=== PATIENT | male | born 1980 | race Caucasian/White ===

== ENCOUNTER → 2017-07-15 | Outpatient (CLI) | payer OTHER, SELFPAY | PROVIDERS: Visit Provider Urology | DX: E29.1 Testicular hypofunction (principal) | CPT/HCPCS: 36415; 84402 ==

== ENCOUNTER 2017-08-23 16:30 | Outpatient (RCR) | payer OTHER, SELFPAY ==
--- NOTE | 2017-08-04 13:41 | HMH.PTOPEV ---
Rehab Outpatient Evaluation Rehab OP Evaluation Start: 08/03/17 10:44 Freq: Status: Active Protocol: Document 08/03/17 10:44 CHIVO (Rec: 08/03/17 12:50 CHIVO [id number]) Electronically Signed By Dao Christopher, PT 08/03/17 10:44 Outpatient Therapy Subjective History Subjective History Mr. Avendaño is a 37 year old male who presents to outpatient Physical Therapy with a R gastroc strain. Pt. was playing basketball and felt a pop and like someone had kicked him in his leg. Signs and symptoms consistent with grade II gastroc strain. Pt went for MD visit where he was prescribed oral anti- inflammatories and referred to PT. Overall improvements noted since introduction of ice and anti-inflammatories. Chief Complaint Pain Symptom Type Sharp Stabbing Tingling Symptoms Relieved By Rest/Positioning Symptoms Aggravated By Standing Physical Activity Walking Prior Functional Limitations None Current Functional Limitations Driving Standing Recreation Activity Walking Stairs Symptom Description Constant and Continuous Level of pain today (0-10) 4 Pain scale - at its best (0-10) 2 Pain scale - at its worst (0-10) 5 Hip/Knee Eval Palpation Tenderness right Knee Palpation Overall Comment Proximal medial head of gastroc Ankle/Foot Eval Gait Observation General Gait Pattern Observation Antalgic Gait Decrease Weight Bear (R) Decrease Stride Lngth (L) Assistive Device Ambulation Assistive Device None Palpation Tenderness right Ankle/Foot Palpation Findings Tenderness Ankle/Foot Palpation Overall Comment +TTP R medial gastroc head ROM left Ankle/Foot ROM Reason Not Measured Within Functional Limits right Ankle/Foot ROM Limitations Soft Tissue Tightness Pain MMT Ankle Plantarflexion Strength Grade 5 Normal Outpatient Therapy Assessment Impairments Problems/Impairmments Palpation Tenderness Impaired Strength
== END 2017-08-23 16:31 | disposition home or self-care (01) ==
LOC: PT 16:30
PROVIDERS: Family Provider Family Medicine; PCP Family Medicine; Visit Provider Family Medicine
DX: S86.111A Strain of other muscle(s) and tendon(s) of posterior muscle group at lower leg level, right leg, initial encounter (principal)
CPT/HCPCS: 97010; 97014; 97035; 97110; 97140; G0283

== ENCOUNTER → 2017-12-13 16:09 | Outpatient (CLI) | payer OTHER, SELFPAY ==
--- NOTE | 2017-12-13 16:15 | XR_ITS ---
XR shoulder RT min 2V HISTORY: ITS.REASON: RT SHOULDER PAIN ORDERING PHYSICIAN: John Byrne MD PATIENT AGE: 37 years Comparison: None FINDINGS: No fracture or dislocation. No lytic or blastic change. There is normal mineralization. The joint spaces are well-preserved. No significant degenerative/arthritic changes. No erosive changes evident. IMPRESSION: Negative, no acute finding
== END ==
PROVIDERS: PCP Family Medicine; Visit Provider Family Medicine
DX: M25.511 Pain in right shoulder (principal)
CPT/HCPCS: 73030

== ENCOUNTER → 2017-12-29 10:59 | Outpatient (CLI) | payer OTHER, SELFPAY ==
--- NOTE | 2017-12-29 11:02 | MR_ITS ---
MR shoulder RT wo con HISTORY: Right shoulder pain. Prior SLAP repair, heard a pop in the right shoulder with pain and tingling weakness and limited range of motion ITS.REASON: ACUTE PAIN OF RIGHT SHOULDER ORDERING PHYSICIAN: John Byrne MD PATIENT AGE: 37 years Comparison: 12/13/2017, 11/27/2012 TECHNIQUE: Standard multiplanar multiecho sequences are performed without contrast. FINDINGS: There is mild downsloping of the acromion laterally and posteriorly with minimal hypertrophic change inferiorly causing subacromial stenosis as before. There is minimal thickening with increased T2 signal in the distal aspect of the supraspinatous tendon consistent with mild tendinopathy/tendinosis. Small focal area of increased T2 signal present within the distal aspect of the supraspinatus tendon posteriorly suggesting a small intrasubstance tear which is incomplete. There is also mild thickening of the subscapularis tendon with slight increased T2 signal. The infraspinatus and teres minor tendons are intact. Bicipital tendon is in place. No evidence of labral tear area no shoulder joint effusion fracture or other significant anomalies evident. IMPRESSION: 1. Mild subacromial stenosis which may result in impingement symptomatology. 2. Tendinopathy/tendinosis of the supraspinatus and subscapularis tendons. 3. Partial tear of the distal and posterior aspect of the supraspinatus tendon.
== END ==
PROVIDERS: Family Provider Family Medicine; PCP Family Medicine; Visit Provider Family Medicine
DX: M25.511 Pain in right shoulder (principal); R29.898 Other symptoms and signs involving the musculoskeletal system
CPT/HCPCS: 73221

== ENCOUNTER → 2018-01-16 15:17 | Outpatient (CLI) | payer OTHER, SELFPAY ==
[2018-01-20 15:34] LABS: Testosterone,Free 28.6 pg/mL (8.7-25.1)
[2018-01-20 15:37] LABS: Testosterone, Total, LC/MS 1102.7 ng/dL (264.0-916.0)
== END ==
PROVIDERS: Visit Provider Urology
DX: E29.1 Testicular hypofunction (principal)
CPT/HCPCS: 36415; 84402; 84403

== ENCOUNTER → 2018-03-28 15:09 | Outpatient (CLI) | payer OTHER, SELFPAY ==
[2018-04-04 08:26] LABS: Testosterone, Total, LC/MS 482.1 ng/dL (264.0-916.0)
== END ==
PROVIDERS: PCP Family Medicine; Visit Provider Urology
DX: E29.1 Testicular hypofunction (principal)
CPT/HCPCS: 36415; 84402; 84403

== ENCOUNTER 2018-04-08 21:09 | Observation (INO) ==
[2018-04-08 21:56] LABS: Anion Gap 10.9 mEq/L (5-15); Blood Urea Nitrogen 5 mg/dL (7-18); Carbon Dioxide 30 mmol/L (21.0-32.0); Chloride 105 mmol/L (98-107); Glucose 110 mg/dL (74-106); Potassium 3.9 mmoL/L (3.5-5.1); Sodium 142 mmol/L (136-145)
[2018-04-08 22:08] LABS: Basophils % 0.4 % (0.1-2.0); Eosinophils # 0.1 K/mm3 (0.0-0.4); Eosinophils % 1.9 % (0.1-12.0); Hematocrit 54.1 % (42.0-52.0); Lymphocytes # 2.7 K/mm3 (0.7-4.5); Mean Corpuscular HGB Conc 33.8 g/dL (31.8-35.4); Mean Corpuscular Hemoglobin 30.8 pg (27.0-31.2); Mean Corpuscular Volume 91.2 fl (80-94); Mean Platelet Volume 6.9 fl (7.4-10.4); Monocytes # 0.5 K/mm3 (0.1-1.0); Monocytes % 6.6 % (1.7-9.3); Neutrophils # 4.1 K/mm3 (1.8-7.8); Neutrophils % 55.2 % (37.0-80.0); Platelet Count 255 K/mm3 (142-424); Red Blood Count 5.93 M/mm3 (4.60-6.20); Red Cell Distribution Width 13.8 % (11.5-17.5); White Blood Count 7.4 K/mm3 (4.8-10.8)
--- NOTE | 2018-04-08 22:13 | Emergency Department Note ---
ED Disposition Clinical Impression: Chest pain Qualifiers: Chest pain type: unspecified Qualified Code(s): R07.9 - Chest pain, unspecified Disposition: Admitted as Observation Condition on Discharge: Good Referrals: John Byrne MD [Primary Care Provider] - - Critical Care Critical Care Time: No Attestation: On 04/08/18, the high probability of a clinically significant, sudden or life threatening deterioration of the following system(s) required my full and direct attention, intervention and personal management. The time I documented below is in addition to time spent performing reported procedures but includes the following listed in this critical care notation. Medical Decision Making - Medical Records Medical records reviewed: Yes: I reviewed the patient's medical records. - Chaim Inquiry Pt receiving controlled substance: No Vital Signs: 04/08/18 21:09 04/08/18 21:46 04/08/18 21:59 Temperature 98.0 F Temperature Source Oral Pulse Rate [Right Radial] 94 H 97 H 110 H Respiratory Rate 16 16 17 Blood Pressure [Right Arm] 145/100 126/85 134/80 Blood Pressure Mean [Right Arm] 115 98 98 Blood Pressure Source [Right Arm] Automatic Cuff Manual Cuff/ Palpation Automatic Cuff Blood Pressure Position [Right Arm] Sitting Sitting Sitting 02 Sat by Pulse Oximetry 97 96 96 Oxygen Delivery Method Room Air Room Air - Lab Data Lab results reviewed: Yes: I reviewed the patient's lab results. Lab Results 04/08/18 21:10: Sodium 142, Potassium 3.9, Chloride 105, Carbon Dioxide 30, Anion Gap 10.9, BUN 5 L, Creatinine 1.05, Estimated Creat Clear 142, Estimated GFR 79, Est GFR ( Amer) 96, Glucose 110 H, Calcium 9.0, Troponin I < 0.02 Result diagrams: 04/08/18 21:10 Orders (Tests/Meds): ED MEDICATIONS Discontinued Medications Generic Name Dose Route Start Last Admin Trade Name Freq PRN Reason Stop Dose Admin Acetaminophen 500 mg 04/08/18 22:01 04/08/18 22:02 Tylenol 500mg Tablet PO 04/08/18 22:02 500 mg ONCE ONE Administration Aspirin 324 mg 04/08/18 21:23 04/08/18 21:24 Aspirin 81mg Chewable Tablet PO 04/08/18 21:24 324 mg ONCE ONE Administration Nitroglycerin 0.4 mg 04/08/18 21:48 04/08/18 21:52 Nitrostat 0.4mg Sl Tablet SL 04/08/18 21:49 0.4 mg ONCE ONE Administration ORDERS Category Date Time Status Chest XR 2 view (NOT portable) [XR chest 2V] Stat Exams 04/08/18 21:14 Taken Complete Blood Count Auto Diff Stat Lab 04/08/18 21:10 Received 12-lead EKG Request [ECG Request by /Logan] Stat Y 04/08/18 21:15 Ordered - Radiology Data #1 Image(s): Chest Image Reviewed: Yes I reviewed the patient's radiology image Preliminary Findings: Normal/NAD - ECG Data Tracing #1 I reviewed this ECG and interpreted as documented below: Normal Sinus Rhythm: Yes Ischemic changes: non-specific ST-T wave changes - Physician Consults Physician Consulted: mo Reason -: Admission Additional Consult: mercedes Reason -: Pt condition Chest Pain HPI - General Chief Complaint: Chest Pain Stated Complaint: chest pain Time Seen by Provider: 04/08/18 21:15 Mode of Arrival: Ambulatory Source of Information: Patient, Spouse, Medical Record Limitations: No Limitations Description of Symptoms (Recalled from ER Triage Doc. by RN): Pt reports left sided chest pain that has been occuring on and off for 3 days. He reports left side chest pressure and difficulty breating. - History of Present Illness HPI narrative: wm with new onset of lt ant chest pain both with act and rest over the last few days - no trauma or cough and no gerd sx and rash and no sob - has hx of father with ht dis at 38 MD complaint: chest pain indicative of cardiac Onset (ago): day(s) Duration: intermittent Activity at onset: during rest Pain location: left chest Severity: moderate Risk Factors for CAD: Family Hx of CAD Treatments prior to or on arrival for Cardiac Chest Pain: none - KATERINA Score Non-Stemi Age of patient: Less than 65 yrs Number of risk factors for CAD: Presence of less than 3 Prior coronary artery stenosis(seen in coronary angiography): Less than 50% ST-Segment deviation on ECG (more than 1 min): Absent Prior aspirin intake: No ASA in the last 7 days Severe anginal chest pain: Two or more episodes in last 24 hours Elevated cardiac markers(CK-MB or troponin): Absent Non-Stemi Risk Score: 1 - Related Data Home Medications Medication Instructions Recorded Confirmed cholecalciferol (vitamin D3) 2,000 2,000 unit PO DAILY cap 02/07/18 04/08/18 unit capsule paroxetine 10 mg tablet 40 mg PO DAILY tab 02/07/18 04/08/18 Pantoprazole Sodium [Protonix 40mg 40 mg PO DAILY 04/08/18 04/08/18 tablet] Testosterone Cypionate 50 mg IM WEEKLY 04/08/18 04/08/18 Allergies Allergy/AdvReac Type Severity Reaction Status Date / Time From LEVAQUIN Allergy Unknown NAUSEA/VOMI Uncoded 02/07/18 09:03 TING From PERCOCET Allergy Unknown NIGHTMARES Uncoded 02/07/18 09:03 [facility] History I have reviewed the patient's past medical history: Yes Medical History: Reports:: Hyperlipidemia Other Surgeries: Yes: Cholecystectomy Comment: BMT, R Shoulder Surgery - Social History Smoking Status: Unknown if ever smoked Alcohol Intake: never Family Hx:: Anemia, Asthma, Cancer, Hyperlipidemia ROS Obtained: Yes All systems reviewed & no additional complaints - Constitutional Constitutional: Denies fever(s) - Eyes Eyes: Denies change in vision - ENT Ears, Nose, Mouth, and Throat: Denies headache(s), Denies sore throat - Cardiovascular Cardiovascular: Reports chest pain, Denies dyspnea - Respiratory Respiratory: No cough - Gastrointestinal Gastrointestingal: Denies: abdominal pain - Genitourinary Male Genitourinary: Denies flank pain, Denies hematuria - Musculoskeletal Musculoskeletal: Denies joint pain - Integumentary/Breasts Skin/Breast: Denies rash - Neurologic Neurologic: Denies seizure-like activity Physical Exam - General General appearance: alert, in no apparent distress - Head Head exam: normocephalic - Eye Eye exam: Present: PERRL, EOMI - ENT ENT exam: Present: mucous membranes moist - Neck Neck exam: Present: full ROM, trachea midline - Respiratory Respiratory exam: Present: normal lung sounds bilaterally. Absent: respiratory distress - Cardiovascular Cardiovascular exam: Present: regular rate, systolic murmur. Absent: rubs - Abdominal Exam Abdominal exam: Present: soft - Extremities Exam Extremities exam: Present: full ROM. Absent: calf tenderness - Neurological Exam Neurological exam: Present: alert, oriented X3, CN II-XII intact - Psychiatric Psychiatric exam: Present: normal affect - Skin Skin exam: Absent: rash
[2018-04-08 22:40] LABS: Hemoglobin 18.4 g/dL (14.1-18.0)
[2018-04-09 05:26] LABS: Anion Gap 12.9 mEq/L (5-15); Calcium 8.6 mg/dL (8.5-10.1); Potassium 3.9 mmoL/L (3.5-5.1)
[2018-04-09 05:31] LABS: Basophils % 0.6 % (0.1-2.0); Eosinophils # 0.2 K/mm3 (0.0-0.4); Eosinophils % 2.2 % (0.1-12.0); Hematocrit 49.7 % (42.0-52.0); Hemoglobin 16.6 g/dL (14.1-18.0); Lymphocytes # 2.8 K/mm3 (0.7-4.5); Lymphocytes % 41.3 K/mm3 (10-50); Mean Corpuscular HGB Conc 33.3 g/dL (31.8-35.4); Mean Corpuscular Hemoglobin 30.4 pg (27.0-31.2); Mean Corpuscular Volume 91.4 fl (80-94); Mean Platelet Volume 7.1 fl (7.4-10.4); Monocytes # 0.5 K/mm3 (0.1-1.0); Monocytes % 7.6 % (1.7-9.3); Neutrophils # 3.2 K/mm3 (1.8-7.8); Neutrophils % 48.2 % (37.0-80.0); Platelet Count 242 K/mm3 (142-424); Red Blood Count 5.44 M/mm3 (4.60-6.20); Red Cell Distribution Width 13.9 % (11.5-17.5); White Blood Count 6.6 K/mm3 (4.8-10.8)
--- NOTE | 2018-04-09 09:43 | Pharmacy Consult Notes ---
[facility] Pharmacy VTE Monitoring - Patient Demographics Admission date: 04/08/18 Report Date: 04/09/18 Time: 09:43 Allergies/Adverse Reactions: Patient Allergies From LEVAQUIN Allergy (Unknown, Uncoded 02/07/18 09:03) NAUSEA/VOMITING From PERCOCET Allergy (Unknown, Uncoded 02/07/18 09:03) NIGHTMARES Height: 1.73 m Weight: 106.311 kg Patient Problems: Current Active Problems Chest pain (Acute) - VTE Risk Labs: VTE Related Lab Results Hgb 16.6 g/dL (14.1-18.0) 04/09/18 04:36 Hct 49.7 % (42.0-52.0) 04/09/18 04:36 Plt Count 242 K/mm3 (142-424) 04/09/18 04:36 BUN 6 mg/dL (7-18) L 04/09/18 04:36 Creatinine 0.99 mg/dL (0.70-1.30) 04/09/18 04:36 Estimated Creat Clear 154 mL/min (0-300) 04/09/18 04:36 Was VTE Risk Assessment Performed: Yes VTE Score: 2 VTE Risk Level: Low Risk - Prophylaxis VTE Prophylaxis Ordered?: Yes Types of VTE Prophylaxis: TEDS Knee High Location of Applied Device: Bilateral Lower Extremeties - VTE Diagnosis Confirmed Treatment or plan recommended: Continue Current Treatment
--- NOTE | 2018-04-09 11:10 | History & Physical Report ---
*Admission Date: 04/08/18 *Chief complaint: Chest pain *History of present illness: THIS IS TO SERVE COMBO H&P AND DISCHARGE SUMMARY. This 38-year-old white male has a strong family history of coronary artery disease. He presented in the emergency room with complaints of chest pain. He had chest pains and Tuesday and presented in the emergency room Tuesday. In describing the pain it seems that the pain is usually nonexertional. The pain is on the left side of the chest. He is not short of breath. He is not diaphoretic. He has not noticed pain when he is at work though he is not usually all that active at work. His father at age 53 of pancreatic cancer but had coronary artery bypass 2, with his first heart attack at age 38. [facility] History Medical History: Reports:: Hyperlipidemia Denies:: Cancer, Diabetes Mellitus Type 1, Diabetes Mellitus Type 2, Lung Disease, MRSA Other Medical History: Denies: Anemia, Fibromyalgia, Liver Disease Comment: He has had GI symptoms in the past and takes [id number] PPI which has recently been switched to Protonix. Laterality Cases: Right: Other Other Surgeries: Yes: Cholecystectomy Amputation: No Fractures: No - *Social History Educational Level: Completed High School Smoking Status: Never smoker Alcohol Intake: never (Occasional social drink.) Occupational Status: employed - Psychiatric History Expresses thoughts of harming self/others: None Suicide Plan Description: No Plan *Family Hx:: Anemia, Asthma, Cancer, Coronary Artery Disease, Diabetes, Heart Attack, Hyperlipidemia Comment: His father at age 53 of pancreatic cancer. He had coronary artery disease and CABG 2. His mother 61 years old and in good health. Sister is 44 years old with diabetes. He is a 3-year-old daughter. Review of Systems - Constitutional Denies anorexia, Denies body ache(s), Denies chills - Eyes Denies blurry vision - ENT Denies abnormal hearing - *Cardiovascular Reports chest pain, Reports chest pain at rest, Denies chest pain with activity, Denies shortness of breath, Denies irregular heart rhythm, Denies leg swelling, Denies rapid, pounding, or irregular heartbeat - *Respiratory Denies chest congestion, Denies cough - *Gastrointestinal Reports abdominal pain, Denies change in bowel habits, Denies vomiting blood, Denies loose stools - *Genitourinary Denies difficulty urinating - *Musculoskeletal Denies abnormal walking, Denies joint swelling Comments: Right rotator cuff injury with discomfort. - *Neurologic Denies headache(s), Denies seizure-like activity - Hematologic/Lymphatic Denies easy bleeding, Denies easy bruising Meds Home Medications Medication Instructions Recorded Confirmed Type cholecalciferol (vitamin D3) 2,000 2,000 unit PO DAILY cap 02/07/18 04/08/18 History unit capsule paroxetine 10 mg tablet 40 mg PO DAILY tab 02/07/18 04/08/18 History Pantoprazole Sodium [Protonix 40mg 40 mg PO DAILY 04/08/18 04/08/18 History tablet] Testosterone Cypionate 50 mg IM WEEKLY 04/08/18 04/08/18 History Allergies Allergy/AdvReac Type Severity Reaction Status Date / Time From LEVAQUIN Allergy Unknown NAUSEA/VOMI Uncoded 02/07/18 09:03 TING From PERCOCET Allergy Unknown NIGHTMARES Uncoded 02/07/18 09:03 Exam Vital signs and Labs for Last 24 Hours: Temp Pulse Resp BP Pulse Ox 97.6 F 72 16 125/71 96 04/09/18 07:56 04/09/18 07:56 04/09/18 07:56 04/09/18 07:56 04/09/18 07:56 Laboratory Results - last 24 hr 04/08/18 21:10: WBC 7.4, RBC 5.93, Hgb 18.4 H*, Hct 54.1 H, MCV 91.2, MCH 30.8, MCHC 33.8, RDW 13.8, Plt Count 255, MPV 6.9 L, Neut % (Auto) 55.2, Lymph % (Auto) 36.0, [place] % (Auto) 6.6, Eos % (Auto) 1.9, Baso % (Auto) 0.4, Neut # (Auto) 4.1, Lymph # (Auto) 2.7, [place] # (Auto) 0.5, Eos # (Auto) 0.1, Baso # (Auto) 0.0 04/08/18 21:10: Sodium 142, Potassium 3.9, Chloride 105, Carbon Dioxide 30, Anion Gap 10.9, BUN 5 L, Creatinine 1.05, Estimated Creat Clear 142, Estimated GFR 79, Est GFR ( Amer) 96, Glucose 110 H, Calcium 9.0, Troponin I < 0.02 04/09/18 01:35: Troponin I < 0.02 04/09/18 04:36: Troponin I < 0.02 04/09/18 04:36: WBC 6.6, RBC 5.44, Hgb 16.6, Hct 49.7, MCV 91.4, MCH 30.4, MCHC 33.3, RDW 13.9, Plt Count 242, MPV 7.1 L, Neut % (Auto) 48.2, Lymph % (Auto) 41.3, [place] % (Auto) 7.6, Eos % (Auto) 2.2, Baso % (Auto) 0.6, Neut # (Auto) 3.2, Lymph # (Auto) 2.8, [place] # (Auto) 0.5, Eos # (Auto) 0.2, Baso # (Auto) 0.0 04/09/18 04:36: Sodium 143, Potassium 3.9, Chloride 106, Carbon Dioxide 28, Anion Gap 12.9, BUN 6 L, Creatinine 0.99, Estimated Creat Clear 154, Estimated GFR 85, Est GFR ( Amer) 103, Glucose 99, Calcium 8.6, Triglycerides 185, Cholesterol 165, LDL Cholesterol 95, VLDL Cholesterol 37, HDL Cholesterol 33, Cholesterol/HDL Ratio 5.0 H I & O for Last 24 hours: Intake & Output 04/06/18 04/07/18 04/08/18 04/09/18 11:59 11:59 11:59 11:59 Weight 234 lb 6 oz - Constitutional no acute distress - *Routine HEENT Exam Head: Present: normocephalic Eye: Present: PERRL ENT: Present: mucous membranes moist - *Routine Neck Exam Absent: thyromegaly - Routine Chest/Breast/Axilla Exam Chest wall: Absent: tenderness - *Routine Respiratory Exam Present: CTA bilaterally. Absent: rales, wheezes - *Routine Cardiovascular Exam Present: RRR Comments: No murmurs, no ectopics - *Routine Abdominal Exam Present: soft. Absent: tenderness, organomegaly - *Routine Extremities Exam Absent: edema - *Routine Skin Exam Present: intact - *Routine Neurological Exam Present: alert, oriented X3 Assessment and Plan (1) Dyspepsia and disorder of function of stomach Current visit: Yes Status: Acute Category: Medical Code(s): K31.9 - Disease of stomach and duodenum, unspecified; R10.13 - Epigastric pain - Assessment and plan all Dx Assessment and Plan for all problems:: He has been stable through the night. He has nonexertional chest pain. Troponins were negative. He has a past history of a GXT when he was about 31 years old. We will arrange outpatient cardiac GXT and cardiology follow-up. Discharge today.
== END 2018-04-09 11:57 | disposition home or self-care (01) ==
LOC: ER 21:09 → 2ND 21:09
PROVIDERS: ADMIT Family Medicine; ATTEND Family Medicine

== ENCOUNTER → 2018-04-17 06:22 | Outpatient (CLI) | payer OTHER, SELFPAY ==
--- NOTE | 2018-04-17 07:09 | NM_ITS ---
History and Indications: Chest pain, shortness of breath, fatigue and family history. Procedure: Patient exercised on Everette protocol 10 minutes and 30 seconds, resting heart rate was 85 beats prominent resting blood pressure 145/90, with exercise maximum heart rate achieved was 1 73 bpm which is greater than 85% of the maximum predicted heart rate and a blood pressure was 184/100. Test was started due to shortness of breath and fatigue. Patient denied any chest discomfort during exercise. Patient has good exercise capacity achieved 12.8mets of workload on treadmill, the blood pressure response to exercise was hypertensive. Electrocardiogram: Resting electrocardiogram showed sinus rhythm, with exercise there is less than 1.[address] segment depression noted from the baseline EKG. The EKG portion of the exercise Myoview is negative for ischemia. Cardiac stress and resting SPECT images: Cardiac stress and rest SPECT images were obtained using technetium 99 Myoview 32.8 mCi at rest and 10.3 mCi at rest. Gated SPECT further analysis of segmental wall motion and calculation of the ejection fraction also done. Cardiac stress and resting SPECT images show uniform myocardial activity without segmental perfusion abnormality, computer derived ejection fraction is 54% with no regional wall motion abnormality, right ventricle is normal size and contractility. Conclusion: 1. The EKG portion of the exercise Myoview is negative for ischemia, patient has good exercise capacity achieved 12.8mets of workload on treadmill, the blood pressure response to exercise was hypertensive, there was no exercise-induced chest discomfort, however patient complained of mild chest tightness post exercise with no EKG changes. 2. No scintigraphic evidence of reversible ischemia seen at this level of exercise, computer derived ejection fraction is 54% with no regional wall motion abnormality, right ventricle is normal size and contractility.
--- NOTE | 2018-04-17 07:20 | HMH.ITSHM ---
TESTOSTERONE PAROXETINE PANTOPRAZOLE
== END ==
PROVIDERS: Family Provider Family Medicine; PCP Family Medicine; Visit Provider Family Medicine
DX: R07.9 Chest pain, unspecified (principal)
CPT/HCPCS: 78452; 93017; A9502

== ENCOUNTER → 2018-05-08 08:57 | Outpatient (CLI) | payer OTHER, SELFPAY ==
--- NOTE | 2018-05-08 09:02 | CT_ITS ---
CT abdomen pelvis w con CLINICAL INDICATION: Left-sided abdominal pain, left upper abdominal pain with nausea ITS.REASON: LEFT SIDED ABD PAIN ORDERING PHYSICIAN: John Byrne MD PATIENT AGE: 38 years COMPARISON: 11/12/2015 TECHNIQUE: Axial images obtained with sagittal and coronal reformats. All CT scans at the facility use one or more dose reduction, viz: automated exposure control, ma/kV adjustment per patient size (including targeted exams where dose is matched to indication, i.e. head), or iterative reconstruction technique. PROCEDURE: Oral Contrast: Redicat IV Contrast: 75 mL's of Isovue-370. FINDINGS: No acute finding in the lung bases. There is a small hiatal hernia with contrast in the distal esophagus which may be seen with reflux. Prior cholecystectomy. The liver, spleen, adrenal glands, pancreas, and kidneys have an unremarkable appearance. No renal or ureteral calculi evident. No evidence of appendicitis, intestinal obstruction, free air, or diverticulitis. No pelvic mass abnormal fluid collection or focal inflammatory change evident within the pelvis. Urinary bladder wall slightly thickened but could be due to nondistention. No acute bony anomalies. No abdominal wall hernias IMPRESSION: 1. No acute abdominal or pelvic findings. 2. Mild thickening of the urinary bladder wall. This is nonspecific and could be seen with nondistention or mild cystitis
== END ==
PROVIDERS: Family Provider Family Medicine; PCP Family Medicine; Visit Provider Family Medicine
DX: R10.9 Unspecified abdominal pain (principal)
CPT/HCPCS: 74177; Q9967

== ENCOUNTER → 2018-05-30 15:48 | Outpatient (CLI) | payer OTHER, SELFPAY ==
[2018-06-02 09:27] LABS: H. pylori Breath Test Negative (Negative)
== END ==
PROVIDERS: Visit Provider Family Medicine
DX: R10.13 Epigastric pain (principal)
CPT/HCPCS: 83013

== ENCOUNTER → 2018-09-25 15:28 | Outpatient (POV) | payer OTHER, SELFPAY | PROVIDERS: Visit Provider Nurse Practitioner Acute Care | DX: Z00.00 Encounter for general adult medical examination without abnormal findings (principal) ==

== ENCOUNTER → 2018-09-27 17:15 | Outpatient (CLI) | payer OTHER, SELFPAY | PROVIDERS: PCP Family Medicine; Visit Provider Physician Assistant | DX: R00.2 Palpitations (principal) | CPT/HCPCS: 93225; 93226 ==

== ENCOUNTER → 2018-10-11 17:11 | Outpatient (CLI) | payer OTHER, SELFPAY ==
[2018-10-11 18:30] LABS: Basophils % 0.5 % (0.1-2.0); Eosinophils # 0.1 K/mm3 (0.0-0.4); Eosinophils % 1.4 % (0.1-12.0); Hematocrit 49.7 % (42.0-52.0); Hemoglobin 17.5 g/dL (14.1-18.0); Lymphocytes # 2.5 K/mm3 (0.7-4.5); Lymphocytes % 39.1 % (10-50); Mean Corpuscular HGB Conc 35.2 g/dL (31.8-35.4); Mean Corpuscular Volume 93.6 fl (80-94); Mean Platelet Volume 6.9 fl (7.4-10.4); Monocytes # 0.4 K/mm3 (0.1-1.0); Monocytes % 5.8 % (1.7-9.3); Neutrophils # 3.4 K/mm3 (1.8-7.8); Neutrophils % 53.2 % (37.0-80.0); Platelet Count 277 K/mm3 (142-424); Red Blood Count 5.31 M/mm3 (4.60-6.20); Red Cell Distribution Width 13.7 % (11.5-17.5); White Blood Count 6.4 K/mm3 (4.8-10.8)
[2018-10-11 18:53] LABS: Ferritin 25 ng/mL (8-388)
[2018-10-17 06:46] LABS: Testosterone, Total, LC/MS 1047.8 ng/dL (264.0-916.0)
== END ==
PROVIDERS: PCP Physician Assistant; Visit Provider Urology
DX: E29.1 Testicular hypofunction (principal); D58.2 Other hemoglobinopathies
CPT/HCPCS: 36415; 82728; 84403; 85025

== ENCOUNTER → 2018-10-20 12:43 | Outpatient (POV) | payer OTHER, SELFPAY ==
[2018-10-20 12:45] VITALS: BP 150/94; PULSE 88; RESP 18
--- NOTE | 2018-10-20 12:48 | HMH.PMCON ---
Assessment and Plan (1) Shingles (herpes zoster) polyneuropathy Current visit: Yes Status: Acute Category: Medical Code(s): B02.23 - Postherpetic polyneuropathy (2) Shingles rash Current visit: Yes Status: Acute Category: Medical Code(s): B02.9 - Zoster without complications - Assessment and plan all Dx Assessment and Plan for all problems:: We will start him on gabapentin 300 mg 3 times a day. We will seek approval for a peripheral nerve block to the scalp region to help with his pain symptoms and help with drying of the rash. HPI - Data of Consult Patient: new to practice Consult date: 10/20/18 Requesting Physician: Luiz Tipton MD Primary Care Provider: John Byrne MD - Consult Narrative Reason for consult: Shingles History of present illness: Mr. Avendaño is a 38 year old male who developed a shingles type rash in the C2 dermatomal level on the left side in the forehead and scalp region on the left side. This rash came about on Tuesday. He is on Valtrex currently. We will start him on gabapentin 300 mg 3 times a day and seek approval for peripheral nerve block to help with his pain symptoms. CC: Luiz Tipton MD [facility] History I have reviewed the patient's past medical history: Yes Medical History: Reports:: Hyperlipidemia Denies:: Cancer, Diabetes Mellitus Type 1, Diabetes Mellitus Type 2, Internal Pacemaker, Lung Disease, MRSA, Seizures *Have you ever received a pneumonia vaccine?: No *Have you received a flu vaccine this season?: No Other Medical History: Denies: Anemia, Blood Transfusion Reaction, Fibromyalgia, Liver Disease Laterality Cases: Right: Other Other Surgeries: Yes: Cholecystectomy. No: Pacemaker Amputation: No Fractures: No - *Social History Smoking Status: Never smoker Alcohol Intake: never (Occasional social drink.) *Occupational Status:: employed Family Hx:: Anemia, Asthma, Cancer, Coronary Artery Disease, Diabetes, Heart Attack, Hyperlipidemia Review of Systems - Review of Systems Review of systems:: pertinent systems reviewed and negative unless documented below Meds Home Medications Medication Instructions Recorded Confirmed Type cholecalciferol (vitamin D3) 2,000 2,000 unit PO DAILY cap 02/07/18 07/19/18 History unit capsule paroxetine 10 mg tablet 40 mg PO DAILY tab 02/07/18 07/19/18 History Testosterone Cypionate 50 mg IM WEEKLY 04/08/18 07/19/18 History Pantoprazole Sodium [Protonix 40mg 40 mg PO BID 07/11/18 07/19/18 History tablet] Allergies Allergy/AdvReac Type Severity Reaction Status Date / Time acetaminophen [From Percocet] Allergy Nightmare Verified 07/19/18 06:51 levofloxacin [From Levaquin] Allergy Vomiting Verified 07/19/18 06:51 oxycodone [From Percocet] Allergy Nightmare Verified 07/19/18 06:51 Objective - *Routine HEENT Exam Head: Present: scalp tenderness Opioid Risk Tool - Opioid Risk Tool-Male Family hx alcohol abuse: N Family hx illegal drugs: N Family hx rx drug abuse: N Personal hx alcohol abuse: N Personal hx illegal drugs: N Personal hx rx drug abuse: N Age: 16-45 Hx of sexual abuse: N Mental health issues-ADD,OCD,Bipolar, etc: N Hx of depression: N Male Risk Score: 1
== END ==
PROVIDERS: PCP Family Medicine; Visit Provider Anesthesiology
DX: B02.23 Postherpetic polyneuropathy (principal)
CPT/HCPCS: 99201

== ENCOUNTER → 2018-12-11 16:52 | Outpatient (CLI) | payer OTHER, SELFPAY | PROVIDERS: PCP Family Medicine; Visit Provider Internal Medicine Cardiovascular Disease | DX: G47.33 Obstructive sleep apnea (adult) (pediatric) (principal); R00.0 Tachycardia, unspecified; R06.02 Shortness of breath; I10 Essential (primary) hypertension; E29.1 Testicular hypofunction | CPT/HCPCS: 95806 ==

== ENCOUNTER 2020-03-10 13:21 | Emergency (ER) | payer OTHER, SELFPAY ==
[2020-03-10 13:34] VITALS: BP 123/87; PULSE 113; RESP 20; TEMP 36.8; O2SAT 96; BMI 34.9
--- NOTE | 2020-03-10 13:43 | HMH.EDUTC ---
[facility] [place] Disposition Clinical Impression: Sinusitis Qualifiers: Sinusitis location: unspecified location Chronicity: unspecified Qualified Code(s): J32.9 - Chronic sinusitis, unspecified Disposition: Home, Self-Care Condition on Discharge: Good Instructions: Sinusitis, Sinus Headache, Cough, DI for Sinusitis, Preventing the Spread of Coronavirus Discharge Instructions Additional Instructions: *Monitor Temp, Over the counter Motrin or Tylenol as directed/as needed Tylenol every 4 hours and Motrin every 6 hours (as long as your family doctor has told you that you can take it) for fever or pain. and straight to ER if unable to lower temp less than 101.0 after medication given *Warm salt water gargles may help to soothe the throat *Throat Lozenges *Warm fluids like tea with honey may help to soothe the throat *Sleep elevated *Humidifier/Vaporizer *Flonase 2 sprays in each nostril daily but be aware that it may take 2-3 days before you notice improvement You was tested for COVID 19 and was given handout with instructions for Self Quarantine and Self isolation Please follow instructions carefully while waiting for your test results No work until negative COVID test Your throat swab was sent for culture. Those results are typically sent to your primary care. Be sure to follow up in 2-3 days with your family doctor/primary care physician if no improvement so they can review those result and treat if necessary. If you don?t have a primary care doctor, I recommend you get one but in the mean time, you will have to return to a walk in clinic Follow up IMMEDIATELY for new or worsening symptoms or no Noticeable improvement over the next 48-72 hours. 911 for difficulty breathing or swallowing Prescriptions: Albuterol Sulfate [Proventil-HFA 90mcg/puff Inh] 1 - 2 puffs IH Q4HP PRN #1 inh PRN Reason: Shortness Of Breath Transmission Status: Pending to [facility] Fluticasone Propionate [Flonase 50mcg nasal spray 16gm] 1 - 2 spr NS DAILY #1 bottle Transmission Status: Pending to [facility] methylPREDNISolone [Medrol 4mg tab] 4 mg PO DIRECTED #21 tab Transmission Status: Pending to [facility] Azithromycin [Z-Christopher 250mg Tab] 250 mg PO DIRECTED #6 tab Transmission Status: Pending to [facility] Referrals: John Byrne MD [Primary Care Provider] - As needed Forms: Work/School Release Time of Disposition: 14:00 Medical Decision Making - Chaim Inquiry Pt receiving controlled substance: No Chaim was queried for this patient: No Vital Signs: 03/10/20 13:34 Temperature 98.3 F Temperature Source Oral Pulse Rate [Right Brachial] 113 H Respiratory Rate 20 Blood Pressure [Right Arm] 123/87 Blood Pressure Mean [Right Arm] 99 Blood Pressure Source [Right Arm] Automatic Cuff Blood Pressure Position [Right Arm] Sitting 02 Sat by Pulse Oximetry 96 Oxygen Delivery Method Room Air - Lab Data Lab results reviewed: Yes: I reviewed the patient's lab results. Lab Results 03/10/20 13:40: Strep Scn Rapid Clinic Negative Orders (Tests/Meds): ORDERS Category Date Time Status Coronavirus 19 Swab (OUTPT) Routine Lab 03/10/20 13:35 Ordered Strep Screen Confirmation Stat Micro 03/10/20 13:40 Received [facility] [place] HPI - General Stated complaint: cough fever weakness Time Seen by Provider: 03/10/20 13:45 Mode of Arrival: Ambulatory Source of Information: Patient Limitations: No Limitations Description of Symptoms (Recalled from Triage Doc. by RN): PATIENT C/O FEVER, COUGH, AND DIARRHEA SINCE TUESDAY HEENT Symptoms (Recalled from RN notes): No Resp Symptoms (Recalled from RN notes): Yes Skin Symptoms (Recalled from RN notes): No MS Symptoms (Recalled from RN notes): No Functional Status (Recalled from RN notes): WNL - History of Present Illness Provider Complaint: Patient states that he has been having fever, cough, sinus pain and pressure along with diarrhea since Tuesday States that t
[2020-03-10 13:54] LABS: UTC Strep Screen (Rapid) Negative (Negative)
[2020-03-10 14:07] VITALS: BP 123/87; PULSE 113; RESP 20; TEMP 36.8; O2SAT 96
== END 2020-03-10 14:10 | disposition home or self-care (01) ==
PROVIDERS: Emergency Provider Nurse Practitioner; PCP Family Medicine
DX: J01.90 Acute sinusitis, unspecified (principal); Z20.828 Contact with and (suspected) exposure to other viral communicable diseases; K21.9 Gastro-esophageal reflux disease without esophagitis; E78.5 Hyperlipidemia, unspecified; I10 Essential (primary) hypertension; Z95.1 Presence of aortocoronary bypass graft; M79.7 Fibromyalgia; Z88.5 Allergy status to narcotic agent; Z90.09 Acquired absence of other part of head and neck; Z79.899 Other long term (current) drug therapy
CPT/HCPCS: 87880; 99202; U0003

== ENCOUNTER → 2020-11-12 16:41 | Outpatient (CLI) | payer OTHER, SELFPAY ==
--- NOTE | 2020-11-12 16:48 | XR_ITS ---
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 There is a longitudinal lucency through the lateral aspect the left vestigial rib and could be due to nondisplaced fracture or ununited ossification center. There is normal alignment. There is partial sacralization of L5 on the right with degenerative changes at the facet joint on the right. IMPRESSION: 1. Possible nondisplaced fracture of the left vestigial ribs at T12 versus ununited ossification center. 2. Partial sacralization L5 on the right with degenerative changes of the atypical facet joint Dictated by: Art Bhakta MD 11/13/2020 05:54 Art Bhakta MD in [place] 11/13/2020 05:54
== END ==
PROVIDERS: PCP Family Medicine; Visit Provider Physician Assistant
DX: M54.16 Radiculopathy, lumbar region (principal)
CPT/HCPCS: 72110

== ENCOUNTER → 2020-11-20 12:40 | Outpatient (CLI) | payer OTHER, SELFPAY ==
--- NOTE | 2020-11-20 12:42 | MR_ITS ---
PROCEDURE: MR LUMBAR SPINE WO CON CLINICAL INDICATION: LUMBAR BACK PAIN WITH RADICULOPATHY bp with bilateral leg pain. No injury or trauma. Symptoms [id number]. Prior x-ray 11-12-2020. COMPARISON: CR XR LUMBAR SPINE MIN 4V from 11/12/2020 TECHNIQUE: Standard multiplanar multiecho sequences are performed without contrast. 3-D MIP and myelographic images are also rendered and reviewed FINDINGS: There is normal alignment. The spinal cord ends at the L1 level. The disc spaces are well preserved. No disc herniation or bony canal stenosis. There is mild facet hypertrophic change at L3-L4 and L4-5. IMPRESSION: Minimal facet hypertrophic change at L3-L4 and L4-5. Otherwise negative MRI of the lumbar spine. Dictated by: Art Bhakta MD 11/21/2020 06:21 Art Bhakta MD in [place] 11/21/2020 06:21
== END ==
PROVIDERS: PCP Family Medicine; Visit Provider Physician Assistant
DX: M54.16 Radiculopathy, lumbar region (principal)
CPT/HCPCS: 72148; 76376

== ENCOUNTER → 2021-01-05 10:09 | Outpatient (POV) | payer OTHER, SELFPAY ==
[2021-01-05 10:54] VITALS: BP 137/100; PULSE 84; RESP 18; O2SAT 96; BMI 34.0
--- NOTE | 2021-01-05 11:45 | HMH.PMCON ---
Assessment and Plan (1) Bilateral sacroiliitis Status: Acute Category: Medical Code(s): M46.1 - Sacroiliitis, not elsewhere classified (2) Low back pain Status: Acute Category: Medical Code(s): M54.5 - Low back pain - Assessment and plan all Dx Assessment and Plan for all problems:: We will schedule the patient for bilateral SI joint injections. We will also order him tizanidine 2 mg 1 tablet p.o. 3 times daily. We will see him back in the clinic after his injections to reevaluate his symptoms. Risks and benefits of the procedure have been explained to the patient. Patient would like to proceed with the procedure. Patient has been instructed to contact the clinic with any concerns before the next appointment. Dr. Blas has reviewed this note and agrees with this plan of care. This note was dictated using voice recognition software and make contain errors or omissions. HPI - Data of Consult Patient: new to practice Consult date: 01/05/21 Requesting Physician: Kat Alford APRN Primary Care Provider: TEGAN Roberts - Consult Narrative Reason for consult: Low back pain History of present illness: Mr. Avendaño is a 40 year old male who presents today for consultation for low back pain. Patient says the pain has been ongoing for approximately 2 months. He was referred to us by Cecy Weinstein. 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 He has pain in his low back area with radiation into his bilateral lower extremities with numbness and tingling. He says that the pain primarily stops at the knees as does the paresthesia. He has reported to have some left foot paresthesia on occasion which is very infrequent. He says that his pain is dull in nature and an aching sensation. He also says leaning forward gives him pain at times. He says standing, walking, and sitting too long also worsen his pain. He says the pain does radiate into his hips. The pain is at its worse at nighttime when he is trying to sleep. He has to stand to get relief. He says that he has taken baclofen which is not giving him relief as well as ibuprofen with no relief. He is tender to palpation to bilateral SI joints today. CC: Kat Alford APRN [facility] History I have reviewed the patient's past medical history: Yes Medical History: Reports:: Gastroesophageal Reflux Disease(GERD), Hyperlipidemia, Hypertension Denies:: Cancer, Diabetes Mellitus Type 1, Diabetes Mellitus Type 2, Internal Pacemaker, Lung Disease, MRSA, Seizures *Have you ever received a pneumonia vaccine?: No *Have you received a flu vaccine this season?: Yes Other Medical History: Denies: Anemia, Blood Transfusion Reaction, Fibromyalgia, Liver Disease Laterality Cases: Right: Other, Bilateral: Tonsillectomy Other Surgeries: Yes: Cholecystectomy. No: Pacemaker Amputation: No Fractures: No - *Social History Smoking Status: Never smoker Alcohol Intake: never Substance Use Type: denies use *Occupational Status:: employed Housing: house Household Members: spouse *Travel in the last 8 weeks: None Family Hx:: Anemia, Asthma, Cancer, Coronary Artery Disease, Diabetes, Heart Attack, Hyperlipidemia Review of Systems - Review of Systems Review of Systems General: No recent weight changes, no fever, no sleep disturbances Respiratory: No cough, no shortness of air, no recurring pulmonary infections Cardiovascular/peripheral vascular: No chest pain, no palpitations, no edema, no shortness of breath Gastrointestinal: No new onset incontinence, normal bowel movements reported Genitourinary: No new onset incontinence Musculoskeletal: [] Low back pain with radiation into bilateral legs stopping at knee, bilateral hip pain Psychiatric: Normal mood/affect Neurological: [Denies weakness in extremities], [denies balance issues] Meds Home Medications M
== END ==
PROVIDERS: PCP Physician Assistant; Visit Provider Clinical Nurse Specialist Family Health
DX: M46.1 Sacroiliitis, not elsewhere classified (principal); M54.5 Low back pain
CPT/HCPCS: 99202; G0463

== ENCOUNTER 2021-01-16 10:08 | Day surgery (SDC) | payer OTHER, SELFPAY ==
[2021-01-16 10:26] VITALS: BP 118/83; PULSE 87; RESP 18; TEMP 36.1; O2SAT 96; BMI 34.0
[2021-01-16 11:54] VITALS: BP 120/87; PULSE 74; RESP 18; O2SAT 95
[2021-01-16 11:56] VITALS: BP 121/90; PULSE 74; RESP 18; O2SAT 99
--- NOTE | 2021-01-16 11:58 | HMH.PMPROC ---
- Procedure Date: 01/16/21 Time: 11:58 Anesthesiologist:: Nataliia Blas MD Complications:: None Pre-procedure Diagnosis:: Bilateral sacroiliitis, chronic hip pain Post-procedure Diagnosis:: Same Indications for Procedure:: This patient is a very pleasant 40-year-old white male who presents today with chronic hip and chronic back pain related to the above diagnosis. He has trialed and failed conservative treatment including oral pain medications and home stretching program. He is currently on tizanidine 2 mg 1 tablet p.o. 3 times a day. The plan for today is for him to undergo bilateral SI joint injections #1. Procedure Details:: Informed consent was obtained and the risks and benefits of the procedure was explained to the patient. The patient was taken to the procedure room and placed prone on the procedure table. The patient was prepped using ChloraPrep. The skin and subcutaneous tissues overlying the SI joints were anesthetized using lidocaine. I placed a 22-gauge needle first in the left SI joint and second in the right SI joint. Needle placement was confirmed with dye. After this we injected 5 mL bupivacaine 0.25% and Depo-Medrol 40 mg into each SI joint. Patient tolerated the procedure well with no complication. Plan and Disposition:: We will follow-up with this patient in 2 weeks. Will reevaluate pain symptoms at that time.
[2021-01-16 12:10] VITALS: BP 112/85; PULSE 75; RESP 18; O2SAT 96
== END 2021-01-16 12:10 | disposition home or self-care (01) ==
PROVIDERS: PCP Physician Assistant; Visit Provider Anesthesiology Pain Medicine
DX: M46.1 Sacroiliitis, not elsewhere classified (principal); G89.29 Other chronic pain; I10 Essential (primary) hypertension; K21.9 Gastro-esophageal reflux disease without esophagitis; F41.9 Anxiety disorder, unspecified; F32.9 Major depressive disorder, single episode, unspecified; Z88.6 Allergy status to analgesic agent
CPT/HCPCS: 27096; G0260; J1030; Q9966

== ENCOUNTER → 2021-02-05 15:36 | Outpatient (POV) | payer OTHER, SELFPAY ==
[2021-02-05 16:02] VITALS: BP 149/92; PULSE 87; RESP 18; O2SAT 95; BMI 34.7
--- NOTE | 2021-02-05 16:48 | HMH.PAINSOAP ---
[facility] Pain Management SOAP Note Subjective:: Patient is a 41-year-old white male who presents today for follow-up after bilateral SI joint injections he has been treated for chronic bilateral hip pain and chronic low back pain. Patient says that he got up to 80% relief with the injections. He says his pain is a 3 out of 10 with sitting. His pain is starting to return, however. He rates his pain a 6 or 7 out of 10 with standing walking. He does have a positive Rocky's, compression, distraction test. He is tender to his bilateral SI joints. He is taking tizanidine at bedtime for relief. He would like to undergo repeat injections. We did discuss compounding cream to apply topically to his bilateral SI joints in between injections. He would like to try this. We also discussed the corner lock procedure in the event that he continues to get relief with the injections, but his pain continues to return. He is continue with home stretching and anti-inflammatories. He is also continue with ice and heat therapies. Review of Systems General: No recent weight changes, no fever, no sleep disturbances Respiratory: No cough, no shortness of air, no recurring pulmonary infections Cardiovascular/peripheral vascular: No chest pain, no palpitations, no edema, no shortness of breath Gastrointestinal: No new onset incontinence, normal bowel movements reported Genitourinary: No new onset incontinence Musculoskeletal: [] Bilateral low back pain, bilateral hip pain Psychiatric: Normal mood/affect Neurological: [Denies weakness in extremities], [denies balance issues] Objective:: Physical exam General: Alert and oriented x3, no acute distress, pleasant and cooperative, [on room air] Lungs: Respirations even and unlabored, symmetrical chest expansion Eyes: PERRL Musculoskeletal: Flexion and extension of [] lumbar spine somewhat guarded secondary to pain, deep tendon reflexes normal, strength in upper and lower extremities [5/5], slightly antalgic gait noted, positive Rocky's test, positive distraction test, positive compression test Neurological: Speech clear, finish opener equal, no gross sensory deficit Assessment:: Sacroiliitis, chronic hip pain, low back pain Plan:: We will schedule the patient for bilateral SI joint injections repeat, #2. He got excellent relief with the initial injections, up to 80% for greater than 2 weeks. His pain is starting to return. We will see him back in the clinic after his injections for reevaluation of symptoms. We will order the patient compounding cream to apply topically to his low back area. He will continue with home stretching and ice and heat therapies. Risks and benefits of the procedure have been explained to the patient. Patient would like to proceed with the procedure. Possible side effects of corticosteroids have been discussed with the patient. Patient has been instructed to contact the clinic with any concerns before the next appointment. Dr. Tipton has reviewed this note and agrees with this plan of care. This note was dictated using voice recognition software and make contain errors or omissions. [facility] History I have reviewed the patient's past medical history: Yes Medical History: Reports:: Gastroesophageal Reflux Disease(GERD), Hyperlipidemia, Hypertension Denies:: Cancer, Diabetes Mellitus Type 1, Diabetes Mellitus Type 2, Internal Pacemaker, Lung Disease, MRSA, Seizures *Have you ever received a pneumonia vaccine?: No *Have you received a flu vaccine this season?: Yes Other Medical History: Denies: Anemia, Blood Transfusion Reaction, Fibromyalgia, Liver Disease Laterality Cases: Right: Arthroscopy Shoulder, Other, Bilateral: Tonsillectomy Other Surgeries: Yes: Cholecystectomy. No: Pacemaker Amputation: No Fractures: No - *Social History Smoking Status: Never smoker Alcohol Intake: never Substance Use Type: denies use *Occupational Status:: employed Housing: house Household Members: spou
== END ==
PROVIDERS: PCP Physician Assistant; Visit Provider Clinical Nurse Specialist Family Health
DX: M46.1 Sacroiliitis, not elsewhere classified (principal); M25.559 Pain in unspecified hip; M54.5 Low back pain
CPT/HCPCS: 99212; G0463

== ENCOUNTER 2021-02-13 13:57 | Day surgery (SDC) | payer OTHER, SELFPAY ==
[2021-02-13 13:58] VITALS: BP 151/62; PULSE 93; RESP 18; TEMP 36.4; O2SAT 98; BMI 34.7
[2021-02-13 14:29] VITALS: BP 126/89; PULSE 93; RESP 18; O2SAT 95
[2021-02-13 14:31] VITALS: BP 127/93; PULSE 94; RESP 18; O2SAT 96
--- NOTE | 2021-02-13 14:47 | P.PCN_ITS ---
- Procedure Date: 02/13/21 Time: 14:47 Anesthesiologist:: Nataliia Blas MD Complications:: None Pre-procedure Diagnosis:: Bilateral sacroiliitis, chronic bilateral hip pain, chronic low back pain Post-procedure Diagnosis:: Same Indications for Procedure:: This patient is a very pleasant 41-year-old white male who presents today with chronic low back pain and chronic bilateral hip pain related to the above diagnosis. He has previously undergone bilateral SI joint injections in our clinic and notes about 80 to 90% pain relief but unfortunately only for 12 days. He states that the pain has since returned and is requesting repeat bilateral SI joint injections today. He has trialed and failed conservative treatment including oral pain medication and home stretching program for greater than 6 weeks. The plan for today is for the patient to undergo repeat bilateral SI joint injections under fluoroscopy #2 today. Procedure Details:: B/L SI joint injection under fluoroscopy Informed consent was obtained and the risks and benefits of the procedure was explained to the patient. The patient was taken to the procedure room and placed prone on the procedure table. The patient was prepped using ChloraPrep. The skin and subcutaneous tissues overlying the SI joints were anesthetized using lidocaine. I placed a 22-gauge needle first in the left SI joint and second in the right SI joint. Needle placement was confirmed with dye. After this we injected 5 mL bupivacaine 0.25% and Depo-Medrol 40 mg into each SI joint. Patient tolerated the procedure well with no complications. Plan and Disposition:: We will follow-up with this patient in 2 weeks. Will reevaluate pain symptoms at that time. Discussed with the patient should he continue to experience only short-term or minimal pain relief with these injections he may benefit from SI joint stabilization procedure in the future. I gave him a core neurologic bro chure today and we will discuss further at the next visit.
[2021-02-13 15:00] VITALS: BP 123/86; PULSE 90; RESP 18; O2SAT 98
== END 2021-02-13 15:01 | disposition home or self-care (01) ==
LOC: SC.PAINP 13:57
PROVIDERS: PCP Physician Assistant; Visit Provider Anesthesiology Pain Medicine
DX: M46.1 Sacroiliitis, not elsewhere classified (principal); M54.5 Low back pain; G89.29 Other chronic pain
CPT/HCPCS: 27096; 76000; G0260; J1030; Q9966

== ENCOUNTER → 2021-02-26 12:54 | Outpatient (POV) | payer OTHER, SELFPAY ==
[2021-02-26 13:12] VITALS: BP 143/97; PULSE 83; RESP 18; TEMP 36.9; O2SAT 95; BMI 34.0
--- NOTE | 2021-02-26 13:15 | HMH.PAINSOAP ---
[facility] Pain Management SOAP Note Subjective:: Patient white male who presents today for follow-up. He had bilateral sacroiliac joint injection on 02/13/2021. He states that he got little to no relief with that injection. He is rating his pain a 6 out of 10 today. He had a previous SI joint injection that did provide adequate relief in his symptoms. He felt the previous injection provided 80 to 90% relief, and lasted approximately 12 days. However, the patient had no improvement in pain with his second injection. At this time I would like to hold off on moving forward with the SI joint stabilization procedure. The patient is complaining of increasing pain in his low back. He describes as the small of his back. He describes the discomfort as fist punching his back. He describes it as a constant aching sensation with sharp pains with activity. The pain is made worse with twisting and bending. The patient did have MRI of his lumbar spine in October 2020. The patient is not currently prescribed any controlled substances from our office. He has tried and failed conservative therapies such as oral medications and at home stretches and exercises for greater than 6 weeks. Review of Systems General: No recent weight changes, no fever, no sleep disturbances Respiratory: No cough, no shortness of air, no recurring pulmonary infections Cardiovascular/peripheral vascular: No chest pain, no palpitations, no edema, no shortness of breath Gastrointestinal: No new onset incontinence, normal bowel movements reported Genitourinary: No new onset incontinence Musculoskeletal: [Low back pain] Psychiatric: [Normal mood/affect] Neurological: [Denies weakness in extremities], [denies balance issues] Objective:: Physical exam General: Alert and oriented x3 no acute distress, pleasant and cooperative, [on room air] Lungs: Respirations even and unlabored, symmetrical chest expansion Eyes: PERRL Musculoskeletal: Flexion and extension of the lumbar spine nonguarded, deep tendon reflexes normal, strength in upper and lower extremities 5 out of 5 normal gait noted, positive Kemps test Neurological: Speech clear, 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 Plan:: MRI of the lumbar spine from October 2020 reveals mild facet hypertrophic change at L3-L4 and L4-L5 otherwise negative per report. He did not receive any relief with his second bilateral SI joint injection. I am recommending medial branch blocks bilaterally at L3-L4 and L4-L5 to help with his discomfort. The procedure, risk and benefits were all discussed with the patient. He would like to proceed with the injection. We did also discuss possible RFA in the future assuming injective therapy is successful. At this time I have postponed SI joint stabilization procedure due to inadequate relief with SI joint injection. Dr. Tipton has reviewed this note and agrees with this plan of care. This note was dictated using voice recognition software and make contain errors or omissions. [facility] History Medical History: Reports:: Gastroesophageal Reflux Disease(GERD), Hyperlipidemia, Hypertension Denies:: Cancer, Diabetes Mellitus Type 1, Diabetes Mellitus Type 2, Internal Pacemaker, Lung Disease, MRSA, Seizures *Have you ever received a pneumonia vaccine?: No *Have you received a flu vaccine this season?: No Other Medical History: Denies: Anemia, Blood Transfusion Reaction, Fibromyalgia, Liver Disease Laterality Cases: Right: Arthroscopy Shoulder, Other, Bilateral: Tonsillectomy Other Surgeries: Yes: Cholecystectomy. No: Pacemaker Amputation: No Fractures: No - *Social History Smoking Status: Never smoker Alcohol Intake: never Substance Use Type: denies use *Occupational Status:: employed Housing: house Household Members: spouse *Travel in the last 8 weeks: None Family Hx:: Anemia, Asthma, Cancer, Cor
== END ==
PROVIDERS: PCP Physician Assistant; Visit Provider Family Medicine
DX: M46.1 Sacroiliitis, not elsewhere classified (principal); M46.06 Spinal enthesopathy, lumbar region; M47.816 Spondylosis without myelopathy or radiculopathy, lumbar region; G89.29 Other chronic pain
CPT/HCPCS: 99212; G0463

== ENCOUNTER 2021-03-13 13:07 | Day surgery (SDC) | payer OTHER, SELFPAY ==
[2021-03-13 13:15] VITALS: BP 135/84; PULSE 99; RESP 18; TEMP 36.7; O2SAT 97; BMI 34.0
[2021-03-13 13:24] VITALS: BP 133/91; PULSE 96; RESP 18; O2SAT 97
[2021-03-13 13:25] VITALS: BP 131/98; PULSE 99; RESP 18; O2SAT 97
[2021-03-13 13:40] VITALS: BP 137/93; PULSE 92; RESP 20; O2SAT 98
--- NOTE | 2021-03-13 13:52 | P.PCN_ITS ---
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 He has increasing pain over the lower lumbar spine. His pain is worse with extension and twisting. He is tender over the facet joints of L3-4 and L4-L5 bilaterally. We will do bilateral lumbar medial branch block/facet joint injections of L3-4 L4-L5 today. Procedure Details:: Lumbar medial branch block Informed consent was obtained and the risks and benefits of the procedure was explained to the patient. The back was prepped using ChloraPrep. The skin and subcutaneous tissues were anesthetized using lidocaine. I placed 22-gauge sp inal needles into the facet joint/medial branches of L3-L4, L4-L5 bilaterally. Needle placement was confirmed with dye. After this we injected 3 mL bupivacaine 0.25% and Depo-Medrol 13 mg into each facet joint/medial branch of L3-L4, L4-L5 bilaterally. We used a total of 80 mg Depo-Medrol for both levels bilaterally. The patient tolerated the procedure well with no complications. Plan and Disposition:: We will follow-up with this patient in 2 weeks. Will reevaluate symptoms at that time. If successful we will seek approval for RF ablation to the facet joint/medial branches of L3-L4 and L4-L5 bilaterally.
== END 2021-03-13 13:41 | disposition home or self-care (01) ==
LOC: SC.PAINP 13:08
PROVIDERS: PCP Physician Assistant; Visit Provider Anesthesiology
DX: M51.36 Other intervertebral disc degeneration, lumbar region (principal); M47.816 Spondylosis without myelopathy or radiculopathy, lumbar region; M54.06 Panniculitis affecting regions of neck and back, lumbar region; I10 Essential (primary) hypertension; K21.9 Gastro-esophageal reflux disease without esophagitis; Z90.49 Acquired absence of other specified parts of digestive tract
CPT/HCPCS: 64493; 64494; J1030; Q9966

== ENCOUNTER → 2021-03-25 16:55 | Outpatient (CLI) | payer OTHER, SELFPAY ==
[2021-03-25 17:19] LABS: Coronavirus 19, PCR Not Detected (NotDetected); Influenza A, PCR Not Detected (NotDetected); Influenza B, PCR Not Detected (NotDetected)
== END ==
PROVIDERS: PCP Physician Assistant; Visit Provider Family Medicine
DX: Z20.822 Contact with and (suspected) exposure to COVID-19 (principal); J06.9 Acute upper respiratory infection, unspecified
CPT/HCPCS: U0003

== ENCOUNTER → 2021-04-09 15:19 | Outpatient (POV) | payer OTHER, SELFPAY ==
[2021-04-09 15:27] VITALS: BP 118/88; PULSE 96; RESP 18; O2SAT 97; BMI 34.0
--- NOTE | 2021-04-09 15:37 | HMH.PAINSOAP ---
[facility] Pain Management SOAP Note Subjective:: Patient is a 41-year-old white male who presents today for follow-up after medial branch block/facet joint injections at L3-L4 L4-L5 bilaterally. He is being treated for degenerative disc disease lumbar spine with lumbar radiculopathy symptoms and with lumbar facet arthropathy and lumbar spondylosis. Patient says that he got 2 weeks of relief at 75%. His pain is slowly returning. Patient says his pain enabled him to have more activity and less pain. He says his pain has returned. His pain is present when he is bending forward and with turning and twisting at waist. He has tried and failed conservative therapies of physical therapy for more than 6 weeks and continued home stretching. He has also tried anti-inflammatories with no significant relief. He does use ice and heat therapies that do not help with his pain. Patient's pain today is a 5 out of 10. Review of Systems General: No recent weight changes, no fever, no sleep disturbances Respiratory: No cough, no shortness of air, no recurring pulmonary infections Cardiovascular/peripheral vascular: No chest pain, no palpitations, no edema, no shortness of breath Gastrointestinal: No new onset incontinence, normal bowel movements reported Genitourinary: No new onset incontinence Musculoskeletal: [] Low back pain worse with leaning and extension at waist Psychiatric: [Normal mood/affect] Neurological: [Denies weakness in extremities], [denies balance issues] Objective:: Physical exam General: Alert and oriented x3, no acute distress, pleasant and cooperative, [on room air] Lungs: Respirations even and unlabored, symmetrical chest expansion Eyes: PERRL Musculoskeletal: Flexion and extension of [] lumbar [spine] somewhat guarded secondary to pain, strength in upper and lower extremities [5/5], [antalgic gait noted], positive Kemps test Neurological: Speech clear, [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 The patient is not on any anticoagulation therapy. He will continue with home stretching and with anti-inflammatories. If the patient does get relief greater than 60% with his next injections, we will proceed with an RFA. If the patient is only approved for 1 level, he would like to proceed with the right side first. Possible side effects of corticosteroids have been discussed with the patient. Risks and benefits of the procedure have been explained to the patient. Patient would like to proceed with the procedure. Patient has been instructed to contact the clinic with any concerns before the next appointment. Dr. Tipton has reviewed this note and agrees with this plan of care. This note was dictated using voice recognition software and make contain errors or omissions. [facility] History I have reviewed the patient's past medical history: Yes Medical History: Reports:: Gastroesophageal Reflux Disease(GERD), Hyperlipidemia, Hypertension Denies:: Cancer, Diabetes Mellitus Type 1, Diabetes Mellitus Type 2, Internal Pacemaker, Lung Disease, MRSA, Seizures *Have you ever received a pneumonia vaccine?: No *Have you received a flu vaccine this season?: No Other Medical History: Denies: Anemia, Blood Transfusion Reaction, Fibromyalgia, Liver Disease Laterality Cases: Right: Arthroscopy Shoulder, Other, Bilateral: Tonsillectomy Other Surgeries: Yes: Cholecystectomy. No: Pacemaker Amputation: No Fractures: No - *Social History Smoking Status: Never smoker Alcohol Intake: never Substance Use Type: denies use *Occupational Status:: employed Housing: house Household Members: spouse *Travel in the last 8 weeks: None Family Hx:: Anemia, Asthma, Cancer, Coronary Artery Disease, Diabetes, Heart Attack, Hyperlipidemia
== END ==
PROVIDERS: Visit Provider Clinical Nurse Specialist Family Health
DX: M51.36 Other intervertebral disc degeneration, lumbar region (principal); M47.816 Spondylosis without myelopathy or radiculopathy, lumbar region; M54.06 Panniculitis affecting regions of neck and back, lumbar region
CPT/HCPCS: 99212; G0463

== ENCOUNTER 2021-04-24 08:59 | Day surgery (SDC) | payer OTHER, SELFPAY ==
[2021-04-24 09:01] VITALS: BP 131/83; PULSE 86; RESP 20; TEMP 36.3; O2SAT 97; BMI 34.0
[2021-04-24 09:55] VITALS: BP 117/77; PULSE 86; RESP 18; O2SAT 96
[2021-04-24 09:56] VITALS: BP 112/84; PULSE 87; RESP 18; O2SAT 97
[2021-04-24 10:08] VITALS: BP 112/80; PULSE 89; RESP 20; O2SAT 98
--- NOTE | 2021-04-24 10:23 | HMH.PMPROC ---
- Procedure Date: 04/24/21 Time: 10:23 Anesthesiologist:: Luiz Tipton MD Complications:: None Pre-procedure Diagnosis:: Degenerative disc disease of lumbar spine with lumbar facet arthropathy and lumbar spondylosis Post-procedure Diagnosis:: Same Indications for Procedure:: This patient is a pleasant 41-year-old white male who we are treating for low back pain with lumbar spondylosis and lumbar facet arthropathy. He got 2 weeks of relief with 75% relief in his pain symptoms after his last round of medial branch blocks of L3-L4 and L4-L5. He presents for repeat medial branch blocks of L3-L4 and L4-L5 today. Procedure Details:: Lumbar medial branch block Informed consent was obtained and the risks and benefits of the procedure was explained to the patient. The back was prepped using ChloraPrep. The skin and subcutaneous tissues were anesthetized using lidocaine. I placed 22-gauge spinal needles into the facet joint/medial branches of L3-L4, L4-L5 bilaterally. Needle placement was confirmed with dye. After this we injected 3 mL bupivacaine 0.25% and Depo-Medrol 20 mg into each facet joint/medial branch of L3-L4, L4-L5 bilaterally. We used a total of 80 mg Depo-Medrol for both levels bilaterally. The patient tolerated the procedure well with no complications. Plan and Disposition:: We will follow-up with him in 2 weeks. Will reevaluate symptoms at that time. If he continues to do well with these medial branch blocks we will plan on RF ablation to the same levels of L3-L4 and L4-L5 bilaterally.
== END 2021-04-24 10:09 | disposition home or self-care (01) ==
LOC: SC.PAINP 08:59
PROVIDERS: PCP Family Medicine; Visit Provider Anesthesiology
DX: M51.36 Other intervertebral disc degeneration, lumbar region (principal); M47.816 Spondylosis without myelopathy or radiculopathy, lumbar region; M54.06 Panniculitis affecting regions of neck and back, lumbar region
CPT/HCPCS: 64493; 64494; J1040; Q9966

== ENCOUNTER → 2021-05-14 11:16 | Outpatient (POV) | payer OTHER, SELFPAY ==
[2021-05-14 11:37] VITALS: BP 126/93; PULSE 100; RESP 18; O2SAT 96; BMI 34.0
--- NOTE | 2021-05-14 12:33 | HMH.PAINSOAP ---
[facility] Pain Management SOAP Note Subjective:: Patient is a 41-year-old male who presents today for follow-up after medial branch block/facet joint injection, #2 injection. The patient reports to have gotten 75 to 80% relief with his first round of facet/medial branch blocks. He does say this round of injections gave him 80% relief for approximately 1 week. He does report that he was sore the initial day of injection but did get relief on the second day. He was much more functional and able to stand and bend forward with less pain. Patient rates his pain a 4 out of 10 today. He does report his pain is gradually returning. He would like to proceed with an RFA. Patient has tried diclofenac orally and topically. He is continuing with the medication. He has tried Tylenol as well as tramadol. Tramadol did not give the patient any significant relief. Muscle relaxants cause the patient to be drowsy. The patient has stopped taking tramadol. He does continue with home stretching. He has also tried physical therapy for greater than 6 weeks. Review of Systems General: No recent weight changes, no fever, no sleep disturbances Respiratory: No cough, no shortness of air, no recurring pulmonary infections Cardiovascular/peripheral vascular: No chest pain, no palpitations, no edema, no shortness of breath Gastrointestinal: No new onset incontinence, normal bowel movements reported Genitourinary: No new onset incontinence Musculoskeletal: Low back pain worse with bending forward and extension and turning at waist Psychiatric: [Normal mood/affect] Neurological: [Denies weakness in extremities], [denies balance issues] Objective:: Physical exam General: Alert and oriented x3, no acute distress, pleasant and cooperative Lungs: Respirations even and unlabored, symmetrical chest expansion Eyes: PERRL Musculoskeletal: Flexion and extension of lumbar [spine] somewhat guarded secondary to pain, [antalgic gait noted], positive Kemps test Neurological: Speech clear, no gross sensory deficit Assessment:: Degenerative disc disease lumbar spine with lumbar facet arthropathy and lumbar spondylosis Plan:: Patient reports she has gotten up to 85% relief with both rounds of injections. He would like to proceed with an RFA. He has undergone physical therapy for greater than 6 weeks and continues with home stretching as well as anti-inflammatories. He does continue to use ice and heat therapies. Patient does have imaging does show notable facet arthropathy and lumbar spondylosis. We will follow-up with him after his RFA for reevaluation of symptoms. We will schedule him for RFA at L3-L4 L4-L5 bilaterally. He is not on anticoagulation therapy. Risks and benefits of the procedure have been explained to the patient. Patient would like to proceed with the procedure. Patient has been instructed to contact the clinic with any concerns before the next appointment. Dr. Tipton has reviewed this note and agrees with this plan of care. This note was dictated using voice recognition software and make contain errors or omissions. [facility] History I have reviewed the patient's past medical history: Yes Medical History: Reports:: Gastroesophageal Reflux Disease(GERD), Hyperlipidemia, Hypertension Denies:: Cancer, Diabetes Mellitus Type 1, Diabetes Mellitus Type 2, Internal Pacemaker, Lung Disease, MRSA, Seizures *Have you ever received a pneumonia vaccine?: No *Have you received a flu vaccine this season?: No Other Medical History: Reports: Arthritis. Denies: Anemia, Blood Transfusion Reaction, Fibromyalgia, Liver Disease Laterality Cases: Right: Arthroscopy Shoulder, Other, Bilateral: Tonsillectomy Other Surgeries: Yes: Cholecystectomy. No: Pacemaker Amputation: No Fractures: No - *Social History Smoking Status: Never smoker Alcohol Intake: never Substance Use Type: denies use *Occupational Status:: employed Housing: house Household Members: spouse, c
[2021-05-14 14:33] LABS: Creatine Kinase 40 U/L (55-170)
[2021-05-14 14:51] LABS: CKMB Relative Index 0.5 U/L (0-4.0); Creatine Kinase MB < 0.2 ng/ml (0.0-2.03); Troponin I < 0.01 ng/ml (0.00-0.034)
--- NOTE | 2021-05-14 14:58 | ECG_ITS ---
APPROVED REPORT Exam: Resting ECG HR:84 bpm ECG Measurements Heart Rate 84 AXES SC 172 P 47 QRSd 82 QRS 59 QT 348 T 52 QTc 411 Conclusion Normal sinus rhythm Normal ECG Electronically signed by : William Hernandez MD 05/14/2021 15:09:37
== END ==
PROVIDERS: Physician Assistant; Visit Provider Clinical Nurse Specialist Family Health
DX: M51.36 Other intervertebral disc degeneration, lumbar region (principal); M47.816 Spondylosis without myelopathy or radiculopathy, lumbar region; M54.06 Panniculitis affecting regions of neck and back, lumbar region; R07.9 Chest pain, unspecified
CPT/HCPCS: 82550; 82553; 84484; 93005; 99212; G0463

== ENCOUNTER 2021-05-22 10:07 | Day surgery (SDC) | payer OTHER, SELFPAY ==
[2021-05-22 10:22] VITALS: BP 132/91; PULSE 94; RESP 18; TEMP 37.1; O2SAT 97; BMI 32.5
[2021-05-22 11:10] VITALS: BP 121/84; BP 121/90; PULSE 80; PULSE 85; RESP 18; O2SAT 97
[2021-05-22 11:25] VITALS: BP 127/95; PULSE 85; RESP 20; O2SAT 95
--- NOTE | 2021-05-22 11:28 | P.PCN_ITS ---
- Procedure Date: 05/22/21 Time: 11:28 Anesthesiologist:: Luzi Tipton MD Complications:: None Pre-procedure Diagnosis:: Degenerative disc disease of lumbar spine with lumbar spondylosis and lumbar facet arthropathy Post-procedure Diagnosis:: Same Indications for Procedure:: This patient is a pleasant 41-year-old white male who we are treating for low back pain with lumbar spondylosis and lumbar facet arthropathy. He has increasing pain over the facet joint/medial branches L4-5 and L3-L4. Worst pain with extension and twisting. He got about a weeks worth of relief he was 80% better after medial branch blocks. His pain is now returned. He presents for bilateral lumbar RF ablation of bilateral medial branches of L3-4 and L4-L5. Procedure Details:: Lumbar RFA informed consent was obtained and the risk and benefits of the procedure was explained to the patient. Patient was placed prone on the procedure table. The patient was prepped and draped in sterile fashion. C-arm fluoroscopy was used to view the lumbar spine. The skin and subcutaneous tissues were anesthetized using lidocaine. I placed 20-gauge RF needles into the facet joints of L3-4 and L4-L5 bilaterally. We underwent sensory stimulation. There is good sensory stimulation at 0.8 V. We underwent motor stimulation. There is no motor stimulation at 2 V. We then anesthetized these levels with lidocaine and Depo- Medrol. I used a total of 40 mg Depo-Medrol for both levels. I then burned both levels of L3-L4 and L4-L5 facet joint/medial branches bilaterally for 4 minutes at 80 ?C. Patient tolerated the procedure well with no complication. Plan and Disposition:: We will follow-up with him in 2 weeks. Will reevaluate symptoms at that time.
== END 2021-05-22 11:26 | disposition home or self-care (01) ==
LOC: SC.PAINP 10:08
PROVIDERS: PCP Family Medicine; Visit Provider Anesthesiology
DX: M51.36 Other intervertebral disc degeneration, lumbar region (principal); M47.816 Spondylosis without myelopathy or radiculopathy, lumbar region; M54.06 Panniculitis affecting regions of neck and back, lumbar region; I10 Essential (primary) hypertension; K21.9 Gastro-esophageal reflux disease without esophagitis; M19.90 Unspecified osteoarthritis, unspecified site; Z88.1 Allergy status to other antibiotic agents; Z88.6 Allergy status to analgesic agent
CPT/HCPCS: 64635; 64636; J1040

== ENCOUNTER 2021-06-10 13:52 | Emergency (ER) | payer OTHER, SELFPAY ==
[2021-06-10 14:55] VITALS: BP 116/93; PULSE 95; RESP 18; TEMP 36.8; O2SAT 97; BMI 33.1
[2021-06-10 15:20] LABS: UTC Influenza A Antigen Negative (Negative); UTC Influenza B Antigen Negative (Negative)
--- NOTE | 2021-06-10 15:27 | HMH.EDUTC ---
[facility] Disposition Clinical Impression: Viral upper respiratory infection Disposition: Home, Self-Care Condition on Discharge: Good Instructions: DI for COVID-19 (Suspected or Confirmed ), Preventing the Spread of Coronavirus Discharge Instructions, DI for Viral Upper Respiratory Infection -- Adult Additional Instructions: *Monitor Temp, Over the counter Motrin or Tylenol as directed/as needed Tylenol every 4 hours and Motrin every 6 hours (as long as your family doctor has told you that you can take it) for fever or pain. and straight to ER if unable to lower temp less than 101.0 after medication given *Warm salt water gargles may help to soothe the throat *Throat Lozenges *Warm fluids like tea with honey may help to soothe the throat *Sleep elevated *Humidifier/Vaporizer *Flonase 2 sprays in each nostril daily but be aware that it may take 2-3 days before you notice improvement Follow up IMMEDIATELY for new or worsening symptoms or no Noticeable improvement over the next 48-72 hours. 911 for difficulty breathing or swallowing You were tested for today for COVID19 your test result should be back in the next 24-48 hours, you may check your results on the [facility] my health portal if you have trouble logging on or viewing your results you may call You was given a handout with instructions for Self Quarantine and Self isolation for while you wait on test results and what to do if they are positive If you are positive the Health Dept will be contacting you also Make sure to take your Vitamins Vit. C Vit D and Zinc if you can take them Prescriptions: Benzonatate [Benzonatate 100mg cap] 100 mg PO TID PRN #30 cap PRN Reason: Cough Transmission Status: Pending to [facility] Fluticasone Propionate [Flonase 50mcg nasal spray 16gm] 1 spr NS DAILY #1 each Transmission Status: Pending to [email or web address] methylPREDNISolone [Medrol 4mg tab] 4 mg PO DIRECTED #21 tab Transmission Status: Pending to [facility] Referrals: John Byrne MD [Primary Care Provider] - As needed Forms: Work/School Release Time of Disposition: 15:39 Medical Decision Making - Chaim Inquiry Pt receiving controlled substance: No Chaim was queried for this patient: No Vital Signs: 06/10/21 14:55 Temperature 98.3 F Temperature Source Oral Pulse Rate [Right Brachial] 95 H Respiratory Rate 18 Blood Pressure [Right Arm] 116/93 H Blood Pressure Mean [Right Arm] 100 Blood Pressure Source [Right Arm] Automatic Cuff Blood Pressure Position [Right Arm] Sitting 02 Sat by Pulse Oximetry 97 Oxygen Delivery Method Room Air - Lab Data Lab Results 06/10/21 15:10: Influenza Type A Ag Negative, Influenza Type B Ag Negative Orders (Tests/Meds): ORDERS Category Date Time Status Covid-19 Nasal PCR ([facility]) Routine Lab 06/10/21 15:11 Ordered [facility] HPI - General Stated complaint: covid symptoms Time Seen by Provider: 06/10/21 15:27 Mode of Arrival: Ambulatory Source of Information: Patient Limitations: No Limitations Description of Symptoms (Recalled from Triage Doc. by RN): PATIENT C/O CONGESTION, FEVER, CHILLS, AND LOSS OF TASTE SINCE LAST NIGHT HEENT Symptoms (Recalled from RN notes): Yes Resp Symptoms (Recalled from RN notes): No Skin Symptoms (Recalled from RN notes): No MS Symptoms (Recalled from RN notes): No Functional Status (Recalled from RN notes): WNL - History of Present Illness Provider Complaint: Patient states that he has been having sinus congestion, scratchy throat, drainage and cough State that he noticed this morning he could not taste or smell anything so he came in to get checked - Related Data Home Medications Medication Instructions Recorded Confirmed paroxetine HCl 10 mg tablet 40 mg PO DAILY tab 02/07/18 06/10/21 Pantoprazole Sodium [Protonix 40mg 40 mg PO BID 07/11/18 06/10/21 tablet] Tramadol HCl [Tramadol 50mg 50 mg PO BID 06/10/21 06/10/21 Tab] Previous
[2021-06-10 15:47] VITALS: BP 116/93; PULSE 95; RESP 18; TEMP 36.8; O2SAT 97
== END 2021-06-10 15:50 | disposition home or self-care (01) ==
PROVIDERS: Emergency Provider Nurse Practitioner; PCP Family Medicine
DX: U07.1 COVID-19 (principal); J06.9 Acute upper respiratory infection, unspecified; K21.9 Gastro-esophageal reflux disease without esophagitis; I10 Essential (primary) hypertension; E78.5 Hyperlipidemia, unspecified
CPT/HCPCS: 87804; 99202; C9803; G0463; U0003; U0005

== ENCOUNTER → 2021-06-30 10:37 | Outpatient (POV) | payer OTHER, SELFPAY ==
[2021-06-30 10:52] VITALS: BP 142/80; PULSE 84; RESP 18; O2SAT 97; BMI 33.2
--- NOTE | 2021-06-30 10:59 | HMH.PAINSOAP ---
[facility] Pain Management SOAP Note Subjective:: Patient is a 41-year-old white male who presents today for follow-up after an RFA L3-L4 L4-L5. He rates his pain a 2 out of 10 today. He says that he is much more functional and doing much better since having the RFA. He does report to have twinges of pain and if does increased activity, he does report soreness. Otherwise, he says he is doing well since the RFA. He is able to bend forward and extend at waist with less pain. He does take [id number] ibuprofen as needed for pain. Review of Systems General: No recent weight changes, no fever, no sleep disturbances Respiratory: No cough, no shortness of air, no recurring pulmonary infections Cardiovascular/peripheral vascular: No chest pain, no palpitations, no edema, no shortness of breath Gastrointestinal: No new onset incontinence, normal bowel movements reported Genitourinary: No new onset incontinence Musculoskeletal: Low back pain made worse when bending forward and extension at waist, improved Psychiatric: [Normal mood/affect] Neurological: [Denies weakness in extremities], [denies balance issues] Objective:: Physical exam General: Alert and oriented x3, no acute distress, pleasant and cooperative Lungs: Respirations even and unlabored, symmetrical chest expansion Eyes: PERRL Musculoskeletal: Flexion and extension of lumbar [spine] somewhat guarded secondary to pain, [antalgic gait noted] Neurological: Speech clear, no gross sensory deficit Assessment:: 2 days ago to and degenerative disc disease lumbar spine with lumbar facet arthropathy and lumbar spondylosis Plan:: We will order the patient diclofenac 75 mg 1 tablet p.o. twice daily. He has been advised to stop taking other anti-inflammatories with medication. We will also give the patient Pennsaid cream to try topically. If the oral diclofenac does not work, he will try Pennsaid cream. If he does get relief from Pennsaid cream he can contact the clinic and we will order the medication. We will follow-up with him in 3 months for further evaluation. Risks and benefits of the medication have been explained in detail to the patient. If side effects do present with the medication, patient has been advised to stop the medication immediately and call the clinic. The patient has been advised to consult with his/her primary care provider and pharmacist regarding drug-drug interaction of medications currently prescribed. Patient has been instructed to contact the clinic with any concerns before the next appointment. Dr. Tipton has reviewed this note and agrees with this plan of care. This note was dictated using voice recognition software and make contain errors or omissions. [facility] History I have reviewed the patient's past medical history: Yes Medical History: Reports:: Coronary Artery Disease, Gastroesophageal Reflux Disease(GERD), Hyperlipidemia, Hypertension Denies:: Cancer, Diabetes Mellitus Type 1, Diabetes Mellitus Type 2, Internal Pacemaker, Lung Disease, MRSA, Seizures *Have you ever received a pneumonia vaccine?: No *Have you received a flu vaccine this season?: Yes Other Medical History: Reports: Arthritis. Denies: Anemia, Blood Transfusion Reaction, Fibromyalgia, Liver Disease Laterality Cases: Right: Arthroscopy Shoulder, Other, Bilateral: Myringotomy (Ear Tubes), Tonsillectomy Other Surgeries: Yes: Cholecystectomy. No: Pacemaker Amputation: No Fractures: No - *Social History Smoking Status: Never smoker Tobacco Type: smokeless tobacco Alcohol Intake: never Substance Use Type: denies use *Occupational Status:: employed Housing: house Household Members: spouse *Travel in the last 8 weeks: None Family Hx:: Anemia, Asthma, Cancer, Coronary Artery Disease, Diabetes, Heart Attack, Hyperlipidemia
== END ==
PROVIDERS: Visit Provider Clinical Nurse Specialist Family Health
DX: M51.36 Other intervertebral disc degeneration, lumbar region (principal); M54.06 Panniculitis affecting regions of neck and back, lumbar region; M47.816 Spondylosis without myelopathy or radiculopathy, lumbar region
CPT/HCPCS: 99212; G0463

== ENCOUNTER → 2021-07-16 09:46 | Outpatient (POV) | payer OTHER, SELFPAY ==
[2021-07-16 10:24] VITALS: BP 151/84; PULSE 94; RESP 18; O2SAT 96; BMI 32.5
--- NOTE | 2021-07-16 10:46 | HMH.PAINSOAP ---
[facility] Pain Management SOAP Note Subjective:: Patient is a 41-year-old white male who presents today for follow-up. He did undergo RFA L3-L4 L4-L5 bilaterally in May 2021. Unfortunately, the patient's pain has returned. He does rate his pain 4 out of 10. He reports reports the pain to start mid back radiating into the low back area and above bilateral buttock. He says the pain is made worse with bending forward. He also feels he is having spasm-like sensation to the mid and low back area. He is continuing to work. He says when he is not working the pain is minimal, but any activity worsens the pain. The patient got significant relief at about 80 to 90% with the RFA initially. He does continue with home stretching. He also continues with diclofenac which is given him minimal relief. Review of Systems General: No recent weight changes, no fever, no sleep disturbances Respiratory: No cough, no shortness of air, no recurring pulmonary infections Cardiovascular/peripheral vascular: No chest pain, no palpitations, no edema, no shortness of breath Gastrointestinal: No new onset incontinence, normal bowel movements reported Genitourinary: No new onset incontinence Musculoskeletal: Low back pain made worse with bending forward, pain radiating to mid back Psychiatric: [Normal mood/affect] Neurological: [Denies weakness in extremities], [denies balance issues] Objective:: Physical exam General: Alert and oriented x3, no acute distress, pleasant and cooperative Lungs: Respirations even and unlabored, symmetrical chest expansion Eyes: PERRL Musculoskeletal: Flexion and extension of lumbar [spine] somewhat guarded secondary to pain, [antalgic gait noted], Neurological: Speech clear, no gross sensory deficit Assessment:: Degenerative disc disease lumbar spine with lumbar radiculopathy symptoms, lumbar facet arthropathy and lumbar spondylosis Plan:: Patient is having spasms in his low back area. We will order Robaxin 500 mg 1 tablet p.o. twice daily as needed muscle spasms. We will also schedule him for lumbar epidural steroid injection at L4-L5. The patient is having radicular pain to mid back area. He is also having pain radiating to bilateral buttock. The patient is not on any anticoagulation therapy. He is not diabetic. He did get significant relief with the RFA in the past. Pain has returned and is somewhat different than previous pain. Possible side effects of corticosteroids have been discussed with the patient. Risks and benefits of the procedure have been explained to the patient. Patient would like to proceed with the procedure. Patient has been instructed to contact the clinic with any concerns before the next appointment. Dr. Tipton has reviewed this note and agrees with this plan of care. This note was dictated using voice recognition software and make contain errors or omissions. [facility] History I have reviewed the patient's past medical history: Yes Medical History: Reports:: Coronary Artery Disease, Gastroesophageal Reflux Disease(GERD), Hyperlipidemia, Hypertension Denies:: Cancer, Diabetes Mellitus Type 1, Diabetes Mellitus Type 2, Internal Pacemaker, Lung Disease, MRSA, Seizures *Have you ever received a pneumonia vaccine?: No *Have you received a flu vaccine this season?: Yes Other Medical History: Reports: Arthritis. Denies: Anemia, Blood Transfusion Reaction, Fibromyalgia, Liver Disease Laterality Cases: Right: Arthroscopy Shoulder, Other, Bilateral: Myringotomy (Ear Tubes), Tonsillectomy Other Surgeries: Yes: Cholecystectomy. No: Pacemaker Amputation: No Fractures: No - *Social History Smoking Status: Never smoker Tobacco Type: smokeless tobacco Alcohol Intake: never Substance Use Type: denies use *Occupational Status:: employed Housing: house Household Members: spouse *Travel in the last 8 weeks: None Family Hx:: Anemia, Asthma, Cancer, Coronary Artery Disease, Diabetes, Heart Attack, Hyp
== END ==
PROVIDERS: Visit Provider Clinical Nurse Specialist Family Health
DX: M51.16 Intervertebral disc disorders with radiculopathy, lumbar region (principal); M47.896 Other spondylosis, lumbar region; M54.06 Panniculitis affecting regions of neck and back, lumbar region
CPT/HCPCS: 99212; G0463

== ENCOUNTER 2021-08-07 13:27 | Day surgery (SDC) | payer OTHER, SELFPAY ==
[2021-08-07 13:46] VITALS: BP 146/102; PULSE 75; RESP 18; TEMP 36.6; O2SAT 100; BMI 33.2
--- NOTE | 2021-08-07 14:20 | P.PCN_ITS ---
- Procedure Date: 08/07/21 Time: 14:20 Anesthesiologist:: Nataliia Blas MD Complications:: None Pre-procedure Diagnosis:: Degenerative disc disease of the lumbar spine with lumbar radiculopathy Post-procedure Diagnosis:: Same Indications for Procedure:: This patient is a very pleasant 41-year-old white male who presents today with chronic low back pain rating into his legs related to the above diagnosis. He has tried and failed conservative treatment getting oral pain medications and home stretching program for greater than 6 weeks. He has previously undergone RFA of L3-4 and L4-L5 bilaterally in May 2021 but unfortunately he states that the pain has since returned. The plan for today is for the patient to undergo a lumbar epidural steroid injection under fluoroscopy at L5-S1 #1. Procedure Details:: Informed consent was obtained and the risk and benefits of the procedure was explained to the patient. The patient was taken to the procedure room. The patient was placed prone on the procedure table. The patient was prepped and draped in sterile fashion. C-arm fluoroscopy was used to view the lumbar spine. Skin and subcutaneous tissues were anesthetized using lidocaine. I placed an 18-gauge epidural needle and advanced into the L5-S1 interspace using fluoroscopic guidance and [id number] to air and saline. After confirmat ion of needle placement in the epidural space with dye I injected 1 mL of lidocaine 1.0% with Depo-Medrol 80 mg. Patient tolerated the procedure well with no complications. Plan and Disposition:: We will follow-up with this patient in 2 weeks. Will reevaluate pain symptoms at that time.
[2021-08-07 14:25] VITALS: BP 130/86; PULSE 78; RESP 18; O2SAT 98
[2021-08-07 14:26] VITALS: PULSE 76; RESP 18; O2SAT 97
[2021-08-07 14:33] VITALS: BP 152/101; PULSE 75; RESP 20; O2SAT 99
== END 2021-08-07 14:34 | disposition home or self-care (01) ==
LOC: SC.PAINP 13:30
PROVIDERS: PCP Family Medicine; Visit Provider Anesthesiology Pain Medicine
DX: M51.16 Intervertebral disc disorders with radiculopathy, lumbar region (principal); I25.10 Atherosclerotic heart disease of native coronary artery without angina pectoris; I10 Essential (primary) hypertension; K21.9 Gastro-esophageal reflux disease without esophagitis; Z82.49 Family history of ischemic heart disease and other diseases of the circulatory system; Z88.1 Allergy status to other antibiotic agents; Z88.6 Allergy status to analgesic agent
CPT/HCPCS: 62323; J1040; Q9966

== ENCOUNTER → 2021-09-03 11:34 | Outpatient (POV) | payer OTHER, SELFPAY ==
[2021-09-03 11:42] VITALS: BP 148/90; PULSE 82; RESP 18; O2SAT 96; BMI 34.0
--- NOTE | 2021-09-03 12:25 | HMH.PAINSOAP ---
[facility] Pain Management SOAP Note Subjective:: Patient is a 41-year-old white male who presents today for follow-up. Patient is being seen in the clinic for progressively worsening low back pain. He does have pain in his low back that is going into bilateral lower extremities. He has tried multiple injections?SI injections, epidural steroid injections, and medial branch blocks. He has even had RFA's L3-L4 L4-L5 bilaterally. Patient gets short-term relief with injective therapy, but pain does return. He is continuing to work with progressively worsening pain. He does rate his pain a 6 out of 10 today. He is here today to discuss his options. Given the patient's MRI, he is not a neurosurgical candidate at this time. He has tried taking oral medications with minimal relief. He is currently on tramadol and has not gotten relief as well as oral anti-inflammatories in the past. He is not having any changes in bowel or bladder habit. He is not having saddle anesthesia Review of Systems General: No recent weight changes, no fever, no sleep disturbances Respiratory: No cough, no shortness of air, no recurring pulmonary infections Cardiovascular/peripheral vascular: No chest pain, no palpitations, no edema, no shortness of breath Gastrointestinal: No new onset incontinence, normal bowel movements reported Genitourinary: No new onset incontinence Musculoskeletal: Low back pain with radiation into bilateral lower extremities Psychiatric: [Normal mood/affect] Neurological: [Denies weakness in extremities], [denies balance issues] Objective:: Physical exam General: Alert and oriented x3, no acute distress, pleasant and cooperative Lungs: Respirations even and unlabored, symmetrical chest expansion Eyes: PERRL Musculoskeletal: Flexion and extension of lumbar [spine] somewhat guarded secondary to pain, [antalgic gait noted] Neurological: Speech clear, no gross sensory deficit Assessment:: Degenerative disc disease lumbar spine with lumbar facet arthropathy and lumbar spondylosis Plan:: The patient, along with his , and I had a long discussion today. We have discussed his options. Spinal cord stimulation is likely the next option for the patient. He would like to proceed with a psychological evaluation to determine if he is an appropriate candidate. He has tried conservative therapies and failed. We will see him back after psychological evaluation to discuss further plan of care. He was given educational information today. We will have the [employer] stimulator investment representative reach out to him with any questions he may have. Patient has been instructed to contact the clinic with any concerns before the next appointment. Dr. Tipton has reviewed this note and agrees with this plan of care. This note was dictated using voice recognition software and make contain errors or omissions. [facility] History I have reviewed the patient's past medical history: Yes Medical History: Reports:: Coronary Artery Disease, Gastroesophageal Reflux Disease(GERD), Hyperlipidemia, Hypertension Denies:: Cancer, Diabetes Mellitus Type 1, Diabetes Mellitus Type 2, Internal Pacemaker, Lung Disease, MRSA, Seizures *Have you ever received a pneumonia vaccine?: No *Have you received a flu vaccine this season?: No Other Medical History: Reports: Arthritis. Denies: Anemia, Blood Transfusion Reaction, Fibromyalgia, Liver Disease Laterality Cases: Right: Arthroscopy Shoulder, Other, Bilateral: Myringotomy (Ear Tubes), Tonsillectomy Other Surgeries: Yes: Cholecystectomy. No: Pacemaker Amputation: No Fractures: No - *Social History Smoking Status: Never smoker Tobacco Type: smokeless tobacco Alcohol Intake: never Substance Use Type: denies use *Occupational Status:: employed Housing: house Household Members: spouse *Travel in the last 8 weeks: None Family Hx:: Other
== END ==
PROVIDERS: Visit Provider Clinical Nurse Specialist Family Health
DX: M51.36 Other intervertebral disc degeneration, lumbar region (principal); M54.06 Panniculitis affecting regions of neck and back, lumbar region; M47.816 Spondylosis without myelopathy or radiculopathy, lumbar region
CPT/HCPCS: 99212; G0463

== ENCOUNTER → 2021-09-28 11:07 | Outpatient (POV) | payer OTHER, SELFPAY ==
[2021-09-28 11:17] VITALS: BP 134/95; PULSE 82; RESP 20; TEMP 36.8; O2SAT 97; BMI 32.5
--- NOTE | 2021-09-28 14:26 | HMH.PAINSOAP ---
[facility] Pain Management SOAP Note Subjective:: Patient is a pleasant 41-year-old male who comes in here today for follow-up. He is coming treated for degenerative disc disease of the lumbar spine with lumbar radiculopathy, facet arthropathy, and lumbar spondylosis. Patient has had multiple SI injections, epidural steroid injections, and medial branch blocks. He also had RFA's at L3-L4, L4-L5 bilaterally. Patient has tried and failed conservative therapies such as oral medications, injective therapy, physical therapy, and at home exercise for greater than 6 weeks. We have discussed with the patient that he is a good candidate for a spinal cord stimulator. We have referred the patient for a psych evaluation. He had a psych eval on September 26, 2019. Per psych eval, patient is competent to get a spinal cord stimulator. Additionally, patient is being managed with Vesper 5 mg twice a day that is helping some of his pain at the moment in the interim. Denies any side effects from these medications. He denies any change in location by the pain. Review of Systems General: No recent weight changes, no fever, no sleep disturbances Respiratory: No cough, no shortness of air, no recurring pulmonary infections Cardiovascular/peripheral vascular: No chest pain, no palpitations, no edema, no shortness of breath Gastrointestinal: No new onset incontinence, normal bowel movements reported Genitourinary: No new onset incontinence Musculoskeletal: Low back pain Psychiatric: [Normal mood/affect] Neurological: [Denies weakness in extremities], [denies balance issues] Objective:: Physical exam General: Alert and oriented x3, no acute distress, pleasant and cooperative Lungs: Respirations even and unlabored, symmetrical chest expansion Eyes: PERRL Musculoskeletal: Flexion and extension of lumbar [spine] somewhat guarded secondary to pain, [antalgic gait noted] Neurological: Speech clear, no gross sensory deficit Assessment:: Degenerative disc disease of the lumbar spine with lumbar radiculopathy symptoms, facet arthropathy, lumbar spondylosis Plan:: Patient has tried and failed conservative therapy such as oral medication, injective therapy, RFA's, physical therapy, and at home exercise for greater than 6 weeks. Per his psych eval, patient is appropriate and competent to get a spinal cord stimulator trial. We will schedule the patient for a spinal cord stimulator trial with a [employer] system. Risk and benefits of this procedure has been discussed with the patient. Patient would like to proceed with this procedure. Patient has been instructed to contact the clinic with any concerns before the next appointment. This note was dictated using voice recognition software and may contain errors or omissions. [facility] History Medical History: Reports:: Coronary Artery Disease, Gastroesophageal Reflux Disease(GERD), Hyperlipidemia, Hypertension Denies:: Cancer, Diabetes Mellitus Type 1, Diabetes Mellitus Type 2, Internal Pacemaker, Lung Disease, MRSA, Seizures *Have you ever received a pneumonia vaccine?: No *Have you received a flu vaccine this season?: Yes Other Medical History: Reports: Arthritis. Denies: Anemia, Blood Transfusion Reaction, Fibromyalgia, Liver Disease Laterality Cases: Right: Arthroscopy Shoulder, Other, Bilateral: Myringotomy (Ear Tubes), Tonsillectomy Other Surgeries: Yes: Cholecystectomy. No: Pacemaker Amputation: No Fractures: No - *Social History Smoking Status: Never smoker Tobacco Type: smokeless tobacco Alcohol Intake: never Substance Use Type: denies use *Occupational Status:: employed Housing: house Household Members: spouse *Travel in the last 8 weeks: None Family Hx:: Other
== END ==
PROVIDERS: Visit Provider Student in an Organized Health Care Education/Training Program
DX: M51.16 Intervertebral disc disorders with radiculopathy, lumbar region (principal); M54.06 Panniculitis affecting regions of neck and back, lumbar region; M47.896 Other spondylosis, lumbar region
CPT/HCPCS: 99212; G0463

== ENCOUNTER → 2021-11-02 15:54 | Outpatient (CLI) | payer OTHER, SELFPAY ==
--- NOTE | 2021-11-02 15:56 | MR_ITS ---
FINAL REPORT CLINICAL HISTORY: BACK PAIN. LBP X1YR. DDD. INTERMITTENT BILATERAL LEG PAIN AND NUMBNESS. NO RECENT INJURY OR TRAUMA. COMPARISON: 11/20/2020 FINDINGS: Multiplanar MR imaging of the lumbar spine was performed without contrast. On the sagittal T2-weighted images, multilevel disc degeneration is seen. The vertebral alignment is normal. There is no evidence of fracture. No bony mass is identified. The conus is seen at approximately the L1 level and has an unremarkable appearance. L1-2: There is no significant canal stenosis or neural foraminal narrowing. L2-3: There is no significant canal stenosis or neural foraminal narrowing. L3-4: There is no significant canal stenosis or neural foraminal narrowing. L4-5: Mild diffuse disc bulge with mild bilateral neural foraminal narrowing. L5-S1: There is no significant canal stenosis or neural foraminal narrowing. IMPRESSION: Mild diffuse disc bulge with mild bilateral neural foraminal narrowing at L4-5. Reviewed, Interpreted and Dictated by Altaf Tineo MD Transcribed by iA Thakkar Authenticated by Altaf Tineo MD on 11/03/2021 08:30:13 AM [facility]
== END ==
PROVIDERS: PCP Family Medicine; Visit Provider Anesthesiology
DX: M54.50 Low back pain, unspecified (principal)
CPT/HCPCS: 72148; 76376

== ENCOUNTER → 2021-11-12 13:58 | Outpatient (POV) | payer OTHER, SELFPAY ==
--- NOTE | 2021-11-12 16:05 | HMH.PAINSOAP ---
[facility] Pain Management SOAP Note Subjective:: Patient is a pleasant 41-year-old male who presents today as a telehealth for follow-up. He is currently being treated for degenerative disc disease of lumbar spine with lumbar degloved the symptoms, facet arthropathy, and lumbar spondylosis. We have been managing this patient with injective therapy. Patient has had multiple SI injections, epidural steroid injections, and medial branch blocks. He also had RFA's at L3-L4 and L4-L5 bilaterally. Patient has tried and failed conservative therapy such as oral medication, injective therapy, physical therapy, and at home exercises for greater than 6 weeks. When we last saw this patient, we were waiting for him to get approved for spinal cord stimulator trial. He is like evaluation on September 25, 2021 states that he is competent and appropriate to have a spinal cord stimulator. Of note, patient has been denied by insurance and wants us to refer the patient for a neurosurgery consult. Today, patient is seen through telehealth because he is having worsening bilateral lower extremity pain that originates from his low back worse to his left leg. He has also been having spasms across his low back that has woken him up at night. He rates his pain today a 6 out of 10. Review of Systems: General: No recent weight changes, no fever, no sleep disturbances Respiratory: No cough, no shortness of air, no recurring pulmonary infections Cardiovascular/peripheral vascular: No chest pain, no palpitations, no edema, no shortness of breath Gastrointestinal: No new onset incontinence, normal bowel movements reported Genitourinary: No new onset incontinence Musculoskeletal: Low back pain Psychiatric: [Normal mood/affect] Neurological: [Denies weakness in extremities], [denies balance issues] Objective:: Physical Exam: General: Alert and oriented x3, no acute distress, pleasant and cooperative, [on room air] Lungs: Respirations even and unlabored, symmetrical chest expansion Eyes: PERRL Musculoskeletal: Flexion and extension of lumbar [spine] somewhat guarded secondary to pain, [antalgic gait noted] Neurological: Speech clear, no gross sensory deficit Assessment:: Degenerative disc disease of lumbar spine with lumbar radiculopathy symptoms Plan:: Patient continues to have worsening low back pain that radiates to bilateral lower extremities, worse on the left. He has also been having spasms at night that has woken him up. I will try the patient on gabapentin 300 mg 3 times a day and tizanidine 2 mg 3 times a day. We will follow-up with this patient in 2 weeks. We will also wait to move forward with any other interventions until he sees neurosurgery. Patient has been instructed to contact the clinic with any concerns before the next appointment. Dr. Tipton has reviewed this note and agrees with this plan of care. This note was dictated using voice recognition software and make contain errors or omissions. [facility] History Medical History: Reports:: Coronary Artery Disease, Gastroesophageal Reflux Disease(GERD), Hyperlipidemia, Hypertension Denies:: Cancer, Diabetes Mellitus Type 1, Diabetes Mellitus Type 2, Internal Pacemaker, Lung Disease, MRSA, Seizures *Have you ever received a pneumonia vaccine?: No *Have you received a flu vaccine this season?: Yes Other Medical History: Reports: Arthritis. Denies: Anemia, Blood Transfusion Reaction, Fibromyalgia, Liver Disease Laterality Cases: Right: Arthroscopy Shoulder, Other, Bilateral: Myringotomy (Ear Tubes), Tonsillectomy Other Surgeries: Yes: Cholecystectomy. No: Pacemaker Amputation: No Fractures: No - *Social History Smoking Status: Never smoker Tobacco Type: smokeless tobacco Alcohol Intake: never Substance Use Type: denies use *Occupational Status:: employed Housing: house Household Members: spouse *Travel in the last 8 weeks: [place] Family Hx:: Other
== END ==
PROVIDERS: Visit Provider Student in an Organized Health Care Education/Training Program
DX: M51.16 Intervertebral disc disorders with radiculopathy, lumbar region (principal)

== ENCOUNTER → 2021-11-30 08:31 | Outpatient (POV) | payer OTHER, SELFPAY ==
[2021-11-30 08:43] VITALS: BP 148/103; PULSE 101; RESP 18; TEMP 35.9; O2SAT 97; BMI 34.4
--- NOTE | 2021-11-30 09:42 | HMH.PAINSOAP ---
[facility] Pain Management SOAP Note Subjective:: Patient is a pleasant 41-year-old male who presents today for follow-up. Patient is currently being treated for degenerative disc disease of lumbar spine with lumbar radiculopathy symptoms, facet arthropathy, and lumbar spondylosis. Patient has had 2 rounds of bilateral SI injections, medial branch blocks, lumbar RFA's, and lumbar epidural steroid injections. All of these injections have provided temporary relief. When I last saw this patient, patient was complaining of worsening low back pain that radiates to the left leg. He was also having muscle spasms at night that has woken him up. I started him on gabapentin 300 mg 3 times a day and tizanidine 2 mg 3 times a day. He says that the gabapentin is not helping his pain. The tizanidine does help him sleep at night. We also have referred the patient for neurosurgery. He was told that he is not a surgical candidate. Patient has done physical therapy in the last 6 months. He was not able to continue the physical therapy because it aggravated his symptoms. When he saw a chiropractor last year, he was told that the adjustments won't help him and he is not a good candidate for chiropractic adjustments. He takes [place]coe 5 mg twice a day and OTC medications as needed. He rates his pain as 4 out of 10. Chaim [phone] with an active morphine equivalent of 10. Injection history: 01/16/21: Bilateral SI, 60-70% relief, lasted 4-5 days 02/13/21: Bilateral SI 60-70% relief, lasted 4-5 days 03/13/21, 04/24/21: MBB L3-L4, L4-L5 bilaterally, 70-80% relief, lasted for 3-4 days 05/22/21: Lumbar RFA L3-L4, L4-L5 bilaterally, 70-80% relief, lasted for a month 08/07/21: LESI, 70-80% relief, lasted 1 week Review of Systems: General: No recent weight changes, no fever, no sleep disturbances Respiratory: No cough, no shortness of air, no recurring pulmonary infections Cardiovascular/peripheral vascular: No chest pain, no palpitations, no edema, no shortness of breath Gastrointestinal: No new onset incontinence, normal bowel movements reported Genitourinary: No new onset incontinence Musculoskeletal: Low back pain Psychiatric: [Normal mood/affect] Neurological: [Denies weakness in extremities], [denies balance issues] Objective:: Physical Exam: General: Alert and oriented x3, no acute distress, pleasant and cooperative Lungs: Respirations even and unlabored, symmetrical chest expansion Eyes: PERRL Musculoskeletal: Flexion and extension of lumbar [spine] somewhat guarded secondary to pain, [antalgic gait noted] Neurological: Speech clear, no gross sensory deficit Assessment:: Degenerative disc disease of the lumbar spine with lumbar radiculopathy symptoms Lumbar facet arthropathy Lumbar spondylosis Sacroiliitis Plan:: IMAGING: Lumbar MRI Ordering Physician: Luiz Tipton MD Date of Service: 11/02/21 Procedure(s): MR lumbar spine wo con Accession Number(s): [id number] cc: Altaf Tineo MD; John Byrne MD~ FINAL REPORT CLINICAL HISTORY: BACK PAIN. LBP X1YR. DDD. INTERMITTENT BILATERAL LEG PAIN AND NUMBNESS. NO RECENT INJURY OR TRAUMA. COMPARISON: 11/20/2020 FINDINGS: Multiplanar MR imaging of the lumbar spine was performed without contrast. On the sagittal T2-weighted images, multilevel disc degeneration is seen. The vertebral alignment is normal. There is no evidence of fracture. No bony mass is identified. The conus is seen at approximately the L1 level and has an unremarkable appearance. L1-2: There is no significant canal stenosis or neural foraminal narrowing. L2-3: There is no significant canal stenosis or neural foraminal narrowing. L3-4: There is no significant canal stenosis or neural foraminal narrowing. L4-5: Mild diffuse disc bulge with mild bilateral neural foraminal narrowing. L5-S1: There is no significant canal stenosis or neural foraminal narrowing. IMPRESSION: Mild diffuse disc bulge with mild bilateral
== END ==
PROVIDERS: Visit Provider Student in an Organized Health Care Education/Training Program
DX: M51.16 Intervertebral disc disorders with radiculopathy, lumbar region (principal); M47.896 Other spondylosis, lumbar region; M54.06 Panniculitis affecting regions of neck and back, lumbar region; M46.1 Sacroiliitis, not elsewhere classified
CPT/HCPCS: 99212; G0463

== ENCOUNTER 2021-12-11 08:53 | Day surgery (SDC) | payer OTHER, SELFPAY ==
[2021-12-11 09:10] VITALS: BP 128/94; PULSE 91; RESP 20; TEMP 36.9; O2SAT 97; BMI 33.0
[2021-12-11 09:45] VITALS: BP 122/86; BP 131/81; PULSE 82; PULSE 90; RESP 18; O2SAT 95
--- NOTE | 2021-12-11 09:49 | HMH.PMPROC ---
- Procedure Date: 12/11/21 Time: 09:49 Anesthesiologist:: Irineo Samano CRNA Complications:: None Pre-procedure Diagnosis:: denerative disc disease lumbar spine. Post-procedure Diagnosis:: Same Indications for Procedure:: Very pleasant 41-year-old white male that comes our clinic today for lumbar epidural steroid injection at L5-S1 level. He has had these in the past with significant improvement. Procedure Details:: Procedure: Lumbar epidural steroid injection under fluoroscopy Informed consent was obtained and the risks and benefits of the procedure were explained to the patient. The patient was taken to the procedure room and noninvasive monitors placed, including noninvasive blood pressure cuff and pulse oximeter. The back was viewed using C-arm Fluoroscopy and prepped using Betadine as a cleansing solution and the L4-L5 interspace was palpated. Skin and subcutaneous tissues were anesthetized using lidocaine 1.5% and a 25-gauge needle. After this, an 18-gauge Touhy epidural needle was placed into the L4-L5 interspace and advanced using fluoroscopic guidance and loss of resistance to air until the epidural space was encountered. After confirmation of needle placement in the epidural space, with dye, a solution containing lidocaine 1.5%, 4 mL and Depo-Medrol 80 mg were incrementally injected into the lumbar epidural space. The patient tolerated the procedure well with no complications. The patient was observed in the Pain Clinic and then discharged home neurologically intact. Plan and Disposition:: Patient was discharged without incident.
[2021-12-11 10:02] VITALS: BP 130/87; PULSE 84; RESP 20; O2SAT 99
== END 2021-12-11 10:02 | disposition home or self-care (01) ==
LOC: SC.PAINP 08:55
PROVIDERS: PCP Family Medicine; Visit Provider Nurse Anesthetist, Certified Registered
DX: M51.36 Other intervertebral disc degeneration, lumbar region (principal); E78.5 Hyperlipidemia, unspecified; I10 Essential (primary) hypertension; M19.90 Unspecified osteoarthritis, unspecified site; F32.A Depression, unspecified; Z82.49 Family history of ischemic heart disease and other diseases of the circulatory system; Z88.6 Allergy status to analgesic agent
CPT/HCPCS: 62323; J1040

== ENCOUNTER → 2021-12-17 09:11 | Outpatient (POV) | payer OTHER, SELFPAY ==
[2021-12-17 09:20] VITALS: BP 134/93; PULSE 90; RESP 18; TEMP 36.3; O2SAT 95; BMI 33.2
--- NOTE | 2021-12-17 10:28 | HMH.PAINSOAP ---
[facility] Pain Management SOAP Note Subjective:: Patient is a pleasant 41-year-old male who presents today for follow-up. Patient is currently being treated for degenerative disc disease of lumbar spine with lumbar radiculopathy symptoms, facet arthropathy, and lumbar spondylosis. Patient has had 2 rounds of bilateral SI injections, medial branch blocks, lumbar RFA's, and lumbar epidural steroid injections. All of these injections have provided temporary relief. He is currently on Tizanidine 2mg TID, Tramadol 50mg TID, and [place] 5mg BID. Denies any side effects from these medications. They do somewhat help. He is a non-surgical candidate per neurosurgery. He has done PT in the last 6months that aggravated his symptoms. He saw a chiropractor who did not want to do any adjustments. We have discussed with the patient that he is a good SCS candidate. He agrees. His psychiatric evaluation is appropriate. We will send him for a PA. Rates pain today as 10/01. Chaim [id number], MEQ 25. Will obtain drug testing at his next appt. Injection history: 01/16/21: Bilateral SI, 60-70% relief, lasted 4-5 days 02/13/21: Bilateral SI 60-70% relief, lasted 4-5 days 03/13/21, 04/24/21: MBB L3-L4, L4-L5 bilaterally, 70-80% relief, lasted for 3-4 days 05/22/21: Lumbar RFA L3-L4, L4-L5 bilaterally, 70-80% relief, lasted for a month 08/07/21: LESI, 70-80% relief, lasted 1 week 12/11/21: LESI, 60-70% relief Review of Systems: General: No recent weight changes, no fever, no sleep disturbances Respiratory: No cough, no shortness of air, no recurring pulmonary infections Cardiovascular/peripheral vascular: No chest pain, no palpitations, no edema, no shortness of breath Gastrointestinal: No new onset incontinence, normal bowel movements reported Genitourinary: No new onset incontinence Musculoskeletal: Low back pain Psychiatric: [Normal mood/affect] Neurological: [Denies weakness in extremities], [denies balance issues] Objective:: Physical Exam: General: Alert and oriented x3, no acute distress, pleasant and cooperative Lungs: Respirations even and unlabored, symmetrical chest expansion Eyes: PERRL Musculoskeletal: Flexion and extension of lumbar [spine] somewhat guarded secondary to pain, [antalgic gait noted]; patient is tender to palpation around the left lumbar paraspinous Neurological: Speech clear, no gross sensory deficit Assessment:: Degenerative disc disease of the lumbar spine with lumbar radiculopathy symptoms Myofascial pain Plan:: We have tried several interventions for this patient including bilateral SI injections, medial branch blocks, lumbar RFA, lumbar epidural steroid injection that all provided minimal relief. We will try to get this patient approve for SCS trial again. Will order bilateral hip x-ray. In the meantime, we will schedule the patient for TPI Left lumbar paraspinous. Will continue Tramadol 50mg TID and [place] 5mg BID. We will not refill his gabapentin since it was not helping. Patient has been instructed to contact the clinic with any concerns before the next appointment. Dr. Tipton has reviewed this note and agrees with this plan of care. This note was dictated using voice recognition software and make contain errors or omissions. [facility] History Medical History: Reports:: Coronary Artery Disease, Gastroesophageal Reflux Disease(GERD), Hyperlipidemia, Hypertension Denies:: Cancer, Diabetes Mellitus Type 1, Diabetes Mellitus Type 2, Internal Pacemaker, Lung Disease, MRSA, Seizures *Have you ever received a pneumonia vaccine?: No *Have you received a flu vaccine this season?: Yes Other Medical History: Reports: Arthritis. Denies: Anemia, Blood Transfusion Reaction, Fibromyalgia, Liver Disease Laterality Cases: Right: Arthroscopy Shoulder, Other, Bilateral: Myringotomy (Ear Tubes), Tonsillectomy Other Surgeries: Yes: Cholecystectomy. No: Pacemaker Amputation: No Fractures: No - *Social History Smoking Status: Never smoker Tobacco Type: smo
--- NOTE | 2022-02-18 13:37 | HMH.PAINSOAP ---
[facility] Pain Management SOAP Note Subjective:: Patient is a pleasant 42-year-old male who presents today for follow-up. Patient is currently being treated for degenerative disc disease of lumbar spine with lumbar radiculopathy symptoms, facet arthropathy, and lumbar spondylosis. Patient has had 2 rounds of bilateral SI injections, medial branch blocks, lumbar RFA's, and lumbar epidural steroid injections. All of these injections have provided temporary relief. He is currently on Tizanidine 2mg TID, Tramadol 50mg TID, and [place] 5mg BID. Denies any side effects from these medications. They do somewhat help. We have had to increase his [place] dose because it was only providing 40-50% relief. He is a non-surgical candidate per neurosurgery. He has done PT in the last 6months that aggravated his symptoms. He saw a chiropractor who did not want to do any adjustments. He has been denied by insurance for SCS therapy. We had discussed with this patient that he is a good candidate for intrathecal pain pump. He agrees. His psychiatric evaluation is appropriate. Patient presents today after his intrathecal pain pump trial. He says that he had 100% relief during his trial. This is considered a successful trial. When we tried to seek approval for permanent placement, his insurance wants a psych re-evaluation with a psychiatrist/psychologist. He was evaluated by an L[employer]ER. Rates pain today as 10/01. Chaim [id number], MEQ 25. Injection history: 01/16/21: Bilateral SI, 60-70% relief, lasted 4-5 days 02/13/21: Bilateral SI 60-70% relief, lasted 4-5 days 03/13/21, 04/24/21: MBB L3-L4, L4-L5 bilaterally, 70-80% relief, lasted for 3-4 days 05/22/21: Lumbar RFA L3-L4, L4-L5 bilaterally, 70-80% relief, lasted for a month 08/07/21: LESI, 70-80% relief, lasted 1 week 12/11/21: LESI, 60-70% relief Review of Systems: General: No recent weight changes, no fever, no sleep disturbances Respiratory: No cough, no shortness of air, no recurring pulmonary infections Cardiovascular/peripheral vascular: No chest pain, no palpitations, no edema, no shortness of breath Gastrointestinal: No new onset incontinence, normal bowel movements reported Genitourinary: No new onset incontinence Musculoskeletal: Low back pain Psychiatric: [Normal mood/affect] Neurological: [Denies weakness in extremities], [denies balance issues] Objective:: Physical Exam: General: Alert and oriented x3, no acute distress, pleasant and cooperative Lungs: Respirations even and unlabored, symmetrical chest expansion Eyes: PERRL Musculoskeletal: Flexion and extension of lumbar [spine] somewhat guarded secondary to pain, [antalgic gait noted] Neurological: Speech clear, no gross sensory deficit Assessment:: Degenerative disc disease of the lumbar spine with lumbar radiculopathy symptoms, lumbar facet arthropathy, lumbar spondylosis, myofascial pain Plan:: We will refer the patient for a repeat psychiatric evaluation with a psychologist/psychiatrist. Will follow up with this pt once he is done with his psych eval. Again, pt had 100% relief after pain pump trial. During his permanent placement, we will place the catheter tip at L1 vertebral body and start the pt on Morphine 5mg/mL, rate 0.25mg/day. Patient has been instructed to contact the clinic with any concerns before the next appointment. Dr. Tipton has reviewed this note and agrees with this plan of care. This note was dictated using voice recognition software and make contain errors or omissions. [facility] History Medical History: Reports:: Coronary Artery Disease, Gastroesophageal Reflux Disease(GERD), Hyperlipidemia, Hypertension Denies:: Cancer, Diabetes Mellitus Type 1, Diabetes Mellitus Type 2, Internal Pacemaker, Lung Disease, MRSA, Seizures *Have you ever received a pneumonia vaccine?: No *Have you received a flu vaccine this season?: Yes Other Medical History: Reports: Arthritis. Denies: Anemia, Blood Transfusion Reaction, Fibromyalgia, Liver Disease Laterality
== END ==
PROVIDERS: Visit Provider Student in an Organized Health Care Education/Training Program
DX: M51.16 Intervertebral disc disorders with radiculopathy, lumbar region (principal); M79.18 Myalgia, other site
CPT/HCPCS: 99212; G0463

== ENCOUNTER → 2021-12-22 16:56 | Outpatient (CLI) | payer OTHER, SELFPAY ==
--- NOTE | 2021-12-22 17:07 | XR_ITS ---
PROCEDURE INFORMATION: Exam: XR Left Hip Exam date and time: 12/22/2021 5:09 PM Age: 41 years old Clinical indication: Hip pain; Bilateral TECHNIQUE: Imaging protocol: XR Left hip. Views: 2 or 3 views hip with pelvis when performed. 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 Findings unchanged. No evidence of acute osseous injury. Soft tissues: Unremarkable. IMPRESSION: No evidence of acute osseous injury.
--- NOTE | 2021-12-22 17:07 | XR_ITS ---
PROCEDURE INFORMATION: Exam: XR Right Hip Exam date and time: 12/22/2021 5:09 PM Age: 41 years old Clinical indication: Pelvic pain TECHNIQUE: Imaging protocol: XR Right hip. Views: 2 or 3 views hip with pelvis when performed. COMPARISON: ABDPELW CT abdomen pelvis w con 05/08/2018 9:13 AM FINDINGS: Bones/joints: Unremarkable. No acute fracture. Soft tissues: Unremarkable. IMPRESSION: No acute findings.
== END ==
PROVIDERS: PCP Family Medicine; Visit Provider Anesthesiology
DX: M25.552 Pain in left hip (principal); M25.551 Pain in right hip
CPT/HCPCS: 73502

== ENCOUNTER 2021-12-25 14:27 | Day surgery (SDC) | payer OTHER, SELFPAY ==
[2021-12-25 14:34] VITALS: BP 149/98; PULSE 79; RESP 18; TEMP 36.1; O2SAT 98; BMI 33.2
[2021-12-25 14:50] VITALS: BP 145/100; PULSE 80; RESP 18; O2SAT 96
[2021-12-25 14:51] VITALS: BP 143/101; PULSE 92; RESP 18; O2SAT 95
[2021-12-25 15:01] VITALS: BP 152/99; PULSE 82; RESP 20; O2SAT 98
--- NOTE | 2021-12-25 15:25 | HMH.PMPROC ---
- Procedure Date: 12/25/21 Time: 15:25 Anesthesiologist:: Luiz Tipton MD Complications:: None Pre-procedure Diagnosis:: Low back pain myofascial in origin over the lumbar paraspinous muscles on the left side Post-procedure Diagnosis:: Same Indications for Procedure:: Patient is a pleasant 41-year-old white male who we have been treating for low back pain with lumbar radiculopathy symptoms with degenerative disc disease of lumbar spine and lumbago with increasing myofascial pain over the lower lumbar spine and the paraspinous muscles on the left side. He has trigger points on his left lower lumbar paraspinous area. We will do trigger point injections today to help with some of his low back pain which is myofascial in origin. Procedure Details:: Trigger point injections x4 to left lumbar paraspinous muscle Informed consent was obtained risk and benefits of the procedure were explained to the patient. Patient was taken the procedure room. The back was prepped using ChloraPrep. Trigger points were palpated and marked. Each of these trigger points were injected with bupivacaine 0.25% 3 mL and Depo-Medrol 10 mg. A total of 4 trigger points were injected in the left lumbar paraspinous area with a total of 40 mg Depo-Medrol. Patient tolerated the procedure well with no complications. Plan and Disposition:: We will follow-up with him in 2 weeks. Will reevaluate symptoms at that time. Patient spinal cord stimulator was denied to help with radicular symptoms. We will seek approval for intrathecal pump trial to see if this may help with his back pain and leg pain.
== END 2021-12-25 15:02 | disposition home or self-care (01) ==
LOC: SC.PAINP 14:28
PROVIDERS: PCP Family Medicine; Visit Provider Anesthesiology
DX: M79.18 Myalgia, other site (principal); M54.59 Other low back pain
CPT/HCPCS: 20552; J1040

== ENCOUNTER 2022-01-15 07:46 | Day surgery (SDC) | payer OTHER, SELFPAY ==
[2022-01-15 08:10] VITALS: BP 122/75; PULSE 85; RESP 20; TEMP 36.4; O2SAT 98; BMI 32.5
[2022-01-15 08:56] VITALS: BP 124/84; PULSE 75; RESP 20; O2SAT 96; O2SAT 97
[2022-01-15 09:10] VITALS: BP 131/97; PULSE 83; RESP 18; O2SAT 95
--- NOTE | 2022-01-15 09:12 | HMH.PMPROC ---
- Procedure Date: 01/15/22 Time: 09:12 Anesthesiologist:: Luiz Tipton MD Complications:: None Pre-procedure Diagnosis:: Degenerative disc disease of lumbar spine with lumbar radiculopathy symptoms Post-procedure Diagnosis:: Same Indications for Procedure:: Patient is a pleasant 41-year-old white male who we are treating for low back pain with lumbar radiculopathy symptoms. He has failed all previous conservative treatments including injections, oral medications, physical therapy and is not a surgical candidate. He had a successful psychological evaluation. Most of his pain is in the low back with some down his legs. He presents for intrathecal pump trial today. Procedure Details:: Pain pump trial Informed consent was obtained and the risk and benefits of the procedure was explained to the patient. The patient was taken to the procedure room and placed prone on the procedure table. Patient was prepped and draped in sterile fashion. C-arm fluoroscopy was used to view the lumbar spine. The skin and subcutaneous tissues were anesthetized using lidocaine. I placed a 18-gauge spinal needle into the L4-5 interspace and advanced until clear CSF was obtained. After this intrathecal catheter was inserted and advanced very easily to the L1 vertebral body. The needle was withdrawn. We were able to freely withdraw clear CSF through the catheter. We then injected intrathecal fentanyl single shot bolus of 25 mcg followed by saline and followed by the previous CSF that was withdrawn. The needle and catheter were then removed and a Band-Aid was placed. Patient tolerated the procedure well with no complications. We reevaluated the patient after 30 minutes to 1 hour. He was also reassessed by physical therapy. Patient is 67% better pain kwon he is much more functional. He has minimal pain at this time. He is doing very well. He did have some itching which was relieved by Benadryl. This was a successful intrathecal pump trial. We will plan on permanent placement with intrathecal pain pump with intrathecal morphine 5 mg/mL to start at 0.25 mg/day. Catheter tip will be at the L1 vertebral body. Plan and Disposition:: This was a successful intrathecal pump trial. We will plan on permanent placement of intrathecal morphine pain pump. This will be with intrathecal morphine 5 mg/mL to start at 0.25 mg/day. Catheter tip will be at the L1 vertebral body. Patient is doing very well. We will follow-up with him in clinic in 1 week to answer any questions and confirm treatment plan for pursuing permanent placement of intrathecal morphine pain pump.
[2022-01-15 09:25] VITALS: BP 124/87; PULSE 92; RESP 18; O2SAT 96
--- NOTE | 2022-01-15 09:28 | PC.NURSE ---
pt c/o itching at this time; administered benadryl per mar. Pt. has not c/o n/v. MD at bedside.
[2022-01-15 09:40] VITALS: BP 130/92; PULSE 77; RESP 20; O2SAT 95
--- NOTE | 2022-01-15 09:43 | PC.NURSE ---
pt. has no c/o at this time; itching has decreased.
[2022-01-15 09:55] VITALS: BP 131/88; PULSE 64; RESP 20; O2SAT 95
== END 2022-01-15 10:15 | disposition home or self-care (01) ==
LOC: SC.PAINP 07:47
PROVIDERS: PCP Family Medicine; Visit Provider Anesthesiology
DX: M51.16 Intervertebral disc disorders with radiculopathy, lumbar region (principal); I10 Essential (primary) hypertension; K21.9 Gastro-esophageal reflux disease without esophagitis
CPT/HCPCS: 62327

== ENCOUNTER → 2022-02-18 11:23 | Outpatient (POV) | payer OTHER, SELFPAY ==
[2022-02-18 11:58] VITALS: BP 139/91; PULSE 79; RESP 20; TEMP 36.5; O2SAT 95; BMI 32.5
--- NOTE | 2022-02-18 14:47 | HMH.PAINSOAP ---
[facility] Pain Management SOAP Note Subjective:: Patient is a pleasant 42-year-old male who presents today for follow-up. Patient is currently being treated for degenerative disc disease of lumbar spine with lumbar radiculopathy symptoms, facet arthropathy, and lumbar spondylosis. Patient has had 2 rounds of bilateral SI injections, medial branch blocks, lumbar RFA's, and lumbar epidural steroid injections. All of these injections have provided temporary relief. He is currently on Tizanidine 2mg TID, Tramadol 50mg TID, and [place] 5mg BID. Denies any side effects from these medications. They do somewhat help. We have had to increase his [place] dose because it was only providing 40-50% relief. He is a non-surgical candidate per neurosurgery. He has done PT in the last 6months that aggravated his symptoms. He saw a chiropractor who did not want to do any adjustments. He has been denied by insurance for SCS therapy. We had discussed with this patient that he is a good candidate for intrathecal pain pump. He agrees. His psychiatric evaluation is appropriate. Patient presents today after his intrathecal pain pump trial. He says that he had 100% relief during his trial. This is considered a successful trial. When we tried to seek approval for permanent placement, his insurance wants a psych re-evaluation with a psychiatrist/psychologist. He was evaluated by an GENERAL WAREHOUSE ASSOCIATE. Rates pain today as 10/01. Chaim [id number], MEQ 25. Injection history: 01/16/21: Bilateral SI, 60-70% relief, lasted 4-5 days 02/13/21: Bilateral SI 60-70% relief, lasted 4-5 days 03/13/21, 04/24/21: MBB L3-L4, L4-L5 bilaterally, 70-80% relief, lasted for 3-4 days 05/22/21: Lumbar RFA L3-L4, L4-L5 bilaterally, 70-80% relief, lasted for a month 08/07/21: LESI, 70-80% relief, lasted 1 week 12/11/21: LESI, 60-70% relief Review of Systems: General: No recent weight changes, no fever, no sleep disturbances Respiratory: No cough, no shortness of air, no recurring pulmonary infections Cardiovascular/peripheral vascular: No chest pain, no palpitations, no edema, no shortness of breath Gastrointestinal: No new onset incontinence, normal bowel movements reported Genitourinary: No new onset incontinence Musculoskeletal: Low back pain Psychiatric: [Normal mood/affect] Neurological: [Denies weakness in extremities], [denies balance issues] Objective:: Physical Exam: General: Alert and oriented x3, no acute distress, pleasant and cooperative Lungs: Respirations even and unlabored, symmetrical chest expansion Eyes: PERRL Musculoskeletal: Flexion and extension of lumbar [spine] somewhat guarded secondary to pain, [antalgic gait noted] Neurological: Speech clear, no gross sensory deficit Assessment:: Degenerative disc disease of the lumbar spine with lumbar radiculopathy symptoms, lumbar facet arthropathy, lumbar spondylosis, myofascial pain Plan:: We will refer the patient for a repeat psychiatric evaluation with a psychologist/psychiatrist. Will follow up with this pt once he is done with his psych eval. Again, pt had 100% relief after pain pump trial. During his permanent placement, we will place the catheter tip at L1 vertebral body and start the pt on Morphine 5mg/mL, rate 0.25mg/day. Patient has been instructed to contact the clinic with any concerns before the next appointment. Dr. Tipton has reviewed this note and agrees with this plan of care. This note was dictated using voice recognition software and make contain errors or omissions. [facility] History Medical History: Reports:: Coronary Artery Disease, Gastroesophageal Reflux Disease(GERD), Hyperlipidemia, Hypertension Denies:: Cancer, Diabetes Mellitus Type 1, Diabetes Mellitus Type 2, Internal Pacemaker, Lung Disease, MRSA, Seizures *Have you ever received a pneumonia vaccine?: No *Have you received a flu vaccine this season?: Yes Other Medical History: Reports: Arthritis. Denies: Anemia, Blood Transfusion Reaction, Fibromyalgia, Liver Disease Lateral
== END ==
PROVIDERS: Visit Provider Student in an Organized Health Care Education/Training Program
DX: M51.16 Intervertebral disc disorders with radiculopathy, lumbar region (principal); M47.26 Other spondylosis with radiculopathy, lumbar region; M79.18 Myalgia, other site
CPT/HCPCS: 99212; G0463

== ENCOUNTER → 2022-02-18 12:08 | Outpatient (CLI) | payer OTHER, SELFPAY ==
[2022-02-18 13:08] LABS: Barbiturates Screen,Urine Negative ng/ml (<200)
[2022-02-18 13:09] LABS: Benzodiazepines Screen,Urine Negative ng/ml (<200)
[2022-02-18 13:10] LABS: Amphetamine/Metha Screen,Urine Negative ng/ml (<1000); Cannabinoid Screen,Urine Negative ng/ml (<50)
[2022-02-18 13:11] LABS: Cocaine Screen,Urine Negative ng/ml (<300)
[2022-02-18 13:12] LABS: Methadone Screen,Urine Negative ng/ml (<300); Opiate Screen,Urine Positive ng/ml (<300)
[2022-02-18 13:13] LABS: Phencyclidine Screen,Urine Negative ng/ml (<25)
[2022-02-25 14:11] LABS: Codeine Negative (Cutoff=100); Hydrocodone Positive (.); Hydromorphone Positive (.); Morphine Negative (Cutoff=100); Opiates Positive (.)
== END ==
PROVIDERS: PCP Family Medicine; Visit Provider Student in an Organized Health Care Education/Training Program
DX: Z79.891 Long term (current) use of opiate analgesic (principal)
CPT/HCPCS: 80305; 80361; 80365; G0480

== ENCOUNTER → 2022-04-29 10:45 | Outpatient (POV) | payer OTHER, SELFPAY ==
[2022-04-29 11:05] VITALS: BP 137/97; PULSE 77; RESP 18; TEMP 35.9; O2SAT 98; BMI 33.6
--- NOTE | 2022-04-29 11:05 | EXP.PAIN.SOA ---
[facility] Pain Management SOAP Note Subjective:: Patient is a pleasant 42-year-old male who presents today for follow-up. We are currently treating the patient for degenerative disc disease of lumbar spine with lumbar radiculopathy symptoms, facet arthropathy, lumbar spondylosis. Today the patient rates his pain a 6 out of 10. He states the pain is primarily in his low back that radiates into his bilateral lower extremities. We have done injections in the past that have provided temporary relief including medial branch blocks, SI injections, lumbar RFA and lumbar epidurals. Patient did do a intrathecal pain pump trial that provided 100% relief of his symptoms. We did seek approval for a permanent placement however this was denied by his insurance. Today he states he has talked to them and they stated that he should hear something back in 7-10 business days. He is currently managed with tizanidine 2 mg 3 times daily, tramadol 50 mg 3 times daily and [place] 5 mg twice daily. Patient denies any side effects from this medication. He states these medications do adequately manage his pain. Patient does not need refills at today's appointment. Patient is also tried compounding cream however he states he did not notice significant improvement of his symptoms. Patient has had a psychiatric evaluation that was appropriate. His Chaim is [id number]. It is been reviewed and appropriate. Injection history: 01/16/21: Bilateral SI, 60-70% relief, lasted 4-5 days 02/13/21: Bilateral SI 60-70% relief, lasted 4-5 days 03/13/21, 04/24/21: MBB L3-L4, L4-L5 bilaterally, 70-80% relief, lasted for 3-4 days 05/22/21: Lumbar RFA L3-L4, L4-L5 bilaterally, 70-80% relief, lasted for a month 08/07/21: LESI, 70-80% relief, lasted 1 week 12/11/21: LESI, 60-70% relief Review of Systems: General: No recent weight changes, no fever, no sleep disturbances Respiratory: No cough, no shortness of air, no recurring pulmonary infections Cardiovascular/peripheral vascular: No chest pain, no palpitations, no edema, no shortness of breath Gastrointestinal: No new onset incontinence, normal bowel movements reported Genitourinary: No new onset incontinence Musculoskeletal: Low back pain, leg pain Psychiatric: [Normal mood/affect] Neurological: [Denies weakness in extremities], [denies balance issues] Objective:: Physical Exam: General: Alert and oriented x3, no acute distress, pleasant and cooperative Lungs: Respirations even and unlabored, symmetrical chest expansion Eyes: PERRL Musculoskeletal: Flexion and extension of lumbar [spine] somewhat guarded secondary to pain, [antalgic gait noted] Neurological: Speech clear, no gross sensory deficit Assessment:: Degenerative disc disease of lumbar spine with lumbar radiculopathy symptoms, facet arthropathy, lumbar spondylosis Plan:: Patient continues to have significant pain in his low back that radiates into his bilateral lower extremities. We are currently waiting to hear about insurance approval for the permanent placement of a intrathecal pain pump. Patient has tried and failed oral medications, injective therapy, heat and ice, physical therapy, at home exercising and stretching for longer than 6 weeks. We will follow-up with the patient in 1 month for reevaluation of symptoms, and medication refill. Patient has been advised of risks of oversedation with the prescribed medication. Narcan has been offered to the patient in the event of oversedation. Patient has been advised that a family member should also be educated regarding administration of Narcan. Patient has been instructed to contact the clinic with any concerns before the next appointment. Dr. Tipton has reviewed this note and agrees with this plan of care. This note was dictated using voice recognition software and make contain errors or omissions. [facility] Medical History (Updated 06/10/21 @ 15:39 by Jessica Murcia APRN) Family history of coronary artery disease HTN (hypertension)
== END ==
PROVIDERS: PCP Family Medicine; Visit Provider Nurse Practitioner Family
DX: M51.16 Intervertebral disc disorders with radiculopathy, lumbar region (principal); M47.26 Other spondylosis with radiculopathy, lumbar region
CPT/HCPCS: 99212; G0463

== ENCOUNTER → 2022-05-20 08:10 | Outpatient (POV) | payer OTHER, SELFPAY ==
[2022-05-20 08:17] VITALS: BP 132/96; PULSE 87; RESP 18; TEMP 37; O2SAT 98; BMI 34.2
--- NOTE | 2022-05-20 12:10 | EXP.PAIN.SOA ---
[facility] Pain Management SOAP Note Subjective:: Patient is a pleasant 42-year-old male who presents today for follow-up and medication refill.? We are currently treating the patient for degenerative disc disease of lumbar spine with lumbar radiculopathy symptoms, facet arthropathy, lumbar spondylosis.? Today the patient rates his pain a 5 out of 10.? He states the pain is in his low back that radiates into his bilateral lower extremities.? Patient denies any new trauma or injury. He denies any change in location or type of pain he experiences. 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 We have done injections in the past that have provided temporary relief including medial branch blocks, SI injections, lumbar RFA and lumbar epidurals.? Patient did do a intrathecal pain pump trial that provided 100% relief of his symptoms with significant improvement in his function and increased activity and range of motion.? Patient has been denied by insurance multiple times for the permanent placement of a intrathecal pain pump.? Patient describes his pain as a aching, throbbing with spasms that are daily. Patient states he is unable to do activities of daily living due to his pain. He is currently managed with tizanidine 2 mg 3 times daily, tramadol 50 mg 3 times daily and [place] 5 mg twice daily.? Patient denies any side effects from this medication.? He states these medications do adequately manage his pain.? Patient is requesting a refill of his [place] at today's visit. Patient has tried compounding cream however he states it did not make any difference. Patient has tried physical therapy in the last 12 months however he was unable to continue his therapy due to the worsening pain symptoms. Patient does try to do at home stretching and exercise techniques however these are limited due to his pain. Patient has had a psychiatric evaluation t that was deemed appropriate with no contraindications.? His Chaim is [id number].? It is been reviewed and appropriate. Injection history: 01/16/21: Bilateral SI, 60-70% relief, lasted 4-5 days 02/13/21: Bilateral SI 60-70% relief, lasted 4-5 days 03/13/21, 04/24/21: MBB L3-L4, L4-L5 bilaterally, 70-80% relief, lasted for 3-4 days 05/22/21: Lumbar RFA L3-L4, L4-L5 bilaterally, 70-80% relief, lasted for a month 08/07/21: LESI, 70-80% relief, lasted 1 week 12/11/21: LESI, 60-70% relief Review of Systems: General: No recent weight changes, no fever, no sleep disturbances Respiratory: No cough, no shortness of air, no recurring pulmonary infections Cardiovascular/peripheral vascular: No chest pain, no palpitations,? no edema, no shortness of breath Gastrointestinal: No new onset incontinence, normal bowel movements reported Genitourinary: No new onset incontinence Musculoskeletal: Low back pain, leg pain Psychiatric: [Normal mood/affect] Neurological: [Denies weakness in extremities], [denies balance issues] Objective:: Physical Exam: General: Alert and oriented x3, no acute distress, pleasant and cooperative Lungs: Respirations even and unlabored, symmetrical chest expansion Eyes: PERRL Musculoskeletal: Flexion and extension of lumbar [spine] somewhat guarded secondary to pain, [antalgic gait noted] Neurological: Speech clear,? 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 Patient has no contraindications for the pain pump and was seen by a psychiatrist to confirm this. Patient had 100% relief following his pain pump trial and had significant functional improvement with this intrathecal medication. We will plan on using morphine 5 mg/mL with a starting dose of 0.25 mg/day and the catheter tip at vertebral L1 body. This device and medication h
== END | disposition home or self-care (01) ==
PROVIDERS: PCP Family Medicine; Visit Provider Nurse Practitioner Family
DX: M51.16 Intervertebral disc disorders with radiculopathy, lumbar region (principal); M47.26 Other spondylosis with radiculopathy, lumbar region; Z79.899 Other long term (current) drug therapy
CPT/HCPCS: 99212; G0463

== ENCOUNTER → 2022-06-04 16:18 | Outpatient (CLI) | payer OTHER, SELFPAY ==
[2022-06-07 14:21] LABS: H. pylori Breath Test Negative (Negative)
== END ==
PROVIDERS: PCP Family Medicine; Visit Provider Physician Assistant
DX: K21.9 Gastro-esophageal reflux disease without esophagitis (principal)
CPT/HCPCS: 83013

== ENCOUNTER → 2022-06-09 16:04 | Outpatient (CLI) | payer OTHER, SELFPAY ==
[2022-06-09 16:23] LABS: Coronavirus 19, PCR Not Detected (NotDetected); Influenza A, PCR Not Detected (NotDetected); Influenza B, PCR Not Detected (NotDetected)
== END ==
PROVIDERS: PCP Family Medicine; Visit Provider Physician Assistant
DX: Z20.822 Contact with and (suspected) exposure to COVID-19 (principal)
CPT/HCPCS: C9803; U0003; U0005

== ENCOUNTER → 2022-07-06 15:25 | Outpatient (POV) | payer OTHER, SELFPAY ==
[2022-07-06 15:30] VITALS: BP 152/100; PULSE 76; RESP 20; BMI 34.0
--- NOTE | 2022-07-06 15:43 | EXP.PAIN.SOA ---
[facility] Pain Management SOAP Note Subjective:: Patient is a pleasant 42-year-old male who presents today for follow-up. We are currently treating the patient for degenerative disc disease of lumbar spine with lumbar radiculopathy symptoms, facet arthropathy, lumbar spondylosis. Today he rates his pain a 4 out of 10. Patient denies any new trauma or injury. Patient denies any change location or type of pain he experiences. Patient does state that his back pain has progressively worsened and he is starting to experience more significant pain. In the past we have done multiple injections that provided significant relief including SI injections, medial branch blocks, lumbar RFA, lumbar epidurals. Patient did have a pain pump trial that was successful with 100% relief of his symptoms however we are still currently waiting for insurance approval. Patient does describe his pain as a aching, throbbing sensation that is worse with increased activity. Patient does experience significant back spasms and has been given muscle relaxers in the past to help with this. Patient is currently managed with [place] 5 mg 3 times a day and gabapentin 300 mg once a day. Patient denies any side effects from these medications. He states these medications do help manage his pain symptoms. He is not needing any medication refills at this time. His Chaim is [id number]. It has been reviewed and appropriate. Review of Systems: General: No recent weight changes, no fever, no sleep disturbances Respiratory: No cough, no shortness of air, no recurring pulmonary infections Cardiovascular/peripheral vascular: No chest pain, no palpitations, no edema, no shortness of breath Gastrointestinal: No new onset incontinence, normal bowel movements reported Genitourinary: No new onset incontinence Musculoskeletal: Low back pain Psychiatric: [Normal mood/affect] Neurological: [Denies weakness in extremities], [denies balance issues] Objective:: Physical Exam: General: Alert and oriented x3, no acute distress, pleasant and cooperative Lungs: Respirations even and unlabored, symmetrical chest expansion Eyes: PERRL Musculoskeletal: Flexion and extension of lumbar [spine] somewhat guarded secondary to pain, [antalgic gait noted] positive Kemps test Neurological: Speech clear, no gross sensory deficit Assessment:: Degenerative disc disease of lumbar spine with lumbar radiculopathy symptoms, facet arthropathy, lumbar spondylosis, sacroiliitis Plan:: Patient is experiencing significant pain in his back with limited range of motion. Patient has tried and failed conservative therapy such as oral medications, heat and ice, topicals, physical therapy, at home stretching and exercise for longer than 6 weeks. Patient previously had a lumbar RFA that provided significant improvement of upwards of 70 to 80% relief. I have discussed with the patient regarding repeating this procedure. Risk and benefits were discussed with the patient. He would like to proceed forward with this plan of care we will schedule him for a lumbar RFA bilaterally at L3-L4 and L4-L5. We will continue to wait to hear from insurance for approval on his pain pump implant. Patient has been instructed to contact the clinic with any concerns before the next appointment. Dr. Tipton has reviewed this note and agrees with this plan of care. This note was dictated using voice recognition software and make contain errors or omissions. [facility] Disclaimer: The information contained in this section may have been updated after the patient was seen, as this information can be updated by other users. Medical History (Updated 06/10/21 @ 15:39 by Jessica Murcia APRN) Family history of coronary artery disease HTN (hypertension) Hypotestosteronemia in male SOB (shortness of breath) Tachycardia Social History Smoking Status: Never smoker alcohol intake: never substance use type: denies use current occupational status: employed [employer]
== END ==
PROVIDERS: PCP Family Medicine; Visit Provider Nurse Practitioner Family
DX: M51.16 Intervertebral disc disorders with radiculopathy, lumbar region (principal); M47.26 Other spondylosis with radiculopathy, lumbar region; M46.1 Sacroiliitis, not elsewhere classified
CPT/HCPCS: 99212; G0463

== ENCOUNTER 2022-07-23 07:48 | Day surgery (SDC) | payer OTHER, SELFPAY ==
[2022-07-23 08:07] VITALS: BP 143/97; PULSE 83; RESP 18; TEMP 36.4; O2SAT 97; BMI 34.0
[2022-07-23 08:14] VITALS: BP 141/88; PULSE 78; RESP 18; O2SAT 97
[2022-07-23 08:15] VITALS: BP 141/88; PULSE 78; RESP 18; O2SAT 97
--- NOTE | 2022-07-23 08:23 | P.PCN_ITS ---
Procedure Date: 07/23/22 Time: 08:00 Anesthesiologist:: Irineo Samano CRNA Complications:: None Pre-procedure Diagnosis:: Degenerative disc disease lumbar spine multilevels. Lumbar radiculopathy. Lumbar spondylosis. Multilevel lumbar facet arthropathy. Post-procedure Diagnosis:: Same. Indications for Procedure:: Patient is a very pleasant 42-year-old male that comes our clinic today for L3- 4, L4-5 bilateral radiofrequency ablation. Patient describes his low back pain as constant, dull, achy. Patient states pain increases significantly when standing or sitting for any length of time. Lumbar extension increases pain significantly. Patient rates his pain 8/10. Procedure Details:: Procedure Details: Lumbar RFA Informed consent was obtained and the risk and benefits of the procedure was explained to the patient. Patient was placed prone on the procedure table. The patient was prepped and draped in sterile fashion. C-arm fluoroscopy was used to view the lumbar spine. The skin and subcutaneous tissues were anesthetized using lidocaine. I placed 20-gauge RF needles into the bilateral facet joints of L3-4, L4-5 on the left side. We underwent sensory stimulation. There is good sensory stimulation at 0.8 V. We underwent motor stimulation. There is no motor stimulation at 2 V. We then anesthetized these levels with lidocaine and Depo- Medrol. I used a total of 40 mg Depo-Medrol for all 3 levels. I then burned the bilateral L3-L4, L4-5 for 4 minutes at 80 ?C. Patient tolerated the procedure well with no complication. Plan and Disposition:: We will follow-up with this patient in 2 weeks. We will reevaluate her symptoms at that time.
[2022-07-23 08:24] VITALS: BP 145/91; PULSE 86; RESP 18; O2SAT 95
== END 2022-07-23 08:24 | disposition home or self-care (01) ==
PROVIDERS: PCP Family Medicine; Visit Provider Nurse Anesthetist, Certified Registered
DX: M51.16 Intervertebral disc disorders with radiculopathy, lumbar region (principal); M47.26 Other spondylosis with radiculopathy, lumbar region
CPT/HCPCS: 64635; 64636; J1040

== ENCOUNTER → 2022-08-19 15:16 | Outpatient (POV) | payer OTHER, SELFPAY ==
[2022-08-19 15:25] VITALS: BP 132/93; PULSE 99; RESP 18; O2SAT 97; BMI 35.1
--- NOTE | 2022-08-19 15:32 | EXP.PAIN.SOA ---
[facility] Pain Management SOAP Note Subjective:: Patient is a pleasant 42-year-old male who presents today for medication refill and follow-up. We are currently treating the patient for degenerative disc disease of lumbar spine multilevels with lumbar radiculopathy symptoms, lumbar spondylosis, multilevel lumbar facet arthropathy. Today the patient rates his pain a 5 out of 10. Patient denies any new trauma or injury. Patient denies any change location or type of pain he experiences. Patient did recently have a lumbar RFA of L3-4 and L4-5 on the left side on 07/23/2022. Patient denies any problems following this procedure and states it has provided significant improvement. Patient is currently managed with [place] 5 mg 3 times a day and gabapentin 300 mg once a day. Patient denies any side effects from these medications. He states these medications do adequately manage his pain. He is requesting a refill at today's visit. Patient did in the past have a pain pump trial that provided 100% relief however has been denied by insurance multiple times for a pain pump implant. His Chaim is [id number]. Its been reviewed and appropriate. Review of Systems: General: No recent weight changes, no fever, no sleep disturbances Respiratory: No cough, no shortness of air, no recurring pulmonary infections Cardiovascular/peripheral vascular: No chest pain, no palpitations, no edema, no shortness of breath Gastrointestinal: No new onset incontinence, normal bowel movements reported Genitourinary: No new onset incontinence Musculoskeletal: Low back pain Psychiatric: [Normal mood/affect] Neurological: [Denies weakness in extremities], [denies balance issues] Objective:: Physical Exam: General: Alert and oriented x3, no acute distress, pleasant and cooperative Lungs: Respirations even and unlabored, symmetrical chest expansion Eyes: PERRL Musculoskeletal: Flexion and extension of lumbar [spine] somewhat guarded secondary to pain, [antalgic gait noted] Neurological: Speech clear, no gross sensory deficit ORT score updated with low risk Assessment:: Degenerative disc disease of lumbar spine multilevels with lumbar radiculopathy symptoms, lumbar spondylosis, multilevel lumbar facet arthropathy Plan:: Patient continues to experience significant pain in his low back with radiating symptoms into his leg however he is doing well with his current medication regimen. I will refill his gabapentin 300 mg daily and [place] 5 mg 3 times a day and provide a 1 month supply of this medication. Patient will return to clinic in 1 month for reevaluation of symptoms, medication refill and follow-up. Patient has been advised of risks of oversedation with the prescribed medication. Narcan has been offered to the patient in the event of oversedation. Patient has been advised that a family member should also be educated regarding administration of Narcan. Patient has been instructed to contact the clinic with any concerns before the next appointment. Dr. Tipton has reviewed this note and agrees with this plan of care. This note was dictated using voice recognition software and make contain errors or omissions. [facility] Disclaimer: The information contained in this section may have been updated after the patient was seen, as this information can be updated by other users. Medical History Family history of coronary artery disease HTN (hypertension) Hypotestosteronemia in male SOB (shortness of breath) Tachycardia Family History (Updated 07/23/22 @ 08:07 by Betsy Lou RN) Other No significant family history Social History Smoking Status: Never smoker alcohol intake: never substance use type: denies use current occupational status: employed Travel in the last 8 weeks: None household members: spouse housing: house current occupational ex
== END | disposition home or self-care (01) ==
PROVIDERS: PCP Family Medicine; Visit Provider Nurse Practitioner Family
DX: M51.16 Intervertebral disc disorders with radiculopathy, lumbar region (principal); M47.26 Other spondylosis with radiculopathy, lumbar region
CPT/HCPCS: 99212; G0463

== ENCOUNTER → 2022-08-19 15:32 | Outpatient (CLI) | payer OTHER, SELFPAY ==
[2022-08-19 16:56] LABS: Amphetamine/Metha Screen,Urine Negative ng/ml (<1000); Barbiturates Screen,Urine Negative ng/ml (<200)
[2022-08-19 16:57] LABS: Benzodiazepines Screen,Urine Negative ng/ml (<200)
[2022-08-19 16:58] LABS: Cannabinoid Screen,Urine Negative ng/ml (<50); Cocaine Screen,Urine Negative ng/ml (<300)
[2022-08-19 16:59] LABS: Methadone Screen,Urine Negative ng/ml (<300)
[2022-08-19 17:00] LABS: Opiate Screen,Urine Positive ng/ml (<300); Phencyclidine Screen,Urine Negative ng/ml (<25)
[2022-08-28 17:18] LABS: Codeine Negative (Cutoff=100); Hydrocodone Positive (.); Hydromorphone Positive (.); Morphine Negative (Cutoff=100); Opiates Positive (.)
== END ==
PROVIDERS: Nurse Practitioner Family; PCP Family Medicine; Visit Provider Anesthesiology
DX: Z79.891 Long term (current) use of opiate analgesic (principal)
CPT/HCPCS: 80305; 80361; 80365; G0480

== ENCOUNTER → 2022-09-23 15:24 | Outpatient (POV) | payer OTHER, SELFPAY ==
[2022-09-23 15:36] VITALS: BP 125/92; PULSE 89; RESP 18; O2SAT 97; BMI 34.0
--- NOTE | 2022-09-23 15:42 | EXP.PAIN.SOA ---
[facility] Pain Management SOAP Note Subjective:: Patient is a pleasant 42-year-old male who presents today for medication refill and follow-up. We are currently treating the patient for degenerative disc disease of lumbar spine multilevels with lumbar radiculopathy symptoms, lumbar spondylosis, multilevel lumbar facet arthropathy. Today he rates his pain a 3 out of 10. Patient denies any new trauma or injury. Patient denies any change location or type of pain he experiences. Patient does state his pain is all in his low back and describes it as an aching, throbbing sensation. Patient does state that this is worse with increased activity. He has had multiple injections in the past including a lumbar RFA of L3-4 and 4 through 5 on 07/23/2022. Patient is currently managed with [place] 5 mg 3 times a day and gabapentin 300 mg once a day. He is stating that he is starting to feel more grogginess with the gabapentin. He does state that he has stopped taking this medication due to that side effect. He is requesting a refill of the [place] at today's visit. Patient has had a pain pump trial in the past that did provide 100% relief however this was denied by his insurance. His Chaim is [id number]. Its been reviewed and appropriate. Review of Systems: General: No recent weight changes, no fever, no sleep disturbances Respiratory: No cough, no shortness of air, no recurring pulmonary infections Cardiovascular/peripheral vascular: No chest pain, no palpitations, no edema, no shortness of breath Gastrointestinal: No new onset incontinence, normal bowel movements reported Genitourinary: No new onset incontinence Musculoskeletal: Low back pain Psychiatric: [Normal mood/affect] Neurological: [Denies weakness in extremities], [denies balance issues] Objective:: Physical Exam: General: Alert and oriented x3, no acute distress, pleasant and cooperative Lungs: Respirations even and unlabored, symmetrical chest expansion Eyes: PERRL Musculoskeletal: Flexion and extension of lumbar [spine] somewhat guarded secondary to pain, [antalgic gait noted] Neurological: Speech clear, no gross sensory deficit Assessment:: Degenerative disc disease lumbar spine multilevels with lumbar radiculopathy symptoms, lumbar spondylosis, multilevel lumbar facet arthropathy Plan:: Patient continues to experience significant pain in his low back however he is doing well with his current medication regimen. I will refill his [place] 5 mg 3 times a day and provide a 1 month supply of this medication. I will discontinue his gabapentin and change it to pregabalin 75 mg twice a day. Patient will return to clinic in 1 month for reevaluation of symptoms, medication refill and follow-up. Patient has been advised of risks of oversedation with the prescribed medication. Narcan has been offered to the patient in the event of oversedation. Patient has been advised that a family member should also be educated regarding administration of Narcan. Patient has been instructed to contact the clinic with any concerns before the next appointment. Dr. Tipton has reviewed this note and agrees with this plan of care. This note was dictated using voice recognition software and make contain errors or omissions. [facility] Disclaimer: The information contained in this section may have been updated after the patient was seen, as this information can be updated by other users. Medical History Family history of coronary artery disease HTN (hypertension) Hypotestosteronemia in male SOB (shortness of breath) Tachycardia Family History (Updated 07/23/22 @ 08:07 by Betsy Lou RN) Other No significant family history Social History Smoking Status: Never smoker alcohol intake: never substance use type: denies use current occupational status: employed Travel in the last 8 weeks: Non
== END | disposition home or self-care (01) ==
PROVIDERS: PCP Family Medicine; Visit Provider Nurse Practitioner Family
DX: M51.16 Intervertebral disc disorders with radiculopathy, lumbar region (principal); M47.26 Other spondylosis with radiculopathy, lumbar region
CPT/HCPCS: 99212; G0463

== ENCOUNTER → 2022-10-06 15:27 | Outpatient (POV) | payer OTHER, SELFPAY ==
--- NOTE | 2022-10-06 16:01 | EXP.PAIN.SOA ---
[facility] Pain Management SOAP Note Subjective:: Patient is a pleasant 42-year-old male who presents today for medication refill and follow-up. We are currently treating the patient for degenerative disc disease of lumbar spine multilevels with lumbar radiculopathy symptoms, lumbar spondylosis, lumbar facet arthropathy. Today he rates his pain a 6 out of 10. Patient denies any new trauma or injury. He states he has noticed over the last 4 to 5 days a change in his pain symptoms. He states he is experiencing low back pain with bilateral hip pain that does radiate into his upper thighs. He does describe this as a more pressure like sensation with throbbing that is worse with increased activity. Patient does state he cannot tolerate prolonged sitting, standing, walking due to the pain. It does interfere with his ability to perform activities of daily living such as light cooking and cleaning or simple activities around the house. Patient is currently managed with [place] 5 mg 3 times a day and pregabalin 75 mg twice a day. Patient states that he did notice much better improvement with the pregabalin compared to his prior gabapentin however he was unable to tolerate the morning dosage. He states that he was experiencing significant fatigue. He states he has just been taking this medication at night. Patient has previously done a pain pump trial and had 100% relief however this was denied by insurance. His Chaim is [phone]. Its been reviewed and appropriate Review of Systems: General: No recent weight changes, no fever, no sleep disturbances Respiratory: No cough, no shortness of air, no recurring pulmonary infections Cardiovascular/peripheral vascular: No chest pain, no palpitations, no edema, no shortness of breath Gastrointestinal: No new onset incontinence, normal bowel movements reported Genitourinary: No new onset incontinence Musculoskeletal: Low back pain, bilateral hip pain, bilateral leg pain Psychiatric: [Normal mood/affect] Neurological: [Denies weakness in extremities], [denies balance issues] Objective:: Physical Exam: General: Alert and oriented x3, no acute distress, pleasant and cooperative Lungs: Respirations even and unlabored, symmetrical chest expansion Eyes: PERRL Musculoskeletal: Flexion and extension of lumbar [spine] somewhat guarded secondary to pain, [antalgic gait noted] extreme point tenderness along bilateral SIs with positive bilateral Rocky's, Janina's, Gaenslen's, compression and distraction exam Neurological: Speech clear, no gross sensory deficit Assessment:: Degenerative disc disease of lumbar spine multilevels with lumbar radiculopathy symptoms, lumbar spondylosis, lumbar facet arthropathy Plan:: Patient is experiencing increasing pain in his low back and bilateral hips with radiating symptoms into his upper thighs. Patient did have limited range of motion of his lumbar spine along with extreme point tenderness along his bilateral SI's and positive bilateral Rocky's, Janina's, Gaenslen's, compression and distraction exam. I have discussed with the patient that he may benefit from bilateral SI injections. Risk and benefits were discussed with the patient and he would like to proceed forward with this plan of care. I will also refill his [place] 5 mg 3 times a day and pregabalin 75 mg at bedtime and provide a 1 month supply of this medication. Patient will be scheduled for bilateral SI injections. Patient has been advised of risks of oversedation with the prescribed medication. Narcan has been offered to the patient in the event of oversedation. Patient has been advised that a family member should also be educated regarding administration of Narcan. Patient has been instructed to contact the clinic with any concerns before the next appointment. Dr. Tipton has reviewed this note and agrees with this plan of care. This note was dictated using voice recognition software and make contain errors or omissions. [facility] Discla
[2022-10-06 16:03] VITALS: BP 124/79; PULSE 85; RESP 18; O2SAT 98; BMI 34.0
== END | disposition home or self-care (01) ==
PROVIDERS: PCP Family Medicine; Visit Provider Nurse Practitioner Family
DX: M51.16 Intervertebral disc disorders with radiculopathy, lumbar region (principal); M47.26 Other spondylosis with radiculopathy, lumbar region
CPT/HCPCS: 99212; G0463

== ENCOUNTER → 2022-11-04 15:29 | Outpatient (POV) | payer OTHER, SELFPAY ==
[2022-11-04 15:58] VITALS: BP 124/88; PULSE 84; RESP 18; O2SAT 99; BMI 34.0
--- NOTE | 2022-11-04 16:18 | EXP.PAIN.SOA ---
[facility] Pain Management SOAP Note Subjective:: Patient is a pleasant 42-year-old male who presents today for medication refill and follow-up as well as bilateral SI denial by insurance. We are currently treating the patient for degenerative disc disease of lumbar spine with lumbar radiculopathy symptoms, lumbar facet arthropathy, lumbar spondylosis. Today he rates his pain a 4 out of 10. Patient denies any new trauma or injury. Patient denies any change to location or type of pain he experiences. He does state his pain is still in his low back with radiating symptoms into his bilateral hips and upper thighs. Patient is currently managed with [place] 5 mg 3 times a day and pregabalin 75 mg twice a day. Patient denies any side effects from this medication. He is requesting refills at today's visit. He does state that he has been recently to his primary care doctor who did lab work and did determine that his testosterone level was tanked as well as he had elevated uric acid levels. He states he has had some flareups in pain including in his great toe in the past however he did not realize that this was gout at that time. He states he is scheduled to go back for follow-up blood work coming up in order to determine if he needs to be put on medication. His Chaim is [id number]. Its been reviewed and appropriate. Review of Systems: General: No recent weight changes, no fever, no sleep disturbances Respiratory: No cough, no shortness of air, no recurring pulmonary infections Cardiovascular/peripheral vascular: No chest pain, no palpitations, no edema, no shortness of breath Gastrointestinal: No new onset incontinence, normal bowel movements reported Genitourinary: No new onset incontinence Musculoskeletal: Low back pain Psychiatric: [Normal mood/affect] Neurological: [Denies weakness in extremities], [denies balance issues] Objective:: Physical Exam: General: Alert and oriented x3, no acute distress, pleasant and cooperative Lungs: Respirations even and unlabored, symmetrical chest expansion Eyes: PERRL Musculoskeletal: Flexion and extension of lumbar [spine] somewhat guarded secondary to pain, [antalgic gait noted] Neurological: Speech clear, no gross sensory deficit Assessment:: Degenerative disc disease of lumbar spine with lumbar radiculopathy symptoms, lumbar spondylosis, lumbar facet arthropathy, sacroiliitis Plan:: Patient continues to experience significant pain in his low back with radiating symptoms. Patient had limited range of motion of his lumbar spine during today's visit. I will refill his pregabalin 75 mg twice a day and [place] 5 mg 3 times a day and provide a 1 month supply of this medication. I will also order the patient prednisone 20 mg twice daily for 5 days. Patient will return to clinic in 1 month for reevaluation of symptoms, medication refill and plan of care. Patient has been advised of risks of oversedation with the prescribed medication. Narcan has been offered to the patient in the event of oversedation. Patient has been advised that a family member should also be educated regarding administration of Narcan. Patient has been instructed to contact the clinic with any concerns before the next appointment. Dr. Tipton has reviewed this note and agrees with this plan of care. This note was dictated using voice recognition software and make contain errors or omissions. [facility] Disclaimer: The information contained in this section may have been updated after the patient was seen, as this information can be updated by other users. Medical History Family history of coronary artery disease HTN (hypertension) Hypotestosteronemia in male SOB (shortness of breath) Tachycardia Family History (Updated 07/23/22 @ 08:07 by Betsy Lou RN) Other No significant family history Social History Smoking Status:
== END | disposition home or self-care (01) ==
PROVIDERS: PCP Family Medicine; Visit Provider Nurse Practitioner Family
DX: M51.16 Intervertebral disc disorders with radiculopathy, lumbar region (principal); M47.26 Other spondylosis with radiculopathy, lumbar region; M46.1 Sacroiliitis, not elsewhere classified
CPT/HCPCS: 99212; G0463

== ENCOUNTER → 2022-11-25 07:51 | Outpatient (POV) | payer OTHER, SELFPAY ==
--- NOTE | 2022-11-25 08:05 | EXP.PAIN.SOA ---
[facility] Pain Management SOAP Note Subjective:: Patient is a pleasant 42-year-old male who presents today for medication refill and follow-up. We are currently treating the patient for degenerative disc disease of lumbar spine with lumbar radiculopathy symptoms, lumbar facet arthropathy, lumbar spondylosis. Today he rates his pain a 7 out of 10. Patient states he continues to have significant pain in his hands and feet that he believes is related to elevated uric acid levels. From our last visit he did go to his primary care doctor and they did recommend him to alter his diet to minimize purine intake however they did not prescribe any medication. Patient is requesting if we are able to prescribe anything to help give improvement. Patient is currently managed with [place] 5 mg 3 times a day and pregabalin 75 mg twice a day. Patient denies any side effects from this medication. His Chaim is [id number]. Its been reviewed and appropriate. Review of Systems: General: No recent weight changes, no fever, no sleep disturbances Respiratory: No cough, no shortness of air, no recurring pulmonary infections Cardiovascular/peripheral vascular: No chest pain, no palpitations, no edema, no shortness of breath Gastrointestinal: No new onset incontinence, normal bowel movements reported Genitourinary: No new onset incontinence Musculoskeletal: Hand pain, feet pain Psychiatric: [Normal mood/affect] Neurological: [Denies weakness in extremities], [denies balance issues] Objective:: Physical Exam: General: Alert and oriented x3, no acute distress, pleasant and cooperative Lungs: Respirations even and unlabored, symmetrical chest expansion Eyes: PERRL Musculoskeletal: Flexion and extension of lumbar [spine] somewhat guarded secondary to pain, [antalgic gait noted] Neurological: Speech clear, no gross sensory deficit Assessment:: Degenerative disc disease of lumbar spine with lumbar radiculopathy symptoms, lumbar facet arthropathy, lumbar spondylosis Plan:: Patient is currently having a gout flareup. I will send in a prescription of prednisone 20 mg twice daily with a 5-day supply of this as well as colchicine 0.6 mg with 14 tablets. I have counseled the patient to take 2 tabs with his initial dose and 1 hour later take an additional tablets. After the first 24 hours he can take 1-2 tabs daily as needed. I will also refill his pregabalin 75 mg twice a day and [place] 5 mg 3 times a day and provide a month of these medications. Patient will return to clinic in 1 month for reevaluation of symptoms, medication refill and plan of care. Patient has been advised of risks of oversedation with the prescribed medication. Narcan has been offered to the patient in the event of oversedation. Patient has been advised that a family member should also be educated regarding administration of Narcan. Patient has been instructed to contact the clinic with any concerns before the next appointment. Dr. Tipton has reviewed this note and agrees with this plan of care. This note was dictated using voice recognition software and make contain errors or omissions. [facility] Disclaimer: The information contained in this section may have been updated after the patient was seen, as this information can be updated by other users. Medical History Family history of coronary artery disease HTN (hypertension) Hypotestosteronemia in male SOB (shortness of breath) Tachycardia Family History (Updated 07/23/22 @ 08:07 by Betsy Lou RN) Other No significant family history Social History Smoking Status: Never smoker alcohol intake: never substance use type: denies use current occupational status: employed Travel in the last 8 weeks: None household members: spouse housing: house current occupational exposures/hazards: No caffeine: No
[2022-11-25 08:16] VITALS: BP 120/91; PULSE 92; RESP 18; O2SAT 98; BMI 35.9
[2022-11-25 09:10] LABS: Benzodiazepines Screen,Urine Negative ng/ml (<200)
[2022-11-25 09:11] LABS: Amphetamine/Metha Screen,Urine Negative ng/ml (<1000)
[2022-11-25 09:12] LABS: Barbiturates Screen,Urine Negative ng/ml (<200); Cannabinoid Screen,Urine Negative ng/ml (<50)
[2022-11-25 09:13] LABS: Cocaine Screen,Urine Negative ng/ml (<300); Methadone Screen,Urine Negative ng/ml (<300)
[2022-11-25 09:14] LABS: Opiate Screen,Urine Positive ng/ml (<300)
[2022-11-25 09:15] LABS: Phencyclidine Screen,Urine Negative ng/ml (<25)
[2022-12-04 06:04] LABS: Codeine Negative (Cutoff=100); Hydrocodone Positive (.); Hydromorphone Positive (.); Morphine Negative (Cutoff=100); Opiates Positive (.)
== END | disposition home or self-care (01) ==
PROVIDERS: PCP Family Medicine; Visit Provider Nurse Practitioner Family
DX: M51.16 Intervertebral disc disorders with radiculopathy, lumbar region (principal); M47.26 Other spondylosis with radiculopathy, lumbar region
CPT/HCPCS: 80305; 80361; 80365; 99212; G0463; G0480

== ENCOUNTER → 2022-12-27 15:18 | Outpatient (POV) | payer OTHER, SELFPAY ==
[2022-12-27 15:29] VITALS: BP 122/88; PULSE 72; RESP 18; O2SAT 98; BMI 35.9
--- NOTE | 2022-12-27 15:29 | A.OFFVIS_ITS ---
[facility] Pain Management SOAP Note Subjective:: Patient is a pleasant 42-year-old male who presents today for medication refill and follow-up. We are currently treating the patient for degenerative disc disease of lumbar spine with lumbar radiculopathy symptoms, lumbar facet arthropathy, lumbar spondylosis. Today he rates his pain a 3 out of 10. Patient denies any new trauma or injury. Patient denies any change in location or type of pain he experiences. Patient is currently managed with [place] 5 mg 3 times a day and pregabalin 75 mg twice a day. Patient denies any side effects from these medications. His Chaim is [id number]. Its been reviewed and appropriate. Review of Systems: General: No recent weight changes, no fever, no sleep disturbances Respiratory: No cough, no shortness of air, no recurring pulmonary infections Cardiovascular/peripheral vascular: No chest pain, no palpitations, no edema, no shortness of breath Gastrointestinal: No new onset incontinence, normal bowel movements reported Genitourinary: No new onset incontinence Musculoskeletal: Low back pain Psychiatric: [Normal mood/affect] Neurological: [Denies weakness in extremities], [denies balance issues] Objective:: Physical Exam: General: Alert and oriented x3, no acute distress, pleasant and cooperative Lungs: Respirations even and unlabored, symmetrical chest expansion Eyes: PERRL Musculoskeletal: Flexion and extension of lumbar [spine] somewhat guarded secondary to pain, [antalgic gait noted] Neurological: Speech clear, no gross sensory deficit Assessment:: Degenerative disc disease of lumbar spine with lumbar radiculopathy symptoms, lumbar facet arthropathy, lumbar spondylosis Plan:: I will refill the patient's pregabalin 75 mg twice a day and [place] 5 mg 3 times a day and provided 1 month supply of this medication. Patient will follow-up in clinic in 1 month for medication refill and follow-up. Patient has been advised of risks of oversedation with the prescribed medication. Narcan has been offered to the patient in the event of oversedation. Patient has been advised that a family member should also be educated regarding administration of Narcan. Patient has been instructed to contact the clinic with any concerns before the next appointment. Dr. Tipton has reviewed this note and agrees with this plan of care. This note was dictated using voice recognition software and make contain errors or omissions. PFSH PFSH Disclaimer: The information contained in this section may have been updated after the patient was seen, as this information can be updated by other users. Medical History Family history of coronary artery disease HTN (hypertension) Hypotestosteronemia in male SOB (shortness of breath) Tachycardia Family History (Updated 07/23/22 @ 08:07 by Betsy Lou RN) Other No significant family history Social History Smoking Status: Never smoker alcohol intake: never substance use type: denies use current occupational status: employed Travel in the last 8 weeks: None household members: spouse housing: house current occupational exposures/hazards: No caffeine: No
== END | disposition home or self-care (01) ==
PROVIDERS: PCP Family Medicine; Visit Provider Nurse Practitioner Family
DX: M51.16 Intervertebral disc disorders with radiculopathy, lumbar region (principal); M47.26 Other spondylosis with radiculopathy, lumbar region
CPT/HCPCS: 99212; G0463

== ENCOUNTER → 2023-01-26 15:27 | Outpatient (POV) | payer OTHER, SELFPAY ==
[2023-01-26 15:32] VITALS: BP 133/89; PULSE 90; RESP 18; O2SAT 98; BMI 35.9
--- NOTE | 2023-01-26 15:32 | EXP.PAIN.SOA ---
[facility] Pain Management SOAP Note Subjective:: Patient is a pleasant 42-year-old male who presents today for medication refill and 1 month follow-up. We are currently treating the patient for degenerative disc disease of lumbar spine with lumbar radiculopathy symptoms, lumbar facet arthropathy, lumbar spondylosis. Today he rates his pain a 6 out of 10. Patient denies any new trauma or injury. He does state he has been experiencing more low back pain with muscle spasms since our last visit. He does describe this pain as an aching, throbbing sensation that is worse with increased activity. Patient cannot tolerate certain activities such as bending, twisting or lifting due to the pain. He does state that the last couple of weeks have been very painful and it has affected his ability to perform activities of daily living such as cooking and cleaning. Patient has previously had lumbar medial branch blocks that did provide significant improvement. Patient is currently managed with [place] 5 mg 3 times a day and pregabalin 75 mg twice a day. Patient denies any side effects from these medications. His Chaim is [id number]. Its been reviewed and appropriate. Review of Systems: General: No recent weight changes, no fever, no sleep disturbances Respiratory: No cough, no shortness of air, no recurring pulmonary infections Cardiovascular/peripheral vascular: No chest pain, no palpitations, no edema, no shortness of breath Gastrointestinal: No new onset incontinence, normal bowel movements reported Genitourinary: No new onset incontinence Musculoskeletal: Low back pain Psychiatric: [Normal mood/affect] Neurological: [Denies weakness in extremities], [denies balance issues] Objective:: Physical Exam: General: Alert and oriented x3, no acute distress, pleasant and cooperative Lungs: Respirations even and unlabored, symmetrical chest expansion Eyes: PERRL Musculoskeletal: Flexion and extension of lumbar [spine] somewhat guarded secondary to pain, [antalgic gait noted] positive Kemps test Neurological: Speech clear, no gross sensory deficit Assessment:: Degenerative disc disease of lumbar spine with lumbar radiculopathy symptoms, lumbar facet arthropathy, lumbar spondylosis Plan:: Patient is experiencing significant pain in his low back that is made worse with bending, twisting or lifting. Patient had limited range of motion of his lumbar spine along with a positive Kemps test during today's visit. I have discussed with the patient that he may benefit from a lumbar medial branch block bilaterally. Risk and benefits were discussed with the patient and he would like to proceed forward with this plan of care. Patient is not on any blood thinners. I will refill the patient's [place] 5 mg 3 times a day and pregabalin 75 mg twice a day and send in a new prescription of methocarbamol 500 mg twice daily and provide a 1 month supply of these medications. Patient will be scheduled for a lumbar medial branch block bilaterally L4-L5 and L5-S1. Patient has been advised of risks of oversedation with the prescribed medication. Narcan has been offered to the patient in the event of oversedation. Patient has been advised that a family member should also be educated regarding administration of Narcan. Patient has been instructed to contact the clinic with any concerns before the next appointment. Dr. Tipton has reviewed this note and agrees with this plan of care. This note was dictated using voice recognition software and make contain errors or omissions. [facility] Disclaimer: The information contained in this section may have been updated after the patient was seen, as this information can be updated by other users. Medical History Family history of coronary artery disease HTN (hypertension) Hypotestosteronemia in male SOB (shortness of breath) Tachycardia Family History (Updated 07/23/22 @ 08:07 by Betsy Negrete Lawr
== END | disposition home or self-care (01) ==
PROVIDERS: PCP Family Medicine; Visit Provider Nurse Practitioner Family
DX: M51.16 Intervertebral disc disorders with radiculopathy, lumbar region (principal); M47.26 Other spondylosis with radiculopathy, lumbar region
CPT/HCPCS: 99212; G0463

== ENCOUNTER 2023-02-08 11:28 | Day surgery (SDC) | payer OTHER, SELFPAY ==
[2023-02-08 11:47] VITALS: BP 113/79; PULSE 91; RESP 18; TEMP 36.9; O2SAT 97; BMI 33.4
[2023-02-08 12:03] VITALS: BP 125/77; PULSE 84; RESP 18; O2SAT 94
[2023-02-08 12:04] VITALS: BP 125/77; PULSE 79; RESP 18; O2SAT 96
[2023-02-08 12:06] VITALS: BP 115/85; PULSE 78; RESP 18; O2SAT 97
--- NOTE | 2023-02-08 12:08 | P.PCN_ITS ---
Procedure Date: 02/08/23 Time: 11:55 Anesthesiologist:: Irineo Samano CRNA Complications:: None Pre-procedure Diagnosis:: Degenerative disc lumbar spine multilevels. Lumbar radiculopathy. Lumbar spondylosis. Multilevel lumbar facet arthropathy. Post-procedure Diagnosis:: Same. Indications for Procedure:: Patient is a very pleasant 42-year-old male comes our clinic today for medial branch blocks/facet injections bilateral lumbar L4-5, L5-S1. Patient reports having difficulty with flexion, extension, left and right rotation in the lumbar spine. He rates his pain today 7/10. Procedure Details:: Informed consent was obtained and the risk and benefits of the procedure was explained to the patient. Patient was taken to the procedure room where noninvasive monitors were placed, including noninvasive blood pressure cuff as well as pulse oximeter. The area over the lumbar spine was cleansed using chlorhexidine as a cleansing solution. I anesthetized the skin and subcutaneous tissues with 1% Lidocaine. I placed 22-gauge spinal needles into the facet joint/ medial branches of L4-L5, and L5-S1 bilaterally. Needle placement was confirmed with fluoroscopy. After confirmation of needle placement, each site was injected with 1 mL of 1% lidocaine and 0.25 % Marcaine and 10 mg of Depo- Medrol. A total of 80 mg of depo medrol was used for bilateral medial branch blocks of L4-L5, and L5-S1 bilaterally. Patient tolerated the procedure without difficulty. There were no complications. Plan and Disposition:: Patient was discharged without incident.
== END 2023-02-08 12:06 | disposition home or self-care (01) ==
PROVIDERS: PCP Family Medicine; Visit Provider Nurse Anesthetist, Certified Registered
DX: M47.896 Other spondylosis, lumbar region (principal); M51.16 Intervertebral disc disorders with radiculopathy, lumbar region
CPT/HCPCS: 64493; 64494; J1040

== ENCOUNTER → 2023-02-24 14:06 | Outpatient (POV) | payer OTHER, SELFPAY ==
--- NOTE | 2023-02-24 14:44 | EXP.PAIN.SOA ---
[facility] Pain Management SOAP Note Subjective:: Patient is a pleasant 43-year-old male who presents today for follow-up of lumbar medial branch block bilaterally L4-L5 and L5-S1 on 02/08/2023. We are currently treating the patient for degenerative disc disease of lumbar spine with lumbar radiculopathy symptoms, lumbar facet arthropathy, lumbar spondylosis. Patient does rate his pain today a 5 out of 10. Patient denies any new trauma or injury or any change location or type of pain he experiences. Patient does state that he has had at least 65% improvement following this injection however it only lasted 2 weeks. During those 2 weeks he was able to increase his activity with decreased pain symptoms and felt more functional. Today he does state he is back to his baseline and states his pain continues to be at his low back that is worse with increased activity such as bending, twisting or lifting. Patient is currently managed with [place] 5 mg 3 times a day and pregabalin 75 mg twice a day. Patient's Chaim is [id number]. Its been reviewed and appropriate. Review of Systems: General: No recent weight changes, no fever, no sleep disturbances Respiratory: No cough, no shortness of air, no recurring pulmonary infections Cardiovascular/peripheral vascular: No chest pain, no palpitations, no edema, no shortness of breath Gastrointestinal: No new onset incontinence, normal bowel movements reported Genitourinary: No new onset incontinence Musculoskeletal: Low back pain Psychiatric: [Normal mood/affect] Neurological: [Denies weakness in extremities], [denies balance issues] Objective:: Physical Exam: General: Alert and oriented x3, no acute distress, pleasant and cooperative Lungs: Respirations even and unlabored, symmetrical chest expansion Eyes: PERRL Musculoskeletal: Flexion and extension of lumbar [spine] somewhat guarded secondary to pain, [antalgic gait noted] positive Kemps test Neurological: Speech clear, no gross sensory deficit Assessment:: Degenerative disc disease of lumbar spine with lumbar radiculopathy symptoms, lumbar spondylosis, lumbar facet arthropathy Plan:: Patient is experiencing worsening pain in his low back with limited range of motion. I have discussed with the patient that he may benefit from a lumbar RFA. Patient has had 2 successful lumbar medial branch blocks with at least 65% improvement. Risk and benefits of the lumbar RFA were explained to the patient and he would like to proceed forward with this plan of care. Patient did previously have a lumbar RFA back in June 2022 that provided upwards of 70% relief. Patient is not on any blood thinners. I will also refill the patient's [place] 5 mg 3 times a day and pregabalin 75 mg twice a day and provide a 1 month supply of this medication. Patient will be scheduled for a lumbar RFA bilaterally L4-L5 and L5-S1. Patient has been advised of risks of oversedation with the prescribed medication. Narcan has been offered to the patient in the event of oversedation. Patient has been advised that a family member should also be educated regarding administration of Narcan. Patient has been instructed to contact the clinic with any concerns before the next appointment. Dr. Tipton has reviewed this note and agrees with this plan of care. This note was dictated using voice recognition software and make contain errors or omissions. [facility] Disclaimer: The information contained in this section may have been updated after the patient was seen, as this information can be updated by other users. Medical History Family history of coronary artery disease HTN (hypertension) Hypotestosteronemia in male SOB (shortness of breath) Tachycardia Family History Other No significant family history Social History Smoking Status:
[2023-02-24 15:19] VITALS: BP 127/95; PULSE 91; RESP 18; O2SAT 93; BMI 35.9
== END | disposition home or self-care (01) ==
PROVIDERS: Visit Provider Nurse Practitioner Family
DX: M51.16 Intervertebral disc disorders with radiculopathy, lumbar region (principal); M47.26 Other spondylosis with radiculopathy, lumbar region
CPT/HCPCS: 99212; G0463

== ENCOUNTER → 2023-04-01 11:27 | Outpatient (CLI) | payer OTHER, SELFPAY ==
[2023-04-01 11:33] LABS: Adenovirus,PCR Not Detected (NotDetected); Bordetella Pertussis Not Detected (NotDetected); Chlamydophila Pneumoniae, PCR Not Detected (NotDetected); Coronavirus 19, PCR Not Detected (NotDetected); Coronavirus 229E Not Detected (NotDetected); Coronavirus NL63 Not Detected (NotDetected); Coronavirus OC43 Not Detected (NotDetected); Coronovirus HKU1,PCR Not Detected (NotDetected); Human Metapneumovirus Not Detected (NotDetected); Influenza A, PCR Not Detected (NotDetected); Influenza AH1, 2009 Not Detected (NotDetected); Influenza AH1, PCR Not Detected (NotDetected); Influenza AH3,PCR Not Detected (NotDetected); Influenza B, PCR Not Detected (NotDetected); Mycoplasma Pneumoniae, PCR Not Detected (NotDetected); Parainfluenza 1, PCR Not Detected (NotDetected); Parainfluenza 2, PCR Not Detected (NotDetected); Parainfluenza 3, PCR Not Detected (NotDetected); Parainfluenza 4, PCR Not Detected (NotDetected); Respiratory Syncytial Virus Not Detected (NotDetected); Rhinovirus/Enterovirus Not Detected (NotDetected)
== END ==
LOC: LAB 11:28
PROVIDERS: PCP Physician Assistant; Visit Provider Physician Assistant
DX: J06.9 Acute upper respiratory infection, unspecified (principal); R52 Pain, unspecified
CPT/HCPCS: 36415; 87581; 87632; 87798

== ENCOUNTER → 2023-04-05 11:25 | Outpatient (CLI) | payer OTHER, SELFPAY ==
--- NOTE | 2023-04-05 11:36 | ECG_ITS ---
APPROVED REPORT Exam: Resting ECG HR:75 bpm ECG Measurements Heart Rate 75 AXES OH 187 P 51 QRSd 103 QRS 75 QT 353 T 62 QTc 381 Conclusion SINUS RHYTHM NORMAL ECG UNCONFIRMED REPORT Electronically signed by : William Hernandez MD 04/05/2023 17:11:05
[2023-04-05 12:39] LABS: C-Reactive Protein 1.3 mg/L (0-4)
[2023-04-07 16:06] LABS: Fungitell(Beta D-Glucan) Serum <31 pg/mL (<80)
[2023-04-17 19:40] LABS: Histoplasma Gal'mannan Ag Ur <0.5 (<0.5 ng/mL)
== END ==
LOC: RT 11:27
PROVIDERS: PCP Physician Assistant; Visit Provider Internal Medicine Pulmonary Disease
DX: R06.09 Other forms of dyspnea (principal); R59.0 Localized enlarged lymph nodes; B44.9 Aspergillosis, unspecified
CPT/HCPCS: 36415; 86140; 87385; 87449; 93005

== ENCOUNTER 2023-04-11 09:54 | Day surgery (SDC) | payer OTHER, SELFPAY ==
[2023-04-06 17:17] VITALS: BMI 36.1
[2023-04-11] VITALS (9 sets, daily range): BP systolic 112–148; BP diastolic 72–91; PULSE 72–94; RESP 12–18; TEMP 36.4–36.6; O2SAT 92–99
--- NOTE | 2023-04-11 10:51 | EXP.ANES.CKL ---
[facility] Disclaimer: The information contained in this section may have been updated after the patient was seen, as this information can be updated by other users. Medical History Family history of coronary artery disease History of gout HTN (hypertension) Hypotestosteronemia in male Mediastinal lymphadenopathy SOB (shortness of breath) Tachycardia Surgical History History of cholecystectomy History of surgery on upper extremity History of tonsillectomy Family History Other No significant family history Social History Smoking Status: Never smoker alcohol intake: never substance use type: denies use current occupational status: employed Travel in the last 8 weeks: None household members: spouse housing: house current occupational exposures/hazards: No caffeine: No [facility] Anesthesia Checklist Patient Identification Patient Identification: Arm Band and Verbal (Name & ) Structural Data Admitted From: Home Planned Operative Procedure/s: Bronchoscopy Consent for Planned Operative Procedure(s) Verified: Yes NPO Status Verified Time NPO: 08:00 Additional verifications Anesthesia Reactions: No Hx Blood Transfusions: No Blood Transfusion Reaction: No Airway Assessment Mallampati Score:: Class I C-Spine Mobility Assessed: Yes TMJ Mobility Assessed: Yes Dentition: Partials Neurological Assessment Level of Consciousness: Awake Hx Seizures: No Numbness or tingling in extremities: No Anesthesia Plan Anesthesia Risk discussed: Yes Anesthesia Plan: Verified ASA Class: II Anesthesia Type: General
[2023-04-11 11:15] LABS: Chloride 101 mmol/L (98-107); Sodium 139 mmol/L (136-145)
[2023-04-11 11:16] LABS: Basophils % 0.4 % (0.1-2.0); Eosinophils # 0.3 K/mm3 (0.0-0.4); Eosinophils % 2.8 % (0.1-12.0); Hematocrit 53.2 % (42.0-52.0); Hemoglobin 17.6 g/dL (14.1-18.0); Lymphocytes # 1.4 K/mm3 (0.7-4.5); Lymphocytes % 14.5 % (10-50); Mean Corpuscular HGB Conc 33.1 g/dL (31.8-35.4); Mean Corpuscular Hemoglobin 32.3 pg (27.0-31.2); Mean Corpuscular Volume 97.5 fl (80-94); Mean Platelet Volume 7.6 fl (7.4-10.4); Monocytes # 0.5 K/mm3 (0.1-1.0); Monocytes % 5.2 % (1.7-9.3); Neutrophils # 7.4 K/mm3 (1.8-7.8); Platelet Count 287 K/mm3 (142-424); Potassium 4.3 mmoL/L (3.5-5.1); Red Blood Count 5.46 M/mm3 (4.60-6.20); Red Cell Distribution Width 13.5 % (11.5-17.5); White Blood Count 9.6 K/mm3 (4.8-10.8)
[2023-04-11 11:18] LABS: Blood Urea Nitrogen 7 mg/dl (9-20); Creatinine Clearance Estimated 138 mL/min (50-200); Estimated Glomerular Filt Rate 82 ml/min (>60); GFR (African American) 99 ML/MIN (>60)
[2023-04-11 11:19] LABS: Anion Gap 10.3 mEq/L (5-15); Calcium 9.7 mg/dl (8.4-10.2); Carbon Dioxide 32 mmol/L (22.0-30.0); Glucose 100 mg/dl (74-100)
--- NOTE | 2023-04-11 14:03 | P.PCN_ITS ---
Procedure: Date: 04/11/23 Patient Date of :: 1980 Procedure Performed:: Bronchoscopy with airway examination, endobronchial ultrasound-guided fine- needle aspiration: Indications:: Lymphadenopathy Performing Provider:: Xiomy Hayes MD Referring Provider:: Dr: Cecy Weinstein Sedation:: General anesthesia Procedure:: Bronchoscopy with airway examination, endobronchial ultrasound-guided fine- needle aspiration: A clean EBUS bronchoscopy was advanced the ET tube and lymph node surveillance was performed. Patient noted to have lymphadenopathy at stations 4R, 7, 10 R and 10 L. Endobronchial ultrasound-guided fine-needle aspirate performed at each of these lymph node stations. Total of 5 passes were performed at each station and samples were collected in CytoLyt for cytopathologic examination. Additional passes were also performed at each lymph node station to collect samples for flow cytometry evaluation along with bacterial fungal AFB stain and cultures. EBUS bronchoscopy retracted and a clean DIAGNOSTIC bronchoscopy was advanced through the ET tube and airways were examined up to subsegmental bronchi. Airways appeared grossly normal, no evidence of mucoid secretions, mucous plugging active bleeding/old blood clots noted. Patient tolerated the procedure with no immediate acute complications. We will follow the patient in pulmonary clinic in 7 to 10 days. Findings:: Please see the procedure note Recommendations:: Postoperative bronchoscopy instructions. Follow the patient in pulmonary clinic in 5 to 7 days. Complications:: No acute immediate complication Estimated blood obtained (mL): 10
--- NOTE | 2023-04-11 14:05 | P.PNANES_ITS ---
[facility] Anesthesia Record Part I Anesthesia Record I Intake, IV Amount: 1,800 Hydration: Adequate Estimated blood loss (mL): 25 Urine output (mL): 0 Blood Pressure: 148/74 SaO2: 98 Pulse Rate: 94 Airway Patency: Patent Respiratory Rate: 12 Temperature: 98 F Patient is:: Awake and Stable Stable to PACU at:: 14:00
--- NOTE | 2023-04-11 14:07 | XR_ITS ---
FINAL REPORT CLINICAL HISTORY: post bronch COMPARISON: None FINDINGS: The heart size is normal. The mediastinum is normal. There is no focal infiltrate or edema. There are no pleural effusions. There is no pneumothorax. There is no osseous abnormality. There is minimal atelectasis in the left infrahilar region. IMPRESSION: Minimal atelectasis in the left infrahilar region, otherwise unremarkable single view chest. Reviewed, Interpreted and Dictated by Altaf Tineo MD Transcribed by Anita Lopez Authenticated and [facility]
--- NOTE | 2023-04-12 07:18 | P.PNANES_ITS ---
[facility] Anesthesia Record Part II Anesthesia Record Part II Discharge Time: 14:30 Destination: Surgical Day Care (OP Surgery) PACU nurse assessment reviewed?: Yes Patient Condition:: Good Anesthesia Complications:: None Swallowing reflex intact?: Yes Airway Patency: Patent Cyanosis?: No Blood Pressure: 116/81 SaO2: 99 Respiratory Rate: 17 Pulse Rate: 75 Temperature: 97.5 F Mental Status: Alert & Oriented Pain level:: 0 Nausea and/or vomitting:: None Intake, IV Amount: 0 Hydration: Adequate
[2023-04-12 07:19] VITALS: BP 116/81; PULSE 75; RESP 17; TEMP 36.4; O2SAT 99
== END 2023-04-11 15:02 | disposition home or self-care (01) ==
PROVIDERS: PCP Physician Assistant; Visit Provider Internal Medicine Pulmonary Disease
PROC: (CPT 31653; principal; 2023-04-11 11:30)
DX: R59.1 Generalized enlarged lymph nodes (principal)
CPT/HCPCS: 31653; 71045; 80048; 85025; 87070; 87077; 87102; 87116; 87186; 87205; 87206; J2405; J2710

== ENCOUNTER → 2023-04-18 13:49 | Outpatient (CLI) | payer OTHER, SELFPAY ==
[2023-04-18 15:34] LABS: Alanine Aminotransferase 33 U/L (12-78); Albumin Level 4.3 g/dl (3.5-5.0); Albumin/Globulin Ratio 1.4 (1.1-1.8); Alkaline Phosphatase 64 U/L (38-126); Anion Gap 12.5 mEq/L (5-15); Aspartate Amino Transferase 32 U/L (17-59); Bilirubin,Total 0.5 mg/dl (0.2-1.3); Blood Urea Nitrogen 5 mg/dl (9-20); Calcium 10.1 mg/dl (8.4-10.2); Carbon Dioxide 26 mmol/L (22.0-30.0); Chloride 103 mmol/L (98-107); Estimated Glomerular Filt Rate 93 ml/min (>60); GFR (African American) 112 ML/MIN (>60); Glucose 91 mg/dl (74-100); Potassium 4.5 mmoL/L (3.5-5.1); Sodium 137 mmol/L (136-145); Total Protein,Serum 7.3 g/dl (6.3-8.2)
[2023-04-20 08:47] LABS: C-Reactive Protein 7.6 mg/L (0-4)
[2023-04-20 20:32] LABS: Angiotensin Converting Enzyme 34 U/L (14-82)
[2023-04-22 00:08] LABS: QuantiFERON-TB Gold Plus Negative (Negative)
[2023-04-23 17:53] LABS: Aspergillus flavus Negative (Neg:<1:1); Aspergillus fumigatus Negative (Neg:<1:1); Aspergillus niger Negative (Neg:<1:1); Blastomyces Antibody Negative (Neg:<1:1); Histoplasma Antibody Quant Negative (Neg:<1:1)
== END ==
PROVIDERS: PCP Physician Assistant; Visit Provider Internal Medicine Pulmonary Disease
DX: R06.09 Other forms of dyspnea (principal); R59.0 Localized enlarged lymph nodes; J84.9 Interstitial pulmonary disease, unspecified; J84.10 Pulmonary fibrosis, unspecified
CPT/HCPCS: 36415; 80053; 82164; 86140; 86480; 86606; 86612; 86698

== ENCOUNTER → 2023-04-18 14:00 | Outpatient (POV) | payer OTHER, SELFPAY ==
--- NOTE | 2023-04-18 14:28 | EXP.PAIN.SOA ---
[facility] Pain Management SOAP Note Subjective:: Patient is a pleasant 43-year-old male who presents today for medication refill. We are currently treating the patient for degenerative disc disease of lumbar spine with lumbar radiculopathy symptoms, lumbar facet arthropathy, lumbar spondylosis. Today he rates his pain a 4 out of 10. Patient denies any new trauma or injury. Patient denies any change location or type of pain he experiences. Patient is currently managed with [place] 5 mg 3 times a day and pregabalin 75 mg twice a day. Patient denies any side effects from this medication. Patient did previously have a lumbar medial branch block bilaterally L4-L5 and L5-S1 back in January that did provide 65% improvement or more. At this time he states it is doing okay that we may talk about proceeding forward with the lumbar ablation at his next visit. His Chaim is [id number]. Its been reviewed and appropriate. Review of Systems: General: No recent weight changes, no fever, no sleep disturbances Respiratory: No cough, no shortness of air, no recurring pulmonary infections Cardiovascular/peripheral vascular: No chest pain, no palpitations, no edema, no shortness of breath Gastrointestinal: No new onset incontinence, normal bowel movements reported Genitourinary: No new onset incontinence Musculoskeletal: Low back pain Psychiatric: [Normal mood/affect] Neurological: [Denies weakness in extremities], [denies balance issues] Objective:: Physical Exam: General: Alert and oriented x3, no acute distress, pleasant and cooperative Lungs: Respirations even and unlabored, symmetrical chest expansion Eyes: PERRL Musculoskeletal: Flexion and extension of lumbar [spine] somewhat guarded secondary to pain, [antalgic gait noted] Neurological: Speech clear, no gross sensory deficit Assessment:: Degenerative disc disease of lumbar spine with lumbar radiculopathy symptoms, lumbar facet arthropathy, lumbar spondylosis Plan:: I will refill the patient's [place] 5 mg 3 times a day and pregabalin 75 mg twice a day and provide a 1 month supply of this medication. Patient will return to clinic in 1 month for reevaluation of symptoms and plan of care. Patient has been advised of risks of oversedation with the prescribed medication. Narcan has been offered to the patient in the event of oversedation. Patient has been advised that a family member should also be educated regarding administration of Narcan. Patient has been instructed to contact the clinic with any concerns before the next appointment. Dr. Tipton has reviewed this note and agrees with this plan of care. This note was dictated using voice recognition software and make contain errors or omissions. [facility] Disclaimer: The information contained in this section may have been updated after the patient was seen, as this information can be updated by other users. Medical History Family history of coronary artery disease History of gout HTN (hypertension) Hypotestosteronemia in male Mediastinal lymphadenopathy SOB (shortness of breath) Tachycardia Surgical History History of cholecystectomy History of surgery on upper extremity History of tonsillectomy Family History Other No significant family history Social History Smoking Status: Never smoker alcohol intake: never substance use type: denies use current occupational status: employed Travel in the last 8 weeks: None household members: spouse housing: house current occupational exposures/hazards: No caffeine: No
[2023-04-18 15:29] VITALS: BP 128/90; PULSE 95; RESP 18; O2SAT 96; BMI 35.9
== END | disposition home or self-care (01) ==
PROVIDERS: Visit Provider Nurse Practitioner Family
DX: M51.16 Intervertebral disc disorders with radiculopathy, lumbar region (principal); M47.26 Other spondylosis with radiculopathy, lumbar region
CPT/HCPCS: 99212; G0463

== ENCOUNTER → 2023-06-08 15:28 | Outpatient (POV) | payer OTHER, SELFPAY ==
[2023-06-08 15:38] VITALS: BP 135/101; PULSE 70; RESP 19; O2SAT 96; BMI 33.2
--- NOTE | 2023-06-08 15:53 | EXP.PAIN.SOA ---
[facility] Pain Management SOAP Note Subjective:: Patient is a pleasant 43-year-old male who presents today for follow-up and medication refill. We are currently treating the patient for degenerative disc disease of lumbar spine with lumbar radiculopathy symptoms, lumbar facet arthropathy, lumbar spondylosis. Today he rates his pain a 6 out of 10. Patient states from our last visit he has had an abnormal chest x-ray that ended up proceeding forward with seeing a wood grinder operator and had biopsies. He states the biopsies did not have any cancer findings however they do think that he has sarcoidosis. Patient is scheduled to have a pulmonary function test coming up. Patient does state he continues to have his normal aches and pains in his low back as well as knees and feet. He is currently managed with [place] 5 mg 3 times a day and pregabalin 75 mg twice a day. Patient denies any side effects from these medications. His Chaim has been reviewed and is appropriate. Review of Systems: General: No recent weight changes, no fever, no sleep disturbances Respiratory: No cough, no shortness of air, no recurring pulmonary infections Cardiovascular/peripheral vascular: No chest pain, no palpitations, no edema, no shortness of breath Gastrointestinal: No new onset incontinence, normal bowel movements reported Genitourinary: No new onset incontinence Musculoskeletal: Low back pain Psychiatric: [Normal mood/affect] Neurological: [Denies weakness in extremities], [denies balance issues] Objective:: Physical Exam: General: Alert and oriented x3, no acute distress, pleasant and cooperative Lungs: Respirations even and unlabored, symmetrical chest expansion Eyes: PERRL Musculoskeletal: Flexion and extension of lumbar [spine] somewhat guarded secondary to pain, [antalgic gait noted] Neurological: Speech clear, no gross sensory deficit Assessment:: Degenerative disc disease of lumbar spine with lumbar radiculopathy symptoms, lumbar spondylosis, lumbar facet arthropathy Plan:: Patient continues to do well on his current medication regimen. Patient did already have his medications called in. Patient will return to clinic in 1 month for reevaluation of symptoms and plan of care. I have discussed with the patient to reach out if he has any updates regarding his sarcoidosis diagnosis. We will follow-up with this at his next visit. Patient has been advised of risks of oversedation with the prescribed medication. Narcan has been offered to the patient in the event of oversedation. Patient has been advised that a family member should also be educated regarding administration of Narcan. Patient has been instructed to contact the clinic with any concerns before the next appointment. Dr. Tipton has reviewed this note and agrees with this plan of care. This note was dictated using voice recognition software and make contain errors or omissions. [facility] Disclaimer: The information contained in this section may have been updated after the patient was seen, as this information can be updated by other users. Medical History Family history of coronary artery disease History of gout HTN (hypertension) Hypotestosteronemia in male Mediastinal lymphadenopathy SOB (shortness of breath) Tachycardia Surgical History History of cholecystectomy History of surgery on upper extremity History of tonsillectomy Family History Other No significant family history Social History Smoking Status: Never smoker alcohol intake: never substance use type: denies use current occupational status: employed Travel in the last 8 weeks: None household members: spouse housing: house current occupational exposures/hazards: No caffeine: No
== END ==
PROVIDERS: Visit Provider Nurse Practitioner Family
DX: M51.16 Intervertebral disc disorders with radiculopathy, lumbar region (principal); M47.26 Other spondylosis with radiculopathy, lumbar region
CPT/HCPCS: 99212; G0463

== ENCOUNTER → 2023-07-14 15:23 | Outpatient (POV) | payer OTHER, SELFPAY ==
[2023-07-14 15:40] VITALS: BP 143/108; PULSE 96; RESP 18; O2SAT 95; BMI 32.5
--- NOTE | 2023-07-14 15:58 | A.OFFVIS_ITS ---
[facility] Pain Management SOAP Note Subjective:: Patient is a pleasant 43-year-old male who presents today for medication refill. We are currently treating the patient for degenerative disc disease of lumbar spine with lumbar radiculopathy symptoms, lumbar facet arthropathy, lumbar spondylosis. Today he rates his pain a 4 out of 10. Patient denies any new trauma or injury. Patient is currently managed with [place] 5 mg 3 times a day and pregabalin 75 mg twice a day. He denies any side effects from these medications. His Chaim has been reviewed and is appropriate. Review of Systems: General: No recent weight changes, no fever, no sleep disturbances Respiratory: No cough, no shortness of air, no recurring pulmonary infections Cardiovascular/peripheral vascular: No chest pain, no palpitations, no edema, no shortness of breath Gastrointestinal: No new onset incontinence, normal bowel movements reported Genitourinary: No new onset incontinence Musculoskeletal: Low back pain Psychiatric: [Normal mood/affect] Neurological: [Denies weakness in extremities], [denies balance issues] Objective:: Physical Exam: General: Alert and oriented x3, no acute distress, pleasant and cooperative Lungs: Respirations even and unlabored, symmetrical chest expansion Eyes: PERRL Musculoskeletal: Flexion and extension of lumbar [spine] somewhat guarded secondary to pain, [antalgic gait noted] Neurological: Speech clear, no gross sensory deficit Assessment:: Degenerative disc disease of lumbar spine with lumbar radiculopathy symptoms, lumbar facet arthropathy, lumbar spondylosis Plan:: I will refill the patient's [place] 5 mg 3 times a day and pregabalin 75 mg twice a day and provide a 1 month supply of this medication. Patient will return to clinic in 1 month for reevaluation of symptoms and medication refill. Patient has been advised of risks of oversedation with the prescribed medication. Narcan has been offered to the patient in the event of oversedation. Patient has been advised that a family member should also be educated regarding administration of Narcan. Patient has been instructed to contact the clinic with any concerns before the next appointment. Dr. Tipton has reviewed this note and agrees with this plan of care. This note was dictated using voice recognition software and make contain errors or omissions. [facility] Disclaimer: The information contained in this section may have been updated after the patient was seen, as this information can be updated by other users. Medical History Family history of coronary artery disease History of gout HTN (hypertension) Hypotestosteronemia in male Mediastinal lymphadenopathy SOB (shortness of breath) Tachycardia Surgical History History of cholecystectomy History of surgery on upper extremity History of tonsillectomy Family History Other No significant family history Social History Smoking Status: Never smoker alcohol intake: never substance use type: denies use current occupational status: employed Travel in the last 8 weeks: None household members: spouse housing: house current occupational exposures/hazards: No caffeine: No
== END | disposition home or self-care (01) ==
PROVIDERS: Visit Provider Nurse Practitioner Family
DX: M51.16 Intervertebral disc disorders with radiculopathy, lumbar region (principal); M47.26 Other spondylosis with radiculopathy, lumbar region
CPT/HCPCS: 99212; G0463

== ENCOUNTER → 2023-07-20 12:49 | Outpatient (CLI) | payer OTHER, SELFPAY ==
[2023-07-20 13:40] VITALS: PULSE 89; PULSE 97
[2023-07-20] MEDS: ALBUTEROL 0.083% 2.5 MG/3 ML NEB IH (13:40)
== END ==
LOC: RT 12:50
PROVIDERS: PCP Physician Assistant; Visit Provider Internal Medicine Pulmonary Disease
DX: R06.02 Shortness of breath (principal)
CPT/HCPCS: 94060; 94618; 94640; 94726; 94729

== ENCOUNTER 2023-08-05 16:56 | Outpatient (CLI) | payer BC, SELFPAY ==
[2023-08-05 17:20] LABS: Basophils # 0.1 K/mm3 (0-0.2); Basophils % 0.8 % (0.1-2.0); Eosinophils # 0.3 K/mm3 (0.0-0.4); Eosinophils % 3.9 % (0.1-12.0); Hematocrit 51.9 % (42.0-52.0); Hemoglobin 17.5 g/dL (14.1-18.0); Lymphocytes # 1.9 K/mm3 (0.7-4.5); Lymphocytes % 30.2 % (10-50); Mean Corpuscular HGB Conc 33.7 g/dL (31.8-35.4); Mean Corpuscular Hemoglobin 32.4 pg (27.0-31.2); Mean Corpuscular Volume 96.2 fl (80-94); Mean Platelet Volume 7.7 fl (7.4-10.4); Monocytes # 0.5 K/mm3 (0.1-1.0); Monocytes % 7.9 % (1.7-9.3); Neutrophils # 3.7 K/mm3 (1.8-7.8); Neutrophils % 57.2 % (37.0-80.0); Platelet Count 320 K/mm3 (142-424); Red Blood Count 5.39 M/mm3 (4.60-6.20); White Blood Count 6.4 K/mm3 (4.8-10.8)
[2023-08-05 17:51] LABS: Magnesium 1.9 mg/dl (1.6-2.3)
[2023-08-05 18:10] LABS: Free T4 (Free Thyroxine) 0.85 ng/dl (0.78-2.19)
[2023-08-05 18:23] LABS: Thyroid Stimulating Hormone 0.65 uIU/mL (0.465-4.68)
[2023-08-05 20:38] LABS: 25-OH Vitamin D, Total 32.6 ng/mL (30-100)
[2023-08-05 22:34] LABS: Vitamin B12 310 pg/mL (239-931)
[2023-08-12 20:23] LABS: Testosterone, Total, LC/MS 680 ng/dL (.)
== END 2023-08-05 23:59 ==
LOC: LAB 16:57
PROVIDERS: PCP Physician Assistant; Visit Provider Physician Assistant
DX: R25.2 Cramp and spasm (principal); E53.8 Deficiency of other specified B group vitamins; E55.9 Vitamin D deficiency, unspecified; E34.9 Endocrine disorder, unspecified
CPT/HCPCS: 36415; 82306; 82607; 83735; 84403; 84439; 84443; 85025

== ENCOUNTER → 2023-08-10 15:28 | Outpatient (POV) | payer BC, SELFPAY ==
[2023-08-10 15:30] VITALS: BP 134/96; PULSE 81; RESP 18; O2SAT 95; BMI 73.2
--- NOTE | 2023-08-10 15:50 | EXP.PAIN.SOA ---
[facility] Pain Management SOAP Note Subjective:: Patient is a pleasant 43-year-old male who presents today for medication refill and follow-up. We are currently treating the patient for degenerative disc disease of lumbar spine with lumbar radiculopathy symptoms, lumbar facet arthropathy, lumbar spondylosis. Today he rates his pain a 4 out of 10. Patient denies any new trauma or injury. He denies any change to location or type of pain he experiences. Patient is currently managed with [place] 5 mg 3 times a day and pregabalin 75 mg twice a day. Patient denies any side effects from these medications. His Chaim has been reviewed and is appropriate. Review of Systems: General: No recent weight changes, no fever, no sleep disturbances Respiratory: No cough, no shortness of air, no recurring pulmonary infections Cardiovascular/peripheral vascular: No chest pain, no palpitations, no edema, no shortness of breath Gastrointestinal: No new onset incontinence, normal bowel movements reported Genitourinary: No new onset incontinence Musculoskeletal: Low back pain Psychiatric: [Normal mood/affect] Neurological: [Denies weakness in extremities], [denies balance issues] Objective:: Physical Exam: General: Alert and oriented x3, no acute distress, pleasant and cooperative Lungs: Respirations even and unlabored, symmetrical chest expansion Eyes: PERRL Musculoskeletal: Flexion and extension of lumbar [spine] somewhat guarded secondary to pain, [antalgic gait noted] Neurological: Speech clear, no gross sensory deficit Assessment:: Degenerative disc disease of lumbar spine with lumbar radiculopathy symptoms Plan:: Patient continues to do well with his current medication regimen. I will refill his [place] 5 mg 3 times a day and pregabalin 75 mg twice a day and provide a 1 month supply of these medications. Patient will return to clinic in 1 month for reevaluation of symptoms and plan of care. Patient has been advised of risks of oversedation with the prescribed medication. Narcan has been offered to the patient in the event of oversedation. Patient has been advised that a family member should also be educated regarding administration of Narcan. Patient has been instructed to contact the clinic with any concerns before the next appointment. Dr. Tipton has reviewed this note and agrees with this plan of care. This note was dictated using voice recognition software and make contain errors or omissions. [facility] Disclaimer: The information contained in this section may have been updated after the patient was seen, as this information can be updated by other users. Medical History Family history of coronary artery disease History of gout HTN (hypertension) Hypotestosteronemia in male Mediastinal lymphadenopathy SOB (shortness of breath) Tachycardia Surgical History History of cholecystectomy History of surgery on upper extremity History of tonsillectomy Family History Other No significant family history Social History Smoking Status: Never smoker alcohol intake: never substance use type: denies use current occupational status: employed Travel in the last 8 weeks: None household members: spouse housing: house current occupational exposures/hazards: No caffeine: No
== END | disposition home or self-care (01) ==
PROVIDERS: PCP Physician Assistant; Visit Provider Nurse Practitioner Family
DX: M51.16 Intervertebral disc disorders with radiculopathy, lumbar region (principal); M47.26 Other spondylosis with radiculopathy, lumbar region
CPT/HCPCS: 99212; G0463

== ENCOUNTER → 2023-08-30 10:44 | Outpatient (POV) | payer BC, SELFPAY ==
[2023-08-30 11:00] VITALS: BP 128/80; PULSE 105; RESP 16; TEMP 36.4; O2SAT 96; BMI 33.4
--- NOTE | 2023-08-30 11:14 | EXP.PAIN.SOA ---
[facility] Pain Management SOAP Note Subjective:: This patient is a very pleasant 43-year-old male comes our clinic today for follow-up visit regarding medication refills and increased low back pain. We currently manage the patient with [place] 5 mg 1 p.o. 3 times daily. Also, Lyrica 75 mg 1 p.o. twice daily. Patient reports both medications are decreasing his pain significantly. He does not report any side effects or complications regarding the pain medication. Regarding his low back pain he describes as constant, dull, aching increasing in the low back. Patient also reports some bilateral hip and leg radicular symptoms at times. He has benefited in the past from lumbar epidural steroid injection at the L4-5 level. He is requesting a repeat lumbar epidural steroid injection. I think this is reasonable given the fact he has had improvement in the past with the injection. Also, he is continue with home exercise program. He continues with acetaminophen 2-3 times daily. He rates his pain 7/10. Objective:: Patient is awake alert [place] x 3. No acute distress. Flexion-extension lumbar spine somewhat guarded secondary to pain. Deep tendon reflexes upper lower extremities normal. Motor strength upper lower extremities normal. There is no gross sensory deficit. Gait is normal. Assessment:: Degenerative disc lumbar spine. Lumbar radiculopathy Plan:: We will plan lumbar epidural steroid injection at the L4-5 level. I will refill his pain medications as above. His Chaim has been reviewed and appropriate. His UDS has been appropriate in the past. [facility] Disclaimer: The information contained in this section may have been updated after the patient was seen, as this information can be updated by other users. Medical History Family history of coronary artery disease History of gout HTN (hypertension) Hypotestosteronemia in male Mediastinal lymphadenopathy SOB (shortness of breath) Tachycardia Surgical History History of cholecystectomy History of surgery on upper extremity History of tonsillectomy Family History Other No significant family history Social History Smoking Status: Never smoker alcohol intake: never substance use type: denies use current occupational status: employed Travel in the last 8 weeks: None household members: spouse housing: house current occupational exposures/hazards: No caffeine: No
== END ==
LOC: SC.PAIN 10:44
PROVIDERS: PCP Physician Assistant; Visit Provider Nurse Anesthetist, Certified Registered
DX: M51.16 Intervertebral disc disorders with radiculopathy, lumbar region (principal)
CPT/HCPCS: 99212; G0463

== ENCOUNTER 2023-10-18 09:34 | Day surgery (SDC) | payer BC, SELFPAY ==
[2023-10-18 09:58] VITALS: BP 141/81; PULSE 115; RESP 16; O2SAT 95; BMI 34.0
[2023-10-18] MEDS: methylPREDNISolone ACETATE 80MG/ML VIAL 80 MG (10:08)
--- NOTE | 2023-10-18 10:09 | P.PCN_ITS ---
Procedure Date: 10/18/23 Time: 10:00 Anesthesiologist:: Irineo Samano CRNA Complications:: None Pre-procedure Diagnosis:: Degenerative disc lumbar spine multilevels. Lumbar radiculopathy. Lumbar spondylosis Post-procedure Diagnosis:: Same. Indications for Procedure:: Patient is a very pleasant 43-year-old male comes our clinic today for repeat lumbar epidural steroid injection L4-5 level. Patient describes low back pain as constant, dull, aching. Patient also reports bilateral hip and leg radicular symptoms at times. He rates his pain 7/10. Procedure Details:: Procedure: Lumbar epidural steroid injection under fluoroscopy Informed consent was obtained and the risks and benefits of the procedure were explained to the patient. The patient was taken to the procedure room and noninvasive monitors placed, including noninvasive blood pressure cuff and pulse oximeter. The back was viewed using C-arm Fluoroscopy and prepped using Chloraprep as a cleansing solution and the L4-L5 interspace was palpated. Skin and subcutaneous tissues were anesthetized using lidocaine 1.5% and a 25-gauge needle. After this, an 18-gauge Touhy epidural needle was placed into the L4-L5 interspace and advanced using fluoroscopic guidance and loss of resistance to air until the epidural space was encountered. After confirmation of needle placement in the epidural space, with dye, a solution containing normal saline, 3 mL and Depo-Medrol 80 mg were incrementally injected into the lumbar epidural space. The patient tolerated the procedure well with no complications. The patient was observed in the Pain Clinic and then discharged home neurologi celestino intact. Plan and Disposition:: Patient was discharged without incident.
[2023-10-18 10:10] VITALS: BP 133/91; PULSE 104; RESP 18; O2SAT 95
[2023-10-18 10:20] VITALS: BP 132/93; PULSE 95; RESP 18; O2SAT 96
[2023-10-18 10:26] VITALS: BP 132/93; PULSE 95; RESP 18; O2SAT 96
== END 2023-10-18 10:10 | disposition home or self-care (01) ==
LOC: SC.PAINP 09:37
PROVIDERS: PCP Physician Assistant; Visit Provider Nurse Anesthetist, Certified Registered
DX: M51.16 Intervertebral disc disorders with radiculopathy, lumbar region (principal); M47.26 Other spondylosis with radiculopathy, lumbar region
CPT/HCPCS: 62323; J1040

== ENCOUNTER 2023-11-02 11:59 | Outpatient (CLI) | payer BC, SELFPAY ==
--- NOTE | 2023-11-02 12:05 | XR_ITS ---
FINAL REPORT CLINICAL HISTORY: .back pain COMPARISON: 11/12/2020 FINDINGS: THORACIC SPINE Three views demonstrate no acute fracture. There are mild degenerative changes with osteophytes. There is no malalignment. IMPRESSION: Mild degenerative changes. LUMBAR SPINE Five views demonstrate no acute fracture. The disc spaces are well preserved. There is no malalignment. There is a probable stone in the lower pole of the right kidney measuring 4 mm. IMPRESSION: Probable right renal stone. Reviewed, Interpreted and Dictated by Billy Dawkins III, MD Transcribed by Jyoti Villaseñor Authenticated and [facility]
== END 2023-11-02 23:59 | disposition home or self-care (01) ==
LOC: RAD 11:59
PROVIDERS: PCP Physician Assistant; Visit Provider Physician Assistant
DX: M54.50 Low back pain, unspecified (principal); M54.6 Pain in thoracic spine
CPT/HCPCS: 72084

== ENCOUNTER 2023-12-01 15:22 | Outpatient (POV) | payer BC, SELFPAY ==
[2023-12-01 15:34] VITALS: BP 146/98; PULSE 80; RESP 18; O2SAT 98; BMI 32.5
--- NOTE | 2023-12-01 15:49 | EXP.PAIN.SOA ---
[facility] Pain Management SOAP Note Subjective:: Patient is a pleasant 43-year-old male who presents today for medication refill and follow-up lumbar epidural steroid injection L4-L5 on 10/18/2023. We are currently treating the patient for degenerative disc disease of lumbar spine with lumbar radiculopathy symptoms, lumbar facet arthropathy, lumbar spondylosis. Today he rates his pain a 6 out of 10. Patient denies any new trauma or injury. He states that this injection did not do at least 40% improvement at and lasted about 2 weeks. He does state he is back to his baseline. Patient states he continues to have chronic low back pain with aching into his bilateral lower extremities. Patient does state that from our last visit he has been to have an updated MRI and that he is following up with Dr. Enamorado at [facility] for possible surgical intervention. He is currently managed with [place] 5 mg 3 times a day and pregabalin 75 mg twice a day. Patient denies any side effects from these medications. His Chaim has been reviewed and is appropriate. Review of Systems: General: No recent weight changes, no fever, no sleep disturbances Respiratory: No cough, no shortness of air, no recurring pulmonary infections Cardiovascular/peripheral vascular: No chest pain, no palpitations, no edema, no shortness of breath Gastrointestinal: No new onset incontinence, normal bowel movements reported Genitourinary: No new onset incontinence Musculoskeletal: Low back pain Psychiatric: [Normal mood/affect] Neurological: [Denies weakness in extremities], [denies balance issues] Objective:: Physical Exam: General: Alert and oriented x3, no acute distress, pleasant and cooperative Lungs: Respirations even and unlabored, symmetrical chest expansion Eyes: PERRL Musculoskeletal: Flexion and extension of lumbar [spine] somewhat guarded secondary to pain, [antalgic gait noted] Neurological: Speech clear, no gross sensory deficit Assessment:: Degenerative disc disease of lumbar spine with lumbar radiculopathy symptoms, lumbar facet arthropathy, lumbar spondylosis Plan:: I have discussed with the patient that it still may be beneficial in future after he follows up with the neurosurgeon to try and resubmit for the intrathecal pain pump trial. Patient did have 100% improvement with this however was denied the actual implant by his insurance at that time. Patient states he has different insurance denial. Patient was a appropriate candidate of this device by psychological evaluation. I will refill his [place] and pregabalin and also send in a 14-day supply of tizanidine 2 mg at bedtime. Patient will return to clinic in 1 month for reevaluation of symptoms and plan of care. Risks and benefits of the medication have been explained in detail to the patient. The patient does understand the risk of dependence on the medication when given over a prolonged period. Patient has been advised of risks of oversedation with the prescribed medication. Narcan has been offered to the paitent in the event of oversedation. Patient has been advised that a family member should also be educated regarding administration of Narcan. The patient has been advised to consult with his/her primary care provider and pharmacist regarding drug-drug interaction of medications currently prescribed. Patient has been prescribed a controlled substance after being counseled on the medication, medication safety, and possible side effects. Opioid contract was reviewed and signed by the patient, and that they have agreed to all of the terms set forth by our compliance program. Patient has been instructed to contact the clinic with any concerns before the next appointment. Dr. Tipton has reviewed this note and agrees with this plan of care. This note was dictated using voice recognition software and make contain errors or omissions. [facility] Disclaimer: The information contained in this section may have been updated after the patient was seen, as this information can be updated by other users. Medical History Family history of coronary artery disease History of gout HTN (hypertension) Hypotestosteronemia in male Mediastinal lymphadenopathy SOB (shortness of breath) Tachycardia Surgical History History of cholecystectomy History of surgery on upper extremity History of tonsillectomy Family History Other No significant family history Social History Smoking Status: Never smoker alcohol intake: never substance use type: denies use current occupational status: employed Travel in the last 8 weeks: None household members: spouse housing: house current occupational exposures/hazards: No caffeine: No
== END 2023-12-01 23:59 | disposition home or self-care (01) ==
PROVIDERS: PCP Physician Assistant; Visit Provider Nurse Practitioner Family
DX: M51.16 Intervertebral disc disorders with radiculopathy, lumbar region (principal); M47.26 Other spondylosis with radiculopathy, lumbar region
CPT/HCPCS: 99212; G0463

== ENCOUNTER 2023-12-26 13:36 | Outpatient (POV) | payer BC, SELFPAY ==
--- NOTE | 2023-12-26 14:15 | A.OFFVIS_ITS ---
[facility] Pain Management SOAP Note Subjective:: DayPatient is a pleasant 43-year-old male who presents today for medication refill and follow-up. Today he rates his pain a 6 out of 10. Patient denies any new trauma or injury. Patient is currently managed with [place] 5 mg 3 times a day and pregabalin 75 mg along with recent prescription of tizanidine 2 mg at bedtime. Patient does state that the tizanidine did seem to help however he does have an old prescription of the 2 mg so he does not need refills at this time of this medication. Patient does state that he has been to see the neurosurgeon at [facility] and that he was told he is not a surgical candidate at this time. His Chaim has been reviewed and is appropriate. Review of Systems: General: No recent weight changes, no fever, no sleep disturbances Respiratory: No cough, no shortness of air, no recurring pulmonary infections Cardiovascular/peripheral vascular: No chest pain, no palpitations, no edema, no shortness of breath Gastrointestinal: No new onset incontinence, normal bowel movements reported Genitourinary: No new onset incontinence Musculoskeletal: Low back pain Psychiatric: [Normal mood/affect] Neurological: [Denies weakness in extremities], [denies balance issues] Objective:: Physical Exam: General: Alert and oriented x3, no acute distress, pleasant and cooperative Lungs: Respirations even and unlabored, symmetrical chest expansion Eyes: PERRL Musculoskeletal: Flexion and extension of lumbar [spine] somewhat guarded secondary to pain, [antalgic gait noted] Neurological: Speech clear, no gross sensory deficit Assessment:: Degenerative disc disease of lumbar spine with lumbar radiculopathy symptoms, lumbar facet arthropathy, lumbar spondylosis Plan:: I will refill the patient's [place] and pregabalin and provide a 1 month supply of these medications. I have discussed at length with the patient that we can always try and resubmit for the intrathecal pain pump implant. Patient did previously have 100% relief however was denied by his insurance at that time. Patient has since had a change of his overall insurance. We will follow-up with this option at future visits. Patient will return to clinic in 1 month for reevaluation of symptoms and plan of care. Risks and benefits of the medication have been explained in detail to the patient. The patient does understand the risk of dependence on the medication when given over a prolonged period. Patient has been advised of risks of oversedation with the prescribed medication. Narcan has been offered to the paitent in the event of oversedation. Patient has been advised that a family member should also be educated regarding administration of Narcan. The patient has been advised to consult with his/her primary care provider and pharmacist regarding drug-drug interaction of medications currently prescribed. Patient has been prescribed a controlled substance after being counseled on the medication, medication safety, and possible side effects. Opioid contract was reviewed and signed by the patient, and that they have agreed to all of the terms set forth by our compliance program. Patient has been instructed to contact the clinic with any concerns before the next appointment. Dr. Tipton has reviewed this note and agrees with this plan of care. This note was dictated using voice recognition software and make contain errors or omissions. [facility] Disclaimer: The information contained in this section may have been updated after the patient was seen, as this information can be updated by other users. Medical History Family history of coronary artery disease History of gout HTN (hypertension) Hypotestosteronemia in male Mediastinal lymphadenopathy SOB (shortness of breath) Tachycardia Surgical History History of cholecystectomy History of surgery on upper extremity History of tonsillectomy Family History Other No significant family history Social History Smoking Status: Never smoker alcohol intake: never substance use type: denies use current occupational status: employed Travel in the last 8 weeks: None household members: spouse housing: house current occupational exposures/hazards: No caffeine: No
[2023-12-26 14:20] VITALS: BP 128/85; PULSE 93; RESP 18; O2SAT 96; BMI 34.0
== END 2023-12-26 23:59 | disposition home or self-care (01) ==
PROVIDERS: PCP Physician Assistant; Visit Provider Nurse Practitioner Family
DX: M51.16 Intervertebral disc disorders with radiculopathy, lumbar region (principal); M47.26 Other spondylosis with radiculopathy, lumbar region
CPT/HCPCS: 99212; G0463

== ENCOUNTER 2024-01-30 15:24 | Outpatient (POV) | payer BC, SELFPAY ==
[2024-01-30 15:29] VITALS: BP 112/81; PULSE 81; RESP 16; O2SAT 100; BMI 34.0
--- NOTE | 2024-01-30 15:35 | A.OFFVIS_ITS ---
[facility] Disclaimer: The information contained in this section may have been updated after the patient was seen, as this information can be updated by other users. Medical History Family history of coronary artery disease History of gout HTN (hypertension) Hypotestosteronemia in male Mediastinal lymphadenopathy SOB (shortness of breath) Tachycardia Surgical History History of cholecystectomy History of surgery on upper extremity History of tonsillectomy Family History Other No significant family history Social History Smoking Status: Never smoker alcohol intake: never substance use type: denies use current occupational status: employed Travel in the last 8 weeks: None household members: spouse housing: house current occupational exposures/hazards: No caffeine: No PM Subjective & Objective Subjective Subjective:: Patient is a pleasant 44-year-old male who presents today for medication refill and 1 month follow-up. Today he rates his pain a 5 out of 10. Patient denies any new trauma or injury. He is currently with Patriot 5 mg 3 times a day, pregabalin 75 mg twice a day and tizanidine 2 mg at bedtime. He denies any side effects from this medication. His Chaim has been reviewed and is appropriate. Review of Systems: General: No recent weight changes, no fever, no sleep disturbances Respiratory: No cough, no shortness of air, no recurring pulmonary infections Cardiovascular/peripheral vascular: No chest pain, no palpitations, no edema, no shortness of breath Gastrointestinal: No new onset incontinence, normal bowel movements reported Genitourinary: No new onset incontinence Musculoskeletal: Pain Psychiatric: [Normal mood/affect] Neurological: [Denies weakness in extremities], [denies balance issues] Pain at rest (0-10 scale): 5 Objective Objective:: Physical Exam: General: Alert and oriented x3, no acute distress, pleasant and cooperative Lungs: Respirations even and unlabored, symmetrical chest expansion Eyes: PERRL Musculoskeletal: Flexion and extension of lumbar [spine] somewhat guarded se condary to pain, [antalgic gait noted] Neurological: Speech clear, no gross sensory deficit Has patient had previous pain injection?: No Conservative treatment options previously tried: Prescription medications Length of treatment: Longer than 6 weeks Meds Home Medications and Allergies Home Medications Medication Instructions Recorded Confirmed Type paroxetine HCl 10 mg tablet 40 mg PO DAILY Anxiety 02/07/18 01/30/24 History pantoprazole 40 mg tablet,delayed 40 mg PO BID GERD 07/11/18 01/30/24 History release hydrocodone 5 mg-acetaminophen 325 1 tab PO TID #28 tabs 10/03/23 01/30/24 Rx mg tablet tizanidine 2 mg tablet 2 mg PO HS #14 tabs 12/01/23 01/30/24 Rx hydrocodone 5 mg-acetaminophen 325 1 tab PO TID PRN pain #90 tabs 12/26/23 01/30/24 Rx mg tablet pregabalin 75 mg capsule (Lyrica) 75 mg PO BID #60 caps 12/26/23 01/30/24 Rx New Prescriptions to Start Prescriptions: Allergies Allergy/AdvReac Type Severity Reaction Status Date / Time acetaminophen [From Percocet] Allergy Nightmare Verified 10/18/23 10:00 levofloxacin [From Levaquin] Allergy Vomiting Verified 10/18/23 10:00 oxycodone [From Percocet] Allergy Nightmare Verified 10/18/23 10:00 Assessment and Plan *Assessment and plan (1) Low back pain: Status: Acute Qualifiers: Chronicity: chronic Back pain laterality: bilateral Sciatica presence: unspecified whether sciatica present Qualified Code(s): M54.50 - Low back pain, unspecified; G89.29 - Other chronic pain Category: Medical Code(s): M54.5 - Low back pain (2) Degenerative disc disease, lumbar: Status: Acute Category: Medical Code(s): M51.36 - Other intervertebral disc degeneration, lumbar region (3) Lumbar radiculopathy: Status: Acute Category: Medical Code(s): M54.16 - Radiculopathy, lumbar region Plan I will refill the patient's Patriot and pregabalin and provide a 1 month supply of this medication. Patient will return to clinic in 1 month for reevaluation of symptoms and plan of care. Risks and benefits of the medication have been explained in detail to the patient. The patient does understand the risk of dependence on the medication when given over a prolonged period. Patient has been advised of risks of oversedation with the prescribed medication. Narcan has been offered to the paitent in the event of oversedation. Patient has been advised that a family member should also be educated regarding administration of Narcan. The patient has been advised to consult with his/her primary care provider and pharmacist regarding drug-drug interaction of medications currently prescribed. Patient has been prescribed a controlled substance after being counseled on the medication, medication safety, and possible side effects. Opioid contract was reviewed and signed by the patient, and that they have agreed to all of the terms set forth by our compliance program. Patient has been instructed to contact the clinic with any concerns before the next appointment. Dr. Tipton has reviewed this note and agrees with this plan of care. This note was dictated using voice recognition software and make contain errors or omissions.
== END 2024-01-30 23:59 | disposition home or self-care (01) ==
PROVIDERS: PCP Physician Assistant; Visit Provider Nurse Practitioner Family
DX: M54.50 Low back pain, unspecified (principal); M51.36 Other intervertebral disc degeneration, lumbar region; G89.29 Other chronic pain
CPT/HCPCS: 99212; G0463

== ENCOUNTER 2024-02-26 19:05 | Emergency (ER) | payer BC, SELFPAY ==
[2024-02-26 19:10] VITALS: BP 135/97; PULSE 84; RESP 20; TEMP 36.9; O2SAT 99; BMI 34.1
--- NOTE | 2024-02-26 19:31 | EXP.UTC ---
Discharge Plan Disposition Patient Disposition: Home, Self-Care Condition: Good Prescriptions Prescriptions: No Action hydrocodone-acetaminophen 5-325 mg tablet 1 tab PO TID Patient Comments: TAKE 1 TABLET BY MOUTH THREE TIMES DAILY NEEDED FOR PAIN pantoprazole 40 mg tablet,delayed release (DR/EC) 40 mg PO DAILY Patient Comments: TAKE 1 TABLET BY MOUTH DAILY losartan 25 mg tablet 25 mg PO DAILY Patient Comments: TAKE 1 TABLET BY MOUTH DAILY testosterone cypionate 200 mg/mL oil 300 mg IM WEEKLY Patient Comments: INJECT 1.5ML INTRAMUSCULARLY EVERY OTHER WEEK paroxetine HCl 40 mg tablet 40 mg PO DAILY Patient Comments: TAKE 1 TABLET BY MOUTH EVERY DAY pregabalin 75 mg capsule 75 mg PO BID Patient Comments: TAKE 1 CAPSULE BY MOUTH TWICE DAILY Referrals Follow up/Referrals: Cecy Weinstein PA [Primary Care Provider] - See instructions Activity Restrictions/Add. Instructions Additional Instructions/Restrictions: You was given order for outpatient venous dopler make sure if they havent called you in the morning to call them Follow up with your Family Doctor for further evaluation and treatment Straight to ER if any life threatening sympotms Rest and keep legs elevated Clinical Impressions Clinical Impression: Problem of extremity Instructions Patient Instructions: DI for Numbness/Tingling Print Language Print Language: Senegalese Discharge ED Provider: Jessica Murcia [facility] [place] General Stated complaint: tingling in both legs Mode of Arrival: Ambulatory Source of Information: Patient Limitations: No Limitations Time Seen by Provider: 02/26/24 19:31 Description of Symptoms (Recalled from Triage Doc. by RN): PATIENT REPORTS EPISODES OF TINGLING IN HIS LEGS WITH ENLARGED VEINS THAT INITIALLY STARTED 2 WEEKS AGO, HIS LAST EPISODE BEING TODAY. PATIENT REPORTS A HISTORY OF BACK ISSUES HEENT Symptoms (Recalled from RN notes): No Resp Symptoms (Recalled from RN notes): No Skin Symptoms (Recalled from RN notes): No MS Symptoms (Recalled from RN notes): Yes Functional Status (Recalled from RN notes): WNL History of Present Illness Provider Complaint: Patient states that a couple weeks ago he noticed he had tingly feeling in bilateral legs and when it happened it looked like the veins in his legs was swollen butg then it went down States he was at home earlier tonight and it did it again and the veins in his legs looked swollen up and it scared him so he came in States that the tingly feeling is better now but the veins in his lower legs still look swollen Related Data Home Medications ?Medication ?Instructions ?Recorded ?Confirmed hydrocodone 5 mg-acetaminophen 325 1 tab PO TID 02/26/24 02/26/24 mg tablet losartan 25 mg tablet 25 mg PO DAILY 02/26/24 02/26/24 pantoprazole 40 mg tablet,delayed 40 mg PO DAILY 02/26/24 02/26/24 release paroxetine HCl 40 mg tablet 40 mg PO DAILY 02/26/24 02/26/24 pregabalin 75 mg capsule 75 mg PO BID 02/26/24 02/26/24 testosterone cypionate 200 mg/mL 300 mg IM WEEKLY 02/26/24 02/26/24 intramuscular oil Allergies Allergy/AdvReac Type Severity Reaction Status Date / Time acetaminophen [From Percocet] Allergy Nightmare Verified 10/18/23 10:00 levofloxacin [From Levaquin] Allergy Vomiting Verified 10/18/23 10:00 oxycodone [From Percocet] Allergy Nightmare Verified 10/18/23 10:00 Worker's Comp Is this a Worker's Comp case?: No [facility] Disclaimer: The information contained in this section may have been updated after the patient was seen, as this information can be updated by other users. Medical History Family history of coronary artery disease History of gout HTN (hypertension) Hypotestosteronemia in male Mediastinal lymphadenopathy SOB (shortness of breath) Tachycardia Surgical History History of cholecystectomy History of surgery on upper extremity History of tonsillectomy Family History Other No significant family history Social History Smoking Status: Never smoker alcohol intake: never substance use type: denies use current occupational status: employed Travel in the last 8 weeks: None household members: spouse housing: house current occupational exposures/hazards: No caffeine: No ROS Obtained: Yes All systems reviewed & no additional complaints except as documented and Yes Systems reviewed as appropriate & no additional complaints except as documented Constitutional Constitutional: Reports system reviewed and no additional complaints, except as documented, Reports as per HPI, Denies headache(s) and Denies weakness ENT Ears, Nose, Mouth, and Throat: Reports system reviewed and no additional complaints, except as documented, Reports as per HPI, Denies abnormal hearing, Denies dizziness and Denies headache(s) Cardiovascular Cardiovascular: Reports system reviewed and no additional complaints, except as documented, Reports as per HPI, Denies chest pain, Denies chest pain with activity and Denies syncope Comments: episode of veins in lower extremities looking distended Respiratory Respiratory: Reports system reviewed and no additional complaints, except as documented and Reports as per HPI Gastrointestinal Gastrointestingal: Reports system reviewed and no additional complaints, except as documented and as per HPI Musculoskeletal Musculoskeletal: Reports system reviewed and no additional complaints, except as documented, Reports as per HPI, Denies abnormal gait, Denies numbness and Reports tingling (on and off lower extremities hx of low back problems) Integumentary/Breasts Skin/Breast: Reports system reviewed and no additional complaints, except as documented and Reports as per HPI Neurologic Neurologic: Reports system reviewed and no additional complaints, except as documented, Reports as per HPI, Denies abnormal gait, Denies abnormal hearing, Denies abnormal movements, Denies abnormal speech, Denies confusion, Denies convulsions, Denies dizziness, Denies headache(s), Denies numbness, Denies syncope, Reports tingling (on and off lower extremities hx of low back problems) and Denies weakness Physical Exam General General appearance: alert and in no apparent distress ENT ENT exam: Present mucous membranes moist Respiratory Respiratory exam: Present normal lung sounds bilaterally; Absent respiratory distress or wheezes Cardiovascular Cardiovascular exam: Present regular rate, normal rhythm and normal heart sounds Abdominal Exam Abdominal exam: Present soft and normal bowel sounds; Absent distention or tenderness Extremities Exam Extremities exam: Present normal inspection, full ROM, normal capillary refill and other (+ pedal pulses noted bilateral lower extremities, no swelling, no discoloration ); Absent tenderness or edema Expanded Lower Extremity Exam bilateral: Hip/Pelvis exam: Present normal inspection and full ROM Upper leg exam: Present normal inspection and full ROM Knee exam: Present normal inspection and full ROM; Absent tenderness, swelling, ecchymosis or erythema Lower leg exam: Present normal inspection and full ROM; Absent tenderness, swelling, ecchymosis, deformity or erythema Ankle exam: Present normal inspection and full ROM; Absent tenderness, swelling or erythema Neurovascular/Tendon exam: Present normal capillary refill; Absent pulse deficit or motor deficit Gait: observed and normal Neurological Exam Neurological exam: Present alert, oriented X3 and normal gait Medical Decision Making Chaim Inquiry Pt receiving controlled substance: No Chaim was queried for this patient: No Vital Signs: 02/26/24 19:10 Temperature 98.4 F Temperature Source Oral Pulse Rate [Right Brachial] 84 Respiratory Rate 20 Blood Pressure [Right Arm] 135/97 H Blood Pressure Mean [Right Arm] 109 Blood Pressure Source [Right Arm] Automatic Cuff Blood Pressure Position [Right Arm] Sitting 02 Sat by Pulse Oximetry 99 Oxygen Delivery Method Room Air Medical Decision Narrative: Patient reports when tingling happened earlier his veins in his lower legs looked distended, no swelling, no discoloration, no temp changes or differences noted and no distention noted patient concerned with DVT wanting to be checked, discussed with patient that could transfer him to the ED for furhter work up and he declined, discussed could dc home with out patient venous doppler order and he could follow up with PCP or follow up with PCP and return if symptoms return or pain in calf or behind knee and patient requesting venous doppler and he will follow up with his PCP
[2024-02-26 20:02] VITALS: BP 135/97; PULSE 84; RESP 20; TEMP 36.9; O2SAT 99
== END 2024-02-26 20:04 | disposition home or self-care (01) ==
PROVIDERS: Emergency Provider Nurse Practitioner; PCP Physician Assistant
DX: R20.2 Paresthesia of skin (principal)
CPT/HCPCS: 99212; 99213; G0463

== ENCOUNTER 2024-02-27 14:02 | Outpatient (CLI) | payer BC, SELFPAY ==
--- NOTE | 2024-02-27 14:07 | CA_ITS ---
FINAL REPORT CLINICAL HISTORY: tingling in legs COMPARISON: None FINDINGS: Color Doppler, duplex Doppler and compression sonography of the bilateral lower extremities was performed. There is no evidence of deep venous thrombosis from the level of the groin to the calf. The deep veins are patent and compressible. Soft tissue edema is identified in the lower legs bilaterally. IMPRESSION: No evidence of deep venous thrombosis bilateral lower extremities. Reviewed, Interpreted and Dictated by Billy Dawkins III, MD Transcribed by Anita Lopez Authenticated and [facility]
== END 2024-02-27 23:59 | disposition home or self-care (01) ==
LOC: RT 14:03
PROVIDERS: PCP Physician Assistant; Visit Provider Nurse Practitioner
DX: I83.90 Asymptomatic varicose veins of unspecified lower extremity (principal); R20.2 Paresthesia of skin
CPT/HCPCS: 93970

== ENCOUNTER 2024-02-27 15:16 | Outpatient (POV) | payer BC, SELFPAY ==
[2024-02-27 14:52] VITALS: BP 127/85; PULSE 67; RESP 18; O2SAT 98; BMI 34.0
--- NOTE | 2024-02-27 15:42 | EXP.PAIN.SOA ---
[facility] Disclaimer: The information contained in this section may have been updated after the patient was seen, as this information can be updated by other users. Medical History Family history of coronary artery disease History of gout HTN (hypertension) Hypotestosteronemia in male Mediastinal lymphadenopathy SOB (shortness of breath) Tachycardia Surgical History History of cholecystectomy History of surgery on upper extremity History of tonsillectomy Family History Other No significant family history Social History Smoking Status: Never smoker alcohol intake: never substance use type: denies use current occupational status: employed Travel in the last 8 weeks: None household members: spouse housing: house current occupational exposures/hazards: No caffeine: No PM Subjective & Objective Subjective Subjective:: Patient is a pleasant 44-year-old male who presents today for medication refill and follow-up. Today he rates his pain a 5 out of 10. Patient denies any new injury or trauma. He does state over the last couple weeks he has had more tingling in his lower extremities from about his knee down. He does state that he also noticed that some of his veins were a little bit larger so he did recently go to the [facility] and they did a Doppler and he thinks there was not anything significant found. Patient states that the numbness is not always constant and will come and go. Patient does also still have chronic low back pain. He is currently managed with Berry 5 mg 3 times a day, pregabalin 75 mg twice a day and tizanidine 2 mg at bedtime. He denies any side effects from this medication. His Chaim has been reviewed and is appropriate. Review of Systems: General: No recent weight changes, no fever, no sleep disturbances Respiratory: No cough, no shortness of air, no recurring pulmonary infections Cardiovascular/peripheral vascular: No chest pain, no palpitations, no edema, no shortness of breath Gastrointestinal: No new onset incontinence, normal bowel movements reported Genitourinary: No new onset incontinence Musculoskeletal: Low back pain, lower leg numbness Psychiatric: [Normal mood/affect] Neurological: [Denies weakness in extremities], [denies balance issues] Pain at rest (0-10 scale): 5 Objective Objective:: Physical Exam: General: Alert and oriented x3, no acute distress, pleasant and cooperative Lungs: Respirations even and unlabored, symmetrical chest expansion Eyes: PERRL Musculoskeletal: Flexion and extension of lumbar [spine] somewhat guarded secondary to pain, [antalgic gait noted] Neurological: Speech clear, no gross sensory deficit Lumbar MRI without contrast Findings: There is transitional anatomy at the lumbosacral junction. There is sacralization of L5 on the right. Lumbar spine is normal in alignment. No subluxation. No fracture. There is minimal anterior marginal osteophytic spurring. No pathological lesion is identified in the lumbar spine. The conus medullaris is normal in appearance at the L1 level. T11-L1: No significant findings L1-L2: There is minimal disc bulge. No central canal stenosis. No neuroforaminal narrowing L2-L3: Mild disc bulge and mild endplate spurring. No central canal stenosis there is no neuroforaminal stenosis L3-L4: Mild disc bulge, mild facet arthropathy, mild endplate spurring. No central canal stenosis. There is mild left and minimal right neuroforaminal stenosis L4-L5: There is mild disc bulge, mild facet arthropathy and mild endplate spurring. No central canal stenosis. There is mild bilateral neuroforaminal narrowing L5-S1: Minimal endplate spurring. No central canal stenosis or neuroforaminal stenosis Paraspinal musculature is symmetric and normal in signal Has patient had previous pain injection?: No Conservative treatment options previously tried: Home exercise plan Length of treatment: Longer than 6 weeks and Prescription medications Length of treatment: Longer than 6 weeks Meds Home Medications and Allergies Home Medications ?Medication ?Instructions ?Recorded ?Confirmed ?Type hydrocodone 5 mg-acetaminophen 325 1 tab PO TID 02/26/24 02/26/24 History mg tablet losartan 25 mg tablet 25 mg PO DAILY 02/26/24 02/26/24 History pantoprazole 40 mg tablet,delayed 40 mg PO DAILY 02/26/24 02/26/24 History release paroxetine HCl 40 mg tablet 40 mg PO DAILY 02/26/24 02/26/24 History pregabalin 75 mg capsule 75 mg PO BID 02/26/24 02/26/24 History testosterone cypionate 200 mg/mL 300 mg IM WEEKLY 02/26/24 02/26/24 History intramuscular oil New Prescriptions to Start Prescriptions: Allergies Allergy/AdvReac Type Severity Reaction Status Date / Time acetaminophen [From Percocet] Allergy Nightmare Verified 10/18/23 10:00 levofloxacin [From Levaquin] Allergy Vomiting Verified 10/18/23 10:00 oxycodone [From Percocet] Allergy Nightmare Verified 10/18/23 10:00 Assessment and Plan *Assessment and plan (1) Lumbar radiculopathy: Status: Acute Category: Medical Code(s): M54.16 - Radiculopathy, lumbar region (2) Degenerative disc disease, lumbar: Status: Acute Category: Medical Code(s): M51.36 - Other intervertebral disc degeneration, lumbar region Plan I did discuss with the patient at length that some of his numbness may be related to his neuroforaminal narrowing or even possible peripheral neuropathy 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 I have discussed with the patient that he is on low-dose pregabalin and in future he may benefit from increasing this medication. Patient does state that the symptoms are not consistent and do very so at this time we will wait. I will refill the patient's Berry, pregabalin and tizanidine and provide a 1 month supply of this medication. Patient will return to clinic in 1 month for reevaluation of symptoms and plan of care. Patient has been instructed to contact the clinic with any concerns before the next appointment. Dr. Tipton has reviewed this note and agrees with this plan of care. This note was dictated using voice recognition software and make contain errors or omissions. All injections are used with Lidocaine or Bupivacaine and Depo Medrol.
== END 2024-02-27 23:59 | disposition home or self-care (01) ==
PROVIDERS: Visit Provider Nurse Practitioner Family
DX: M51.16 Intervertebral disc disorders with radiculopathy, lumbar region (principal)
CPT/HCPCS: 99212; G0463

== ENCOUNTER 2024-04-02 14:58 | Outpatient (POV) | payer BC, SELFPAY ==
--- NOTE | 2024-04-02 15:06 | EXP.PAIN.SOA ---
[facility] Disclaimer: The information contained in this section may have been updated after the patient was seen, as this information can be updated by other users. Medical History Family history of coronary artery disease History of gout HTN (hypertension) Hypotestosteronemia in male Mediastinal lymphadenopathy SOB (shortness of breath) Tachycardia Surgical History History of cholecystectomy History of surgery on upper extremity History of tonsillectomy Family History Other No significant family history Social History Smoking Status: Never smoker alcohol intake: never substance use type: denies use current occupational status: other Travel in the last 8 weeks: None household members: spouse housing: house current occupational exposures/hazards: No caffeine: No PM Subjective & Objective Subjective Subjective:: Patient is a pleasant 44-year-old male who presents today for medication refill and follow-up. Today he rates his pain a 4 out of 10. Patient denies any new injury or trauma. Patient does state between our last visit he did have an episode where he had his left side was hurting down under his last rib. Patient states it was just uncomfortable and felt different from his normal pain. He states that it lasted about 2 weeks and then is completely gone away. Patient does also state that he has also noticed over the last 2 to 3 months that occasionally he will feel like he just zones out for 20 seconds here and they are and it is very random. Patient states that he will just be sitting at work and forget what he was doing. Patient is questioning if one of his medications may possibly be causing it. He is currently managed with Anton 5 mg 3 times a day, pregabalin 75 mg twice a day and tizanidine 2 mg at bedtime. He denies any side effects from this medication. His Chaim has been reviewed and is appropriate. Review of Systems: General: No recent weight changes, no fever, no sleep disturbances Respiratory: No cough, no shortness of air, no recurring pulmonary infections Cardiovascular/peripheral vascular: No chest pain, no palpitations, no edema, no shortness of breath Gastrointestinal: No new onset incontinence, normal bowel movements reported Genitourinary: No new onset incontinence Musculoskeletal: Low back pain Psychiatric: [Normal mood/affect] Neurological: [Denies weakness in extremities], [denies balance issues] Pain at rest (0-10 scale): 4 Objective Objective:: Physical Exam: General: Alert and oriented x3, no acute distress, pleasant and cooperative Lungs: Respirations even and unlabored, symmetrical chest expansion Eyes: PERRL Musculoskeletal: Flexion and extension of lumbar [spine] somewhat guarded secondary to pain, [antalgic gait noted] Neurological: Speech clear, no gross sensory deficit Has patient had previous pain injection?: No Conservative treatment options previously tried: Home exercise plan Length of treatment: Longer than 6 weeks Meds Home Medications and Allergies Home Medications ?Medication ?Instructions ?Recorded ?Confirmed ?Type losartan 25 mg tablet 25 mg PO DAILY 02/26/24 02/28/24 History pantoprazole 40 mg tablet,delayed 40 mg PO DAILY 02/26/24 02/28/24 History release paroxetine HCl 40 mg tablet 40 mg PO DAILY 02/26/24 02/28/24 History testosterone cypionate 200 mg/mL 300 mg IM WEEKLY 02/26/24 02/28/24 History intramuscular oil hydrocodone 5 mg-acetaminophen 325 1 tab PO TID #12 tabs 03/15/24 Rx mg tablet hydrocodone 5 mg-acetaminophen 325 1 tab PO TID #90 tabs 04/02/24 Rx mg tablet pregabalin 75 mg capsule 75 mg PO BID #60 caps 04/02/24 Rx tizanidine 2 mg tablet 2 mg PO HS #30 tabs 04/02/24 Rx New Prescriptions to Start Prescriptions: hydrocodone-acetaminophen Nevaeh Villagomez A pregabalin Hernando,Nevaeh A tizanidine Hernando,Nevaeh A Allergies Allergy/AdvReac Type Severity Reaction Status Date / Time acetaminophen [From Percocet] Allergy Nightmare Verified 10/18/23 10:00 levofloxacin [From Levaquin] Allergy Vomiting Verified 10/18/23 10:00 oxycodone [From Percocet] Allergy Nightmare Verified 10/18/23 10:00 Assessment and Plan *Assessment and plan (1) Lumbar radiculopathy: Status: Acute Category: Medical Code(s): M54.16 - Radiculopathy, lumbar region (2) Degenerative disc disease, lumbar: Status: Acute Category: Medical Code(s): M51.36 - Other intervertebral disc degeneration, lumbar region Plan I will refill the patient's Anton, pregabalin and tizanidine and provide a 1 month supply of this medication. That regarding the pain on the left side that most likely it could have been something related to kidney stones or possible pulled muscle and that he can taper down to come off the pregabalin if he does notice improvement. Patient agrees with this plan of care. and to keep us posted if this comes back. I did also career and guidance counselor the patient to try and decrease his pregabalin to once a day and see if he notices any changes to the feeling of zoning out Patient will return to clinic in 1 month for reevaluation of symptoms and plan of care. Risks and benefits of the medication have been explained in detail to the patient. The patient does understand the risk of dependence on the medication when given over a prolonged period. Patient has been advised of risks of oversedation with the prescribed medication. Narcan has been offered to the paitent in the event of oversedation. Patient has been advised that a family member should also be educated regarding administration of Narcan. The patient has been advised to consult with his/her primary care provider and pharmacist regarding drug-drug interaction of medications currently prescribed. Patient has been prescribed a controlled substance after being counseled on the medication, medication safety, and possible side effects. Opioid contract was reviewed and signed by the patient, and that they have agreed to all of the terms set forth by our compliance program. Patient has been instructed to contact the clinic with any concerns before the next appointment. Dr. Tipton has reviewed this note and agrees with this plan of care. This note was dictated using voice recognition software and make contain errors or omissions.
[2024-04-02 15:09] VITALS: BP 135/80; PULSE 80; RESP 16; O2SAT 99; BMI 34.0
== END 2024-04-02 23:59 | disposition home or self-care (01) ==
PROVIDERS: PCP Physician Assistant; Visit Provider Physician Assistant
DX: M51.16 Intervertebral disc disorders with radiculopathy, lumbar region (principal)
CPT/HCPCS: 99212; G0463

== ENCOUNTER 2024-04-26 15:15 | Outpatient (POV) | payer BC, SELFPAY ==
[2024-04-26 15:30] VITALS: BP 122/82; PULSE 99; RESP 16; O2SAT 96; BMI 34.0
--- NOTE | 2024-04-26 15:53 | EXP.PAIN.SOA ---
[facility] Disclaimer: The information contained in this section may have been updated after the patient was seen, as this information can be updated by other users. Medical History Family history of coronary artery disease History of gout HTN (hypertension) Hypotestosteronemia in male Mediastinal lymphadenopathy SOB (shortness of breath) Tachycardia Surgical History History of cholecystectomy History of surgery on upper extremity History of tonsillectomy Family History Other No significant family history Social History Smoking Status: Never smoker alcohol intake: never substance use type: denies use current occupational status: other Travel in the last 8 weeks: None household members: spouse housing: house current occupational exposures/hazards: No caffeine: No PM Subjective & Objective Subjective Subjective:: Patient is a pleasant 44-year-old male who presents today for follow-up. Today he rates his pain a 4 out of 10. He does state that on Tuesday he was at his work where he ended up sliding on hydraulic fluid and falling. He does state that he is having increased back pain however denies any significant injury. Patient does state that it is just more soreness. Patient does state from her last visit he ended up tapering down off his pregabalin and did not notice any increased symptoms other than his restless leg did seem to get a little bit aggravated. He states that the zoning out sensation he was experiencing has resolved. Patient is currently managed with Colora 5 mg 3 times a day and tizanidine 2 mg at bedtime. He denies any side effects from this medication. He states that the tizanidine he only takes as needed and does not need refills on this medication. His Chaim has been reviewed and is appropriate. Review of Systems: General: No recent weight changes, no fever, no sleep disturbances Respiratory: No cough, no shortness of air, no recurring pulmonary infections Cardiovascular/peripheral vascular: No chest pain, no palpitations, no edema, no shortness of breath Gastrointestinal: No new onset incontinence, normal bowel movements reported Genitourinary: No new onset incontinence Musculoskeletal: Low back pain Psychiatric: [Normal mood/affect] Neurological: [Denies weakness in extremities], [denies balance issues] Pain at rest (0-10 scale): 4 Objective Objective:: Physical Exam: General: Alert and oriented x3, no acute distress, pleasant and cooperative Lungs: Respirations even and unlabored, symmetrical chest expansion Eyes: PERRL Musculoskeletal: Flexion and extension of lumbar [spine] somewhat guarded secondary to pain, [antalgic gait noted] Neurological: Speech clear, no gross sensory deficit Has patient had previous pain injection?: No Conservative treatment options previously tried: Home exercise plan Length of treatment: Longer than 6 weeks Meds Home Medications and Allergies Home Medications ?Medication ?Instructions ?Recorded ?Confirmed ?Type losartan 25 mg tablet 25 mg PO DAILY 02/26/24 04/26/24 History pantoprazole 40 mg tablet,delayed 40 mg PO DAILY 02/26/24 04/26/24 History release paroxetine HCl 40 mg tablet 40 mg PO DAILY 02/26/24 04/26/24 History testosterone cypionate 200 mg/mL 300 mg IM WEEKLY 02/26/24 04/26/24 History intramuscular oil hydrocodone 5 mg-acetaminophen 325 1 tab PO TID #12 tabs 03/15/24 04/26/24 Rx mg tablet hydrocodone 5 mg-acetaminophen 325 1 tab PO TID #90 tabs 04/02/24 04/26/24 Rx mg tablet pregabalin 75 mg capsule 75 mg PO BID #60 caps 04/02/24 04/26/24 Rx tizanidine 2 mg tablet 2 mg PO HS #30 tabs 04/02/24 04/26/24 Rx New Prescriptions to Start Prescriptions: Allergies Allergy/AdvReac Type Severity Reaction Status Date / Time acetaminophen [From Percocet] Allergy Nightmare Verified 10/18/23 10:00 levofloxacin [From Levaquin] Allergy Vomiting Verified 10/18/23 10:00 oxycodone [From Percocet] Allergy Nightmare Verified 10/18/23 10:00 Assessment and Plan *Assessment and plan (1) Degenerative disc disease, lumbar: Status: Acute Category: Medical Code(s): M51.36 - Other intervertebral disc degeneration, lumbar region Plan I will refill the patient's Colora and provide a 1 month supply of this medication. I will also send in a 2-week dose of ropinirole 0.25 mg at bedtime. Patient will return to clinic in 1 month for reevaluation of symptoms and plan of care. He was counseled to call our office if the ropinirole does help and we will send an additional refill between now and his next visit. Patient acknowledges understanding and agrees with plan of care. Risks and benefits of the medication have been explained in detail to the patient. The patient does understand the risk of dependence on the medication when given over a prolonged period. Patient has been advised of risks of oversedation with the prescribed medication. Narcan has been offered to the paitent in the event of oversedation. Patient has been advised that a family member should also be educated regarding administration of Narcan. The patient has been advised to consult with his/her primary care provider and pharmacist regarding drug-drug interaction of medications currently prescribed. Patient has been prescribed a controlled substance after being counseled on the medication, medication safety, and possible side effects. Opioid contract was reviewed and signed by the patient, and that they have agreed to all of the terms set forth by our compliance program. Patient has been instructed to contact the clinic with any concerns before the next appointment. Dr. Tipton has reviewed this note and agrees with this plan of care. This note was dictated using voice recognition software and make contain errors or omissions.
== END 2024-04-26 23:59 | disposition home or self-care (01) ==
PROVIDERS: PCP Physician Assistant; Visit Provider Nurse Practitioner Family
DX: M51.369 Other intervertebral disc degeneration, lumbar region without mention of lumbar back pain or lower extremity pain (principal)
CPT/HCPCS: 99212; G0463

== ENCOUNTER 2024-05-30 13:01 | Outpatient (POV) | payer BC, SELFPAY ==
--- NOTE | 2024-05-30 13:31 | EXP.PAIN.SOA ---
[facility] Disclaimer: The information contained in this section may have been updated after the patient was seen, as this information can be updated by other users. Medical History Family history of coronary artery disease History of gout HTN (hypertension) Hypotestosteronemia in male Mediastinal lymphadenopathy SOB (shortness of breath) Tachycardia Surgical History History of cholecystectomy History of surgery on upper extremity History of tonsillectomy Family History Other No significant family history Social History Smoking Status: Never smoker alcohol intake: never substance use type: denies use current occupational status: other Travel in the last 8 weeks: None household members: spouse housing: house current occupational exposures/hazards: No caffeine: No PM Subjective & Objective Subjective Subjective:: Patient is a 44-year-old male who presents today for medication refill and 1 month follow-up. Today he rates his pain a 4 out of 10. He denies any new trauma or injury. He does state from our last visit that the ropinirole at bedtime did seem to help. Patient is currently managed with Mendon 5 mg 3 times a day and tizanidine 2 mg at bedtime. He states he has no side effects to these medications. He states he does not need any refills on the tizanidine. His Chaim has been reviewed and is appropriate. Review of Systems: General: No recent weight changes, no fever, no sleep disturbances Respiratory: No cough, no shortness of air, no recurring pulmonary infections Cardiovascular/peripheral vascular: No chest pain, no palpitations, no edema, no shortness of breath Gastrointestinal: No new onset incontinence, normal bowel movements reported Genitourinary: No new onset incontinence Musculoskeletal: Low back pain Psychiatric: [Normal mood/affect] Neurological: [Denies weakness in extremities], [denies balance issues] Pain at rest (0-10 scale): 4 Objective Objective:: Physical Exam: General: Alert and oriented x3, no acute distress, pleasant and cooperative Lungs: Respirations even and unlabored, symmetrical chest expansion Eyes: PERRL Musculoskeletal: Flexion and extension of lumbar [spine] somewhat guarded secondary to pain, [antalgic gait noted] Neurological: Speech clear, no gross sensory deficit Has patient had previous pain injection?: No Conservative treatment options previously tried: Home exercise plan Length of treatment: Longer than 12 weeks Meds Home Medications and Allergies Home Medications ?Medication ?Instructions ?Recorded ?Confirmed ?Type losartan 25 mg tablet 25 mg PO DAILY 02/26/24 04/26/24 History pantoprazole 40 mg tablet,delayed 40 mg PO DAILY 02/26/24 04/26/24 History release paroxetine HCl 40 mg tablet 40 mg PO DAILY 02/26/24 04/26/24 History testosterone cypionate 200 mg/mL 300 mg IM WEEKLY 02/26/24 04/26/24 History intramuscular oil hydrocodone 5 mg-acetaminophen 325 1 tab PO TID #12 tabs 03/15/24 04/26/24 Rx mg tablet pregabalin 75 mg capsule 75 mg PO BID #60 caps 04/02/24 04/26/24 Rx tizanidine 2 mg tablet 2 mg PO HS #30 tabs 04/02/24 04/26/24 Rx hydrocodone 5 mg-acetaminophen 325 1 tab PO TID #90 tabs 04/26/24 Rx mg tablet ropinirole 0.25 mg tablet 0.25 mg PO HS #14 tabs 04/26/24 Rx New Prescriptions to Start Prescriptions: Allergies Allergy/AdvReac Type Severity Reaction Status Date / Time acetaminophen [From Percocet] Allergy Nightmare Verified 10/18/23 10:00 levofloxacin [From Levaquin] Allergy Vomiting Verified 10/18/23 10:00 oxycodone [From Percocet] Allergy Nightmare Verified 10/18/23 10:00 Assessment and Plan *Assessment and plan (1) Lumbar radiculopathy: Status: Acute Category: Medical Code(s): M54.16 - Radiculopathy, lumbar region (2) Degenerative disc disease, lumbar: Status: Acute Category: Medical Code(s): M51.36 - Other intervertebral disc degeneration, lumbar region Plan I will send in a 90-day supply of the ropinirole and a 1 month supply of the Mendon. Patient will return to clinic in 1 month for reevaluation of symptoms and plan of care. Risks and benefits of the medication have been explained in detail to the patient. The patient does understand the risk of dependence on the medication when given over a prolonged period. Patient has been advised of risks of oversedation with the prescribed medication. Narcan has been offered to the paitent in the event of oversedation. Patient has been advised that a family member should also be educated regarding administration of Narcan. The patient has been advised to consult with his/her primary care provider and pharmacist regarding drug-drug interaction of medications currently prescribed. Patient has been prescribed a controlled substance after being counseled on the medication, medication safety, and possible side effects. Opioid contract was reviewed and signed by the patient, and that they have agreed to all of the terms set forth by our compliance program. Patient has been instructed to contact the clinic with any concerns before the next appointment. Dr. Tipton has reviewed this note and agrees with this plan of care. This note was dictated using voice recognition software and make contain errors or omissions.
[2024-05-30 14:44] VITALS: BP 121/82; PULSE 103; RESP 18; O2SAT 97; BMI 34.9
== END 2024-05-30 23:59 | disposition home or self-care (01) ==
PROVIDERS: PCP Physician Assistant; Visit Provider Nurse Practitioner Family
DX: M51.16 Intervertebral disc disorders with radiculopathy, lumbar region (principal)
CPT/HCPCS: 99212; G0463

== ENCOUNTER 2024-06-15 13:14 | Outpatient (CLI) | payer BC, SELFPAY ==
--- NOTE | 2024-06-15 13:19 | US_ITS ---
FINAL REPORT CLINICAL HISTORY: HTN, bilateral claudication, bilateral rest pain. FINDINGS: ANKLE-BRACHIAL PRESSURE INDICES Pressure indices are as follows: RIGHT LOWER EXTREMITY: Ankle-brachial pressure index: 1.1 Comments: Normal LEFT LOWER EXTREMITY: Ankle-brachial pressure index: 1.1 Comments: Normal IMPRESSION: No evidence of significant obstructive peripheral vascular disease of the lower extremities Reviewed, Interpreted and Dictated by Altaf Tineo MD Transcribed by Ai Thakkar Authenticated and [facility]
--- NOTE | 2024-06-15 13:39 | XR_ITS ---
FINAL REPORT CLINICAL HISTORY: PAIN FINDINGS: RIGHT TIBIA AND FIBULA There is no acute fracture or dislocation. The joint spaces are intact. There is no soft tissue abnormality. IMPRESSION: No acute fracture Reviewed, Interpreted and Dictated by Altaf Tineo MD Transcribed by Ai Thakkar Authenticated and [facility]
== END 2024-06-15 23:59 | disposition home or self-care (01) ==
LOC: RT 13:15
PROVIDERS: PCP Physician Assistant; Visit Provider Physician Assistant
DX: M79.604 Pain in right leg (principal)
CPT/HCPCS: 73590; 93923

== ENCOUNTER 2024-06-28 15:25 | Outpatient (POV) | payer BC, SELFPAY ==
[2024-06-28 15:49] VITALS: BP 120/81; PULSE 79; RESP 14; O2SAT 98; BMI 34.0
--- NOTE | 2024-06-28 15:49 | A.OFFVIS_ITS ---
[facility] Disclaimer: The information contained in this section may have been updated after the patient was seen, as this information can be updated by other users. Medical History Family history of coronary artery disease History of gout HTN (hypertension) Hypotestosteronemia in male Mediastinal lymphadenopathy SOB (shortness of breath) Tachycardia Surgical History History of cholecystectomy History of surgery on upper extremity History of tonsillectomy Family History Other No significant family history Social History Smoking Status: Never smoker alcohol intake: never substance use type: denies use current occupational status: employed Travel in the last 8 weeks: None household members: spouse housing: house current occupational exposures/hazards: No caffeine: No PM Subjective & Objective Subjective Subjective:: Patient is a pleasant 44-year-old male who presents today for medication refill. Today he rates his pain a 3 out of 10. He denies any new injuries from our last visit. He is currently managed with Florence 5 mg 3 times a day, tizanidine 2 mg at bedtime and ropinirole 0.25 mg at bedtime. He denies any side effects from this medication. He was given a 90-day supply of the ropinirole and only needs the Florence refilled today. His Chaim has been reviewed and is appropriate. Review of Systems: General: No recent weight changes, no fever, no sleep disturbances Respiratory: No cough, no shortness of air, no recurring pulmonary infections Cardiovascular/peripheral vascular: No chest pain, no palpitations, no edema, no shortness of breath Gastrointestinal: No new onset incontinence, normal bowel movements reported Genitourinary: No new onset incontinence Musculoskeletal: Low back pain Psychiatric: [Normal mood/affect] Neurological: [Denies weakness in extremities], [denies balance issues] Pain at rest (0-10 scale): 3 Objective Objective:: Physical Exam: General: Alert and oriented x3, no acute distress, pleasant and cooperative Lungs: Respirations even and unlabored, symmetrical chest expansion Eyes: PERRL Musculoskeletal: Flexion and extension of lumbar [spine] somewhat guarded secondary to pain, [antalgic gait noted] Neurological: Speech clear, no gross sensory deficit Has patient had previous pain injection?: No Conservative treatment options previously tried: Prescription medications Length of treatment: Longer than 12 weeks Meds Home Medications and Allergies Home Medications ?Medication ?Instructions ?Recorded ?Confirmed ?Type losartan 25 mg tablet 25 mg PO DAILY 02/26/24 05/30/24 History pantoprazole 40 mg tablet,delayed 40 mg PO DAILY 02/26/24 05/30/24 History release paroxetine HCl 40 mg tablet 40 mg PO DAILY 02/26/24 05/30/24 History testosterone cypionate 200 mg/mL 300 mg IM WEEKLY 02/26/24 05/30/24 History intramuscular oil hydrocodone 5 mg-acetaminophen 325 1 tab PO TID #12 tabs 03/15/24 05/30/24 Rx mg tablet pregabalin 75 mg capsule 75 mg PO BID #60 caps 04/02/24 05/30/24 Rx tizanidine 2 mg tablet 2 mg PO HS #30 tabs 04/02/24 05/30/24 Rx hydrocodone 5 mg-acetaminophen 325 1 tab PO TID #90 tabs 05/30/24 Rx mg tablet ropinirole 0.25 mg tablet 0.25 mg PO HS #90 tabs 05/30/24 Rx New Prescriptions to Start Prescriptions: Allergies Allergy/AdvReac Type Severity Reaction Status Date / Time acetaminophen (From Percocet) Allergy Nightmare Verified 10/18/23 10:00 levofloxacin (From Levaquin) Allergy Vomiting Verified 10/18/23 10:00 oxycodone (From Percocet) Allergy Nightmare Verified 10/18/23 10:00 Assessment and Plan *Assessment and plan (1) Lumbar radiculopathy: Status: Acute Category: Medical Code(s): M54.16 - Radiculopathy, lumbar region (2) Degenerative disc disease, lumbar: Status: Acute Category: Medical Code(s): M51.36 - Other intervertebral disc degeneration, lumbar region Plan I will refill the patient's Florence and provide a 1 month supply of this medication. Patient will return to clinic in 1 month for reevaluation of symptoms and plan of care. Risks and benefits of the medication have been explained in detail to the patient. The patient does understand the risk of dependence on the medication when given over a prolonged period. Patient has been advised of risks of oversedation with the prescribed medication. Narcan has been offered to the paitent in the event of oversedation. Patient has been advised that a family member should also be educated regarding administration of Narcan. The patient has been advised to consult with his/her primary care provider and pharmacist regarding drug-drug interaction of medications currently prescribed. Patient has been prescribed a controlled substance after being counseled on the medication, medication safety, and possible side effects. Opioid contract was reviewed and signed by the patient, and that they have agreed to all of the terms set forth by our compliance program. Patient has been instructed to contact the clinic with any concerns before the next appointment. Dr. Tipton has reviewed this note and agrees with this plan of care. This note was dictated using voice recognition software and make contain errors or omissions.
== END 2024-06-28 23:59 | disposition home or self-care (01) ==
PROVIDERS: PCP Physician Assistant; Visit Provider Nurse Practitioner Family
DX: M51.16 Intervertebral disc disorders with radiculopathy, lumbar region (principal)
CPT/HCPCS: 99212; G0463

== ENCOUNTER 2024-07-26 15:08 | Outpatient (POV) | payer BC, SELFPAY ==
--- NOTE | 2024-07-26 15:14 | A.OFFVIS_ITS ---
[facility] Disclaimer: The information contained in this section may have been updated after the patient was seen, as this information can be updated by other users. Medical History Family history of coronary artery disease History of gout HTN (hypertension) Hypotestosteronemia in male Mediastinal lymphadenopathy SOB (shortness of breath) Tachycardia Surgical History History of cholecystectomy History of surgery on upper extremity History of tonsillectomy Family History Other No significant family history Social History Smoking Status: Never smoker alcohol intake: never substance use type: denies use current occupational status: employed Travel in the last 8 weeks: None household members: spouse housing: house current occupational exposures/hazards: No caffeine: No PM Subjective & Objective Subjective Subjective:: Patient is a pleasant 44-year-old male who presents today for medication refill. Today he rates his pain a 5 out of 10. He denies any new injuries. He is currently managed with Harbinger 5 mg 3 times a day, tizanidine 2 mg at bedtime and ropinirole 0.25 mg at bedtime. He denies any side effects from this medication. He was given a 90-day supply of the ropinirole and only needs the Harbinger refilled today. His Chaim has been reviewed and is appropriate. Review of Systems: General: No recent weight changes, no fever, no sleep disturbances Respiratory: No cough, no shortness of air, no recurring pulmonary infections Cardiovascular/peripheral vascular: No chest pain, no palpitations, no edema, no shortness of breath Gastrointestinal: No new onset incontinence, normal bowel movements reported Genitourinary: No new onset incontinence Musculoskeletal: Low back pain Psychiatric: [Normal mood/affect] Neurological: [Denies weakness in extremities], [denies balance issues] Pain at rest (0-10 scale): 5 Objective Objective:: Physical Exam: General: Alert and oriented x3, no acute distress, pleasant and cooperative Lungs: Respirations even and unlabored, symmetrical chest expansion Eyes: PERRL Musculoskeletal: Flexion and extension of lumbar [spine] somewhat guarded secondary to pain, [antalgic gait noted] Neurological: Speech clear, no gross sensory deficit Has patient had previous pain injection?: No Conservative treatment options previously tried: Home exercise plan Length of treatment: Longer than 12 weeks and Prescription medications Length of treatment: Longer than 12 weeks Meds Home Medications and Allergies Home Medications ?Medication ?Instructions ?Recorded ?Confirmed ?Type losartan 25 mg tablet 25 mg PO DAILY 02/26/24 07/26/24 History pantoprazole 40 mg tablet,delayed 40 mg PO DAILY 02/26/24 07/26/24 History release paroxetine HCl 40 mg tablet 40 mg PO DAILY 02/26/24 07/26/24 History testosterone cypionate 200 mg/mL 300 mg IM WEEKLY 02/26/24 07/26/24 History intramuscular oil hydrocodone 5 mg-acetaminophen 325 1 tab PO TID #12 tabs 03/15/24 07/26/24 Rx mg tablet pregabalin 75 mg capsule 75 mg PO BID #60 caps 04/02/24 07/26/24 Rx tizanidine 2 mg tablet 2 mg PO HS #30 tabs 04/02/24 07/26/24 Rx ropinirole 0.25 mg tablet 0.25 mg PO HS #90 tabs 05/30/24 07/26/24 Rx hydrocodone 5 mg-acetaminophen 325 1 tab PO TID #90 tabs 07/26/24 Rx mg tablet New Prescriptions to Start Prescriptions: hydrocodone-acetaminophen Nveaeh Villagomez Allergies Allergy/AdvReac Type Severity Reaction Status Date / Time acetaminophen (From Percocet) Allergy Nightmare Verified 10/18/23 10:00 levofloxacin (From Levaquin) Allergy Vomiting Verified 10/18/23 10:00 oxycodone (From Percocet) Allergy Nightmare Verified 10/18/23 10:00 Assessment and Plan *Assessment and plan (1) Lumbar radiculopathy: Status: Acute Category: Medical Code(s): M54.16 - Radiculopathy, lumbar region (2) Degenerative disc disease, lumbar: Status: Acute Category: Medical Code(s): M51.369 - Other intervertebral disc degeneration, lumbar region without mention of lumbar back pain or lower extremity pain Plan We will refill the patient's Harbinger and provide a 1 month supply of this medication. Patient will return to clinic in 1 month for reevaluation of symptoms and plan of care. Risks and benefits of the medication have been explained in detail to the patient. The patient does understand the risk of dependence on the medication when given over a prolonged period. Patient has been advised of risks of oversedation with the prescribed medication. Narcan has been offered to the paitent in the event of oversedation. Patient has been advised that a family member should also be educated regarding administration of Narcan. The patient has been advised to consult with his/her primary care provider and pharmacist regarding drug-drug interaction of medications currently prescribed. Patient has been prescribed a controlled substance after being counseled on the medication, medication safety, and possible side effects. Opioid contract was reviewed and signed by the patient, and that they have agreed to all of the terms set forth by our compliance program. A UDS is needed to verify patient's compliance with our office pain contract. This is ordered based off specific treatments related to chronic pain with the potential to abuse certain medications. Patient has been instructed to contact the clinic with any concerns before the next appointment. Dr. Tipton has reviewed this note and agrees with this plan of care. This note was dictated using voice recognition software and make contain errors or omissions.
[2024-07-26 16:14] VITALS: BP 123/91; PULSE 79; RESP 18; O2SAT 96; BMI 34.0
== END 2024-07-26 23:59 | disposition home or self-care (01) ==
PROVIDERS: PCP Physician Assistant; Visit Provider Nurse Practitioner Family
DX: M51.16 Intervertebral disc disorders with radiculopathy, lumbar region (principal)
CPT/HCPCS: 99212; G0463

== ENCOUNTER 2024-08-27 15:05 | Outpatient (POV) | payer BC, SELFPAY ==
[2024-08-27 15:19] VITALS: BP 127/79; PULSE 79; RESP 14; O2SAT 94; BMI 34.0
--- NOTE | 2024-08-27 15:19 | EXP.PAIN.SOA ---
[facility] Disclaimer: The information contained in this section may have been updated after the patient was seen, as this information can be updated by other users. Medical History Family history of coronary artery disease History of gout HTN (hypertension) Hypotestosteronemia in male Mediastinal lymphadenopathy SOB (shortness of breath) Tachycardia Surgical History History of cholecystectomy History of surgery on upper extremity History of tonsillectomy Family History Other No significant family history Social History Smoking Status: Never smoker alcohol intake: never substance use type: denies use current occupational status: other Travel in the last 8 weeks: None household members: spouse housing: house current occupational exposures/hazards: No caffeine: No PM Subjective & Objective Subjective Subjective:: Patient is a pleasant 44-year-old male who presents today for medication refill and follow-up. Today he rates his pain a 5 out of 10. Patient denies any new falls or injuries however does state that he has been having more of a stabbing sensation there in his low back. He does state that the pain is pretty much constant but does fluctuate in intensity. Patient states the only thing that he had been doing about a week ago when it started that he did have some frozen pipes and did have to do some activities where he was reaching excessively. Patient states he is unsure if this made a difference or not.Patient is currently managed with [place]wood 5 mg 3 times a day, tizanidine 2 mg at bedtime and ropinirole 0.25 mg at bedtime. He denies any side effects. His Chaim has been reviewed and is appropriate. Review of Systems: General: No recent weight changes, no fever, no sleep disturbances Respiratory: No cough, no shortness of air, no recurring pulmonary infections Cardiovascular/peripheral vascular: No chest pain, no palpitations, no edema, no shortness of breath Gastrointestinal: No new onset incontinence, normal bowel movements reported Genitourinary: No new onset incontinence Musculoskeletal: Low back pain Psychiatric: [Normal mood/affect] Neurological: [Denies weakness in extremities], [denies balance issues] Pain at rest (0-10 scale): 5 Objective Objective:: Physical Exam: General: Alert and oriented x3, no acute distress, pleasant and cooperative Lungs: Respirations even and unlabored, symmetrical chest expansion Eyes: PERRL Musculoskeletal: Flexion and extension of lumbar [spine] somewhat guarded secondary to pain, [antalgic gait noted] Neurological: Speech clear, no gross sensory deficit Has patient had previous pain injection?: No Conservative treatment options previously tried: Prescription medications Length of treatment: Longer than 12 weeks Meds Home Medications and Allergies Home Medications ?Medication ?Instructions ?Recorded ?Confirmed ?Type losartan 25 mg tablet 25 mg PO DAILY 02/26/24 08/27/24 History pantoprazole 40 mg tablet,delayed 40 mg PO DAILY 02/26/24 08/27/24 History release paroxetine HCl 40 mg tablet 40 mg PO DAILY 02/26/24 08/27/24 History testosterone cypionate 200 mg/mL 300 mg IM WEEKLY 02/26/24 08/27/24 History intramuscular oil hydrocodone 5 mg-acetaminophen 325 1 tab PO TID #12 tabs 03/15/24 08/27/24 Rx mg tablet pregabalin 75 mg capsule 75 mg PO BID #60 caps 04/02/24 08/27/24 Rx tizanidine 2 mg tablet 2 mg PO HS #30 tabs 04/02/24 08/27/24 Rx ropinirole 0.25 mg tablet 0.25 mg PO HS #90 tabs 05/30/24 08/27/24 Rx hydrocodone 5 mg-acetaminophen 325 1 tab PO TID #90 tabs 07/26/24 08/27/24 Rx mg tablet New Prescriptions to Start Prescriptions: Allergies Allergy/AdvReac Type Severity Reaction Status Date / Time acetaminophen (From Percocet) Allergy Nightmare Verified 10/18/23 10:00 levofloxacin (From Levaquin) Allergy Vomiting Verified 10/18/23 10:00 oxycodone (From Percocet) Allergy Nightmare Verified 10/18/23 10:00 Assessment and Plan *Assessment and plan (1) Lumbar radiculopathy: Status: Acute Category: Medical Code(s): M54.16 - Radiculopathy, lumbar region (2) Degenerative disc disease, lumbar: Status: Acute Category: Medical Code(s): M51.369 - Other intervertebral disc degeneration, lumbar region without mention of lumbar back pain or lower extremity pain Plan I will refill his Heilwood and make sure he does have refills on his ropinirole and tizanidine. I did discuss with the patient that he may have more so pulled muscle and that I will change his tizanidine to 3 times a day. Patient does not have any increased drowsiness with this medicine. Patient was counseled that he can use this as needed and that if the pain does not improve and continues to be more bothersome that we can look at doing injections in future. Patient agrees with this plan of care. Patient will return to clinic in 1 month for reevaluation of symptoms and plan of care. Risks and benefits of the medication have been explained in detail to the patient. The patient does understand the risk of dependence on the medication when given over a prolonged period. Patient has been advised of risks of oversedation with the prescribed medication. Narcan has been offered to the paitent in the event of oversedation. Patient has been advised that a family member should also be educated regarding administration of Narcan. The patient has been advised to consult with his/her primary care provider and pharmacist regarding drug-drug interaction of medications currently prescribed. Patient has been prescribed a controlled substance after being counseled on the medication, medication safety, and possible side effects. Opioid contract was reviewed and signed by the patient, and that they have agreed to all of the terms set forth by our compliance program. A UDS is needed to verify patient's compliance with our office pain contract. This is ordered based off specific treatments related to chronic pain with the potential to abuse certain medications. Patient has been instructed to contact the clinic with any concerns before the next appointment. Dr. Tipton has reviewed this note and agrees with this plan of care. This note was dictated using voice recognition software and make contain errors or omissions.
== END 2024-08-27 23:59 | disposition home or self-care (01) ==
PROVIDERS: PCP Physician Assistant; Visit Provider Nurse Practitioner Family
DX: M51.16 Intervertebral disc disorders with radiculopathy, lumbar region (principal)
CPT/HCPCS: 99212; G0463

== ENCOUNTER 2024-09-19 07:45 | Outpatient (CLI) | payer BC, SELFPAY ==
[2024-09-19] MEDS: ALBUTEROL 0.083% 2.5 MG/3 ML NEB IH (08:28)
== END 2024-09-19 23:59 | disposition home or self-care (01) ==
LOC: RT 07:45
PROVIDERS: PCP Physician Assistant; Visit Provider Internal Medicine Pulmonary Disease
DX: R06.09 Other forms of dyspnea (principal)
CPT/HCPCS: 94060; 94618; 94726; 94729; J7613

== ENCOUNTER 2024-09-24 15:02 | Outpatient (POV) | payer BC, SELFPAY ==
[2024-09-24 15:11] VITALS: BP 118/71; PULSE 75; RESP 16; O2SAT 97; BMI 33.2
--- NOTE | 2024-09-24 15:33 | A.OFFVIS_ITS ---
[facility] Disclaimer: The information contained in this section may have been updated after the patient was seen, as this information can be updated by other users. Medical History Hilar lymphadenopathy Dyspnea on exertion History of gout Mediastinal lymphadenopathy Hypotestosteronemia in male SOB (shortness of breath) Family history of coronary artery disease Tachycardia HTN (hypertension) Surgical History History of surgery on upper extremity History of tonsillectomy History of cholecystectomy Family History Other No significant family history Social History Smoking Status: Never smoker alcohol intake: never substance use type: denies use current occupational status: other Travel in the last 8 weeks: None household members: spouse housing: house current occupational exposures/hazards: No caffeine: No PM Subjective & Objective Subjective Subjective:: Patient is a pleasant 44-year-old male who presents today for medication refill. Today he rates his pain a 4 out of 10. He denies any new injury or trauma to his back. He does state that he is seeing orthopedics for trigger thumb primarily on the right side. He states that he did even have an injection that did help and that they have talked about doing surgery. Patient is currently managed from our office Defiance 5 mg 3 times a day, tizanidine 2 mg at bedtime and ropinirole 0.25 mg at bedtime. He denies any side effects from this medication. He is also prescribed compounded cream. His Chaim has been reviewed and is appropriate. Review of Systems: General: No recent weight changes, no fever, no sleep disturbances Respiratory: No cough, no shortness of air, no recurring pulmonary infections Cardiovascular/peripheral vascular: No chest pain, no palpitations, no edema, no shortness of breath Gastrointestinal: No new onset incontinence, normal bowel movements reported Genitourinary: No new onset incontinence Musculoskeletal: Low back pain Psychiatric: [Normal mood/affect] Neurological: [Denies weakness in extremities], [denies balance issues] Pain at rest (0-10 scale): 4 Objective Objective:: Physical Exam: General: Alert and oriented x3, no acute distress, pleasant and cooperative Lungs: Respirations even and unlabored, symmetrical chest expansion Eyes: PERRL Musculoskeletal: Flexion and extension of lumbar [spine] somewhat guarded secondary to pain, [antalgic gait noted] Neurological: Speech clear, no gross sensory deficit Has patient had previous pain injection?: No Conservative treatment options previously tried: Prescription medications Length of treatment: Longer than 12 weeks Meds Home Medications and Allergies Home Medications ?Medication ?Instructions ?Recorded ?Confirmed ?Type losartan 25 mg tablet 25 mg PO DAILY 02/26/24 09/24/24 History pantoprazole 40 mg tablet,delayed 40 mg PO DAILY 02/26/24 09/24/24 History release paroxetine HCl 40 mg tablet 40 mg PO DAILY 02/26/24 09/24/24 History testosterone cypionate 200 mg/mL 300 mg IM WEEKLY 02/26/24 09/24/24 History intramuscular oil pregabalin 75 mg capsule 75 mg PO BID #60 caps 04/02/24 09/24/24 Rx hydrocodone 5 mg-acetaminophen 325 1 tab PO TID #90 tabs 08/27/24 09/24/24 Rx mg tablet New Prescriptions to Start Prescriptions: Allergies Allergy/AdvReac Type Severity Reaction Status Date / Time acetaminophen (From Percocet) Allergy Nightmare Verified 09/19/24 10:24 levofloxacin (From Levaquin) Allergy Vomiting Verified 09/19/24 10:24 oxycodone (From Percocet) Allergy Nightmare Verified 09/19/24 10:24 Assessment and Plan *Assessment and plan (1) Lumbar radiculopathy: Status: Acute Category: Medical Code(s): M54.16 - Radiculopathy, lumbar region (2) Degenerative disc disease, lumbar: Status: Acute Category: Medical Code(s): M51.369 - Other intervertebral disc degeneration, lumbar region without mention of lumbar back pain or lower extremity pain Plan I will refill his Defiance and make sure he has refills on his ropinirole and tizanidine. I did discuss with him that he should try the compounded cream on his thumb and see if this provides additional improvement. Patient will return to clinic in 1 month. Risks and benefits of the medication have been explained in detail to the patient. The patient does understand the risk of dependence on the medication when given over a prolonged period. Patient has been advised of risks of oversedation with the prescribed medication. Narcan has been offered to the paitent in the event of over sedation. Patient has been advised that a family member should also be educated regarding administration of Narcan. The patient has been advised to consult with his/her primary care provider and pharmacist regarding drug-drug interaction of medications currently prescribed. Patient has been prescribed a controlled substance after being counseled on the medication, medication safety, and possible side effects. Opioid contract was reviewed and signed by the patient, and that they have agreed to all of the terms set forth by our compliance program. A UDS is needed to verify patient's compliance with our office pain contract. This is ordered based off specific treatments related to chronic pain with the potential to abuse certain medications. Patient has been instructed to contact the clinic with any concerns before the next appointment. Dr. Tipton has reviewed this note and agrees with this plan of care. This note was dictated using voice recognition software and make contain errors or omissions.
== END 2024-09-24 23:59 | disposition home or self-care (01) ==
PROVIDERS: PCP Physician Assistant; Visit Provider Nurse Practitioner Family
DX: M51.16 Intervertebral disc disorders with radiculopathy, lumbar region (principal)
CPT/HCPCS: 99212; G0463

== ENCOUNTER 2024-10-25 15:11 | Outpatient (POV) | payer BC, SELFPAY ==
--- NOTE | 2024-10-25 15:42 | A.OFFVIS_ITS ---
[facility] Disclaimer: The information contained in this section may have been updated after the patient was seen, as this information can be updated by other users. Medical History Hilar lymphadenopathy Dyspnea on exertion History of gout Mediastinal lymphadenopathy Hypotestosteronemia in male SOB (shortness of breath) Family history of coronary artery disease Tachycardia HTN (hypertension) Surgical History History of surgery on upper extremity History of tonsillectomy History of cholecystectomy Family History Other No significant family history Social History Smoking Status: Never smoker alcohol intake: never substance use type: denies use current occupational status: other Travel in the last 8 weeks: None household members: spouse housing: house current occupational exposures/hazards: No caffeine: No Have you lived/traveled outside US in past 30 days?: No Contact w/someone who lives/traveled outside US past 30 days?: No Exposure to someone with infectious disease in past 14 days?: No Do you have a fever (greater than 100.4 F or 38 C)?: No Have you tested positive for COVID-19: No Exposed to someone with COVID-19 in past 14 days?: No Do you have a sore throat?: No Do you have a cough?: No Do you have any weakness?: No Do you have any diarrhea?: No Are you experiencing any unusual bleeding?: No Do you have any muscle aches/pain?: No Do you have any abdominal pain?: No Are you experiencing loss of taste or smell?: No PM Subjective & Objective Subjective Subjective:: Patient is a pleasant 44-year-old male who presents today for medication refill and follow-up. Today he rates his pain a 3 out of 10. He denies any new injuries or falls. He states overall his back is doing well. Patient is however experiencing symptoms of a possible kidney stone. He does state that he is going to radiology when he leaves our office for imaging. Patient is currently managed with [place] 5 mg 3 times a day, tizanidine 2 mg at bedtime and ropinirole 0.25 mg at bedtime. He denies any side effects from this medication. His Chaim has been reviewed and is appropriate. Review of Systems: General: No recent weight changes, no fever, no sleep disturbances Respiratory: No cough, no shortness of air, no recurring pulmonary infections Cardiovascular/peripheral vascular: No chest pain, no palpitations, no edema, no shortness of breath Gastrointestinal: No new onset incontinence, normal bowel movements reported Genitourinary: No new onset incontinence Musculoskeletal: Kidney pains Psychiatric: [Normal mood/affect] Neurological: [Denies weakness in extremities], [denies balance issues] Pain at rest (0-10 scale): 3 Objective Objective:: Physical Exam: General: Alert and oriented x3, no acute distress, pleasant and cooperative Lungs: Respirations even and unlabored, symmetrical chest expansion Eyes: PERRL Musculoskeletal: Flexion and extension of lumbar [spine] within normal limit Neurological: Speech clear, no gross sensory deficit Has patient had previous pain injection?: No Conservative treatment options previously tried: Prescription medications Length of treatment: Longer than 12 weeks Meds Home Medications and Allergies Home Medications ?Medication ?Instructions ?Recorded ?Confirmed ?Type losartan 25 mg tablet 25 mg PO DAILY 02/26/24 09/24/24 History pantoprazole 40 mg tablet,delayed 40 mg PO DAILY 02/26/24 09/24/24 History release paroxetine HCl 40 mg tablet 40 mg PO DAILY 02/26/24 09/24/24 History testosterone cypionate 200 mg/mL 300 mg IM WEEKLY 02/26/24 09/24/24 History intramuscular oil pregabalin 75 mg capsule 75 mg PO BID #60 caps 04/02/24 09/24/24 Rx hydrocodone 5 mg-acetaminophen 325 1 tab PO TID #90 tabs 09/24/24 Rx mg tablet ropinirole 0.25 mg tablet 0.25 mg PO HS #30 tabs 09/24/24 Rx tizanidine 2 mg tablet 2 mg PO HS #30 tabs 09/24/24 Rx New Prescriptions to Start Prescriptions: Allergies Allergy/AdvReac Type Severity Reaction Status Date / Time acetaminophen (From Percocet) Allergy Nightmare Verified 09/19/24 10:24 levofloxacin (From Levaquin) Allergy Vomiting Verified 09/19/24 10:24 oxycodone (From Percocet) Allergy Nightmare Verified 09/19/24 10:24 Assessment and Plan *Assessment and plan (1) Lumbar radiculopathy: Status: Acute Category: Medical Code(s): M54.16 - Radiculopathy, lumbar region (2) Degenerative disc disease, lumbar: Status: Acute Category: Medical Code(s): M51.369 - Other intervertebral disc degeneration, lumbar region without mention of lumbar back pain or lower extremity pain Plan I will refill the patient's [place] and provide a 1 month supply of this medication. Patient will return to clinic in 1 month. Risks and benefits of the medication have been explained in detail to the patient. The patient does understand the risk of dependence on the medication when given over a prolonged period. Patient has been advised of risks of oversedation with the prescribed medication. Narcan has been offered to the paitent in the event of oversedation. Patient has been advised that a family member should also be educated regarding administration of Narcan. The patient has been advised to consult with his/her primary care provider and pharmacist regarding drug-drug interaction of medications currently prescribed. Patient has been prescribed a controlled substance after being counseled on the medication, medication safety, and possible side effects. Opioid contract was reviewed and signed by the patient, and that they have agreed to all of the terms set forth by our compliance program. A UDS is needed to verify patient's compliance with our office pain contract. This is ordered based off specific treatments related to chronic pain with the potential to abuse certain medications. Patient has been instructed to contact the clinic with any concerns before the next appointment. Dr. Tipton has reviewed this note and agrees with this plan of care. This note was dictated using voice recognition software and make contain errors or omissions.
[2024-10-25 16:26] VITALS: BP 118/91; PULSE 89; RESP 18; O2SAT 96; BMI 32.6
== END 2024-10-25 23:59 | disposition home or self-care (01) ==
PROVIDERS: PCP Physician Assistant; Visit Provider Nurse Practitioner Family
DX: M51.16 Intervertebral disc disorders with radiculopathy, lumbar region (principal)
CPT/HCPCS: 99212; G0463

== ENCOUNTER 2024-10-25 15:41 | Outpatient (CLI) | payer BC, SELFPAY ==
--- NOTE | 2024-10-25 | CT_ITS ---
FINAL REPORT TECHNIQUE: Noncontrast exam. Coronal and sagittal images were obtained and reviewed. This study was performed with techniques to keep radiation doses as low as reasonably achievable, (ALARA). Individualized dose reduction techniques using automated exposure control or adjustment of mA and/or kV according to the patient''s size were employed. CLINICAL HISTORY: STONE PROTOCOL COMPARISON: 09/12/2024 FINDINGS: Abdomen: Lung bases are clear. Liver, spleen, pancreas and adrenal glands have a normal CT appearance in their limited unenhanced state. The patient is status post cholecystectomy. The bowel is negative. The kidneys show nonobstructing right renal stones. No ureteral stones are present. No hydronephrosis. Hypodense lesion anterior right mid kidney measuring 12 mm is unchanged. Pelvis: The appendix is normal. No distal ureteral stones are seen. Bladder and prostate are unremarkable. No fluid collection or adenopathy is seen. IMPRESSION: No acute findings. Stable right nephrolithiasis. Reviewed, Interpreted and Dictated by Malka Aguirre MD Transcribed by Germaine Barton Authenticated and [facility]
== END 2024-10-25 23:59 | disposition home or self-care (01) ==
LOC: RAD 15:41
PROVIDERS: Visit Provider Physician Assistant
DX: R31.9 Hematuria, unspecified (principal); R10.9 Unspecified abdominal pain
CPT/HCPCS: 74176

== ENCOUNTER 2024-11-21 14:12 | Outpatient (POV) | payer BC, SELFPAY ==
[2024-11-21 14:18] VITALS: BP 123/85; PULSE 74; RESP 14; O2SAT 97; BMI 32.5
--- NOTE | 2024-11-21 14:30 | A.OFFVIS_ITS ---
[facility] Disclaimer: The information contained in this section may have been updated after the patient was seen, as this information can be updated by other users. Medical History Hilar lymphadenopathy Dyspnea on exertion History of gout Mediastinal lymphadenopathy Hypotestosteronemia in male SOB (shortness of breath) Family history of coronary artery disease Tachycardia HTN (hypertension) Surgical History History of surgery on upper extremity History of tonsillectomy History of cholecystectomy Family History Other No significant family history Social History Smoking Status: Never smoker alcohol intake: never substance use type: denies use current occupational status: other Travel in the last 8 weeks?: None household members: spouse housing: house current occupational exposures/hazards: No caffeine: No PM Subjective & Objective Subjective Subjective:: Patient is a pleasant 44-year-old male who presents today for medication refill and follow-up. Today he rates his pain a 4 out of 10. He has had trigger thumb release from our last visit. He states he is still recovering and does present today with a bandage on his right thumb. He states overall this procedure did go well. Patient is currently managed with [place] 5 mg 3 times a day, tizanidine 2 mg at bedtime and ropinirole 0.25 mg at bedtime. He denies any side effects. Patient does also make mention that he has had some recent lab work and his creatinine was a little out of range. His Chaim has been reviewed and is appropriate. Review of Systems: General: No recent weight changes, no fever, no sleep disturbances Respiratory: No cough, no shortness of air, no recurring pulmonary infections Cardiovascular/peripheral vascular: No chest pain, no palpitations, no edema, no shortness of breath Gastrointestinal: No new onset incontinence, normal bowel movements reported Genitourinary: No new onset incontinence Musculoskeletal: Low back pain Psychiatric: [Normal mood/affect] Neurological: [Denies weakness in extremities], [denies balance issues] Pain at rest (0-10 scale): 4 Objective Objective:: Physical Exam: General: Alert and oriented x3, no acute distress, pleasant and cooperative Lungs: Respirations even and unlabored, symmetrical chest expansion Eyes: PERRL Musculoskeletal: Flexion and extension of lumbar [spine] somewhat guarded secondary to pain, [antalgic gait noted] Neurological: Speech clear, no gross sensory deficit Has patient had previous pain injection?: No Conservative treatment options previously tried: Home exercise plan Length of treatment: Longer than 12 weeks Meds Home Medications and Allergies Home Medications ?Medication ?Instructions ?Recorded ?Confirmed ?Type losartan 25 mg tablet 25 mg PO DAILY 02/26/24 11/21/24 History pantoprazole 40 mg tablet,delayed 40 mg PO DAILY 02/26/24 11/21/24 History release paroxetine HCl 40 mg tablet 40 mg PO DAILY 02/26/24 11/21/24 History testosterone cypionate 200 mg/mL 300 mg IM WEEKLY 02/26/24 11/21/24 History intramuscular oil pregabalin 75 mg capsule 75 mg PO BID #60 caps 04/02/24 11/21/24 Rx ropinirole 0.25 mg tablet 0.25 mg PO HS #30 tabs 09/24/24 11/21/24 Rx tizanidine 2 mg tablet 2 mg PO HS #30 tabs 09/24/24 11/21/24 Rx hydrocodone 5 mg-acetaminophen 325 1 tab PO TID #90 tabs 10/25/24 11/21/24 Rx mg tablet New Prescriptions to Start Prescriptions: Allergies Allergy/AdvReac Type Severity Reaction Status Date / Time acetaminophen (From Percocet) Allergy Nightmare Verified 09/19/24 10:24 levofloxacin (From Levaquin) Allergy Vomiting Verified 09/19/24 10:24 oxycodone (From Percocet) Allergy Nightmare Verified 09/19/24 10:24 Assessment and Plan *Assessment and plan (1) Degenerative disc disease, lumbar: Status: Acute Category: Medical Code(s): M51.369 - Other intervertebral disc degeneration, lumbar region without mention of lumbar back pain or lower extremity pain (2) Lumbar radiculopathy: Status: Acute Category: Medical Code(s): M54.16 - Radiculopathy, lumbar region Plan I will refill the patient's [place] and make sure he does have refills on his tizanidine and ropinirole. I did discuss with the patient regarding his abnormal creatinine level however his GFR was 96. Patient does have a history of kidney infection and does state that he sees urology for his testosterone therapy. Patient does also make mention in the past year has had a cyst on one of his kidneys however they have monitored it over the years and it has not gotten any larger. I did discuss with the patient to make sure in have follow- up labs would be my recommendation. Patient was counseled that if it is abnormal at the next follow-up I would make a follow-up appointment with urology/nephrology. Patient acknowledges understanding. Patient will return to clinic in 1 month. Risks and benefits of the medication have been explained in detail to the patient. The patient does understand the risk of dependence on the medication when given over a prolonged period. Patient has been advised of risks of oversedation with the prescribed medicat ion. Narcan has been offered to the paitent in the event of oversedation. Patient has been advised that a family member should also be educated regarding administration of Narcan. The patient has been advised to consult with his/her primary care provider and pharmacist regarding drug-drug interaction of medications currently prescribed. Patient has been prescribed a controlled substance after being counseled on the medication, medication safety, and possible side effects. Opioid contract was reviewed and signed by the patient, and that they have agreed to all of the terms set forth by our compliance program. A UDS is needed to verify patient's compliance with our office pain contract. This is ordered based off specific treatments related to chronic pain with the potential to abuse certain medications. Patient has been instructed to contact the clinic with any concerns before the next appointment. Dr. Tipton has reviewed this note and agrees with this plan of care. This note was dictated using voice recognition software and make contain errors or omissions.
== END 2024-11-21 23:59 | disposition home or self-care (01) ==
PROVIDERS: PCP Physician Assistant; Visit Provider Nurse Practitioner Family
DX: M51.16 Intervertebral disc disorders with radiculopathy, lumbar region (principal); Z79.891 Long term (current) use of opiate analgesic
CPT/HCPCS: 99212; G0463

== ENCOUNTER 2024-12-24 15:00 | Outpatient (POV) | payer BC, SELFPAY ==
[2024-12-24 15:10] VITALS: BP 133/90; PULSE 89; RESP 18; O2SAT 96; BMI 32.5
--- NOTE | 2024-12-24 15:50 | EXP.PAIN.SOA ---
[facility] Disclaimer: The information contained in this section may have been updated after the patient was seen, as this information can be updated by other users. Medical History Hilar lymphadenopathy Dyspnea on exertion History of gout Mediastinal lymphadenopathy Hypotestosteronemia in male SOB (shortness of breath) Family history of coronary artery disease Tachycardia HTN (hypertension) Surgical History History of surgery on upper extremity History of tonsillectomy History of cholecystectomy Family History Other No significant family history Social History Smoking Status: Never smoker alcohol intake: never substance use type: denies use current occupational status: employed Travel in the last 8 weeks?: None household members: spouse housing: house current occupational exposures/hazards: No caffeine: No PM Subjective & Objective Subjective Subjective:: Patient is a pleasant 44-year-old male who presents today for medication refill and follow-up. Today he rates his pain at 3 out of 10. He denies any new trauma or injury. Patient states overall he is doing well with his current medications. He is currently managed with Cordova 5 mg 3 times a day, tizanidine 2 mg at bedtime and ropinirole 0.25 mg at bedtime. He denies any side effects or changes from his pharmacy. His Chaim has been reviewed and is appropriate. Review of Systems: General: No recent weight changes, no fever, no sleep disturbances Respiratory: No cough, no shortness of air, no recurring pulmonary infections Cardiovascular/peripheral vascular: No chest pain, no palpitations, no edema, no shortness of breath Gastrointestinal: No new onset incontinence, normal bowel movements reported Genitourinary: No new onset incontinence Musculoskeletal: Low back pain Psychiatric: [Normal mood/affect] Neurological: [Denies weakness in extremities], [denies balance issues] Pain at rest (0-10 scale): 3 Objective Objective:: Physical Exam: General: Alert and oriented x3, no acute distress, pleasant and cooperative Lungs: Respirations even and unlabored, symmetrical chest expansion Eyes: PERRL Musculoskeletal: Flexion and extension of lumbar [spine] somewhat guarded secondary to pain, [antalgic gait noted] Neurological: Speech clear, no gross sensory deficit Has patient had previous pain injection?: No Conservative treatment options previously tried: Prescription medications Length of treatment: Longer than 12 weeks Meds Home Medications and Allergies Home Medications ?Medication ?Instructions ?Recorded ?Confirmed ?Type losartan 25 mg tablet 25 mg PO DAILY 02/26/24 12/24/24 History pantoprazole 40 mg tablet,delayed 40 mg PO DAILY 02/26/24 12/24/24 History release paroxetine HCl 40 mg tablet 40 mg PO DAILY 02/26/24 12/24/24 History testosterone cypionate 200 mg/mL 300 mg IM WEEKLY 02/26/24 12/24/24 History intramuscular oil pregabalin 75 mg capsule 75 mg PO BID #60 caps 04/02/24 12/24/24 Rx ropinirole 0.25 mg tablet 0.25 mg PO HS #30 tabs 09/24/24 12/24/24 Rx tizanidine 2 mg tablet 2 mg PO HS #30 tabs 09/24/24 12/24/24 Rx hydrocodone 5 mg-acetaminophen 325 1 tab PO TID #90 tabs 11/21/24 12/24/24 Rx mg tablet New Prescriptions to Start Prescriptions: Allergies Allergy/AdvReac Type Severity Reaction Status Date / Time acetaminophen (From Percocet) Allergy Nightmare Verified 09/19/24 10:24 levofloxacin (From Levaquin) Allergy Vomiting Verified 09/19/24 10:24 oxycodone (From Percocet) Allergy Nightmare Verified 09/19/24 10:24 Assessment and Plan *Assessment and plan (1) Lumbar radiculopathy: Status: Acute Category: Medical Code(s): M54.16 - Radiculopathy, lumbar region (2) Degenerative disc disease, lumbar: Status: Acute Category: Medical Code(s): M51.369 - Other intervertebral disc degeneration, lumbar region without mention of lumbar back pain or lower extremity pain Plan I will refill the patient's Cordova make sure he does have refills on his ropinirole and tizanidine. Patient will return to clinic in 1 month. Risks and benefits of the medication have been explained in detail to the patient. The patient does understand the risk of dependence on the medication when given over a prolonged period. Patient has been advised of risks of oversedation with the prescribed medication. Narcan has been offered to the paitent in the event of oversedation. Patient has been advised that a family member should also be educated regarding administration of Narcan. The patient has been advised to consult with his/her primary care provider and pharmacist regarding drug-drug interaction of medications currently prescribed. Patient has been prescribed a controlled substance after being counseled on the medication, medication safety, and possible side effects. Opioid contract was reviewed and signed by the patient, and that they have agreed to all of the terms set forth by our compliance program. A UDS is needed to verify patient's compliance with our office pain contract. This is ordered based off specific treatments related to chronic pain with the potential to abuse certain medications. Patient has been instructed to contact the clinic with any concerns before the next appointment. Dr. Tipton has reviewed this note and agrees with this plan of care. This note was dictated using voice recognition software and make contain errors or omissions.
== END 2024-12-24 23:59 | disposition home or self-care (01) ==
PROVIDERS: PCP Physician Assistant; Visit Provider Nurse Practitioner Family
DX: M51.16 Intervertebral disc disorders with radiculopathy, lumbar region (principal); Z79.899 Other long term (current) drug therapy
CPT/HCPCS: 99212; G0463

== ENCOUNTER 2025-01-23 15:29 | Outpatient (POV) | payer BC, SELFPAY ==
--- OUTSIDE RECORDS SUMMARY | 2024-10-31 11:20 | XMS_ITS ---
Author Organization [facility] Address [address] [facility] [address] [place] [id number] Care Team Providers Care Commodity Analyst Name Role Phone John Byrne Primary Care Provider DanielCecy garzon Unavailable [phone] Allergies Allergen (clinical drug ingredient) Drug/Non Drug Allergy documented on EMR Reaction Allergy Type Onset Date Status Levaquin Unknown Drug Allergy Active acetaminophen / oxycodone Percocet Unknown Drug Allergy Active Results Component Value Reference Range Notes H-BMP Reviewed date:11/23/2024 01:27:13 PM Interpretation: Performing Lab: Notes/Report: CXR Reviewed date:11/20/2024 04:13:03 PM Interpretation:Negative Performing Lab: Notes/Report: Negative REASON FOR VISIT lab work/ pw for ortho Medications Medication SIG (Take, Route, Frequency, Duration) Notes Start Date End Date Status Pantoprazole Sodium 40 MG 1 tablet Orally Once a day; Duration: 90 days Active Losartan Potassium 25 MG TAKE 1 TABLET BY MOUTH DAILY; Duration: 90 Active PARoxetine HCl 40 MG TAKE 1 TABLET BY MOUTH EVERY DAY; Duration: 30 Active HYDROcodone-Acetami nophen three times a day *Please review and pick correct strength-formulat ion from Medispan options. If intended option is not shown, discontinue and re-order from Quick Search* Active Testosterone Enanthate 200 MG/ML intramuscularly every 2 weeks Active Vital Signs Blood pressure systolic 120 mm Hg 11/01/19 25 Blood pressure diastolic 88 mm Hg 025 Heart Rate 79 /min 10/31/2024 Height 69 in 10/31/2024 Weight 223.8 lbs 10/31/2024 BMI 33.05 kg/m2 10/31/2024 Encounters Encounter Location Date Provider Diagnosis [facility] [address] [facility] [id number] 10/31/2024 Cecy Weinstein Pre-op exam Z 01.818 Assessments Encounter Date Diagnosis (ICD Code) Assessment Notes Treatment Notes Treatment Clinical Notes Section Notes 10/31/2024 Pre-op exam (ICD-10 - Z01.818) Labs and imaging reviewed. Patient's U/A is the only abnormal finding. He will need this repeated with a culture. He is otherwise fine to undergo surgery. Plan Of Treatment Treatment Notes Assessment Notes Pre-op exam Labs and imaging rev iewed. Patient's U/A is the only abnormal finding. He will need this repeated with a culture. He is otherwise fine to undergo surgery. Pending Test Test Name Order Date EKG 10/31/2024 H-CBC 10/31/2024 H-UA 10/31/2024 H-Urine Drug Screen 10/31/2024 Next Appt Details Follow Up: prn, Reason: Progress Notes * Harris LAMDOB: [birth year] (44 yo M)Acc No.[id number]:10/31/2024 Progress Notes Patient: Harris OVIEDO Provider: TEGAN Paez :1980 A ge:44 Y S ex:Male Date:10/31/2024 Address:[address] [place] [address], [id number] Pcp:John Byrne Subjective: * Chief Complaints: * 1 . Lab work/ pw for ortho. 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 D ate of Procedure: p ending. N tanesha of Surgeon: Checo Wu. S leep Apnea history n o. C PAP use n o. F amily history of anesthesia intolerance n o. H as had anesthesia before y es, had NO problems with anesthesia in the past. I mplantable device n o.?Anticoagulant n o. A SA/Ibuprofen/NSAIDS n o. * ROS: D ERMATOLOGY: no R sofi. n o H polina. G ASTROENTEROLOGY: no N ausea. n o V omiting. n o D iarrhea.? U ROLOGY: no D ifficulty urinating. n o B lood in urine. * Medical History: E sophageal reflux, Hyperlipidemia, Irritable bowel syndrome, Depression, Allergic rhinitis, Testosterone deficiency, s/p Urology and Endocrinology evaluation, B 12 deficiency, Gall bladder disease, Vitamin D deficiency, Hyperuricemia, H Pylori, treated in ealr, Diverticulosis - dx. Jun 2018, Colon polyps, Sarcoidosis. * Surgical History: c holecystectomy , tonsillectomy 07/2012, Slap Repair on right shoulder 11/2012, Colonoscopy - Diverticulosis 07/19/2018. * Hospitalization/Major Diagno stic Procedure: H [facility] - chest pain 04/08/2018, [facility] ([place]) - Shingles 10/18/2018. * Family History: F ather: , heart disease, diabetes, Cancer, pancreas- from this. M other: alive, anemia, diabetes. S iblings: diabetes. 1 sister(s) . . * Social History: C URRENT TOBACCO USE S moking Status: Patient does NOT smoke, Type of smokeless tobacco used: dip. C affeine: yes, 3-4 pops a day. Alcohol: Yes, Type: , Frequency: ,Years: , Determination:, occasional, rare. * Medications: T aking HYDROcodone-Acetaminophen , Notes to Pharmacist: three times a day *Please review and pick correct strength-formulation from Medispan options. If intended option is not shown, discontinue and re-order from Quick Search*, Taking Testosterone Enanthate 200 MG/ML Solution intramuscularly every 2 weeks , Taking Pantoprazole Sodium 40 MG Tablet Delayed Release 1 tablet Orally Once a day , Taking Losartan Potassium 25 MG Tablet TAKE 1 TABLET BY MOUTH DAILY , Taking PARoxetine HCl 40 MG Tablet TAKE 1 TABLET BY MOUTH EVERY DAY , Medication List reviewed and reconciled with the patient * Allergies: P ercocet, Levaquin. Objective: * Vitals: W t:223.8, Temp:97.8, BP:120/88, HR:79, Nurse:CASANDRA, Ht: 69, BMI:33.05. * Examination: G eneral Examination: General Appearance: N AD. H EENT: u nremarkable.?Oral cavity: n o lesions, mucosa moist and WNL, no erythema. N chuy: s upple, no lymphadenopathy. C hest: n ormal shape and expansion. H eart: R SR. L ungs: c lear to auscultation. A bdomen: bowel sounds present, soft and nontender, no organomegaly or masses, no guarding or rigidity. N eurologic Exam: I ntact, gait normal. S kin: n ormal, no rash. P eripheral pulses: n ormal (2+) bilaterally. E xtremities: n o leg edema. Assessment: * Assessment: 1. P re-op exam - Z01.818 (Primary) Plan: * Treatment: ?Imaging: EKG ?Imaging: CXR (Performed Date - 10/31/2024)?Negative* Elyssa Ruth 11/20/2024 04: 12:53 PM > pre op lab Notes: Labs and imaging reviewed. Patient's U/A is the only abnormal finding. He will need this repeated with a culture. He is otherwise fine to undergo surgery.?? * Procedure Codes: 3 074F SYST BP LT 130 MM HG, 3079F DIAST BP 80-89 MM HG * Follow Up: p rn * Images: Billing Information: * Visit Code: 56708 Office Consultation Level 3. * Procedure Codes: 3074F SYST BP LT 130 MM HG. 3079F DIAST BP 80-89 MM HG. * Electronic signature of TEGAN Regan on 01/23/2025 at 03:33 PM EDT Sign off status: Pending * Provider: TEGAN Paez Date: 0 10/31/2024 Generated for Ramon canada/Jr/eTransmitting on: 0 01/23/2025 03:33 PM EDT History and Physical Notes * HPI (History of Present Illness) Category Sub-Category Detail Notes Category Not es Adult Pre-Op physical Procedure: trigger thumb relea se right hand Date of Procedure: pending Sleep Apnea history no CPAP use no Name of Surgeon: Dr David Wu Family history of anesthesia intolerance no Has had anesthesia before yes, had NO pr oblems with anesthesia in the past Implantable device no Anticoagulant no ASA/Ibuprofen/NSAIDS no Examination Category Sub-Category Detail Notes Category Not es General Examination HEENT: unremarkable Heart: RSR Lungs: clear to auscultatio n Abdomen: bowel sounds present , soft and nontender, no organomegaly or masses, no guarding or rigidity Extremities: no leg edema General Appearance: NAD Skin: normal, no rash Neurologic Exam: Intact, gait normal Neck: supple, no lymphaden opathy Oral cavity: no lesions, mucosa m oist and WNL, no erythema Peripheral pulses: normal (2+) bilatera lly Chest: normal shape and exp ansion
--- OUTSIDE RECORDS SUMMARY | 2024-11-28 10:00 | XMS_ITS ---
Author Organization [facility] Address [address] [facility] [address] [facility] [address] [place], [place] [id number] Care Team Providers Care Head Start Assistant Teacher Name Role Phone John Byrne Primary Care Provider [phone] Cecy Auguste Unavailable [phone] REASON FOR VISIT blood test results Encounters Encounter Location Date Provider Diagnosis [facility] [address] [facility] [address] [facility] [id number] 11/28/2024 Cecy Weinstein Plan Of Treatment No Information Progress Notes * Harris LAMDOB: [birth year] (44 yo M)Acc No.[id number]:11/28/2024 Progress Notes Patient: Harris OVIEDO Provider: TEGAN Paez :1980 A ge:44 Y S ex:Male Date:11/28/2024 Address:[address] [place], [place] [id number] Pcp:John Byrne Subjective: * Chief Complaints: * 1 . Blood test results. * Medical History: Objective: * Vitals: Assessment: Plan: * Treatment: * Images: Billing Information: * Visit Code: * Procedure Codes: * Electronic signature of TEGAN Regan on 01/23/2025 at 03:33 PM EDT Sign off status: Pending * Provider: TEGAN Paze Date: 11/28/2024 Generated for Printi ng/Faxing/eTransmitting on: 01/23/2025 03:33 PM EDT
--- OUTSIDE RECORDS SUMMARY | 2025-01-23 15:33 | XMS_ITS | Data Portability ---
Author Organization [facility] ADMIN Address [address] [place] [address] Care Team Providers Care Environmental Sampler Name Role Phone RAY GOYAL Primary Care Provider Assessment Encounter Date Assessment Date Assessment LastModified by Organization Details LastModified Time 11/21/2023 11/21/2023 43-year-old male with a history of chronic low back pain and bilateral lower extremity radiating pain presents to the clinic for management of chronic low back pain. Patient reports that he is currently with a pain physician Dr. Tipton but would like to pain change the pain management physician due to difficulty seeing the provider but also wanted to have options other than oral pain medications. Four history and examination it appears the patient's pain is secondary to lumbar degenerative disc disease. After discussing in detail with the patient's plan of care and is current treatment options it appears the patient is undergoing the right treatment with Dr. Tipton and Dr. Enamorado. We initially came to agreement with the patient will continue to work with Dr. Tipton and Dr. Enamorado regarding a scale. - follow-up p.r.n. _ __ __ __ __ __ __ __ __ __ __ __ __ __ __ __ __ __ __ __ __ __ __ __ __ __ __ __ _ I have discussed in great detail our potential treatment options which would include a rehabilitative approach to care. This program would include medication management, Physical Therapy, consideration for interventional procedures as appropriate, and lifestyle modification (diet, weight loss, exercise, smoking/tobacco cessation, holistic approach including meditation and yoga). The patient understands and agrees prior to proceeding with this plan. _ __ __ __ __ __ __ __ __ __ __ __ __ __ __ __ __ __ __ __ __ __ __ __ __ __ __ __ _ RECORDS REVIEW: As per clinic policy, we will have the patient sign a release to obtain previous imaging and clinical notes. _ __ __ __ __ __ __ __ __ __ __ __ __ __ __ __ __ __ __ __ __ __ __ __ __ __ __ __ _ PSYCH: Pain affecting Neuro-psych behavior was discussed. Discussed about pain psychological counseling as a part of the multimodal approach to pain treatment. _ __ __ __ __ __ __ __ __ __ __ __ __ __ __ __ __ __ __ __ __ __ __ __ __ __ __ __ _ REHABILITATION: Discussed with the patient the importance of diet, daily physical activity and PT. Discussed with the patient the need to be scheduled for physical therapy since physical therapy will prolong the benefits of the procedure and interventions. _ __ __ __ __ __ __ __ __ __ __ __ __ __ __ __ __ __ __ __ __ __ __ __ __ __ __ __ _ RYAN: [id number] I have reviewed patient's RYAN report prior to prescribing Schedule II, III, and IV medications that require review by law. [email or web address] Not available 12/09/2023 10:35:43 Plan of Treatment Reminders Order Date Submit Date Provider Last Modified By Organization Details Last Modified Time Details Appointments None recorded. Lab None recorded. Referral None recorded. Procedures None recorded. Surgeries None recorded. Imaging None recorded. Medication Orders pantoprazol e 40 mg tablet,jewels yed release 2021 022 [id number], [address] , [place], [place], [phone], 10:07:01 Patient TargetsNo targets recorded. Patient InstructionsNo instructions recorded. Reason for Referral None Reported. Results Created Date Observation Date Name Description Value Unit Range Abnormal Flag Note LastModifiedBy Organization Detail LastModifiedTime Result Notes None recorded. Problems Name Problem SNOMED Code Status Onset Date Resolution Date Notes Provider Name and Address Organization Details Recorded Time History of Helicobact er pylori infection 0941664098562 9108 Active 2021 Hortensia Leal null, [place] - [facility] [place] & [place] 2 09:43:48 Gastroesop hageal reflux disease 079031088 Active 2021 H[place]ia Leal [place], [place] [facility] [place] & [place] 2 09:43:54 Diverticul osis of colon 123157861 Active 2021 Hort[place]ia[place]ia Leal null, [place] [facility] [place] & [place] 2 09:50:18 Heartburn 16018008 Active 2022 Bright Lopez PA-C [address] [facility], [place], [address] , [place] [facility] [place] & [place] 3 11:59:22 Hypertensi ve disorder 91927660 Active 2023 Alabama Beardswort h null, [place] [facility] [place] & [place] 4 09:53:34 Anxiety 02004471 Active 2023 [place] Beardswort h [place], [place] [facility] [place] 4 09:53:41 Procedure on gallbladde r Active 2023 [place] Beardswort h [place], [place] [facility] [place] 4 09:53:57 Arthritis 7108233 Active 2023 [place] Beardswort h null, [place] [facility] [place] & [place] 4 09:54:01 Problem Notes None recorded. Procedures Surgical History Date Name Laterality Status Provider Name and Address Organization Details Recorded Time 07/20/20 22 Cerumen removal with microscope completed Barrett Quiles [place] [facility] [place] 07/20/2022 14:55:38 cholecystectomy completed Hortensia Leal [place] [facility] [place] & [place] 06/25/2022 09:48:54 tonsillectomy completed Hortensia [facility]IN[facility]NA [facility] & [place] 06/25/2022 09:49:14 repair of shoulder completed Hortensia QUINTANA [facility] & [place] 06/25/2022 09:49:31 colonoscopy completed Hortensia QUINTANA [facility] & [place] 06/25/2022 09:49:43 Imaging Results None recorded. Procedure Notes None recorded. Medical Equipment None Reported. Allergies Allergen ID Allergen Name Allergen Category Reaction Reaction Severity Criticality Documentation Date Start Date Code Code System Note Provider Name and Address Organization Details Recorded Time 15176 Levaquin medicatio n Not available Not available Not available 06/25/2022 70345 2 RxNorm [facility] & [place] 09:37:21 67736 acetamino phen / oxycodone medicatio n Not available Not available Not available 06/25/2022 70166 3 RxNorm [facility] & [place] 09:37:27 Medications Name Sig Start Date Stop Date Status Note LastModified by Organization Details LastModified Time methocarbam ol 500 mg tablet TAKE 1 TABLET BY MOUTH TWICE DAILY 11/20 completed Not Available Not Available Not Available tizanidine 2 mg tablet TAKE 1 TABLET BY MOUTH EVERY NIGHT AT BEDTIME active Not Available Not Available No t Available azithromyci n 250 mg tablet TAKE 2 TABLETS BY MOUTH ON DAY 1, THEN TAKE 1 TABLET DAILY ON DAYS 2-5 -- FINISH ALL MEDICINE -- 06/25 completed Not Available Not Available Not Available tizanidine 4 mg tablet TAKE 1/2 TO 1 TABLET BY MOUTH THREE TIMES DAILY NEEDED 11/20 completed Not Available Not Available Not Available valacyclovi r 1 gram tablet TAKE 1 TABLET BY MOUTH THREE TIMES DAILY FOR 1 WEEK 11/20 completed Not Available Not Available Not Available hydrocodone 5 mg-acetamin ophen 325 mg tablet TAKE 1 TABLET BY MOUTH THREE TIMES DAILY active Not Available Not Available No t Available prednisone 20 mg tablet TAKE 1 TABLET BY MOUTH TWICE DAILY 11/20 completed Not Available Not Available Not Available clindamycin HCl 150 mg capsule TAKE ONE CAPSULE BY MOUTH FOUR TIMES DAILY FOR 7 DAYS -- FINISH ALL MEDICINE -- 06/25 completed Not Available Not Available Not Available hydrocodone 10 mg-acetamin ophen 325 mg tablet TAKE 1 TABLET BY MOUTH EVERY 4 HOURS active Not Available Not Available No t Available tramadol 50 mg tablet TAKE 1 TABLET BY MOUTH EVERY 4 HOURS NEEDED FOR PAIN active Not Available Not Available No t Available ofloxacin 0.3 % ear drops INSTILL 4-5 DROPS TO AFFECTED EAR TWICE DAILY 11/20 completed Not Available Not Available Not Available ropinirole 0.25 mg tablet TAKE 1 TABLET BY MOUTH 1 TO 3 HOURS BEFORE BEDTIME active Not Available Not Available No t Available pantoprazol e 40 mg tablet,jewels yed release TAKE 1 TABLET BY MOUTH DAILY active Not Available Not Available No t Available oseltamivir 75 mg capsule TAKE 1 CAPSULE BY MOUTH DAILY FOR 10 DAYS 11/20 completed Not Available Not Available Not Available neomycin-po lymyxin-dex ameth 3.5 mg/mL-10,00 0 unit/mL-0.1 % eye drops SHAKE LIQUID AND INSTILL 1 DROP IN BOTH EYES FOUR TIMES DAILY FOR 4 DAYS 11/20 completed Not Available Not Available Not Available losartan 25 mg tablet TAKE 1 TABLET BY MOUTH DAILY active Not Available Not Available No t Available gabapentin 300 mg capsule TAKE 1 CAPSULE BY MOUTH EVERY NIGHT AT BEDTIME FOR PAIN 11/20 completed Not Available Not Available Not Available omeprazole 20 mg capsule,del ayed release TAKE 1 CAPSULE BY MOUTH EVERY DAY 30 MINUTES BEFORE BREAKFAST 11/20 completed Not Available Not Available Not Available diclofenac sodium 75 mg tablet,jewels yed release TAKE 1 TABLET BY MOUTH TWICE DAILY TAKE WITH FOOD 06/25 completed Not Available Not Available Not Available testosteron e cypionate 200 mg/mL intramuscul ar oil INJECT 1.5ML INTRAMUSC ULARLY EVERY OTHER WEEK DIRECTED active Not Available Not Available No t Available methylpredn isolone 4 mg tablets in a dose pack FOLLOW PACKAGE DIRECTION S active Not Available Not Available No t Available paroxetine 40 mg tablet TAKE 1 TABLET BY MOUTH EVERY DAY active Not Available Not Available No t Available colchicine 0.6 mg tablet 11/20 completed Not Available Not Available Not Available BD Luer-Renato Syringe 3 mL 22 gauge x 1 USE TO INJECT TESTOSTER ONE EVERY 2 WEEKS DIRECTED 11/20 completed Not Available Not Available Not Available testosteron e enanthate 200 mg/mL intramuscul ar syringe Inject by intramusc ular route. 11/20 completed Not Available Not Available Not Available pregabalin 75 mg capsule TAKE 1 CAPSULE BY MOUTH TWICE DAILY active Not Available Not Available No t Available Plenvu 140 gram-9 gram-5.2 gram powder packs DIRECTED BY MOUTH 11/20 completed Not Available Not Available Not Available Vitals Date Recorded Body weight Body temperature Oxygen saturation Oxygen saturation in Arterial blood by Pulse oximetry Heart rate Systolic blood pressure Diastolic blood pressure Provider Name and Address Organization Details Last Updated DateTime 4 758064. 22 g 97.8 [degF] 95 % 95 % 85 /min 122 mm[Hg] 89 mm[Hg] Dana Helmobdulia [facility] & [place] 4 09:51:19 Date Recorded Body weight Provider Name an d Address Organization Details Last Updated DateTime 06/25/2022 640299.8 g Hortensia Leal [facility] & [place] 06/25/2022 09:44:43 Date Recorded Body height Body mass index (BMI) Body weight Body temperature Heart rate Systolic blood pressure Diastolic blood pressure Provider Name and Address Organization Details Last Updated DateTime 2 175.26 cm 34.1 kg/m2 885364. 84 g 96.9 [degF] 92 /min 135 mm[Hg] 92 mm[Hg] Mishel Celestinence [facility] & [place] 2 14:48:32 Social History None recorded. Functional Status Question Answer Note LastModified by Organizat ion Details LastModified Time Do you or have you ever used any other forms of tobacco or nicotine? Yes Information not available 11/21/2023 Do you or have you ever used smokeless tobacco? Former smokeless tobacco user Information not available 11/21/2023 Do you or have you ever used e-cigarettes or vape? Never used electronic cigarettes Information not available 11/21/2023 Mental Status None recorded. Family History Relationship Description Onset Age of this Age Resolved Age Notes LastModified by Organization Details LastModified Time Father Heart disease [email or web address] Not available 08/2021 09:46:43 Father Diabetes mellitus [email or web address] Not available 08/2021 09:47:03 Father Pancreatobla stoma [email or web address] Not available 08/2021 09:47:28 Mother Anemia [email or web address] Not availab le 06/25/2022 09:47:46 Mother Diabetes mellitus [email or web address] Not available 08/2021 09:48:14 Medical History Condition Response Anxiety Disorder Y Anesthesia Complications Y Acid Reflux (GERD) Y Arthritis Y Hypertension Y Immunizations Vaccine Type Date Status Note Provider Nam e and Address Organization Details Recorded Time COVID-19, mRNA, LNP-S, PF, 100 mcg/0.5mL dose or 50 mcg/0.25mL dose 1 completed Mishel Nona null, [place] [facility] [place] & [place] 07/20/2022 09:37:36 COVID-19, mRNA, LNP-S, PF, 100 mcg/0.5mL dose or 50 mcg/0.25mL dose 1 completed Mishel Nona [place], [place] [facility] [place] & [place] 07/20/2022 09:37:36 Influenza, split virus, quadrivalent, PF 2 completed Mishel N[place], [place] [facility] [place] 07/20/2022 09:37:36 Influenza, split virus, trivalent, preservative 1 completed Mishel N[place] [facility] [place] 07/20/2022 09:37:36 Influenza, split virus, quadrivalent, PF 0 completed Mishel N[place] [facility] [place] 07/20/2022 09:37:36 Influenza, split virus, trivalent, PF 7 completed Mishel Nona [place], [place] [facility] [place] 07/20/2022 09:37:36 Past Encounters Encounter ID Performer Location Encounter Start Date Encounter Closed Date Diagnosis/Indication Diagnosis SNOMED-CT Code Diagnosis ICD10 Code Diagnosis Note [id number] Rosa Goodwin NP [facility] [address] [facility] [address] [facility] [address] 06/25/2022 09:29:53 06/25/2022 09:48:55 Heartburn 06109001 R12 - increase pantoprazo le to twice daily- EGD scheduled- stay upright 30-60 minutes after eating- avoid alcohol, NSAIDs and trigger foods [id number] Katherine Tiwari MD [facility] [address] [facility], [place] [address] 07/20/2022 14:35:21 07/20/2022 15:01:14 Impacted cerumen in right ear 3064286740 757195 H61.21 Cerumen removed bilaterall y today in the office. Encouraged patient to use a drop of baby oil in each ear 2-3 times a week to keep cerumen soft. Will see the patient back as needed. [id number] Nelson Salgado MD [facility] [address] [place] [phone] 11/21/2023 09:02:00 11/21/2023 11:03:24 Degeneration of lumbar intervertebral disc 29234116 M51.36 Lumbar spondylosis 61763 0009 M47.816 Myofascial pain 78636097 9 M79.10 Radicular pain 59894809 M54.10 Health Concerns Section Related Observation LastModified by Organization Detai ls LastModified Time None Recorded Concern Status LastModified by Organization Details LastModified Time None Recorded Advance Directives Directive None Recorded Payers Insurance Date Sequence Insurance Name Policy Number Policy Brody Covered Member ID Brody Member ID Guarantor Name 11/18/2023 1 [employer] (POS) Harris Avendaño [id number] Harris Avendaño 11/30/2024 1 [place] [id number] Harris Avendaño [id number] Harris Avendaño Notes Date Note Type Note Provider Name and Address Organization Details Recorded Time 2 text/html Patient is a 42-year-old male referred to our office by Sharda Santiago APRN related to heartburn. Patient is currently taking 40 mg of pantoprazole once daily and feels he has noticed a partial improvement. Denies history of food actually getting stuck in his esophagus but often feels a sensation that it may be getting tighter denies nausea, vomiting or hematemesis. Denies diarrhea, constipation or hematochezia. Rosa Goodwin NP [address], [place], [address], [facility] 06/25/2022 10:07:04 2 text/html 42yo male in the office to have his ears cleaned. He was seen at his pcp who tried to clean them in the office but was unable to. He denies any other trouble with his ears. Katherine Tiwari MD [address], [place], [address], [facility] 07/20/2022 15:34:14 4 text/html 43-year-old male with a history of chronic low back pain and bilateral lower extremity radiating pain presents to the clinic for management of chronic low back pain. Patient reports that he is currently with a pain physician Dr. Tipton but would like to pain change the pain management physician due to difficulty seeing the provider but also wanted to have options other than oral pain medications. Patient reports that his pain is kind of continuous in nature and exacerbated with activity, dull aching low back pain with shooting tingling and numbness down the bilateral lower extremity at times. Reports that his pain is a 5/10 and he also feels like his pain is in the hip.Patient also reports that he had an appointment with the Neurosurgery and they are doing some tests and scans figure out for the management of care. Associated symptoms: Denies saddle anaesthesia, denies acute bowel/bladder changes, denies acute power loss. ADLs: The patient's pain interferes with daily chores, exercise, sleep, relationships, and walking. Current Pain Medications: Hydrocodone/APAP 5/325 q.8 hours p.r.n. and pregabalin 75 mg b.i.d.Prior Pain Medications: Same as aboveNSAIDS/OTC: [id number] medicationsNon-interventio nal Tx: Chiropractor 6 visitsPhysical Therapy: 3-4 months of physical therapy and 3-4 months of home exercise therapyInterventional Tx: Several epidurals and nerve ablationsSurgery: NoneImaging/Studies: Thoracic and lumbar x-rays taken at [facility] on 11/02/2023. reports indicate mild degenerative change with osteophytes in the thoracic spine and no malalignment as well as mild degenerative changes in his lumbar spine with well-preserved disc spaces and no malalignment. Nelson Salgado MD [address] , [place], [address], [facility] - [place] & [place] 12/09/2023 10:36:33
--- OUTSIDE RECORDS SUMMARY | 2025-01-23 15:34 | XMS_ITS | Patient Health Record ---
Author Organization 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 Name Role Phone John Byrne Primary Care Provider DanielCecy garzon Unavailable [phone] Allergies Allergen (clinical drug ingredient) Drug/Non Drug Allergy documented on EMR Reaction Allergy Type Onset Date Status Levaquin Unknown Drug Allergy Active acetaminophen / oxycodone Percocet Unknown Drug Allergy Active Results Component Value Reference Range Notes H-BMP Reviewed date:11/23/2024 01:27:13 PM Interpretation: Performing Lab: Notes/Report: CXR Reviewed date:11/20/2024 04:13:03 PM Interpretation:Negative Performing Lab: Notes/Report: Negative CT Scan : Abd & Pelvis stone protocol (without contrast) Reviewed date:11/15/2024 03:50:18 PM Interpretation: Performing Lab: Notes/Report: P-Culture, Urine Reviewed date:10/30/2024 04:00:08 PM Interpretation:No Growth Performing Lab: Notes/Report: Test performed by [employer], [employer] [facility] , [address], [place] [address] Pete Veloz MD, Screenplay Writer CLIA: [id number] Specimen Source Urine - Void Culture, Urine See Below Final Report : No Significant Growth P-Comprehensive Metabolic Pa shavonne (CMP) Reviewed date:11/15/2024 02:04:57 PM Interpretation:see 10/31/24 bmp Performing Lab: Notes/Report: see 10/31/24 bmp CBC Venipuncture (in house) Reviewed date:10/25/2024 03:15:36 PM Interpretation: Performing Lab: Notes/Report: wbc 6.1 3.5 - 10 lymph 25.2% 15 - 50 mid 6.8% 2 - 15 gran 6.8% 35 - 80 rbc 5.14 3.5 - 5.5 hgb 17.2 11.5 - 16.5 hct 49.0 35 - 55 mcv 95.2 75 - 100 mch 33.4 25 - 35 mchc 35.1 31 - 38 platlet 233 100 - 400 Urinalysis - Inhouse Reviewed date:10/25/2024 03:15:36 PM Interpretation: Performing Lab: Notes/Report: Color/Clarity yellow/clear Leuk Neg Nitrite Neg Urobili 3.2 Protein Neg pH 7.0 Blood Trace-Intact Sp. Gr. 1.010 Ketone Neg Bili Neg Gluc Neg Glycohemoglobin A1c (in hous e) Reviewed date:06/29/2024 01:02:39 PM Interpretation:5.2% Performing Lab: Notes/Report: 5.2% glycohemoglobin 5.2% 5 - 6.5 % Glucose (In-House) Reviewed date:06/29/2024 01:02:32 PM Interpretation:102 Performing Lab: Notes/Report: 102 blood glucose 102 74 - 106 mg/dL Ankle-brachial index Reviewed date:06/20/2024 08:46:24 AM Interpretation: Performing Lab: Notes/Report: X ray : Tib-fib,right Reviewed date:06/20/2024 08:46:39 AM Interpretation: Performing Lab: Notes/Report: Medications Medication SIG (Take, Route, Frequency, Duration) Notes Start Date End Date Status Losartan Potassium 25 MG TAKE 1 TABLET BY MOUTH DAILY; Duration: 90 Active Pantoprazole Sodium 40 MG TAKE 1 TABLET BY MOUTH DAILY; Duration: 90 Active PARoxetine HCl 40 MG 1 tablet in the morning Orally Once a day; Duration: 30 days Active HYDROcodone-Acetami nophen three times a day *Please review and pick correct strength-formulat ion from [employer] options. If intended option is not shown, discontinue and re-order from Quick Search* Active Testosterone Enanthate 200 MG/ML intramuscularly every 2 weeks Active Immunizations Vaccine Route Administration Date Status Comme nts COVID 19 Moderna Unknown 10/17/2020 Administered COVID 19 Moderna Unknown 11/14/2020 Administered Fluzone PF Quad (6-35 months) Unknown 05/13/2020 Administered Fluzone PF Quad (6-35 months) Unknown 05/20/2022 Administered ppd ID Intradermal 06/05/2013 Administered xFlu shot- 6months-36 months of eeo-LXFX-WSCT-trivalent Unknown 05/21/2017 Administered xFluzone (6mos and older)-trivalent Unknown 05/21/2021 Administered Problems Problem Type SNOMED Code ICD Code Onset Dates Problem Status W/U Status Risk Notes Problem Sinusitis (08761621) Sinusitis (J32.9) Active c onfirmed Problem Vitamin D deficiency (98952053) Vitamin D deficiency (E55.9) Active confirmed Problem Vitamin B12 deficiency (496836149) Vitamin B12 deficiency (E53.8) Active confirmed Problem Essential hypertension (90063677) Essential hypertension (I10) Active confirmed Problem Otitis externa (7195013) Otitis externa (H60.90) Active confirmed Problem Hyperuricemia (23476343) Hyperuricemia (E79.0) Active confirmed Problem Hyperbilirubinemia (57962308) Hyperbilirubinemia (E80.6) Active confirmed Problem Gastroesophageal reflux disease (863028996) Gastroesophageal reflux disease, esophagitis presence not specified (K21.9) Active confirmed Problem Polyarthritis (871760805) Polyarthritis (M13.0) Active confirmed Problem Androgen deficiency (34264670) Testosterone deficiency (E29.1) Active confirmed Problem Paresthesia of both hands (550946592) Paresthesia of both hands (R20.2) Active confirmed Problem Gout (88041502) Acute gout invol ving toe of left foot, unspecified cause (M10.9) Active confirmed Problem Increased hemoglobin (582452185) Elevated hemoglobin (D58.2) Active confirmed Problem Partial thickness rotator cuff tear (278314359) Partial tear of right rotator cuff (M75.111) Active confirmed Problem Lumbar radiculopathy (354371459) Lumbar back pain with radiculopathy affecting lower extremity (M54.16) Active confirmed Problem Gastroesophageal reflux disease (684826333) Gastroesophageal reflux disease, unspecified whether esophagitis present (K21.9) Active confirmed Problem Lumbosacral spondylosis without myelopathy (32818879) Facet hypertrophy of lumbosacral region (M47.817) Active confirmed Vital Signs Heart Rate 79 /min 10/31/2024 Blood pressure diastolic 88 mm Hg 10/31/2024 Height 69 in 10/31/2024 Blood pressure systolic 120 mm Hg 10/31/2024 Weight 223.8 lbs 10/31/2024 BMI 33.05 kg/m2 10/31/2024 Encounters Encounter Location Date Provider Diagnosis [facility] [address] [facility] [place] [id number] 05/16/2024 Cecy Crowryann Left hand tendonitis M77.8 and Lumbar back pain with radiculopathy affecting lower extremity M54.16 [facility] [address] [facility] [place] [id number] 06/08/2024 Cecy Crowryann Pain of right lower extremity M79.604 [facility] [address] [facility] [place] [id number] 06/28/2024 Cecy Corinna Elevated glucose R73 .09 and Pain of right lower extremity M79.604 [facility] [address] [facility] [place] [id number] 08/30/2024 Cecy Corinna De Quervain's tenosynovitis M65.4 and Trigger thumb, right thumb M65.311 [facility] [address] [place] [place] [id number] 10/25/2024 Cecy Coirnna Left lateral abdomin al pain R10.9 and Hematuria, unspecified type R31.9 [facility] [address] [place] [place] [id number] 10/31/2024 Cecy Corinna Pre-op exam Z01.818 [facility] [address] [facility] [place] [id number] 06/20/2024 Cecy Danieldy [facility] [address] [facility] [place] [place] [id number] 06/27/2024 John [place] Gastroesophageal ref lux disease, unspecified whether esophagitis present K21.9 [facility] [address] [facility] [place] [id number] 06/29/2024 Cecy [facility] [address] [place], [facility] [id number] 09/21/2024 Cecy [facility] [address] [place], [facility] [id number] 11/02/2024 John Byrne [facility] [address] [place] [id number] 11/02/2024 Cecy Weinstein [facility] [address] [place], [place] [id number] 11/23/2024 Cecy Weinstein Assessments Encounter Date Diagnosis (ICD Code) Assessment Notes Treatment Notes Treatment Clinical Notes Section Notes 05/16/2024 Lumbar back pain with radiculopathy affecting lower extremity (ICD-10 - M54.16) 05/16/2024 Left hand tendonitis (ICD-10 - M77.8) Will resume muscle relaxants and stretching. They are trying to get him approve for an injection at pain management. 06/08/2024 Pain of right lower extremity (ICD-10 - M79.604) Will start with an x-ray and JUAN F's. If normal, will likely need to see ortho. 08/30/2024 Trigger thumb, right thumb (ICD-10 - M65.311) 08/30/2024 De Quervain's tenosynovitis (ICD-10 - M65.4) Will start wearing a thumb spica splint and make ortho referral. 10/31/2024 Pre-op exam (ICD-10 - Z01.818) Labs and imaging reviewed. Patient's U/A is the only abnormal finding. He will need this repeated with a culture. He is otherwise fine to undergo surgery. 10/25/2024 Left lateral abdominal pain (ICD-10 - R10.9) 10/25/2024 Hematuria, unspecified type (ICD-10 - R31.9) 06/28/2024 Elevated glucose (ICD-10 - R73.09) 06/28/2024 Pain of right lower extremity (ICD-10 - M79.604) Xray and JUAN F's were normal. He does have some relief with compression stockings. We can send to ortho or try Physical therapy. He would like to continue with the compression stockings and see if the pain continues to improve. 06/27/2024 Gastroesophageal reflux disease, unspecified whether esophagitis present (ICD-10 - K21.9) Plan Of Treatment Pending Test Test Name Order Date EKG 10/31/2024 H-CBC 10/31/2024 H-UA 10/31/2024 H-Urine Drug Screen 10/31/2024 P-Arthritis Panel, [facility] 10/13/2022 Insurance Providers Payer Name Payer Address Payer Phone Subscriber Number Group Number Insured Name Patient Relationship to Insured Coverage Start Date Coverage End Date [employer] [address] [place] [address] [id number] Harris Lopez Self - patient is the insured Medical (General) History Medical History History ICD Code Esophageal reflux hyperlipidemia irritable bowel syndrome depression allergic rhinitis Testosterone deficiency, s/p Urology and Endocrinology evaluation B 12 deficiency gall bladder disease Vitamin D deficiency Hyperuricemia H Pylori, treated in ketan1999' Diverticulosis - dx. Jun 2018 Colon polyps Sarcoidosis Surgical History Surgery Date(Month/Year) cholecystectomy tonsillectomy 07/2012 Slap Repair on right shoulder 11/2012 Colonoscopy - Diverticulosis 07/19/2018 Hospitalization History Reason Date(Month/Year) [facility] - chest pain 04/08/2018 [facility] - Shingles 10/18/2018
--- OUTSIDE RECORDS SUMMARY | 2025-01-23 15:34 | XMS_ITS | Data Portability ---
Author Organization [facility] Cisco kang, JADS POWNAL CLOSED Address [address] [place] [address] Care Team Providers Care Rail Track Layer Name Role Phone DAVID OBANDO Primary Care Provider DAVID OBANDO Referring Provider Assessment Encounter Date Assessment Date Assessment LastModified by Organization Details LastModified Time 11/16/2023 11/16/2023 ASSESSMENT: Mr. Lam is a 43-year-old man who returns to the office accompanied by his , Shirin, after last being seen 11/26/2021. He returns today reporting low back pain with radiation to his bilateral lower extremities that has been worse since he was evaluated here in 2021. He has been working with Dr. Tipton for pain management where he reports receiving epidurals, medial branch blocks, and rhizotomies for which the most relief he got was around a week and a half following the ablations. He is in the process of changing pain management to a provider in [place] as it is more convenient for him. He continues to report central low back pain that radiates down the anterior aspects of his bilateral lower extremities that he reports as a ache all the way into his feet and into all of his toes. He even appreciates some pain radiating up into his back that he feels may be muscular in nature. He has previously been told he has degenerative disc disease following a recent x-ray at [facility] and was instructed to return to our office for reevaluation. He did try a chiropractic visit that he reports increased his pain significantly. He is managed on Goodells and Lyrica by pain management. He denies any bowel or bladder control issues or does report with having a bowel movement his low back pain is worse. IMAGING: No new imaging available for review. Thoracic and lumbar x-rays taken at [facility] on 11/02/2023. These images are not available for review but the reports indicate mild degenerative change with osteophytes in the thoracic spine and no malalignment as well as mild degenerative changes in his lumbar spine with well-preserved disc spaces and no malalignment. Nurse practitioner visit PLAN: Lumbar AP, lateral, flexion, extension x-rays Lumbar MRI without contrast Follow-up with Dr. Haskins Mr. Lam is going to get updated imaging of his lumbar spine to include standing flexion-extensio n x-rays to evaluate for any instability. We will also request a lumbar MRI without contrast to evaluate for any neural impingement that could be causing the pain into his lower extremities. He will follow-up with Dr. Hsakins to review these results to determine if he could benefit from injections or surgical interventions. They both verbalized understanding of these instructions and are agreeable with this plan. They have no further questions or concerns at this time. They are satisfied with this plan of care. Not available 11/16/2023 15:59:13 Plan of Treatment Reminders Order Date Submit Date Provider Last Modified By Organization Details Last Modified Time Details Appointments RECHECK 2024 03:45P M DANI ARELLANO MD Not available Not available Not available Lab urinalysi s panel, auto 2024 025 [email or web address] [facility], [address], [address], 01/04/2025 13:08:28 urinalysi s panel, auto 2024 025 [email or web address] [facility], [address], [place], [address], 11/14/2024 15:58:00 CBC w/ auto diff 2024 025 [email or web address] [facility], [address] [place] [address], [address], 11/14/2024 15:58:00 testoster one, total, serum [address] [facility], [address] [place] [address], [address], 11/14/2024 15:58:00 urinalysi s panel, auto [address] [facility], [address], [address], [place], [address], 06/20/2023 20:21:11 testoster one, total, serum 2022 023 [facility], [address] [place] [address], [address], 06/20/2023 20:38:27 urinalysi s panel, auto [address] [facility], [address], [address], [place], [address], 10/22/2022 21:10:51 Referral None recorded. Procedures None recorded. Surgeries None recorded. Imaging None recorded. Medication Orders cefuroxim e axetil 500 mg tablet 2024 025 [id number], [address] [place], [place], [id number], 01/04/2025 13:08:49 nabumeton e 500 mg tablet 2024 025 [id number], [address], [place], [place], [id number], 01/04/2025 13:08:42 Depo-Test osterone 200 mg/mL intramusc ular oil 2024 025 [facility] #[id number], [address] [place], [id number], 11/08/2024 10:21:23 Depo-Test osterone 200 mg/mL intramusc ular oil 2022 023 [facility] #[id number], [address] [place], [id number], 06/20/2023 16:27:31 Depo-Test osterone 200 mg/mL intramusc ular oil 2022 023 [facility] #[id number], [address] [place], [id number], 10/22/2022 21:10:59 Patient TargetsNo targets recorded. Patient InstructionsNo instructions recorded. Reason for Referral None Reported. Results Created Date Observation Date Name Description Value Unit Range Abnormal Flag Note LastModifiedBy Organization Detail LastModifiedTime 10/23/19 23 10/22/2022 urina lysis panel , auto Unknown Analyte Clean Catch Not Available [facility] [address], [address], 10/22/2022 13:14:27 10/23/19 23 10/22/2022 urina lysis panel , auto Unknown Analyte Straw Not Available [facility] [place] [address], [place], [address], 10/22/2022 13:14:27 10/23/19 23 10/22/2022 urina lysis panel , auto Unknown Analyte Clear Not Available [facility] [address], [place], [address], 10/22/2022 13:14:27 10/23/19 23 10/22/2022 urina lysis panel , auto Unknown Analyte 1.020 Not Available [facility] [address], [place], [address], 10/22/2022 13:14:27 10/23/19 23 10/22/2022 urina lysis panel , auto Unknown Analyte 1.003- 1.035 Not Available [facility] [address], [place], [address], 10/22/2022 13:14:27 10/23/19 23 10/22/2022 urina lysis panel , auto Unknown Analyte 5.0 Not Available [facility] [address], [place], [address], 10/22/2022 13:14:27 10/23/19 23 10/22/2022 urina lysis panel , auto Unknown Analyte 5.0-8. 0 Not Available [facility] [address], [place], [address], 10/22/2022 13:14:27 10/23/19 23 10/22/2022 urina lysis panel , auto Unknown Analyte 25 Radha/ul Trace Not Available [facility] [address], [place], [address], 10/22/2022 13:14:27 10/23/19 23 10/22/2022 urina lysis panel , auto Unknown Analyte Negati ve Not Available [facility] [address], [place], [address], 10/22/2022 13:14:27 10/23/19 23 10/22/2022 urina lysis panel , auto Unknown Analyte Negati ve Not Available [facility] [address], [place], [address], 10/22/2022 13:14:27 10/23/19 23 10/22/2022 urina lysis panel , auto Unknown Analyte Negati ve Not Available [facility] [address], [place], [address], 10/22/2022 13:14:27 10/23/19 23 10/22/2022 urina lysis panel , auto Unknown Analyte Trace Not Available [facility] [address], [place], [address], 10/22/2022 13:14:27 10/23/19 23 10/22/2022 urina lysis panel , auto Unknown Analyte Negati ve Not Available [facility] [address], [place], [address], 10/22/2022 13:14:27 10/23/19 23 10/22/2022 urina lysis panel , auto Unknown Analyte Normal Not Available [facility] [address], [place], [address], 10/22/2022 13:14:27 10/23/19 23 10/22/2022 urina lysis panel , auto Unknown Analyte Normal Not Available [facility] [address], [place], [address], 10/22/2022 13:14:27 10/23/19 23 10/22/2022 urina lysis panel , auto Unknown Analyte 15 mg/dl (Sm) Not Available [facility] [address], [place], [address], 10/22/2022 13:14:27 10/23/19 23 10/22/2022 urina lysis panel , auto Unknown Analyte Negati ve Not Available [facility] [address], [place], [address], 10/22/2022 13:14:27 10/23/19 23 10/22/2022 urina lysis panel , auto Unknown Analyte Normal Not Available [facility] [address], [place], [address], 10/22/2022 13:14:27 10/23/19 23 10/22/2022 urina lysis panel , auto Unknown Analyte Normal 1 mg/dl Not Available [facility] [address], [place], [address], 10/22/2022 13:14:27 10/23/19 23 10/22/2022 urina lysis panel , auto Unknown Analyte 1 mg/dl (+) Not Available [facility] [address], [place], [address], 10/22/2022 13:14:27 10/23/19 23 10/22/2022 urina lysis panel , auto Unknown Analyte Negati ve Not Available [facility] [address], [place], [address], 10/22/2022 13:14:27 10/23/19 23 10/22/2022 urina lysis panel , auto Unknown Analyte Negati ve Not Available [facility] [address], [place], [address], 10/22/2022 13:14:27 10/23/19 23 10/22/2022 urina lysis panel , auto Unknown Analyte Negati ve Not Available [facility] [address], [place], [address], 10/22/2022 13:14:27 06/20/20 23 06/20/2023 TESTO STERO NE, TOTAL testosterone , total 605 NG/dL 249-83 6 normal Not Available [facility] [address], [place], [address], 06/20/2023 20:38:27 06/20/20 23 06/20/2023 urina lysis panel , auto Unknown Analyte Clean Catch Not Available [facility] [address], [place], [address], 06/20/2023 16:09:40 06/20/20 23 06/20/2023 urina lysis panel , auto Unknown Analyte Yellow Not Available [facility] [address], [place], [address], 06/20/2023 16:09:40 06/20/20 23 06/20/2023 urina lysis panel , auto Unknown Analyte Clear Not Available [facility] [address], [place], [address], 06/20/2023 16:09:40 06/20/20 23 06/20/2023 urina lysis panel , auto Unknown Analyte 1.020 Not Available [facility] [address], [place], [address], 06/20/2023 16:09:40 06/20/20 23 06/20/2023 urina lysis panel , auto Unknown Analyte 1.003- 1.035 Not Available [facility] [address], [place], [address], 06/20/2023 16:09:40 06/20/20 23 06/20/2023 urina lysis panel , auto Unknown Analyte 6.0 Not Available [facility] [address], [place], [address], 06/20/2023 16:09:40 06/20/20 23 06/20/2023 urina lysis panel , auto Unknown Analyte 5.0-8. 0 Not Available [facility] [address], [place], [address], 06/20/2023 16:09:40 06/20/20 23 06/20/2023 urina lysis panel , auto Unknown Analyte Negati ve Not Available [facility] [address], [place], [address], 06/20/2023 16:09:40 06/20/20 23 06/20/2023 urina lysis panel , auto Unknown Analyte Negati ve Not Available [facility] [address], [place], [address], 06/20/2023 16:09:40 06/20/20 23 06/20/2023 urina lysis panel , auto Unknown Analyte Negati ve Not Available [facility] [address], [place], [address], 06/20/2023 16:09:40 06/20/20 23 06/20/2023 urina lysis panel , auto Unknown Analyte Negati ve Not Available [facility] [address], [place], [address], 06/20/2023 16:09:40 06/20/2006/20/2023 urina lysis panel , auto Unknown Analyte Negati ve Not Available [facility] [address], [place], [address], 06/20/2023 16:09:40 06/20/20 23 06/20/2023 urina lysis panel , auto Unknown Analyte Negati ve Not Available [facility] [address], [place], [address], 06/20/2023 16:09:40 06/20/20 23 06/20/2023 urina lysis panel , auto Unknown Analyte Normal Not Available [facility] [address], [place], [address], 06/20/2023 16:09:40 06/20/20 23 06/20/2023 urina lysis panel , auto Unknown Analyte Normal Not Available [facility] [address], [place], [address], 06/20/2023 16:09:40 06/20/20 23 06/20/2023 urina lysis panel , auto Unknown Analyte 15 mg/dl (Sm) Not Available [facility] [address], [place], [address], 06/20/2023 16:09:40 06/20/20 23 06/20/2023 urina lysis panel , auto Unknown Analyte Negati ve Not Available [facility] [address], [place], [address], 06/20/2023 16:09:40 06/20/20 23 06/20/2023 urina lysis panel , auto Unknown Analyte Normal Not Available [facility] [address], [place], [address], 06/20/2023 16:09:40 06/20/20 23 06/20/2023 urina lysis panel , auto Unknown Analyte Normal 1 mg/dl Not Available [facility] [address], [place], [address], 06/20/2023 16:09:40 06/20/20 23 06/20/2023 urina lysis panel , auto Unknown Analyte Negati ve Not Available [facility] [address], [place], [address], 06/20/2023 16:09:40 06/20/20 23 06/20/2023 urina lysis panel , auto Unknown Analyte Negati ve Not Available [facility] [address], [place], [address], 06/20/2023 16:09:40 06/20/20 23 06/20/2023 urina lysis panel , auto Unknown Analyte 250 Terrence/ul Not Available [facility] [address], [place], [address], 06/20/2023 16:09:40 06/20/20 23 06/20/2023 urina lysis panel , auto Unknown Analyte Negati ve Not Available [facility] [address], [place], [address], 06/20/2023 16:09:40 11/08/19 25 11/07/2024 TESTO STERO NE, TOTAL testosterone , total 626 NG/dL 249-83 6 normal Refer ence range is for age 20-49 years . Not Available [facility] [address] [place] [address], [address], 11/07/2024 19:09:16 11/08/19 25 11/07/2024 COMPL ETE BLOOD COUNT white blood cells 6.5 10*3/ uL 3.8-10 .8 normal Not Available [facility] [address] [place] [address], [address], 11/07/2024 20:28:20 11/08/19 25 11/07/2024 COMPL ETE BLOOD COUNT red blood cells 4.94 10*6/ uL 4.20-5 .80 normal Not Available [facility] [address] [place] [address], [address], 11/07/2024 20:28:20 11/08/19 25 11/07/2024 COMPL ETE BLOOD COUNT hemoglobin 16.6 g/dL 14.0-1 8.0 normal Not Available [facility] [address] [place] [address], [address], 11/07/2024 20:28:20 11/08/19 25 11/07/2024 COMPL ETE BLOOD COUNT hematocrit 47.1 % 40.0-5 2.0 normal Not Available [facility] [address] [place] [address], [address], 11/07/2024 20:28:20 11/08/19 25 11/07/2024 COMPL ETE BLOOD COUNT MCV 95 fL 80-100 normal Not Available [facility] [address] [place] [address], [address], 11/07/2024 20:28:20 11/08/19 25 11/07/2024 COMPL ETE BLOOD COUNT MCH 34 pg 26-35 normal Not Available [facility] [address] [place] [address], [address], 11/07/2024 20:28:20 11/08/19 25 11/07/2024 COMPL ETE BLOOD COUNT MCHC 35 g/dL 32-36 normal Not Available [facility] [address] [place] [address], [address], 11/07/2024 20:28:20 11/08/19 25 11/07/2024 COMPL ETE BLOOD COUNT RDW 14.4 % 11.0-1 5.0 normal Not Available [facility] [address] [place] [address], [address], 11/07/2024 20:28:20 11/08/19 25 11/07/2024 COMPL ETE BLOOD COUNT MPV 7.2 fL 6.2-10 .5 normal Not Available [facility] [address] [place] [address], [address], 11/07/2024 20:28:20 11/08/19 25 11/07/2024 COMPL ETE BLOOD COUNT platelet count 239 10*3/ uL 150-40 0 normal Not Available [facility] [address] [place] [address], [address], 11/07/2024 20:28:20 11/08/19 25 11/07/2024 COMPL ETE BLOOD COUNT neutrophil,a bsolute 3.3 10*3/ uL 1.6-8. 4 normal Not Available [facility] [address] [place] [address], [address], 11/07/2024 20:28:20 11/08/19 25 11/07/2024 COMPL ETE BLOOD COUNT lymphocyte,a bsolute 2.2 10*3/ uL 0.4-5. 1 normal Not Available [facility] [address] [place] [address], [address], 11/07/2024 20:28:20 11/08/19 25 11/07/2024 COMPL ETE BLOOD COUNT monocyte,abs olute 0.6 10*3/ uL 0.0-1. 2 normal Not Available [facility] [address] [place] [address], [address], 11/07/2024 20:28:20 11/08/19 25 11/07/2024 COMPL ETE BLOOD COUNT eosinophil,a bsolute 0.3 10*3/ uL 0.0-0. 8 normal Not Available [facility] [address] [place] [address], [address], 11/07/2024 20:28:20 11/08/19 25 11/07/2024 COMPL ETE BLOOD COUNT basophil,abs olute 0.0 10*3/ uL 0.0-0. 3 normal Not Available [facility] [address] [place] [address], [address], 11/07/2024 20:28:20 11/08/19 25 11/07/2024 COMPL ETE BLOOD COUNT % neutrophils 51.1 % 42.0-7 8.0 normal Not Available [facility] [address] [place] [address], [address], 11/07/2024 20:28:20 11/08/19 25 11/07/2024 COMPL ETE BLOOD COUNT % lymphocytes 34.5 % 11.0-4 7.0 normal Not Available [facility] [address] [place] [address], [address], 11/07/2024 20:28:20 11/08/19 25 11/07/2024 COMPL ETE BLOOD COUNT % monocytes 9.0 % 0.0-11 .0 normal Not Available [facility] [address] [place] [address], [address], 11/07/2024 20:28:20 11/08/19 25 11/07/2024 COMPL ETE BLOOD COUNT % eosinophils 4.7 % 0.0-7. 0 normal Not Available [facility] [address] [place] [address], [address], 11/07/2024 20:28:20 11/08/19 25 11/07/2024 COMPL ETE BLOOD COUNT % basophils 0.7 % 0.0-3. 0 normal Not Available [facility] [address] [place] [address], [address], 11/07/2024 20:28:20 11/08/19 25 11/07/2024 COMPL ETE BLOOD COUNT nucleated red cells 0.2 % 0.0-0. 9 normal Not Available [facility] [address] [place] [address], [address], 11/07/2024 20:28:20 11/08/19 25 11/07/2024 COMPL ETE BLOOD COUNT nucleated RBCs, absolute 0.02 10*3/ uL not estab. normal Not Available [facility] [address] [place] [address], [address], 11/07/2024 20:28:20 11/08/19 25 11/07/2024 urina lysis panel , auto Unknown Analyte Clean Catch Not Available [facility] [address], [place], [address], 11/07/2024 16:37:17 11/08/19 25 11/07/2024 urina lysis panel , auto Unknown Analyte Yellow Not Available [facility] [address], [place], [address], 11/07/2024 16:37:17 11/08/19 25 11/07/2024 urina lysis panel , auto Unknown Analyte Clear Not Available [facility] [address], [place], [address], 11/07/2024 16:37:17 11/08/19 25 11/07/2024 urina lysis panel , auto Unknown Analyte 1.010 Not Available [facility] [address], [place], [address], 11/07/2024 16:37:17 11/08/19 25 11/07/2024 urina lysis panel , auto Unknown Analyte 1.003 - 1.030 Not Available [facility] [address], [place], [address], 11/07/2024 16:37:17 11/08/19 25 11/07/2024 urina lysis panel , auto Unknown Analyte 6.5 Not Available [facility] [address], [place], [address], 11/07/2024 16:37:17 11/08/19 25 11/07/2024 urina lysis panel , auto Unknown Analyte 5.0 - 8.0 Not Available [facility] [address], [place], [address], 11/07/2024 16:37:17 11/08/19 25 11/07/2024 urina lysis panel , auto Unknown Analyte Negati ve Not Available [facility] [address], [place], [address], 11/07/2024 16:37:17 11/08/19 25 11/07/2024 urina lysis panel , auto Unknown Analyte Negati ve Not Available [facility] [address], [place], [address], 11/07/2024 16:37:17 11/08/19 25 11/07/2024 urina lysis panel , auto Unknown Analyte Negati ve Not Available [facility] [address], [place], [address], 11/07/2024 16:37:17 11/08/19 25 11/07/2024 urina lysis panel , auto Unknown Analyte Negati ve Not Available [facility] [address], [place], [address], 11/07/2024 16:37:17 11/08/19 25 11/07/2024 urina lysis panel , auto Unknown Analyte Negati ve Not Available [facility] [address], [place], [address], 11/07/2024 16:37:17 11/08/19 25 11/07/2024 urina lysis panel , auto Unknown Analyte Negati ve Not Available [facility] [address], [place], [address], 11/07/2024 16:37:17 11/08/19 25 11/07/2024 urina lysis panel , auto Unknown Analyte Normal Not Available [facility] [address], [place], [address], 11/07/2024 16:37:17 11/08/19 25 11/07/2024 urina lysis panel , auto Unknown Analyte Normal Not Available [facility] [address], [place], [address], 11/07/2024 16:37:17 11/08/19 25 11/07/2024 urina lysis panel , auto Unknown Analyte Negati ve Not Available [facility] [address], [place], [address], 11/07/2024 16:37:17 11/08/19 25 11/07/2024 urina lysis panel , auto Unknown Analyte Negati ve Not Available [facility] [address], [place], [address], 11/07/2024 16:37:17 11/08/19 25 11/07/2024 urina lysis panel , auto Unknown Analyte Normal Not Available [facility] [address], [place], [address], 11/07/2024 16:37:17 11/08/19 25 11/07/2024 urina lysis panel , auto Unknown Analyte Normal Not Available [facility] [address], [place], [address], 11/07/2024 16:37:17 11/08/19 25 11/07/2024 urina lysis panel , auto Unknown Analyte Negati ve Not Available [facility] [address], [place], [address], 11/07/2024 16:37:17 11/08/19 25 11/07/2024 urina lysis panel , auto Unknown Analyte Negati ve Not Available [facility] [address], [place], [address], 11/07/2024 16:37:17 11/08/19 25 11/07/2024 urina lysis panel , auto Unknown Analyte Negati ve Not Available [facility] [address], [place], [address], 11/07/2024 16:37:17 11/08/19 25 11/07/2024 urina lysis panel , auto Unknown Analyte Negati ve Not Available [facility] [address], [place], [address], 11/07/2024 16:37:17 01/05/20 25 01/04/2025 urina lysis panel , auto Unknown Analyte Clean Catch Not Available [facility] [address], [place], [address], 01/04/2025 12:34:14 01/05/20 25 01/04/2025 urina lysis panel , auto Unknown Analyte Straw Not Available [facility] [address], [place], [address], 01/04/2025 12:34:14 01/05/20 25 01/04/2025 urina lysis panel , auto Unknown Analyte Clear Not Available [facility] [address], [place], [address], 01/04/2025 12:34:14 01/05/20 25 01/04/2025 urina lysis panel , auto Unknown Analyte 1.015 Not Available [facility] [address], [place], [address], 01/04/2025 12:34:14 01/05/20 25 01/04/2025 urina lysis panel , auto Unknown Analyte 1.003 - 1.030 Not Available [facility] [address], [place], [address], 01/04/2025 12:34:14 01/05/2001/04/2025 urina lysis panel , auto Unknown Analyte 6.0 Not Available [facility] [address], [place], [address], 01/04/2025 12:34:14 01/05/2001/04/2025 urina lysis panel , auto Unknown Analyte 5.0 - 8.0 Not Available [facility] [address], [place], [address], 01/04/2025 12:34:14 01/05/2001/04/2025 urina lysis panel , auto Unknown Analyte 25 Radha/uL Not Available [facility] [address], [place], [address], 01/04/2025 12:34:14 01/05/2001/04/2025 urina lysis panel , auto Unknown Analyte Negati ve Not Available [facility] [address], [place], [address], 01/04/2025 12:34:14 01/05/2001/04/2025 urina lysis panel , auto Unknown Analyte Negati ve Not Available [facility] [address], [place], [address], 01/04/2025 12:34:14 01/05/20 25 01/04/2025 urina lysis panel , auto Unknown Analyte Negati ve Not Available [facility] [address], [place], [address], 01/04/2025 12:34:14 01/05/2001/04/2025 urina lysis panel , auto Unknown Analyte Negati ve Not Available [facility] [address], [place], [address], 01/04/2025 12:34:14 01/05/20 25 01/04/2025 urina lysis panel , auto Unknown Analyte Negati ve Not Available [facility] [address], [place], [address], 01/04/2025 12:34:14 01/05/2001/04/2025 urina lysis panel , auto Unknown Analyte Normal Not Available [facility] [address], [place], [address], 01/04/2025 12:34:14 01/05/2001/04/2025 urina lysis panel , auto Unknown Analyte Normal Not Available [facility] [address], [place], [address], 01/04/2025 12:34:14 01/05/2001/04/2025 urina lysis panel , auto Unknown Analyte Negati ve Not Available [facility] [address], [place], [address], 01/04/2025 12:34:14 01/05/20 25 01/04/2025 urina lysis panel , auto Unknown Analyte Negati ve Not Available [facility] [address], [place], [address], 01/04/2025 12:34:14 01/05/20 25 01/04/2025 urina lysis panel , auto Unknown Analyte Normal Not Available [facility] [address], [place], [address], 01/04/2025 12:34:14 01/05/2001/04/2025 urina lysis panel , auto Unknown Analyte Normal Not Available [facility] [address], [place], [address], 01/04/2025 12:34:14 01/05/2001/04/2025 urina lysis panel , auto Unknown Analyte Negati ve Not Available [facility] [address], [place], [address], 01/04/2025 12:34:14 01/05/2001/04/2025 urina lysis panel , auto Unknown Analyte Negati ve Not Available [facility] [address], [place], [address], 01/04/2025 12:34:14 01/05/2001/04/2025 urina lysis panel , auto Unknown Analyte Negati ve Not Available [facility] [address], [place], [address], 01/04/2025 12:34:14 01/05/20 25 01/04/2025 urina lysis panel , auto Unknown Analyte Negati ve Not Available [facility] [address], [place], [address], 01/04/2025 12:34:14 11/03/19 24 11/02/2023 XR, thora cic spine No observ ation record ed. [email or web address] [facility] [address], [place], [address], 12/20/2023 13:56:11 11/16/19 24 11/16/2023 XR, lumbo sacra l spine , 4 or more view [place] [id number] [place] Name: CHIOMA enriquez : [birth year] [place] Orderi ng Provid er: SONIA Enriquez EXAM DATE: 2023 EXAM: XR LUMBAR SPINE AP/LAT /FLEX/ EXT HISTOR Y: Chroni c low back pain COMPAR SIMONA: 11/27/19 22 FINDIN GS: There is minima l dextro curvat ure of the lumbar spine. There is no sublux ation. There is no change in alignm ent with flexio n or extens ion. There is minima l margin al spurri ng. IMPRES YVON: 1. There are minima l degene rative change s in the lumbar spine. Interp reted By: Nancy bowser MD Electr onical ly Signed By: Nancy bowser MD on 024 4:48 PM [email or web address] [facility] [address] [place] [address], [address], 12/20/2023 15:24:33 11/29/19 24 11/28/2023 MRI, lumba r spine , w/o contr ast [place] [id number] Pat[place] t Name: CHIOMA enriquez : [birth year] [place] Orderi ng Provid er: SONIA CORRAL T EXAM DATE: 2023 EXAM: MR LUMBAR W/O CONTRA ST HISTOR Y: 43-yea r-old male with low back pain radiat ing into both legs. COMPAR SIMONA: 024 and outsid e MRI dated 022 FINDIN GS: There is transi tional anatom y at the lumbos acral juncti on. There is sacral izatio n of L5 on the right. The lumbar spine is normal in alignm ent. There is no sublux ation. There is no fractu re. There is minima l anteri or margin al osteop hytic spurri ng. No pathol ogic lesion is identi fied in the lumbar spine. The conus medull marjorie is normal in appear ance at the L1 level. T12-L1 : This interv ertebr al disc is normal in appear ance. L1-L2: There is a minima l disc bulge. There is no centra l canal stenos is. There is no neural forami nal stenos is. L2-L3: There is a mild disc bulge and mild endpla te spurri ng. There is no centra l canal stenos is. There is no neural forami nal stenos is. L3-L4: There is a mild disc bulge, mild facet arthro abraham and mild endpla te spurri ng. There is no centra l canal stenos is. There is mild left and minima l right neural forami nal stenos is. L4-L5: There is a mild disc bulge, mild facet arthro abraham and mild endpla te spurri ng. There is no centra l canal stenos is. There is mild bilate ral neural forami nal stenos is. L5-S1: There is minima l endpla te spurri ng. There is no centra l canal stenos is. There is no neural forami nal stenos is. The parasp inous muscul ature is symmet hiren and normal in signal . IMPRES YVON: 1. There are mild degene rative change s in the lumbar spine with mild neural forami nal narrow ing at L3-L4 and L4-L5. This appear s unchan ged from the prior study. 2. There is transi tional anatom y at the lumbos acral juncti on. Interp reted By: Nancy bowser MD Electr onical ly Signed By: Nancy bowser MD on 11/29/19 6:03 AM [email or web address] [facility] [address], [address], 02/06/2024 09:14:09 Result Notes Documentation Provider Name and Address Organization Details Recorded Time Xr, Lumbosacral Spine, 4 Or More View : [place] [id number] Patient Name: CHIOMA LAM Patient : 1980 Patient Ordering Provider: SONIA VANCE EXAM DATE: 11/16/2023 EXAM: XR LUMBAR SPINE AP/LAT/FLEX/EXT HISTORY: Chronic low back pain COMPARISON: 11/26/2021 FINDINGS: There is minimal dextrocurvature of the lumbar spine. There is no subluxation. There is no change in alignment with flexion or extension. There is minimal marginal spurring. IMPRESSION: 1. There are minimal degenerative changes in the lumbar spine. Interpreted By: Dani Branch MD [facility] [address] [place] [address], [address], [facility] 12/20/2023 15:24:33 Mri, Lumbar Spine, W/o Contrast : [address] [address] Patient Name: CHIOMA LAM Patient : 1980 Patient Ordering Provider: SONIA VANCE EXAM DATE: 11/28/2023 EXAM: MR LUMBAR W/O CONTRAST HISTORY: 43-year-old male with low back pain radiating into both legs. COMPARISON: 11/16/2023 and outside MRI dated 11/02/2021 FINDINGS: There is transitional anatomy at the lumbosacral junction. There is sacralization of L5 on the right. The lumbar spine is normal in alignment. There is no subluxation. There is no fracture. There is minimal anterior marginal osteophytic spurring. No pathologic lesion is identified in the lumbar spine. The conus medullaris is normal in appearance at the L1 level. T12-L1: This intervertebral disc is normal in appearance. L1-L2: There is a minimal disc bulge. There is no central canal stenosis. There is no neural foraminal stenosis. L2-L3: There is a mild disc bulge and mild endplate spurring. There is no central canal stenosis. There is no neural foraminal stenosis. L3-L4: There is a mild disc bulge, mild facet arthropathy and mild endplate spurring. There is no central canal stenosis. There is mild left and minimal right neural foraminal stenosis. L4-L5: There is a mild disc bulge, mild facet arthropathy and mild endplate spurring. There is no central canal stenosis. There is mild bilateral neural foraminal stenosis. L5-S1: There is minimal endplate spurring. There is no central canal stenosis. There is no neural foraminal stenosis. The paraspinous musculature is symmetric and normal in signal. IMPRESSION: 1. There are mild degenerative changes in the lumbar spine with mild neural foraminal narrowing at L3-L4 and L4-L5. This appears unchanged from the prior study. 2. There is transitional anatomy at the lumbosacral junction. 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 Medical Equipment None Reported. Allergies Allergen ID Allergen Name Allergen Category Reaction Reaction Severity Criticality Documentation Date Start Date Code Code System Note Provider Name and Address Organization Details Recorded Time 628663 Levaquin medicatio n rash Not available Not available 06/18/20162015 76754 2 RxNorm React ion: RASH; Comme nt: Creat ed By: Bertha Maldonado nayana Date: 2015 3:31: 06 PM; Not Available [facility] 6 06:25:02 [id number] acetamino phen / oxycodone medicatio n other Not available Not available 06/18/20162015 89628 3 RxNorm React ion: OTHER ; Comme nt: Creat ed By: Bertha kraus Date: 2015 3:31: 30 PM; Not Available [facility] 6 09:41:44 Medications Name Sig Start Date Stop Date Status Note LastModified by Organization Details LastModified Time celecoxib 200 mg capsule TAKE ONE CAPSULE BY MOUTH EVERY DAY 11/26 completed Not Available Not Available Not Available methocarb harmony 500 mg tablet TAKE 1 TABLET BY MOUTH TWICE DAILY 06/20 completed Not Available Not Available Not Available tizanidin e 2 mg tablet TAKE 1 TABLET BY MOUTH EVERY NIGHT AT BEDTIME active Not Available Not Available No t Available azithromy bharath 250 mg tablet TAKE 2 TABLETS BY MOUTH ON DAY 1, THEN TAKE 1 TABLET DAILY ON DAYS 2-5 -- FINISH ALL MEDICINE -- 06/20 completed Not Available Not Available Not Available tizanidin e 4 mg tablet TAKE 1/2 TO 1 TABLET BY MOUTH THREE TIMES DAILY NEEDED 06/20 completed Not Available Not Available Not Available valacyclo vir 1 gram tablet TAKE 1 TABLET BY MOUTH THREE TIMES DAILY FOR 1 WEEK active Not Available Not Available No t Available hydrocodo ne 5 mg-acetam inophen 325 mg tablet TAKE 1 TABLET BY MOUTH THREE TIMES DAILY NEEDED FOR PAIN active Not Available Not Available No t Available prednison e 20 mg tablet TAKE 1 TABLET BY MOUTH TWICE DAILY 06/20 completed Not Available Not Available Not Available clindamyc in HCl 150 mg capsule TAKE ONE CAPSULE BY MOUTH FOUR TIMES DAILY FOR 7 DAYS -- FINISH ALL MEDICINE -- 11/26 completed Not Available Not Available Not Available hydrocodo ne 10 mg-acetam inophen 325 mg tablet 2024 active Not Available Not Available Not Avai lable tramadol 50 mg tablet TAKE 1 TABLET BY MOUTH THREE TIMES DAILY 10/22 completed Not Available Not Available Not Available ofloxacin 0.3 % ear drops INSTILL 4-5 DROPS TO AFFECTED EAR TWICE DAILY 06/20 completed Not Available Not Available Not Available benzonata te 100 mg capsule TAKE 1 CAPSULE THREE TIMES A DAY FOR COUGH NEEDED. 11/26 completed Not Available Not Available Not Available hydrocodo ne 7.5 mg-acetam inophen 325 mg tablet TAKE 1 TABLET BY MOUTH EVERY 4 TO 6 HOURS NEEDED FOR PAIN 06/20 completed Not Available Not Available Not Available pantopraz ole 40 mg tablet,de layed release TAKE 1 TABLET BY MOUTH DAILY active Not Available Not Available No t Available oseltamiv ir 75 mg capsule TAKE 1 CAPSULE BY MOUTH DAILY FOR 10 DAYS active Not Available Not Available No t Available neomycin- polymyxin -dexameth 3.5 mg/mL-10, 000 unit/mL-0 .1% eye drops SHAKE LIQUID AND INSTILL 1 DROP IN BOTH EYES FOUR TIMES DAILY FOR 4 DAYS 06/20 completed Not Available Not Available Not Available losartan 25 mg tablet TAKE 1 TABLET BY MOUTH EVERY DAY active Not Available Not Available No t Available BD Luer-Renato Syringe 3 mL 25 gauge x 1 USE DIRECTED 11/26 completed Not Available Not Available Not Available gabapenti n 300 mg capsule TAKE 1 CAPSULE BY MOUTH EVERY NIGHT AT BEDTIME FOR PAIN 10/22 completed Not Available Not Available Not Available omeprazol e 20 mg capsule,d elayed release TAKE 1 CAPSULE BY MOUTH EVERY DAY 30 MINUTES BEFORE BREAKFAS T active Not Available Not Available No t Available diclofena c sodium 75 mg tablet,de layed release TAKE 1 TABLET BY MOUTH TWICE DAILY TAKE WITH FOOD 10/22 completed Not Available Not Available Not Available testoster one enanthate 200 mg/mL intramusc ular oil Inject 0.25 mL every 4 weeks by intramus cular route. 06/20 completed Not Available Not Available Not Available testoster one cypionate 200 mg/mL intramusc ular oil injectio n 1.5 ml every other week 2024 active Not Available Not Available Not Avai lable ibuprofen 600 mg tablet 06/20 completed Not Available Not Available Not Available cefuroxim e axetil 500 mg tablet Take 1 tablet every 12 hours by oral route. 2024 active Not Available Not Available Not Avai lable methylpre dnisolone 4 mg tablets in a dose pack FOLLOW PACKAGE DIRECTIO NS active Not Available Not Available No t Available paroxetin e 40 mg tablet TAKE 1 TABLET BY MOUTH EVERY DAY active Not Available Not Available No t Available colchicin e 0.6 mg tablet 06/20 completed Not Available Not Available Not Available BD Luer-Renato Syringe 3 mL 22 gauge x 1 USE TO INJECT TESTOSTE RAJAT EVERY 2 WEEKS DIRECTED active Not Available Not Available No t Available BD Luer-Renato Syringe 3 mL 18 x 1 1/2 USE DIRECTED ONCE a WEEK 11/26 completed Not Available Not Available Not Available brompheni ramine-ps eudoephed rine-DM 2 mg-30 mg-10 mg/5 mL oral syrup TAKE 5 TO 10 MLS BY MOUTH FOUR TIMES DAILY NEEDED 06/20 completed Not Available Not Available Not Available fluticaso ne propionat e 50 mcg/actua tion nasal spray,yomi pension INSTILL 1 SPRAY INTO EACH NOSTRIL ONCE DAILY. 11/26 completed Not Available Not Available Not Available Paxil 30 mg tablet Daily 11/26 completed Frequenc y: daily;Me dication Descript ion: paroxeti ne; Dosage:1 ; Route:or al; refills: 0 Not Available Not Available Not Available nabumeton e 500 mg tablet Take 1 tablet twice a day by oral route. 2024 active Not Available Not Available Not Avai lable Mucinex DM 30 mg-600 mg tablet,ex tended release 12 hr TAKE 1 TABLET BY MOUTH EVERY 12 HOURS 11/26 completed Not Available Not Available Not Available pregabali n 75 mg capsule TAKE 1 CAPSULE BY MOUTH TWICE DAILY active Not Available Not Available No t Available Nexium 11/26 completed Not Available Not Available Not Available BD Regular Bevel [place] 22 gauge x 1 USE DIRECTED ONCE a WEEK 11/26 completed Not Available Not Available Not Available Dexilant 60 mg capsule, delayed release 01/10 completed Medicati on Descript ion: dexlanso prazole; Route:or al; refills: 0 Not Available Not Available Not Available Plenvu 140 gram-9 gram-5.2 gram powder packs DIRECTED BY MOUTH active Not Available Not Available No t Available Vitals Date Recorded Body height Body mass index (BMI) Body weight Provider Name and Address Organization Details Last Updated DateTime 10/22/2022 175.26 cm 33.5 kg/m2 938966.47 g Jayna Cinnamon [facility] 10/22/2022 13:12:59 Date Recorded Body height Body mass index (BMI) Body weight Provider Name and Address Organization Details Last Updated DateTime 11/07/2024 175.26 cm 32.5 kg/m2 98394.32 g Guanakitolou MolinaCoburn [facility] 11/07/2024 16:45:17 Date Recorded Body height Body mass index (BMI) Body weight Systolic blood pressure Diastolic blood pressure Provider Name and Address Organization Details Last Updated DateTime 11/16/2023 175.26 cm 34 kg/m2 282195.2 5 g 126 mm[Hg] 80 mm[Hg] Teresa Grayholz [facility] 13:40:06 Date Recorded Body height Body mass index (BMI) Body weight Provider Name and Address Organization Details Last Updated DateTime 01/04/2025 175.26 cm 32.5 kg/m2 51330.32 g Ana Hema [facility] 01/04/2025 12:31:35 Date Recorded Body height Body mass index (BMI) Body weight Provider Name and Address Organization Details Last Updated DateTime 06/20/2023 175.26 cm 33.2 kg/m2 846369.28 g Christiane Loli [facility] 06/20/2023 16:02:53 Social History Question Answer Notes LastModified by Organizat ion Details LastModified Time Tobacco Smoking Status [facility]10[facility] 16:28:13 How Much Tobacco Do You Chew? 1/day Information not available 11/26/2021 Marital Status Informatio n not available 06/03/2020 What Was The Date Of Your Most Recent Tobacco Screening? 01/04/2025 [email or web address] Information not available 01/04/2025 Has Tobacco Cessation Counseling Been Provided? No Information not available 11/26/2021 Sex: Male Functional Status Question Answer Note LastModified by Organizat ion Details LastModified Time Do you use any illicit or recreational drugs? No Information not available 11/26/2021 Do you or have you ever used any other forms of tobacco or nicotine? Yes Information not available 11/26/2021 What is your level of alcohol consumption? Occasional beer & bourbon Information not available 06/03/2020 Do you or have you ever used smokeless tobacco? Currently chews tobacco Information not available 06/03/2020 Do you or have you ever used e-cigarettes or vape? Never used electronic cigarettes Information not available 11/26/2021 Mental Status None recorded. Family History Relationship Description Onset Age of this Age Resolved Age Notes LastModified by Organization Details LastModified Time Unspecified Relation Family history of malignant neoplasm Not available 2019 17:06:08 Unspecified Relation Kidney stone Not available 04/2020 17:06:17 Unspecified Relation Malignant neoplastic disease apurdie Not available 2021 14:13:51 Unspecified Relation Diabetes mellitus apurdie Not available 2021 14:13:57 Unspecified Relation Myocardial infarction apurdie Not available 11/26 14:14:05 Unspecified Relation Back problem apurdie Not available 11/2021 14:14:12 Medical History Condition Response Allergies/Hayfever Y Thyroid Disease N Heart Conditions N Hernia N Migraines N Pneumonia N Anesthesia Complications N Heart Attack ([place]) N Mental Illness Y Diabetes N Anxiety Disorder Y Bleeding Disorder N Blood Clot N Tuberculosis N Acid Reflux (GERD) Y Stroke N Asthma N Blood Thinners N Sleep Apnea N High Cholesterol N Liver Disease N Hypertension N Kidney Disease N Immunizations Vaccine Type Date Status Note Provider Nam e and Address Organization Details Recorded Time COVID-19, mRNA, LNP-S, PF, 100 mcg/0.5mL dose or 50 mcg/0.25mL dose [facility] 16:02:30 COVID-19, mRNA, LNP-S, PF, 100 mcg/0.5mL dose or 50 mcg/0.25mL dose 1 completed [facility] 06/20/2023 16:02:30 Influenza, split virus, trivalent, preservative 1 completed [facility] 06/20/2023 16:02:30 Influenza, split virus, trivalent, PF 7 completed [facility] 06/20/2023 16:02:30 Influenza, split virus, quadrivalent, PF 0 completed [facility] 06/20/2023 16:02:30 Influenza, split virus, quadrivalent, PF 2 completed [facility] 06/20/2023 16:02:30 Past Encounters Encounter ID Performer Location Encounter Start Date Encounter Closed Date Diagnosis/Indication Diagnosis SNOMED-CT Code Diagnosis ICD10 Code Diagnosis Note [id number] RENÉ ANDREWS MD [facility] [address] [place] [address] 01/10/2018 15:08:54 01/10/2018 17:12:36 Partial thickness rotator cuff tear 948880371 M75.101 good prognosis conservati ve care; PT to improve mechanics and NSAIDS to fight inflamamit on [id number] DANI ARELLANO MD [facility] [address] [place] [address] 06/03/2020 16:22:50 06/03/2020 17:33:57 Male hypogonadism 74086038 E29.1 [id number] CAROLYN IBARRA PA-C [facility]UROSURG [facility] [address] [place] [address] 11/26/2021 13:40:42 11/27/2021 15:02:36 Lumbar radiculopathy 402549164 M54.16 Patient is a 41-year-ol d male with history of back and lower extremity pain for the past year and a half. Pain runs diffusely across the back and into the hips anteriorly and down posterior thighs stopping at the knees bilaterall y. Left side worse than right. Patient has tried [place] and gabapentin and has gotten some relief with the gabapentin . He did physical therapy a few months ago which did cause worsening symptoms. He has had many injections with and pain management . He is also had a few ablations. He only got relief with the ablations. Reviewed case and imaging with Dr. Haskins. Based on the patient's imaging there is no indication for surgery at this time. We are recommendi ng he continue treatment with pain management . We will also get flexion-ex tension lumbar x-rays to make sure we are not missing any obvious instabilit y. We will discuss results over the phone. Otherwise we will see the patient as needed. We will scan imaging into PACS and mail back to the patient Patient seen by myself and Dr. Haskins today New lumbar spine MRI 11/02/2021 at [facility]. He brought the disc with him-Very mild findings throughout the lumbar spine with no acute process [id number] MD [facility] [address] [place] [address] 10/22/2022 12:52:31 10/22/2022 14:11:26 Male hypogonadism 51941789 E29.1 Follow-up 6 months [id number] MD [facility] [address] [place] [address] 06/20/2023 15:54:44 06/20/2023 16:17:48 Male hypogonadism 98378351 E29.1 Follow-up 6 months, total testostero ne is pending today. Microscopic hematuria 19 8790373 R31.29 Plan as above [id number] SONIA VANCE, [facility] NE[facility]OS[facility]G [facility] [address] [place] [address] 11/16/2023 13:14:33 11/17/2023 05:27:41 Lumbar radiculopathy 143876622 M54.16 Lumbar spondylosis 45930 0009 M47.896 [id number] MD [facility] [address] [place] [address] 11/07/2024 15:19:59 11/09/2024 04:10:16 Male hypogonadism 26891387 E29.1 Follow-up 12 months, total testostero ne is pending today. [id number] MD [facility] [address] [place] [address] 01/04/2025 11:21:24 01/04/2025 13:08:08 Chronic prostatitis 92208114 N41.1 He will follow-up in 1 month Health Concerns Section Related Observation LastModified by Organization Detai ls LastModified Time None Recorded Concern Status LastModified by Organization Details LastModified Time None Recorded Advance Directives Directive None Recorded Payers Insurance Date Sequence Insurance Name Policy Number Policy Brody Covered Member ID Brody Member ID Guarantor Name 01/05/2025 1 [place] [id number] 1 Chioma Lam [id number] Chioma Lam 11/30/2024 2 [employer] (POS) Chioma Lam [id number] Chioma Lam Notes Date Note Type Note Provider Name and Address Organization Details Recorded Time 10/22/2022 text/html Patient was last seen here in May 2020. He has been on Depo testosterone for several years but recently has been out of therapy for the last 4 or 5 months. He has had recurrence of fatigue. His last regimen was 100 mg every 3 weeks. He had a recent level of 206. We will resume previous regimen. If all is going well he will follow-up in 6 months DANI ARELLANO MD [address], [place], [address], [facility] 10/22/2022 21:11:17 06/20/2023 text/html Patient is here in follow-up of hypogonadism. In September we switched him to 300 mg every other week. He states that he continues to feel well. Noted that he had some microscopic hematuria today which is new for him. His has had stones but he has never had a stone. He has no voiding complaints. After discussion we have elected to observe this microscopic hematuria. We will obtain a testosterone level today. If his hematuria persists we will arrange for full evaluation. DANI ARELLANO MD [address] [place] [address], [phone], [facility] 06/20/2023 18:29:08 11/16/2023 text/html Mr. Lam is a 43-year-old man who returns to the office after last being seen 11/26/2021 with reports of continued low back and bilateral lower extremity symptoms that radiate down to his feet. SONIA VANCE APRN [address] [place] [address], [phone], [facility] 11/16/2023 15:59:20 11/07/2024 text/html Patient is here in follow-up of hypogonadism. He uses 300 mg Depo testosterone every other week and feels well. He is due for a testosterone level and CBC today. These were obtained and all both were acceptable. He will continue on current regimen with office visit in 1 year. DANI ARELLANO MD [address] [place] [address], [phone], [facility] 11/08/2024 10:21:50 01/04/2025 text/html Patient is here last seen in October for his chronic follow-up of hypogonadism. He was referred in for 1 month of dysuria increased urinary frequency and minimal back discomfort. We have never treating him for chronic prostatitis but he is also having issues with painful ejaculation. He also has mild dysuria. We discussed treating him for chronic prostatitis empirically. His urine today had small amount of microscopic pyuria. DANI ARELLANO MD [address] [place] [address], [phone], [facility] 01/04/2025 13:09:11
--- OUTSIDE RECORDS SUMMARY | 2025-01-23 15:34 | XMS_ITS | Continuity of Care Document ---
Author Organization [facility] [employer] kang [facility] Address [address] [place] [address] Care Team Providers Care Entertainment Musician Name Role Phone DAVID OBANDO Primary Care Provider DAVID OBANDO Referring Provider Assessment No assessment recorded. Plan of Treatment Reminders Order Date Submit Date Provider Last Modified By Organization Details Last Modified Time Details Appointments RECHECK 2024 03:45P M DANI ARELLANO MD Not available Not available Not available Lab urinalysi s panel, auto 2024 025 [email or web address] [facility], [address], [place], [address], 01/04/2025 13:08:28 Referral None recorded. Procedures None recorded. Surgeries None recorded. Imaging None recorded. Medication Orders cefuroxim e axetil 500 mg tablet 2024 025 [id number], [address] [place], [place], [phone], 01/04/2025 13:08:49 nabumeton e 500 mg tablet 2024 025 [facility], [address] [place], [place], [phone], 01/04/2025 13:08:42 Patient TargetsNo targets recorded. Patient InstructionsNo instructions recorded. Reason for Referral None Reported. Results Created Date Observation Date Name Description Value Unit Range Abnormal Flag Note LastModifiedBy Organization Detail LastModifiedTime 01/05/2001/04/2025 urina lysis panel , auto Unknown Analyte Clean Catch Not Available [facility] [address], [place], [address], 01/04/2025 12:34:14 01/05/2001/04/2025 urina lysis panel , auto Unknown Analyte Straw Not Available [facility] [address], [place], [address], 01/04/2025 12:34:14 01/05/20 25 01/04/2025 urina lysis panel , auto Unknown Analyte Clear Not Available [facility] [address], [place], [address], 01/04/2025 12:34:14 01/05/2001/04/2025 urina lysis panel , auto Unknown Analyte 1.015 Not Available [facility] [address], [place], [address], 01/04/2025 12:34:14 01/05/20 25 01/04/2025 urina lysis panel , auto Unknown Analyte 1.003 - 1.030 Not Available [facility] [address], [place], [address], 01/04/2025 12:34:14 01/05/20 25 01/04/2025 urina lysis panel , auto Unknown Analyte 6.0 Not Available [facility] [address], [place], [address], 01/04/2025 12:34:14 01/05/20 25 01/04/2025 urina lysis panel , auto Unknown Analyte 5.0 - 8.0 Not Available [facility] [address], [place], [address], 01/04/2025 12:34:14 01/05/20 25 01/04/2025 urina lysis panel , auto Unknown Analyte 25 Radha/uL Not Available [facility] [address], [place], [address], 01/04/2025 12:34:14 01/05/20 25 01/04/2025 urina lysis panel , auto Unknown Analyte Negati ve Not Available [facility] [address], [place], [address], 01/04/2025 12:34:14 01/05/20 25 01/04/2025 urina lysis panel , auto Unknown Analyte Negati ve Not Available [facility] [address], [place], [address], 01/04/2025 12:34:14 01/05/2001/04/2025 urina lysis panel , auto Unknown Analyte Negati ve Not Available [facility] [address], [place], [address], 01/04/2025 12:34:14 01/05/20 25 01/04/2025 urina lysis panel , auto Unknown Analyte Negati ve Not Available [facility] [address], [place], [address], 01/04/2025 12:34:14 01/05/20 25 01/04/2025 urina lysis panel , auto Unknown Analyte Negati ve Not Available [facility] [address], [place], [address], 01/04/2025 12:34:14 01/05/20 25 01/04/2025 urina lysis panel , auto Unknown Analyte Normal Not Available [facility] [address], [place], [address], 01/04/2025 12:34:14 01/05/20 25 01/04/2025 urina lysis panel , auto Unknown Analyte Normal Not Available [facility] [address], [place], [address], 01/04/2025 12:34:14 01/05/20 25 01/04/2025 urina lysis panel , auto Unknown Analyte Negati ve Not Available [facility] [address], [place], [address], 01/04/2025 12:34:14 01/05/20 25 01/04/2025 urina lysis panel , auto Unknown Analyte Negati ve Not Available [facility] [address], [place], [address], 01/04/2025 12:34:14 01/05/2001/04/2025 urina lysis panel , auto Unknown Analyte Normal Not Available [facility] [address], [place], [address], 01/04/2025 12:34:14 01/05/20 25 01/04/2025 urina lysis panel , auto Unknown Analyte Normal Not Available [facility] [address], [place], [address], 01/04/2025 12:34:14 01/05/20 25 01/04/2025 urina lysis panel , auto Unknown Analyte Negati ve Not Available [facility] [address], [place], [address], 01/04/2025 12:34:14 01/05/2001/04/2025 urina lysis panel , auto Unknown Analyte Negati ve Not Available [facility] [address] [place] [address] [address], [place], [address], 01/04/2025 12:34:14 01/05/2001/04/2025 urina lysis panel , auto Unknown Analyte Negati ve Not Available [facility] [address], [place], [address], 01/04/2025 12:34:14 01/05/20 25 01/04/2025 urina lysis panel , auto Unknown Analyte Negati ve Not Available [facility] [address], [place], [address], 01/04/2025 12:34:14 Result Notes None recorded. 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 Medical Equipment None Reported. Allergies Allergen ID Allergen Name Allergen Category Reaction Reaction Severity Criticality Documentation Date Start Date Code Code System Note Provider Name and Address Organization Details Recorded Time 942945 Levaquin medicatio n rash Not available Not available 06/18/20162015 78713 2 RxNorm React ion: RASH; Comme nt: Creat ed By: Bertha kraus Date: 2015 3:31: 06 PM; Not Available [facility] 6 06:25:02 032505 acetamino phen / oxycodone medicatio n other Not available Not available 06/18/20162015 31713 3 RxNorm React ion: OTHER ; Comme nt: Creat ed By: Bertha Maldonado nayana Date: 2015 3:31: 30 PM; Not Available [facility] 6 09:41:44 Medications Name Sig Start Date [...] Not Available Not Available BD Regular Bevel [place] 22 gauge x 1 USE DIRECTED ONCE [...] Updated DateTime 01/04/2025 175.26 cm 32.5 kg/m2 79529.32 g Ana Garrido [facility] 01/04/2025 12:31:35 Social History Question Answer Notes LastModified by Organizat ion Details LastModified Time Tobacco Smoking Status Never Smoker [facility] 01/10/2018 16:28:13 How Much Tobacco Do You Chew? 1/day Information not available 11/26/2021 Marital Status malia Informatio n not available 06/03/2020 What Was The Date Of Your Most Recent Tobacco Screening? 01/04/2025 [email or web address] Information not available 01/04/2025 Has Tobacco Cessation [...] ever used smokeless tobacco? Currently chews tobacco [email or web address] Information not available 06/03/2020 Do you or have you ever used e-cigarettes or vape? Never used electronic cigarettes Information not available 11/26/2021 Mental Status None recorded. Family History Relationship Description Onset Age of this Age Resolved Age Notes LastModified by Organization Details LastModified Time Unspecified Relation Family history of malignant neoplasm [email or web address] Not available 2019 17:06:08 Unspecified Relation Kidney [...] Pneumonia N Anesthesia Complications N Heart Attack ([place]) N Mental Illness Y Anxiety Disorder Y Diabetes N Bleeding Disorder N Blood Clot N Tuberculosis N Acid Reflux (GERD) Y Stroke N Asthma N Blood Thinners N Sleep Apnea N High Cholesterol N Liver Disease N Hypertension N Kidney Disease N Immunizations Vaccine Type Date Status Note Provider Nam e and Address Organization Details Recorded Time COVID-19, mRNA, LNP-S, PF, 100 mcg/0.5mL dose or 50 mcg/0.25mL dose 1 completed Christiane L[facility] 06/20/2023 16:02:30 COVID-19, mRNA, LNP-S, PF, 100 mcg/0.5mL dose or 50 mcg/0.25mL dose 1 completed Christiane Loli [facility] 06/20/2023 16:02:30 Influenza, split virus, trivalent, preservative 1 completed Christiane Gaminger [facility] 06/20/2023 16:02:30 Influenza, split virus, trivalent, PF 7 completed Christiane Ennis [facility] 06/20/2023 16:02:30 Influenza, split virus, quadrivalent, PF 0 completed Christiane Loli [facility] 06/20/2023 16:02:30 Influenza, split virus, quadrivalent, PF 2 completed Christiane Loli [facility] 06/20/2023 16:02:30 Past Encounters Encounter ID Performer Location Encounter Start Date Encounter Closed Date Diagnosis/Indication Diagnosis SNOMED-CT Code Diagnosis ICD10 Code Diagnosis Note [id number] DANI ARELLANO MD [facility] [address] [place] [address] 01/04/2025 11:21:24 01/04/2025 13:08:08 Chronic prostatitis 89986252 N41.1 He will follow-up in 1 month Health Concerns Section Related Observation LastModified by Organization Detai ls LastModified Time None Recorded Concern Status LastModified by Organization Details LastModified Time None Recorded Payers Encounter Date Sequence Insurance Name Policy Number Policy Brody Covered Member ID Brody Member ID Guarantor Name 01/04/2025 1 [place] [id number] 1 Harris Avendaño [id number] Harris Avendaño Notes Date Note Type Note Provider Name and Address Organization Details Recorded Time 01/04/2025 text/html Patient is here last seen [...] amount of microscopic pyuria. DANI ARELLANO MD [facility] [place], [address], [facility] 01/04/2025 13:09:11
[2025-01-23 15:36] VITALS: BP 136/87; PULSE 82; RESP 14; O2SAT 97; BMI 33.2
--- NOTE | 2025-01-23 15:54 | EXP.PAIN.SOA ---
[facility] Disclaimer: The information contained in this section may have been updated after the patient was seen, as this information can be updated by other users. Medical History Hilar lymphadenopathy Dyspnea on exertion History of gout Mediastinal lymphadenopathy Hypotestosteronemia in male SOB (shortness of breath) Family history of coronary artery disease Tachycardia HTN (hypertension) Surgical History History of surgery on upper extremity History of tonsillectomy History of cholecystectomy Family History Other No significant family history Social History Smoking Status: Never smoker alcohol intake: never substance use type: denies use current occupational status: other Travel in the last 8 weeks?: None household members: spouse housing: house current occupational exposures/hazards: No caffeine: No PM Subjective & Objective Subjective Subjective:: Patient is a pleasant 44-year-old male who presents today for medication refill and follow-up. Today he rates his pain a 3 out of 10. Patient denies any new falls or injuries. He does state that he has noticed a little bit more aching in his lower legs and calf area. Patient is unsure what this is related to. He does state once he is taken his medication it does ease down. Patient is currently managed with [place] 5 mg 3 times a day, tizanidine 2 mg at bedtime and ropinirole 0. To 5 mg at bedtime. He denies any side effects. His Chaim has been reviewed and is appropriate. Review of Systems: General: No recent weight changes, no fever, no sleep disturbances Respiratory: No cough, no shortness of air, no recurring pulmonary infections Cardiovascular/peripheral vascular: No chest pain, no palpitations, no edema, no shortness of breath Gastrointestinal: No new onset incontinence, normal bowel movements reported Genitourinary: No new onset incontinence Musculoskeletal: Low back pain, leg pain Psychiatric: [Normal mood/affect] Neurological: [Denies weakness in extremities], [denies balance issues] Pain at rest (0-10 scale): 3 Objective Objective:: Physical Exam: General: Alert and oriented x3, no acute distress, pleasant and cooperative Lungs: Respirations even and unlabored, symmetrical chest expansion Eyes: PERRL Musculoskeletal: Flexion and extension of lumbar [spine] somewhat guarded secondary to pain Neurological: Speech clear, no gross sensory deficit Has patient had previous pain injection?: No Conservative treatment options previously tried: Prescription medications Length of treatment: Longer than 12 weeks Meds Home Medications and Allergies Home Medications ?Medication ?Instructions ?Recorded ?Confirmed ?Type losartan 25 mg tablet 25 mg PO DAILY 02/26/24 01/23/25 History pantoprazole 40 mg tablet,delayed 40 mg PO DAILY 02/26/24 01/23/25 History release paroxetine HCl 40 mg tablet 40 mg PO DAILY 02/26/24 01/23/25 History testosterone cypionate 200 mg/mL 300 mg IM WEEKLY 02/26/24 01/23/25 History intramuscular oil pregabalin 75 mg capsule 75 mg PO BID #60 caps 04/02/24 01/23/25 Rx hydrocodone 5 mg-acetaminophen 325 1 tab PO TID #90 tabs 12/24/24 01/23/25 Rx mg tablet ropinirole 0.25 mg tablet 0.25 mg PO HS #30 tabs 12/24/24 01/23/25 Rx tizanidine 2 mg tablet 2 mg PO HS #30 tabs 12/24/24 01/23/25 Rx New Prescriptions to Start Prescriptions: Allergies Allergy/AdvReac Type Severity Reaction Status Date / Time acetaminophen (From Percocet) Allergy Nightmare Verified 09/19/24 10:24 levofloxacin (From Levaquin) Allergy Vomiting Verified 09/19/24 10:24 oxycodone (From Percocet) Allergy Nightmare Verified 09/19/24 10:24 Assessment and Plan *Assessment and plan (1) Lumbar radiculopathy: Status: Acute Category: Medical Code(s): M54.16 - Radiculopathy, lumbar region (2) Degenerative disc disease, lumbar: Status: Acute Category: Medical Code(s): M51.369 - Other intervertebral disc degeneration, lumbar region without mention of lumbar back pain or lower extremity pain Plan I will refill the patient's [place], tizanidine and ropinirole. We did discuss whether or not if the ropinirole makes any difference on that leg achy sensation he has been experiencing. Patient states that he had not really noticed that we will try and pay more attention between now and his next visit. We did discuss the possibility of increasing the dosage. We will follow-up with this in future. Patient will return to clinic in 1 month. Risks and benefits of the medication have been explained in detail to the patient. The patient does understand the risk of dependence on the medication when given over a prolonged period. Patient has been advised of risks of oversedation with the prescribed medication. Narcan has been offered to the paitent in the event of oversedation. Patient has been advised that a family member should also be educated regarding administration of Narcan. The patient has been advised to consult with his/her primary care provider and pharmacist regarding drug-drug interaction of medications currently prescribed. Patient has been prescribed a controlled substance after being counseled on the medication, medication safety, and possible side effects. Opioid contract was reviewed and signed by the patient, and that they have agreed to all of the terms set forth by our compliance program. A UDS is needed to verify patient's compliance with our office pain contract. This is ordered based off specific treatments related to chronic pain with the potential to abuse certain medications. Patient has been instructed to contact the clinic with any concerns before the next appointment. Dr. Tipton has reviewed this note and agrees with this plan of care. This note was dictated using voice recognition software and make contain errors or omissions.
== END 2025-01-23 23:59 | disposition home or self-care (01) ==
PROVIDERS: PCP Physician Assistant; Visit Provider Nurse Practitioner Family
DX: M51.16 Intervertebral disc disorders with radiculopathy, lumbar region (principal); Z79.899 Other long term (current) drug therapy; Z79.891 Long term (current) use of opiate analgesic
CPT/HCPCS: 99212; G0463

== ENCOUNTER 2025-02-25 15:28 | Outpatient (POV) | payer BC, SELFPAY ==
--- OUTSIDE RECORDS SUMMARY | 2024-11-28 10:00 | XMS_ITS ---
Author Organization [facility] Address [address] [facility] [address] [facility] [address] [place], [place] [id number] Care Team Providers Care Logistics Officer Name Role Phone John Byrne Primary Care Provider [phone] Cecy Auguste Unavailable [phone] REASON FOR VISIT blood test results Encounters Encounter Location Date Provider Diagnosis [facility] [address] [facility] [address] [facility] [address] [place], [place] [id number] 11/28/2024 Cecy Weinstein Plan Of Treatment Next Appt Details Provider Name:Cecy Granger y, 02/27/2025 03:30:00 PM, [address] [facility] [address] [facility], [address], [place], [place], [id number], Progress Notes * Harris LAMDOB: [birth year] (45 yo M)Acc No.[id number]:11/28/2024 Progress Notes Patient: Harris OVIEDO Provider: TEGAN Paez :1980 A ge:44 Y S ex:Male Date:11/28/2024 Address:[facility] [facility] Pcp:John Byrne Subjective: * Chief Complaints: * 1 . Blood test results. * Medical History: Objective: * Vitals: Assessment: Plan: * Treatment: * Images: Billing Information: * Visit Code: * Procedure Codes: * Electronic signature of TEGAN Rgean on 02/25/2025 at 03:33 PM EDT Sign off status: Pending * Provider: TEGAN Paez Date: 0 11/28/2024 Generated for Ramon canada/Jr/[place] on: 0 02/25/2025 03:33 PM EDT
--- OUTSIDE RECORDS SUMMARY | 2025-02-01 11:00 | XMS_ITS ---
Author Organization [facility] Address [address] [place] [phone] Care Team Providers Care Scientific Photographer Name Role Phone John Byrne Primary Care Provider Cecy Weinstein Unavailable [phone] Allergies Allergen (clinical drug ingredient) Drug/Non Drug Allergy documented on EMR Reaction Allergy Type Onset Date Status Levaquin Unknown Drug Allergy Active acetaminophen / oxycodone Percocet Unknown Drug Allergy Active Reason For Referral Diagnosis 1 Symptomatic varicose veins of both lower extremities (I83.893) Referral Organization [facility] Referring Provider First Name Cecy Referring Provider Last Name Corinna Referring Provider Speciality Physician Slide Forming Machine Tender Referred Provider Specialty Vascular Sarah tonia General Notes Cecy Weinstein 05/2025 03:33:45 PM > Please try to find someone in [place] who will take his insurance, Maia Boucher 02/04/2025 09:36:15 AM > [facility] takes his insurance; faxed referral and notes today Referral Priority Routine REASON FOR VISIT pain in lower legs and feet Medications Medication SIG (Take, Route, Frequency, Duration) Notes Start Date End Date Status Pantoprazole Sodium 40 MG TAKE 1 TABLET BY MOUTH DAILY; Duration: 90 Active Losartan Potassium 25 MG TAKE 1 TABLET BY MOUTH DAILY; Duration: 90 Active Testosterone Enanthate 200 MG/ML intramuscularly every 2 weeks Active HYDROcodone-Acetami nophen three times a day *Please review and pick correct strength-formulat ion from Medispan options. If intended option is not shown, discontinue and re-order from Quick Search* Active PARoxetine HCl 40 MG 1 tablet in the morning Orally Once a day; Duration: 30 days Active Vital Signs Blood pressure systolic 120 mm Hg 02/02/20 25 Blood pressure diastolic 78 mm Hg 025 Heart Rate 88 /min 02/01/2025 Height 69 in 02/01/2025 Weight 222.0 lbs 02/01/2025 BMI 32.78 kg/m2 02/01/2025 Encounters Encounter Location Date Provider Diagnosis [facility] [address] [facility] [address] [facility] [address] [place], [place] [id number] 02/01/2025 Cecy Weinstein Symptomatic varicose veins of both lower extremities I83.893 Assessments Encounter Date Diagnosis (ICD Code) Assessment Notes Treatment Notes Treatment Clinical Notes Section Notes 02/01/2025 Symptomatic varicose veins of both lower extremities (ICD-10 - I83.893) JUAN F's were normal. This does not appear to be nerve related. He did get relief wearing compression stockings. Will start these again and will make referral to vascular surgeon. Plan Of Treatment Treatment Notes Assessment Notes Symptomatic varicose veins o f both lower extremities JUAN F's were normal. This does not appear to be nerve related. He did get relief wearing compression stockings. Will start these again and will make referral to vascular surgeon. Referrals Referral Date Details 02/01/2025 02/01/2025 Next Appt Details Follow Up: with vascular sarah anish, Reason: Provider Name:Cecy Kalyn Danielroxie y, 02/27/2025 03:30:00 PM, [address] [facility] [address] [facility], [address], [place], [place], [id number], Progress Notes * Harris LAMDOB: [birth year] (45 yo M)Acc No.[id number]:02/01/2025 Progress Notes Patient: Harris OVIEDO Provider: TEGAN Paez :1980 A ge:45 Y S ex:Male Date:02/01/2025 Address:[address] [place] [address] [facility], [facility] Pcp:John Byrne Subjective: * Chief Complaints: * 1 . Pain in lower legs and feet. * HPI: L e45 year old male presents with c/o Leg pain P t is here today with c/o pain in his lower legs and his feet. Pt sts the pain has been ongoing for a couple of months now. A nkle/Foot: c/o Pain l eft, right. * ROS: D ERMATOLOGY: no R sofi. [...] D deficiency, Hyperuricemia, H Pylori, treated in lr, Diverticulosis - dx. Jun 2018, Colon polyps, [...] Solution intramuscularly every 2 weeks , Taking Losartan Potassium 25 MG Tablet TAKE 1 TABLET BY MOUTH DAILY , Taking Pantoprazole Sodium 40 MG Tablet Delayed Release TAKE 1 TABLET BY MOUTH DAILY , Taking PARoxetine HCl 40 MG Tablet 1 tablet in the morning Orally Once a day , Medication List reviewed and reconciled with the patient * Allergies: P ercocet, Levaquin. Objective: * Vitals: W t: 222.0, Temp: 97.7, BP: 120/78, HR: 88, Nurse: hever, Ht: 69, BMI:32.78. * Examination: G eneral Examination: General Appearance: N AD. C hest: n ormal shape and expansion. H eart: R SR. L ungs: c lear to auscultation. E xtremities: t race leg edema, varicose veins - worst on the right, tender along the bilateral lower legs, full ROM, feet with no ttp and full ROM. Assessment: * Assessment: 1. S ymptomatic varicose veins of both lower extremities - I83.893 (Primary) Plan: * Treatment: * Procedure Codes: 1 036F TOBACCO NON-USER, G8783 BP SCR PRFRM RCMDD DEFIND SCR INTVL, 3074F SYST BP LT 130 MM HG, 3078F DIAST BP < 80 MM HG * Follow Up: w ith vascular surgeon * Images: Billing Information: * Visit Code: 27632 Office Visit, Est Pt., Level 3. * Procedure Codes: 1036F TOBACCO NON-USER. G8783 BP SCR PRFRM RCMDD DEFIND SCR INTVL. 3074F SYST BP LT 130 MM HG. 3078F DIAST BP < 80 MM HG. * Electronic signature of TEGAN Regan on 02/25/2025 at 03:34 PM EDT Sign off status: Pending * Provider: TEGAN Paez Date: 02/01/2025 Generated for Ramon canada/Jr/eTjadasmitting on: 02/25/2025 03:34 PM EDT History and Physical Notes * HPI (History of Present Illness) Category Sub-Category Detail Notes Category Not es Ankle/Foot Pain left, right Leg Leg pain Pt is here today with c/o pain in his lower legs and his feet. Pt sts the pain has been ongoing for a couple of months now Examination Category Sub-Category Detail Notes Category Not es General Examination Heart: RSR Lungs: clear to auscultatio n Extremities: trace leg edema, larisa icose veins - worst on the right, tender along the bilateral lower legs, full ROM, feet with no ttp and full ROM General Appearance: NAD Chest: normal shape and exp ansion Consultation Request Notes Referral Date Referring Provider Referred Provider Not es 02/01/2025 Cecy Weinstein ,
--- OUTSIDE RECORDS SUMMARY | 2025-02-13 09:15 | XMS_ITS ---
[facility] Address [address] [facility] [address] [place] [id number] Care Team Providers Care Packaging Materials Inspector Name Role Phone John Byrne Primary Care Provider Danielryann Cecy Unavailable [phone] Allergies Allergen (clinical drug ingredient) Drug/Non Drug [...] W/U Status Risk Notes Problem Panic attack (249535984) Panic attack (F41.0) Active confirmed Vital Signs Blood pressure systolic 120 mm Hg 02/14/20 25 Blood pressure diastolic 72 mm Hg 025 Heart Rate 96 /min 02/13/2025 Height 69 in 02/13/2025 Weight 221.8 lbs 02/13/2025 BMI 32.75 kg/m2 02/13/2025 Encounters Encounter Location Date Provider Diagnosis [facility] [address] [facility] [phone] 02/13/2025 Cecy Weinstein Panic attack F41.0 Assessments Encounter Date Diagnosis (ICD Code) Assessment Notes Treatment Notes Treatment Clinical Notes Section Notes 02/13/2025 Panic attack (ICD-10 - F41.0) Plan Of Treatment Medication Medication Name Sig Start Date Stop Date Notes hydrOXYzine HCl 25 MG 1/2 - 1 tab Orally 4 times a day, prn 02/13/2025 Next Appt Details Follow Up: 2 Weeks, Reason: Provider Name:Cecy Mccain Elkin y, 02/27/2025 03:30:00 PM, [address] [facility] [address] [facility], [address], [facility], [phone], Progress Notes * Harris LAMDOB: [birth year] (45 yo M)Acc No.[id number]:02/13/2025 Progress Notes Patient: Harris OVIEDO Provider: TEGAN Paez :1980 A ge:45 Y S ex:Male Date:02/13/2025 Address:[address] [place], [place] [phone] Pcp:John Byrne Subjective: * Chief Complaints: * [...] D deficiency, Hyperuricemia, H Pylori, treated in y 2000's, Diverticulosis - dx. Jun 2018, Colon polyps, [...] *Please review and pick correct strength-formulation from Bokeccan options. If intended option is not shown, [...] Temp: 98.1, BP: 120/72, HR: 96, Nurse: pe, Ht: 69, BMI:32.75. * Examination: P sychology: [...] * Images: Billing Information: * Visit Code: 66013 Office Visit, Est Pt., Level 3. * Procedure Codes: * Electronic signature of TEGAN Regan on 02/25/2025 at 03:34 PM EDT Sign off status: Pending * Provider: TEGAN Paez Date: 02/13/2025 Generated for Ramon canada/Jr/eTransmitting on: 02/25/2025 03:34 PM EDT History and [...]
--- OUTSIDE RECORDS SUMMARY | 2025-02-25 15:34 | XMS_ITS | Patient Health Record ---
Author Organization [facility] Address [address] [place], [place] [id number] Care Team Providers Care Goat Driver Name Role Phone John Byren Primary Care Provider DanielCecy garzon Unavailable [phone] Allergies Allergen (clinical drug ingredient) Drug/Non Drug Allergy documented on EMR Reaction Allergy Type Onset Date Status Levaquin Unknown Drug Allergy Active acetaminophen / oxycodone Percocet Unknown Drug Allergy Active Results Component Value Reference Range Notes CXR Reviewed date:11/20/2024 04:13:03 PM Interpretation:Negative Performing Lab: Notes/Report: Negative H-BMP Reviewed date:11/23/2024 01:27:13 PM Interpretation: Performing Lab: Notes/Report: CT Scan : Abd & Pelvis stone protocol (without contrast) Reviewed date:11/15/2024 03:50:18 PM Interpretation: Performing Lab: Notes/Report: P-Culture, Urine Reviewed date:10/30/2024 04:00:08 PM Interpretation:No Growth Performing Lab: Notes/Report: Test performed by [employer] [facility] , [address], [place] [address] Pete Veloz MD, Science Analyst CLIA: [id number] Specimen Source Urine - Void Culture, Urine [...] 1.010 Ketone Neg Bili Neg Gluc Neg X ray : Tib-fib,right Reviewed date:06/20/2024 08:46:39 AM Interpretation: Performing Lab: Notes/Report: Ankle-brachial index Reviewed date:06/20/2024 08:46:24 AM Interpretation: Performing Lab: Notes/Report: Glucose (In-House) Reviewed date:06/29/2024 01:02:32 PM Interpretation:102 Performing Lab: Notes/Report: 102 blood glucose 102 74 - 106 mg/dL Glycohemoglobin A1c (in hous e) Reviewed date:06/29/2024 01:02:39 PM Interpretation:5.2% Performing Lab: Notes/Report: 5.2% glycohemoglobin 5.2% 5 - 6.5 % Medications Medication SIG (Take, Route, Frequency, Duration) Notes Start Date End Date Status Pantoprazole Sodium 40 MG TAKE 1 TABLET BY MOUTH DAILY; Duration: 90 Active Losartan Potassium 25 MG 1 tablet Orally Once a day; Duration: 90 days Active hydrOXYzine HCl 25 MG 1/2 - 1 tab Orally 4 times a day, prn 02/13/2025 Active HYDROcodone-Acetami nophen three times a day *Please review and pick correct strength-formulat ion from [employer] options. If intended option is not shown, discontinue and re-order from Quick Search* Active Testosterone Enanthate 200 MG/ML intramuscularly every 2 weeks Active PARoxetine HCl 40 MG 1 tablet in the morning Orally Once a day; Duration: 30 days Active Immunizations Vaccine Route Administration Date Status Comme nts xFluzone (6mos and older)-trivalent Unknown 05/21/2021 Administered xFlu shot- 6months-36 months of auo-YKVE-QLQZ-trivalent Unknown 05/21/2017 Administered ppd ID Intradermal 06/05/2013 Administered Fluzone PF Quad (6-35 months) Unknown 05/13/2020 Administered Fluzone PF Quad (6-35 months) Unknown 05/20/2022 Administered COVID 19 Moderna Unknown 10/17/2020 Administered COVID 19 Moderna Unknown 11/14/2020 Administered Problems Problem Type SNOMED Code ICD Code Onset Dates Problem Status W/U Status Risk Notes Problem Sinusitis (60555499) Sinusitis (J32.9) Active c onfirmed Problem Vitamin D deficiency (25845213) Vitamin D deficiency (E55.9) Active confirmed Problem Vitamin B12 deficiency (236200893) Vitamin B12 deficiency (E53.8) Active confirmed Problem Essential hypertension (14230134) Essential hypertension (I10) Active confirmed Problem Otitis externa (2399842) Otitis externa (H60.90) Active confirmed Problem Hyperuricemia (70765536) Hyperuricemia (E79.0) Active confirmed Problem Hyperbilirubinemia (88984631) Hyperbilirubinemia (E80.6) Active confirmed Problem Gastroesophageal reflux disease (661932094) Gastroesophageal reflux disease, esophagitis presence not specified (K21.9) Active confirmed Problem Polyarthritis (871105149) Polyarthritis (M13.0) Active confirmed Problem Androgen deficiency (98956425) Testosterone deficiency (E29.1) Active confirmed Problem Paresthesia of both hands (423690220) Paresthesia of both hands (R20.2) Active confirmed Problem Gout (63570440) Acute gout invol ving toe of left foot, unspecified cause (M10.9) Active confirmed Problem Panic attack (756259573) Panic attack (F41.0) Active confirmed Problem Increased hemoglobin (465273881) Elevated hemoglobin (D58.2) Active confirmed Problem Partial thickness rotator cuff tear (632689232) Partial tear of right rotator cuff (M75.111) Active confirmed Problem Lumbar radiculopathy (232559495) Lumbar back pain with radiculopathy affecting lower extremity (M54.16) Active confirmed Problem Gastroesophageal reflux disease (672039709) Gastroesophageal reflux disease, unspecified whether esophagitis present (K21.9) Active confirmed Problem Lumbosacral spondylosis without myelopathy (44701001) Facet hypertrophy of lumbosacral region (M47.817) Active confirmed Vital Signs Heart Rate 96 /min 02/13/2025 Blood pressure diastolic 72 mm Hg 02/13/2025 Height 69 in 02/13/2025 Blood pressure systolic 120 mm Hg 02/13/2025 Weight 221.8 lbs 02/13/2025 BMI 32.75 kg/m2 02/13/2025 Encounters Encounter Location Date Provider Diagnosis [place] [address] [facility] [address] [place] [id number] 05/16/2024 Cecy Corinna Left hand tendonitis M77.8 and Lumbar back pain with radiculopathy affecting lower extremity M54.16 [facility] [address] [facility] [address] [place] [id number] 06/08/2024 Cecy Crowryann Pain of right lower extremity M79.604 [facility] [address] [place] [id number] 06/28/2024 Cecy Corinna Elevated glucose R73 .09 and Pain of right lower extremity M79.604 [facility] [address] [place] [id number] 08/30/2024 Cecy Corinna De Quervain's tenosynovitis M65.4 and Trigger thumb, right thumb M65.311 [facility] [address] [facility] [address] [place] [id number] 10/25/2024 Cecy Corinna Left lateral abdomin al pain R10.9 and Hematuria, unspecified type R31.9 [facility] [address] [place] [id number] 10/31/2024 Cecy Weinstein Pre-op exam Z01.818 [facility] [address] [place] [id number] 02/01/2025 Cecy Weinstein Symptomatic varicose veins of both lower extremities I83.893 [facility] [address] [place], [place] [id number] 02/13/2025 Cecy Weinstein Panic attack F41.0 [facility] [address] [place], [place] [id number] 06/20/2024 Cecy Weinstein [facility] [address] [place], [place] [id number] 06/27/2024 John Worley Gastroesophageal ref lux disease, unspecified whether esophagitis present K21.9 [facility] [address] [place], [place] [id number] 06/29/2024 Cecy Weinstein [facility] [address] [place], [place] [id number] 09/21/2024 Cecy Weinstein [facility] [address] [place], [place] [id number] 11/02/2024 John Worley [facility] [address] [place], [place] [id number] 11/02/2024 Cecy Weinstein [facility] [address] [place], [place] [id number] 11/23/2024 Cecy Weinstein Assessments Encounter Date Diagnosis [...] normal, will likely need to see ortho. 06/27/2024 Gastroesophageal reflux disease, unspecified whether esophagitis present (ICD-10 - K21.9) 06/28/2024 Elevated glucose (ICD-10 - R73.09) 06/28/2024 Pain of right lower extremity (ICD-10 - M79.604) Xray and JUAN F's were normal. He does have some relief with compression stockings. We can send to ortho or try Physical therapy. He would like to continue with the compression stockings and see if the pain continues to improve. 08/30/2024 Trigger thumb, right thumb (ICD-10 - M65.311) 08/30/2024 De Quervain's tenosynovitis (ICD-10 - M65.4) Will start wearing a thumb spica splint and make ortho referral. 10/25/2024 Left lateral abdominal pain (ICD-10 - R10.9) 10/25/2024 Hematuria, unspecified type (ICD-10 - R31.9) 10/31/2024 Pre-op exam (ICD-10 - Z01.818) Labs and imaging reviewed. Patient's U/A is the only abnormal finding. He will need this repeated with a culture. He is otherwise fine to undergo surgery. 02/01/2025 Symptomatic varicose veins of both lower extremities (ICD-10 - I83.893) JUAN F's were normal. This does not appear to be nerve related. He did get relief wearing compression stockings. Will start these again and will make referral to vascular surgeon. 02/13/2025 Panic attack (ICD-10 - F41.0) Plan Of Treatment Pending Test Test Name Order Date EKG 10/31/2024 H-CBC 10/31/2024 H-UA 10/31/2024 H-Urine Drug Screen 10/31/2024 P-Arthritis Panel, [facility] 10/13/2022 Next Appt Details Provider Name:Cecykeke singer, 02/27/2025 03:30:00 PM, [address] [facility], [address], [place], [place], [id number], Insurance Providers Payer Name Payer Address Payer Phone Subscriber Number Group Number Insured Name Patient Relationship to Insured Coverage Start Date Coverage End Date [employer] [address] [place] [address] [phone] [id number] Harris Lopez Self - patient is the insured Medical (General) History Medical History History ICD Code Esophageal reflux hyperlipidemia irritable bowel syndrome depression allergic rhinitis Testosterone deficiency, s/p Urology and Endocrinology evaluation B 12 deficiency gall bladder disease Vitamin D deficiency Hyperuricemia H Pylori, treated in Diverticulosis - dx. Jun 2018 Colon polyps Sarcoidosis Surgical History Surgery Date(Month/Year) cholecystectomy tonsillectomy 07/2012 Slap Repair on right shoulder 11/2012 Colonoscopy - Diverticulosis 07/19/2018 Hospitalization History Reason Date(Month/Year) [facility] - Shingles 10/18/2018 [facility] - chest pain 04/08/2018
--- NOTE | 2025-02-25 15:49 | EXP.PAIN.SOA ---
[facility] Disclaimer: The information contained in this section may have been updated after the patient was seen, as this information can be updated by other users. Medical History Hilar lymphadenopathy Dyspnea on exertion History of gout Mediastinal lymphadenopathy Hypotestosteronemia in male SOB (shortness of breath) Family history of coronary artery disease Tachycardia HTN (hypertension) Surgical History History of surgery on upper extremity History of tonsillectomy History of cholecystectomy Family History Other No significant family history Social History Smoking Status: Never smoker alcohol intake: never substance use type: denies use current occupational status: other Travel in the last 8 weeks?: None household members: spouse housing: house current occupational exposures/hazards: No caffeine: No PM Subjective & Objective Subjective Subjective:: Patient is a pleasant 45-year-old male who presents today for medication refill and 1 month follow-up. He rates his pain today a 4 out of 10. He denies any new changes. He is currently managed with Mclean 5 mg 3 times a day, tizanidine 2 mg at bedtime and ropinirole 0.25 mg at bedtime. He denies any side effects. He does not need refills on the ropinirole and the tizanidine. His Chaim has been reviewed and is appropriate. Review of Systems: General: No recent weight changes, no fever, no sleep disturbances Respiratory: No cough, no shortness of air, no recurring pulmonary infections Cardiovascular/peripheral vascular: No chest pain, no palpitations, no edema, no shortness of breath Gastrointestinal: No new onset incontinence, normal bowel movements reported Genitourinary: No new onset incontinence Musculoskeletal: Low back pain Psychiatric: [Normal mood/affect] Neurological: [Denies weakness in extremities], [denies balance issues] Pain at rest (0-10 scale): 4 Objective Objective:: Physical Exam: General: Alert and oriented x3, no acute distress, pleasant and cooperative Lungs: Respirations even and unlabored, symmetrical chest expansion Eyes: PERRL Musculoskeletal: Flexion and extension of lumbar [spine] somewhat guarded secondary to pain, [antalgic gait noted] Neurological: Speech clear, no gross sensory deficit Has patient had previous pain injection?: No Conservative treatment options previously tried: Home exercise plan Length of treatment: Longer than 12 weeks Meds Home Medications and Allergies Home Medications ?Medication ?Instructions ?Recorded ?Confirmed ?Type losartan 25 mg tablet 25 mg PO DAILY 02/26/24 01/23/25 History pantoprazole 40 mg tablet,delayed 40 mg PO DAILY 02/26/24 01/23/25 History release paroxetine HCl 40 mg tablet 40 mg PO DAILY 02/26/24 01/23/25 History testosterone cypionate 200 mg/mL 300 mg IM WEEKLY 02/26/24 01/23/25 History intramuscular oil pregabalin 75 mg capsule 75 mg PO BID #60 caps 04/02/24 01/23/25 Rx ropinirole 0.25 mg tablet 0.25 mg PO HS #30 tabs 12/24/24 01/23/25 Rx tizanidine 2 mg tablet 2 mg PO HS #30 tabs 12/24/24 01/23/25 Rx hydrocodone 5 mg-acetaminophen 325 1 tab PO TID #90 tabs 01/23/25 Rx mg tablet New Prescriptions to Start Prescriptions: Allergies Allergy/AdvReac Type Severity Reaction Status Date / Time acetaminophen (From Percocet) Allergy Nightmare Verified 09/19/24 10:24 levofloxacin (From Levaquin) Allergy Vomiting Verified 09/19/24 10:24 oxycodone (From Percocet) Allergy Nightmare Verified 09/19/24 10:24 Assessment and Plan *Assessment and plan (1) Lumbar radiculopathy: Status: Acute Category: Medical Code(s): M54.16 - Radiculopathy, lumbar region (2) Degenerative disc disease, lumbar: Status: Acute Category: Medical Code(s): M51.369 - Other intervertebral disc degeneration, lumbar region without mention of lumbar back pain or lower extremity pain Plan I will refill his Mclean and provide a 1 month supply of this medication. Patient will return to clinic in 1 month for reevaluation of symptoms and plan of care. Risks and benefits of the medication have been explained in detail to the patient. The patient does understand the risk of dependence on the medication when given over a prolonged period. Patient has been advised of risks of oversedation with the prescribed medication. Narcan has been offered to the paitent in the event of oversedation. Patient has been advised that a family member should also be educated regarding administration of Narcan. The patient has been advised to consult with his/her primary care provider and pharmacist regarding drug-drug interaction of medications currently prescribed. Patient has been prescribed a controlled substance after being counseled on the medication, medication safety, and possible side effects. Opioid contract was reviewed and signed by the patient, and that they have agreed to all of the terms set forth by our compliance program. A UDS is needed to verify patient's compliance with our office pain contract. This is ordered based off specific treatments related to chronic pain with the potential to abuse certain medications. Patient has been instructed to contact the clinic with any concerns before the next appointment. Dr. Tipton has reviewed this note and agrees with this plan of care. This note was dictated using voice recognition software and make contain errors or omissions.
== END 2025-02-25 23:59 | disposition home or self-care (01) ==
PROVIDERS: PCP Physician Assistant; Visit Provider Nurse Practitioner Family
DX: M51.16 Intervertebral disc disorders with radiculopathy, lumbar region (principal); Z79.891 Long term (current) use of opiate analgesic; Z79.899 Other long term (current) drug therapy

== ENCOUNTER 2025-03-06 09:17 | Outpatient (POV) | payer BC, SELFPAY ==
--- OUTSIDE RECORDS SUMMARY | 2025-02-01 11:00 | XMS_ITS ---
Author Organization [facility] Address [address] [place] [id number] Care Team Providers Care Manager Creative Name Role Phone John Byrne Primary Care Provider [phone] Cecy Weinstein Unavailable [phone] Allergies Allergen (clinical drug ingredient) Drug/Non Drug Allergy documented on EMR Reaction Allergy Type Onset Date Status Levaquin Unknown Drug Allergy Active acetaminophen / oxycodone Percocet Unknown Drug Allergy Active Reason For Referral Diagnosis 1 Symptomatic varicose veins of both lower extremities (I83.893) Referral Organization [facility] Referring Provider First Name Cecy Referring Provider Last Name Corinna Referring Provider Speciality Physician Staff Interpreter Referred Provider Specialty Vascular Sarah tonia General Notes Cecy Weinstein 05/2025 03:33:45 PM > Please try to find someone in [place] who will take his insurance, Maia Boucher [...] day; Duration: 30 days Active Vital Signs Weight 222.0 lbs 02/01/2025 Blood pressure systolic 120 mm Hg 02/02/20 25 Blood pressure diastolic 78 mm Hg 025 Heart Rate 88 /min 02/01/2025 Height 69 in 02/01/2025 BMI 32.78 kg/m2 02/01/2025 Encounters Encounter Location Date Provider Diagnosis [facility] [address] [facility] [phone] 02/01/2025 Cecy Weinstein Symptomatic varicose veins of [...] Follow Up: with vascular sarah anish, Reason: Progress Notes * Harris LAMDOB: [birth year] (45 yo M)Acc No.[id number]:02/01/2025 Progress Notes Patient: Harris OVIEDO Provider: TEGAN Paez :1980 A ge:45 Y S ex:Male Date:02/01/2025 Address:[address] [place] [address], [facility] Pcp:John Byrne Subjective: * Chief Complaints: * [...] D deficiency, Hyperuricemia, H Pylori, treated in ealry , Diverticulosis - dx. Jun 2018, Colon polyps, [...] 80 MM HG * Follow Up: w [facility] vascular surgeon * Images: Billing Information: * Visit Code: 35357 Office Visit, Est Pt., Level 3. * Procedure Codes: 1036F TOBACCO NON-USER. G8783 BP SCR PRFRM RCMDD DEFIND SCR INTVL. 3074F SYST BP LT 130 MM HG. 3078F DIAST BP < 80 MM HG. * Electronic signature of TEGAN Regan on 03/06/2025 at 09:20 AM EDT Sign off status: Pending * Provider: TEGAN Paez Date: 0 02/01/2025 Generated for Ramon canada/Jr/Harshalitting on: 0 03/06/2025 09:20 AM EDT History and Physical Notes * HPI [...]
--- OUTSIDE RECORDS SUMMARY | 2025-02-13 09:15 | XMS_ITS ---
[facility] Address [address] [facility] [address] [place] [id number] Care Team Providers Care User Experience Lead Name Role Phone John Byrne Primary Care Provider DanielryannRubéna Unavailable [phone] Allergies Allergen (clinical drug ingredient) Drug/Non Drug Allergy documented on EMR Reaction Allergy Type Onset Date Status Levaquin Unknown Drug Allergy Active acetaminophen / oxycodone Percocet Unknown Drug Allergy Active REASON FOR VISIT medication Medications Medication SIG (Take, Route, Frequency, Duration) Notes Start Date End Date Status PARoxetine HCl 40 MG 1 tablet in the morning Orally Once a day; Duration: 30 days Active Losartan Potassium 25 MG TAKE 1 TABLET BY MOUTH DAILY; Duration: 90 Active Pantoprazole Sodium 40 MG TAKE 1 TABLET BY MOUTH DAILY; Duration: 90 Active hydrOXYzine HCl 25 MG 1/2 - 1 tab Orally 4 times a day, prn 02/13/2025 Active Testosterone Enanthate 200 MG/ML intramuscularly every 2 weeks Active HYDROcodone-Acetami nophen three times a day *Please review and pick correct strength-formulat ion from Medispan options. If intended option is not shown, discontinue and re-order from Quick Search* Active Problems Problem Type SNOMED Code ICD Code Onset Dates Problem Status W/U Status Risk Notes Problem Panic attack (774872539) Panic attack (F41.0) Active confirmed Vital Signs Weight 221.8 lbs 02/13/2025 Blood pressure systolic 120 mm Hg 02/14/20 25 Blood pressure diastolic 72 mm Hg 025 Heart Rate 96 /min 02/13/2025 Height 69 in 02/13/2025 BMI 32.75 kg/m2 02/13/2025 Encounters Encounter Location Date Provider Diagnosis [facility] [address] [facility] [phone] 02/13/2025 Cecy Weinstein Panic attack F41.0 Assessments Encounter Date Diagnosis (ICD Code) Assessment Notes Treatment Notes Treatment Clinical Notes Section Notes 02/13/2025 Panic attack (ICD-10 - F41.0) Plan Of Treatment Medication Medication Name Sig Start Date Stop Date Notes hydrOXYzine HCl 25 MG 1/2 - 1 tab Orally 4 times a day, prn 02/13/2025 Next Appt Details Follow Up: 2 Weeks, Reason: Progress Notes * Harris LAMDOB: [birth year] (45 yo M)Acc No.[id number]:02/13/2025 Progress Notes Patient: Harris OVIEDO Provider: TEGAN Paez :1980 A ge:45 Y S ex:Male Date:02/13/2025 Address:[address] [place], [place] [id number] Pcp:John Byrne Subjective: * Chief Complaints: * 1 . Medication. * HPI: H PI: Patient is here today for M aybe an anxiety attack. Pt states it happened this morning. He has been under a lot of stress and has been unable to sleep..? * ROS: D ERMATOLOGY: no R sofi. [...] ercocet, Levaquin. Objective: * Vitals: W t: 221.8, Temp: 98.1, BP: 120/72, HR: 96, Nurse: tyra, Ht: 69, BMI:32.75. * Examination: P sychology: General Appearance: N AD. G rooming : a dequate.?Eye contact : n ormal. M ood : p leasant. H eart: R SR. L ungs: c lear to auscultation. N eurologic Exam: I ntact, gait normal. Assessment: * Assessment: 1. P anic attack - F41.0 (Primary) Plan: * Treatment: * Follow Up: 2 Weeks * Images: Billing Information: * Visit Code: 89417 Office Visit, Est Pt., Level 3. * Procedure Codes: * Electronic signature of TEGAN Regan on 03/06/2025 at 09:20 AM EDT Sign off status: Pending * Provider: TEGAN Paez Date: 0 02/13/2025 Generated for Ramon canada/Jr/eTransmitting on: 0 03/06/2025 09:20 AM EDT History and Physical Notes * HPI (History of Present Illness) Category Sub-Category Detail Notes Category Not es HPI Patient is here today for Maybe an anxiety attack. Pt states it happened this morning. He has been under a lot of stress and has been unable to sleep. Examination Category Sub-Category Detail Notes Category Not es Psychology Heart: RSR Lungs: clear to auscultatio n General Appearance: NAD Neurologic Exam: Intact, gait normal Grooming : adequate Eye contact : normal Mood : pleasant
--- OUTSIDE RECORDS SUMMARY | 2025-02-28 11:45 | XMS_ITS ---
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 Role Phone John Byrne Primary Care Provider [phone] Cecy Weinstein Unavailable [phone] Allergies Allergen (clinical drug ingredient) Drug/Non Drug Allergy documented on EMR Reaction Allergy Type Onset Date Status Levaquin Unknown Drug Allergy Active acetaminophen / oxycodone Percocet Unknown Drug Allergy Active REASON FOR VISIT 2 weeks Medications Medication SIG (Take, Route, Frequency, Duration) Notes Start Date End Date Status Testosterone Enanthate 200 MG/ML intramuscularly every 2 weeks Active Pantoprazole Sodium 40 MG TAKE 1 TABLET BY MOUTH DAILY; Duration: 90 Active hydrOXYzine HCl 25 MG 1/2 - 1 tab Orally 4 times a day, prn Active Pregabalin 25 MG 1 capsule Orally 3 times a day Active HYDROcodone-Acetami nophen three times a day *Please review and pick correct strength-formulat ion from Bio[employer]orb[employer] The[employer] options. If intended option is not shown, discontinue and re-order from Quick Search* Active PARoxetine HCl 40 MG 1 tablet in the morning Orally Once a day; Duration: 30 days Active Losartan Potassium 25 MG 1 tablet Orally Once a day; Duration: 90 days Active Vital Signs Weight 222 lbs 02/28/2025 Blood pressure systolic 122 mm Hg 02/29/20 25 Blood pressure diastolic 70 mm Hg 025 Heart Rate 105 /min 02/28/2025 Height 69 in 02/28/2025 BMI 32.78 kg/m2 02/28/2025 Encounters Encounter Location Date [facility] [address] [facility] [address] [place] [id number] 02/28/2025 Cecy Weinstein Panic attack F41.0 Assessments Encounter Date Diagnosis (ICD Code) Assessment Notes Treatment Notes Treatment Clinical Notes Section Notes 02/28/2025 Panic attack (ICD-10 - F41.0) Plan Of Treatment Medication Medication Name Sig Start Date Stop Date Notes hydrOXYzine HCl 25 MG 1/2 - 1 tab Orally 4 times a day, prn Next Appt Details Follow Up: prn, Reason: Progress Notes * Harris LAMDOB: [birth year] (45 yo M)Acc No.[id number]:02/28/2025 Progress Notes Patient: Harris OVIEDO Provider: TEGAN Paez :1980 A ge:45 Y S ex:Male Date:02/28/2025 Address:[address] [place] [address], [id number] Pcp:John Byrne Subjective: * Chief Complaints: * 1 . 2 weeks. * HPI: P sychology: 45 year old male presents with c/o Anxiety P t here for a f/u. Pt was started on Hydroxyzine 25mg last visit. Pt states he thinks the new meds been helping. He is now sleeping well. He does need a note for work stating he may need a few days off at times due to caring for his mother who has been in the hospital. . * ROS: D ERMATOLOGY: no R sofi. [...] Determination:, occasional, rare. * Medications: T aking Pregabalin 25 MG Capsule 1 capsule Orally 3 times a day , Taking HYDROcodone-Acetaminophen , Notes to Pharmacist: three times a day *Please review and pick correct strength-formulation from Bio[employer] The[employer]an options. If intended option is not shown, discontinue and re-order from Quick Search*, Taking Testosterone Enanthate 200 MG/ML Solution intramuscularly every 2 weeks , Taking Pantoprazole Sodium 40 MG Tablet Delayed Release TAKE 1 TABLET BY MOUTH DAILY , Taking hydrOXYzine HCl 25 MG Tablet 1/2 - 1 tab Orally 4 times a day, prn , Taking PARoxetine HCl 40 MG Tablet 1 tablet in the morning Orally Once a day , Taking Losartan Potassium 25 MG Tablet 1 tablet Orally Once a day , Medication List reviewed and reconciled with the patient * Allergies: P ercocet, Levaquin. Objective: * Vitals: W t: 222, Temp: 98.4, BP: 122/70, HR: 105, Nurse: pe, Ht: 69, BMI:32.78. * Examination: P sychology: General Appearance: N AD. G rooming : a dequate.?Eye contact : n ormal. M ood : p leasant. H eart: R SR. L ungs: c lear to auscultation. N eurologic Exam: I ntact, gait normal. Assessment: * Assessment: 1. P anic attack - F41.0 (Primary) Plan: * Treatment: * Follow Up: p rn * Images: Billing Information: * Visit Code: 46647 Office Visit, Est Pt., Level 3. * Procedure Codes: * Electronic signature of TEGAN Regan on 03/06/2025 at 09:20 AM EDT Sign off status: Pending * Provider: TEGAN Paez Date: 02/28/2025 Generated for Ramon canada/Jr/eTransmitting on: 03/06/2025 09:20 AM EDT History and Physical Notes * HPI (History of Present Illness) Category Sub-Category Detail Notes Category Not es Psychology Anxiety Pt here for a f/ u. Pt was started on Hydroxyzine 25mg last visit. Pt states he thinks the new meds been helping. He is now sleeping well. He does need a note for work stating he may need a few days off at times due to caring for his mother who has been in the hospital. Examination Category Sub-Category Detail Notes Category Not es Psychology Heart: RSR Lungs: clear to auscultatio n General Appearance: NAD Neurologic Exam: Intact, gait normal Grooming : adequate Eye contact : normal Mood : pleasant
--- OUTSIDE RECORDS SUMMARY | 2025-03-06 09:20 | XMS_ITS | Patient Health Record ---
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 Gr. 1.010 Ketone Neg Bili Neg Gluc Neg CBC Venipuncture (in house) Reviewed date:10/25/2024 03:15:36 [...] - 38 platlet 233 100 - 400 P-Comprehensive Metabolic Pa shavonne (CMP) Reviewed date:11/15/2024 02:04:57 PM Interpretation:see 10/31/24 bmp Performing Lab: Notes/Report: see 10/31/24 bmp P-Culture, Urine Reviewed date:10/30/2024 04:00:08 PM Interpretation:No Growth Performing Lab: Notes/Report: Test performed by [email or web address], [facility] [address] [place] [address] , [address], [place] [address] Pete Veloz MD, [employer] Reclaimer CLIA: [id number] Specimen Source Urine - Void Culture, Urine See Below Final Report : No Significant Growth CT Scan : Abd & Pelvis stone protocol (without contrast) Reviewed date:11/15/2024 03:50:18 PM Interpretation: Performing Lab: Notes/Report: CXR Reviewed date:11/20/2024 04:13:03 PM Interpretation:Negative Performing Lab: Notes/Report: Negative H-BMP Reviewed date:11/23/2024 01:27:13 PM Interpretation: Performing Lab: Notes/Report: Glycohemoglobin A1c (in hous e) Reviewed date:06/29/2024 [...] review and pick correct strength-formulat ion from Twitch options. If intended option is not shown, discontinue and re-order from Quick Search* Active Immunizations Vaccine Route Administration Date Status Comme nts xFluzone (6mos and older)-trivalent Unknown 05/21/2021 Administered xFlu shot- 6months-36 months of dow-IVMD-BCKB-trivalent Unknown 05/21/2017 Administered ppd ID Intradermal 06/05/2013 Administered Fluzone PF Quad (6-35 months) Unknown 05/13/2020 Administered Fluzone PF Quad (6-35 months) Unknown 05/20/2022 Administered COVID 19 Moderna Unknown 10/17/2020 Administered COVID 19 Moderna Unknown 11/14/2020 Administered Problems Problem Type SNOMED Code ICD Code Onset Dates Problem Status W/U Status Risk Notes Problem Sinusitis (07281018) Sinusitis (J32.9) Active c onfirmed Problem Vitamin D deficiency (68467300) Vitamin D deficiency (E55.9) Active confirmed Problem Vitamin B12 deficiency (417553268) Vitamin B12 deficiency (E53.8) Active confirmed Problem Essential hypertension (64754189) Essential hypertension (I10) Active confirmed Problem Otitis externa (3607888) Otitis externa (H60.90) Active confirmed Problem Hyperuricemia (84805816) Hyperuricemia (E79.0) Active confirmed Problem Hyperbilirubinemia (64450804) Hyperbilirubinemia (E80.6) Active confirmed Problem Gastroesophageal reflux disease (180184195) Gastroesophageal reflux disease, esophagitis presence not specified (K21.9) Active confirmed Problem Polyarthritis (573465157) Polyarthritis (M13.0) Active confirmed Problem Androgen deficiency (94743757) Testosterone deficiency (E29.1) Active confirmed Problem Paresthesia of both hands (073945940) Paresthesia of both hands (R20.2) Active confirmed Problem Gout (34170437) Acute gout invol ving toe of left foot, unspecified cause (M10.9) Active confirmed Problem Panic attack (834753371) Panic attack (F41.0) Active confirmed Problem Increased hemoglobin (648231506) Elevated hemoglobin (D58.2) Active confirmed Problem Partial thickness rotator cuff tear (628456810) Partial tear of right rotator cuff (M75.111) Active confirmed Problem Lumbar radiculopathy (845762868) Lumbar back pain with radiculopathy affecting lower extremity (M54.16) Active confirmed Problem Gastroesophageal reflux disease (218257882) Gastroesophageal reflux disease, unspecified whether esophagitis present (K21.9) Active confirmed Problem Lumbosacral spondylosis without myelopathy (16628802) Facet hypertrophy of lumbosacral region (M47.817) Active confirmed Vital Signs Heart Rate 105 /min 02/28/2025 Blood pressure diastolic 70 mm Hg 02/28/2025 Height 69 in 02/28/2025 Blood pressure systolic 122 mm Hg 02/28/2025 Weight 222 lbs 02/28/2025 BMI 32.78 kg/m2 02/28/2025 Encounters Encounter Location Date Provider Diagnosis [facility] [address] [facility] [address] [facility] [id number] 05/16/2024 Cecy Corinna Left hand tendonitis M77.8 and Lumbar back pain with radiculopathy affecting lower extremity M54.16 [facility] [address] [facility] [address] [facility] [id number] 06/08/2024 Cecy Crowryann Pain of right lower extremity M79.604 [facility] [address] [facility] [place] [id number] 06/28/2024 Cecy Corinna Elevated glucose R73 .09 and Pain of right lower extremity M79.604 [facility] [address] [facility] [place] [id number] 08/30/2024 Cecy Corinna De Quervain's tenosynovitis M65.4 and Trigger thumb, right thumb M65.311 [facility] [address] [place] [id number] 10/25/2024 Cecy Corinna Left lateral abdomin al pain R10.9 and Hematuria, unspecified type R31.9 [facility] [address] [facility] [place] [id number] 10/31/2024 Cecy Weinstein Pre-op exam Z01.818 [facility] [address] [facility] [place] [id number] 02/01/2025 Cecy Weinstein Symptomatic varicose veins of both lower extremities I83.893 [facility] [address] [place], [place] [id number] 02/13/2025 Cecy Danieldy Panic attack F41.0 [facility] [address] [place], [place] [id number] 02/28/2025 Cecy Crowdy Panic attack F41.0 [facility] [address] [place], [place] [id number] 06/20/2024 Cecy Crowdy [facility] [address] [place], [place] [id number] 06/27/2024 John Pigeon Gastroesophageal ref lux disease, unspecified whether esophagitis present K21.9 [facility] [address] [place], [place] [id number] 06/29/2024 Cecy Danieldy [facility] [address] [place], [place] [id number] 09/21/2024 Cecy Danieldy [facility] [address] [place], [place] [id number] 11/02/2024 John Pigeon [facility] [address] [place], [place] [id number] 11/02/2024 Cecy Sanchezdy [facility] [address] [place], [place] [id number] 11/23/2024 Cecy Weinstein Assessments Encounter Date Diagnosis [...] surgeon. 02/13/2025 Panic attack (ICD-10 - F41.0) 02/28/2025 Panic attack (ICD-10 - F41.0) Plan Of Treatment Pending Test Test Name Order Date EKG 10/31/2024 H-CBC 10/31/2024 H-UA 10/31/2024 H-Urine Drug Screen 10/31/2024 P-Arthritis Panel, [facility] 10/13/2022 Insurance Providers Payer Name Payer Address Payer Phone Subscriber Number Group Number Insured Name Patient Relationship to Insured Coverage Start Date Coverage End Date [employer] [address] [place] [address] [id number] Harris Lopez Self - patient is the insured Medical (General) History Medical History History ICD Code Esophageal reflux hyperlipidemia irritable bowel syndrome depression allergic rhinitis Testosterone deficiency, s/p Urology and Endocrinology evaluation B 12 deficiency gall bladder disease Vitamin D deficiency Hyperuricemia H Pylori, treated in 1999' Diverticulosis - dx. Jun 2018 Colon polyps Sarcoidosis Surgical History Surgery Date(Month/Year) cholecystectomy tonsillectomy 07/2012 Slap Repair on right shoulder 11/2012 Colonoscopy - Diverticulosis 07/19/2018 Hospitalization History Reason Date(Month/Year) [facility] - Shingles 10/18/2018 [facility] - chest pain 04/08/2018
[2025-03-06 09:35] VITALS: BP 128/88; PULSE 80; RESP 14; O2SAT 98; BMI 32.5
--- NOTE | 2025-03-06 09:50 | EXP.PAIN.SOA ---
[facility] Disclaimer: The information contained in this section may have been updated after the patient was seen, as this information can be updated by other users. Medical History Hilar lymphadenopathy Dyspnea on exertion History of gout Mediastinal lymphadenopathy Hypotestosteronemia in male SOB (shortness of breath) Family history of coronary artery disease Tachycardia HTN (hypertension) Surgical History History of surgery on upper extremity History of tonsillectomy History of cholecystectomy Family History Other No significant family history Social History Smoking Status: Never smoker alcohol intake: never substance use type: denies use current occupational status: other Travel in the last 8 weeks?: None household members: spouse housing: house current occupational exposures/hazards: No caffeine: No PM Subjective & Objective Subjective Subjective:: Patient is a pleasant 45-year-old male who presents today for worsening low back, buttocks pain as well as lower leg pain bilaterally that does run to his feet. Patient states that he woke up with much worse overall pain and that it is very bothersome and interfering with his ability perform activities of daily living such as cooking and cleaning. Patient has had injections in the past with our office and does state that he would like to see about getting scheduled for one as the pain is really bothersome and he is having to modify his activity due to the pain. Patient is currently managed with [place] 5 mg 3 times a day, tizanidine 2 mg at bedtime and ropinirole 0.25 mg at bedtime from our office. He denies any side effects. His Chaim has been reviewed and is appropriate. Review of Systems: General: No recent weight changes, no fever, no sleep disturbances Respiratory: No cough, no shortness of air, no recurring pulmonary infections Cardiovascular/peripheral vascular: No chest pain, no palpitations, no edema, no shortness of breath Gastrointestinal: No new onset incontinence, normal bowel movements reported Genitourinary: No new onset incontinence Musculoskeletal: Low back pain, bilateral leg pain Psychiatric: [Normal mood/affect] Neurological: [Denies weakness in extremities], [denies balance issues] Pain at rest (0-10 scale): 7 Objective Objective:: Physical Exam: General: Alert and oriented x3, no acute distress, pleasant and cooperative Lungs: Respirations even and unlabored, symmetrical chest expansion Eyes: PERRL Musculoskeletal: Flexion and extension of lumbar [spine] somewhat guarded secondary to pain, [antalgic gait noted] positive leg raise Neurological: Speech clear, no gross sensory deficit Has patient had previous pain injection?: No Conservative treatment options previously tried: Home exercise plan Length of treatment: Longer than 12 weeks Meds Home Medications and Allergies Home Medications ?Medication ?Instructions ?Recorded ?Confirmed ?Type losartan 25 mg tablet 25 mg PO DAILY 02/26/24 03/06/25 History pantoprazole 40 mg tablet,delayed 40 mg PO DAILY 02/26/24 03/06/25 History release paroxetine HCl 40 mg tablet 40 mg PO DAILY 02/26/24 03/06/25 History testosterone cypionate 200 mg/mL 300 mg IM WEEKLY 02/26/24 03/06/25 History intramuscular oil pregabalin 75 mg capsule 75 mg PO BID #60 caps 04/02/24 03/06/25 Rx ropinirole 0.25 mg tablet 0.25 mg PO HS #30 tabs 12/24/24 03/06/25 Rx tizanidine 2 mg tablet 2 mg PO HS #30 tabs 12/24/24 03/06/25 Rx hydrocodone 5 mg-acetaminophen 325 1 tab PO TID #90 tabs 02/25/25 03/06/25 Rx mg tablet New Prescriptions to Start Prescriptions: Allergies Allergy/AdvReac Type Severity Reaction Status Date / Time acetaminophen (From Percocet) Allergy Nightmare Verified 09/19/24 10:24 levofloxacin (From Levaquin) Allergy Vomiting Verified 09/19/24 10:24 oxycodone (From Percocet) Allergy Nightmare Verified 09/19/24 10:24 Assessment and Plan *Assessment and plan (1) Lumbar radiculopathy: Status: Acute Category: Medical Code(s): M54.16 - Radiculopathy, lumbar region (2) Degenerative disc disease, lumbar: Status: Acute Category: Medical Code(s): M51.369 - Other intervertebral disc degeneration, lumbar region without mention of lumbar back pain or lower extremity pain Plan Patient is experiencing worsening pain in his low back with numbness and tingling into his lower extremities. Patient did have limited range of motion of her lumbar spine with a positive leg raise. I did discuss with patient that I do believe they would benefit from a lumbar epidural steroid injection. Risk and benefits were discussed with patient and the patient would like to proceed forward with this plan of care. Patient is not on any blood thinners. Patient has tried and failed conservative therapy including oral medications, heat and ice, topicals and continued at home stretching exercise for longer than 12 weeks that was physician guided. Patient has had chronic back pain for longer than 6 months. Patient did previously have a lumbar epidural back in 2023 that provided 50% relief and lasted longer than 3 months. We will schedule the patient for an LESI L4-L5 under fluoroscopy. Patient has been instructed to contact the clinic with any concerns before the next appointment. Dr. Tipton has reviewed this note and agrees with this plan of care. This note was dictated using voice recognition software and make contain errors or omissions. All injections are used with Lidocaine, Bupivacaine and dexamethasone. Occasionally urine drug screen is needed to verify patient's compliance with our office pain contract. This is ordered based off specific treatments related to chronic pain with the potential to abuse certain medications.
== END 2025-03-06 23:59 | disposition home or self-care (01) ==
LOC: SC.PAIN 09:17
PROVIDERS: PCP Physician Assistant; Visit Provider Nurse Practitioner Family
DX: M51.16 Intervertebral disc disorders with radiculopathy, lumbar region (principal); Z79.891 Long term (current) use of opiate analgesic; Z79.899 Other long term (current) drug therapy
CPT/HCPCS: 99212; G0463

== ENCOUNTER 2025-04-16 09:20 | Day surgery (SDC) | payer BC, SELFPAY ==
[2025-04-16 09:30] VITALS: BP 115/85; PULSE 88; RESP 18; O2SAT 100; BMI 33.2
[2025-04-16] MEDS: DEXAMETHASONE 10MG/ML 1ML VIAL 10 MG (09:33)
[2025-04-16 09:34] VITALS: BP 134/81; PULSE 111; RESP 18; O2SAT 96
[2025-04-16 09:35] VITALS: BP 134/81; PULSE 110; RESP 18; O2SAT 96
--- NOTE | 2025-04-16 09:38 | P.PCN_ITS ---
Procedure Date: 04/16/25 Time: :25 Anesthesiologist:: Moy Samano CRNA Complications:: None Pre-procedure Diagnosis:: Degenerative disc lumbar spine multilevels. Lumbar radiculopathy. Post-procedure Diagnosis:: Same Indications for Procedure:: Patient is a very pleasant 45-year-old male who comes our clinic today for a lumbar L4-5 epidural steroid injection. Patient describes low lumbar back pain as well as bilateral leg radicular symptoms at times. Patient reports respondi ng well to lumbar epidural steroid injections in the past. He rates his pain 6/10. Procedure Details:: Procedure: Lumbar epidural steroid injection under fluoroscopy Informed consent was obtained and the risks and benefits of the procedure were explained to the patient. The patient was taken to the procedure room and noninvasive monitors placed, including noninvasive blood pressure cuff and pulse oximeter. The back was viewed using C-arm Fluoroscopy and prepped using Chloraprep as a cleansing solution and the L4-L5 interspace was palpated. Skin and subcutaneous tissues were anesthetized using lidocaine 1.5% and a 25-gauge needle. After this, an 18-gauge Touhy epidural needle was placed into the L4-L5 interspace and advanced using fluoroscopic guidance and loss of resistance to air until the epidural space was encountered. After confirmation of needle placement in the epidural space, with dye, a solution containing normal saline, 3 mL and dexamethasone 10 mg were incrementally injected into the lumbar epidural space. The patient tolerated the procedure well with no complications. The patient was observed in the Pain Clinic and then discharged home neurologically intact. Plan and Disposition:: Patient was discharged without incident.
[2025-04-16 09:48] VITALS: BP 111/83; PULSE 68; RESP 18; O2SAT 100
== END 2025-04-16 09:48 | disposition home or self-care (01) ==
PROVIDERS: PCP Physician Assistant; Visit Provider Nurse Anesthetist, Certified Registered
DX: M51.16 Intervertebral disc disorders with radiculopathy, lumbar region (principal); I10 Essential (primary) hypertension; E29.1 Testicular hypofunction; Z88.1 Allergy status to other antibiotic agents; Z88.5 Allergy status to narcotic agent; Z88.6 Allergy status to analgesic agent; Z79.899 Other long term (current) drug therapy
CPT/HCPCS: 62323; J1100